=== PATIENT | female | born 1965 | race Caucasian/White ===

== ENCOUNTER 2021-12-28 15:25 | Inpatient (IN) | payer MEDICARE, MEDICAID, SELFPAY ==
[2021-12-28 15:38] VITALS: PULSE 98; RESP 16; TEMP 36.6; O2SAT 98; BMI 28.2
--- NOTE | 2021-12-28 15:49 | ED.C_ITS ---
HPI - Psych General: Chief Complaint: Psychiatric Symptoms Stated Complaint: V/N Time Seen by Provider: 12/28/21 15:48 History of Present Illness: Ms. Kohli is a 56-year-old lady with history of hypertension, hyperlipidemia, psychiatric disorder who presents to the emergency department due to various concerns. 3 to 4 days ago she had gradual onset of unsteady feeling as well as abdominal discomfort. She has nausea and wants to vomit however has not had significant vomiting. She does endorse normal bowel movements. Abdominal discomfort is cramping in character and mild to moderate intensity. She has had decreased p.o. intake. Additionally at times she has chest discomfort. She has significant life stressors and is tearful. She endorses suicidal thoughts and feeling overwhelmed. There is a correlation of symptoms with feeling anxious however she is unsure if this is purely the cause. She reports compliance with her medication regimen. No other specific changes in health, exacerbating, or alleviating factors identified. Onset (ago): day(s) Duration: getting worse Relieving factors: none Associated psychiatric symptoms: depression and suicidal ideation Associated symptoms: Reports depression, racing thoughts and other Review of Systems General: Reports: 10 or more systems reviewed and unremarkable except in HPI and below Psych: Reports: depression PFSH ED PFSH: Medical History (Updated 12/28/21 @ 18:38 by Benja Roach MD) HLD (hyperlipidemia) HTN (hypertension) Psychiatric care Social History (Updated 12/28/21 @ 16:22 by Benja Roach MD) Smoking and tobacco status: current every day smoker Physical Exam Const: COMMON NORMALS: alert GENERAL APPEARANCE: cooperative and well developed HENMT: COMMON NORMALS: normocephalic and atraumatic HEAD & SCALP: normocephalic and atraumatic Eye: COMMON NORMALS: conjunctivae normal CONJUNCTIVA: Yes conjunctivae normal SCLERA: sclerae normal Neck/C-Spine: COMMON NORMALS: supple GENERAL: Yes trachea midline Resp: COMMON NORMALS: normal respiratory effort EFFORT & INSPECTION: Yes able to speak in complete sentences Cardio: COMMON NORMALS: regular rate and regular rhythm RATE: regular rate RHYTHM: regular rhythm GI: COMMON NORMALS: Soft to palpation PALPATION: Yes Soft to palpation and No Tenderness to palpation present (GI) PERCUSSION: normal to percussion Extremity: GENERAL: Yes normal exam except as noted and No edema Neuro: COMMON NORMALS: moves all extremities SENSORIUM/ORIENTATION: Yes alert and No Orientation impaired Psych: COMMON NORMALS: mental status grossly normal and Normal thought process present MOOD & AFFECT: Yes anxious and Yes tearful THOUGHT PROCESS: Normal thought process present Course ED course: - Patient was seen and evaluated by me at bedside - Patient placed on cardiac monitors, IV access obtained - Initial evaluation notable for exam as above, anxious, tearful - Labs personally interpreted by me. EKG interpreted by me from 1632 and 1813. Sinus rhythm. No STEMI. - Labs notable for mild leukocytosis, normal hemoglobin. Unremarkable hematologic panel. Delta troponin negative. Urinalysis not concerning for u rinary tract infection. Toxic ingestions and drug screen negative. - Imaging notable for negative head CT and CT abdomen pelvis for obvious constipation symptoms - Upon serial reexamination after treatment the patient was mildly improved - Based on patient history, evaluation, and testing as interpreted the most likely cause of the patient's condition is multifactorial. Patient does express worsening psychiatric symptoms including suicidal ideation and hallucinations and therefore does require admission for psychiatric care. - The results of ED evaluation were discussed with the patient including plan for admission due to requirement for level of care not available if discharged to prevent significant worsening/deterioration. - Admitting service was contacted and Dr Walters with the psychiatry service agreed to admit the patient - Patient was admitted without further deterioration or significant events. Note: Click bubbles or prepopulated garsia in note writing are used for assistance with data collection and billing and are inherently more limited than narrative and other text portions of this note. Please use narrative for additional clinical history and defer to narrative/free test for any case of contradictory information. If information appears in only free text or click bubble it should be considered present or absent as reported. Please contact note real estate underwriter for clarifications of clinical information or contradictory information. MDM is a brief summary, contradictory or erroneous seeming information should be clarified and full note should be reviewed. Vital Signs: Vital signs: Vital Signs Temperature 97.8 F 12/28/21 15:38 Pulse Rate 108 H 12/28/21 19:54 Respiratory Rate 17 12/28/21 19:54 Blood Pressure 108/78 12/28/21 19:54 Pulse Oximetry 97 12/28/21 19:54 MDM - Psych Medical Decision Making 56-year-old lady with history of either schizoaffective disorder or bipolar, hypertension, hyperlipidemia presenting with generalized symptoms including abdominal pain and unsteady feeling as well as worsening psychiatric symptoms. Negative ED evaluation for medical concerns. Admitted to neuropsych for definitive management of psychiatric concerns. Medical Records I reviewed the patient's medical records. Lab Data I reviewed the patient's lab results. : 12/28/21 16:07 12/28/21 16:07 Radiology Impressions Abdomen/Pelvis CT 12/28/21 16:06 IMPRESSION: 1. No acute abnormality identified in the abdomen or pelvis. 2. Fluid distention of the stomach may relate to recent ingestion of water. Gastroparesis is not excluded. Head CT 12/28/21 16:06 IMPRESSION: No acute intracranial abnormality. Laboratory Results WBC 12.6 10^3/uL (4.0-10.0) H 12/28/21 16:07 RBC 4.78 10^6/uL (4.1-5.3) 12/28/21 16:07 Hgb 15.0 g/dL (11.5-15.3) 12/28/21 16:07 Hct 44.9 % (37.0-47.0) 12/28/21 16:07 MCV 93.9 fl (81-99) 12/28/21 16:07 MCH 31.4 pg (28.0-34.0) 12/28/21 16:07 MCHC 33.4 g/dL (30.0-36.0) 12/28/21 16:07 RDW 12.4 % (12.1-15.1) 12/28/21 16:07 Plt Count 333 10^3/cmm (130-400) 12/28/21 16:07 MPV 10.3 fL (7.4-10.4) 12/28/21 16:07 Neut % (Auto) 76.6 % 12/28/21 16:07 Lymph % (Auto) 16.3 % 12/28/21 16:07 [place] % (Auto) 5.3 % 12/28/21 16:07 Eos % (Auto) 1.1 % 12/28/21 16:07 Baso % (Auto) 0.4 % 12/28/21 16:07 Neut # (Auto) 9.61 10^3/uL (1.8-7.7) H 12/28/21 16:07 Lymph # (Auto) 2.1 10^3/uL (0.8-4.8) 12/28/21 16:07 [place] # (Auto) 0.7 10^3/uL (0.2-0.9) 12/28/21 16:07 Eos # (Auto) 0.1 10^3/uL (0.0-0.8) 12/28/21 16:07 Baso # (Auto) 0.1 10^3/uL (0.0-0.1) 12/28/21 16:07 Nucleated RBC % (auto) 0 % 12/28/21 16:07 Nucleated RBCs # 0.0 /100WBC 12/28/21 16:07 Sodium 139 mmol/L (136-145) 12/28/21 16:07 Potassium 4.1 mmol/L (3.5-5.1) 12/28/21 16:07 Chloride 101 mmol/L (98-107) 12/28/21 16:07 Carbon Dioxide 26 mmol/L (22-29) 12/28/21 16:07 Anion Gap 16.1 (5-19) 12/28/21 16:07 BUN 10 mg/dL (6-20) 12/28/21 16:07 Creatinine 0.6 mg/dL (0.5-0.9) 12/28/21 16:07 GFR Calculation 104.2 mL/min (90-130) 12/28/21 16:07 Glucose 96 mg/dL (65-115) 12/28/21 16:07 Calculated Osmolality 287 mOsm/kg (285-295) 12/28/21 16:07 Calcium 8.9 mg/dL (8.5-10.5) 12/28/21 16:07 Total Bilirubin 0.3 mg/dL (0.15-1.2) 12/28/21 16:07 AST 24 U/L (0-32) 12/28/21 16:07 ALT 26 U/L (0-33) 12/28/21 16:07 Alkaline Phosphatase 101 IU/L (35-105) 12/28/21 16:07 Troponin T Baseline 7 ng/L (0-10) 12/28/21 16:07 Troponin T 120 Minute 6.82 ng/L (0-10) 12/28/21 17:52 Delta Troponin T -0.18 ABS# (0-10) L 12/28/21 17:52 NT-Pro-B Natriuret Pep 17 pg/mL (0-125) 12/28/21 16:07 Total Protein 7.6 g/dL (6.6-8.7) 12/28/21 16:07 Albumin 4.8 g/dL (3.5-5.2) 12/28/21 16:07 Globulin 2.8 g/dL (1.3-4.6) 12/28/21 16:07 Lipase 16 U/L (13-60) 12/28/21 16:07 TSH 1.43 uIU/mL (0.27-4.20) 12/28/21 16:07 Urine Color Yellow (Yellow) 12/28/21 16:07 Urine Appearance Clear (CLEAR) 12/28/21 16:07 Urine pH 8 (5-7) H 12/28/21 16:07 Ur Specific [place] 1.020 (1.005-1.030) 12/28/21 16:07 Urine Protein Neg (Negative) 12/28/21 16:07 Urine Glucose (UA) Norm (Normal) 12/28/21 16:07 Urine Ketones Negative (Negative) 12/28/21 16:07 Urine Blood 2+ (Negative) H 12/28/21 16:07 Urine Nitrate Negative (Negative) 12/28/21 16:07 Urine Bilirubin Neg (Negative) 12/28/21 16:07 Prot Sulfosalicylic Acd Negative (Negative) 12/28/21 16:07 Urine Urobilinogen Norm mg/dL (Negative) 12/28/21 16:07 Ur Leukocyte Esterase Negative (Negative) 12/28/21 16:07 Urine RBC None /hpf (0-2) 12/28/21 16:07 Urine WBC 0-4 /hpf (0-5) H 12/28/21 16:07 Ur Squamous Epith Cells 5-10 /hpf (0-5) H 12/28/21 16:07 Amorphous Sediment Not Reportable 12/28/21 16:07 Urine Bacteria None /hpf (NONE) 12/28/21 16:07 Salicylates < 0.3 mg/dL (3-10) L 12/28/21 16:07 Urine Opiates Screen Negative ng/mL (Negative) 12/28/21 16:07 Acetaminophen < 5.0 ug/mL (10-30) L 12/28/21 16:07 Ur Barbiturates Screen Negative ng/mL (Negative) 12/28/21 16:07 Ur Phencyclidine Scrn Negative ng/mL (Negative) 12/28/21 16:07 Ur Amphetamines Screen Negative ng/mL (Negative) 12/28/21 16:07 U Benzodiazepines Scrn Negative ng/mL (Negative) 12/28/21 16:07 Urine Cocaine Screen Negative ng/mL (Negative) 12/28/21 16:07 U Marijuana (THC) Screen Negative ng/mL (Negative) 12/28/21 16:07 Ethyl Alcohol < 10 mg/dL (0-10) 12/28/21 16:07 Discharge Plan Discharge Patient Disposition: Admitted As Inpatient Admit Provider: Yobany Walters Clinical Impression: Suicidal ideation, Depression, Abdominal pain Condition: Stable Coding Level of Care Code ED Export Freight Specialist for Anatolyg Fwd Exam Comprehensive
--- NOTE | 2021-12-28 16:06 | CTR_ITS ---
PROCEDURE INFORMATION: Exam: CT Abdomen And Pelvis With Contrast Exam date and time: 12/28/2021 5:13 PM Age: 56 years old Clinical indication: Abdominal pain; Generalized; Patient HX: C/O abd pain w nausea and dry heaves; Additional info: N/v abdominal pain x 3 days TECHNIQUE: Imaging protocol: Computed tomography of the abdomen and pelvis with contrast. Radiation optimization: All CT scans at this facility use at least one of these dose optimization techniques: automated exposure control; mA and/or kV adjustment per patient size (includes targeted exams where dose is matched to clinical indication); or iterative reconstruction. Contrast material: OMNI 300; Contrast volume: 95 ml; Contrast route: INTRAVENOUS (IV); COMPARISON: No relevant prior studies available. RADIATION DOSE METRICS: Total DLP (mGy-cm): 1830.76 FINDINGS: Liver: Normal. No mass. Gallbladder and bile ducts: Normal. No calcified stones. No ductal dilation. Pancreas: Normal. No ductal dilation. Spleen: Normal. No splenomegaly. Adrenal glands: Normal. No mass. Kidneys and ureters: Normal. No hydronephrosis. Stomach and bowel: Duodenal diverticulum. Fluid distended stomach. No wall thickening. The small bowel is unremarkable. No wall thickening or obstruction. Scattered gas and stool in the colon and rectum. Appendix: Click appendix Intraperitoneal space: Unremarkable. No free air. No significant fluid collection. Arteries: Unremarkable. No abdominal aortic aneurysm. Lymph nodes: Unremarkable. No enlarged lymph nodes. Urinary bladder: Unremarkable as visualized. Reproductive: Unremarkable as visualized. Bones/joints: Degenerative changes at L4-L5. No fracture. Soft tissues: Small fat containing umbilical hernia. CT/CT abdomen pelvis w con* [id number] IMPRESSION: 1. No acute abnormality identified in the abdomen or pelvis. 2. Fluid distention of the stomach may relate to recent ingestion of water. Gastroparesis is not excluded.
--- NOTE | 2021-12-28 16:06 | CTR_ITS ---
PROCEDURE INFORMATION: Exam: CT Head Without Contrast Exam date and time: 12/28/2021 5:09 PM Age: 56 years old Clinical indication: Walking, difficulty; Patient HX: Unsteady gait and BANUELOS; Additional info: Unsteady gait, headache x 3 days TECHNIQUE: Imaging protocol: Computed tomography of the head without contrast. Radiation optimization: All CT scans at this facility use at least one of these dose optimization techniques: automated exposure control; mA and/or kV adjustment per patient size (includes targeted exams where dose is matched to clinical indication); or iterative reconstruction. COMPARISON: No relevant prior studies available. RADIATION DOSE METRICS: Total DLP (mGy-cm): 855.43 FINDINGS: Brain: Normal. No hemorrhage. Unremarkable white matter. No mass effect. Cerebral ventricles: No ventriculomegaly. Paranasal sinuses: Visualized sinuses are unremarkable. No fluid levels. Mastoid air cells: Visualized mastoid air cells are well aerated. Bones/joints: Unremarkable. No acute fracture. Soft tissues: Unremarkable. CT/CT head wo con* [id number] IMPRESSION: No acute intracranial abnormality.
--- NOTE | 2021-12-28 16:07 | ECG_ITS ---
[facility] Test Date: 2021-12-28 Pat Name: Alisa Kohli Department: Room: Gender: Female Senior Finance Manager: : 1965 Requested By: Benja Roach Order Number: [id number] Rajendra MD: Hafsa Pradhan M.D. Measurements Intervals [place] Rate: 100 P: 46 [place]: 147 QRS: 20 QRSD: 94 T: 48 QT: 346 QTc: 447 Interpretive Statements SINUS TACHYCARDIA POSSIBLE LEFT ATRIAL ENLARGEMENT [-0.1mV P-WAVE IN V1/V2] POSSIBLE ANTERIOR MYOCARDIAL INFARCTION , PROBABLY OLD [30 ms Q WAVE IN V3/V4, OR R < 0.2 mV IN V4] ABNORMAL RHYTHM ECG No previous ECG available for comparison Electronically Signed On 12-30-2021 7:30:28 CDT by Hafsa Pradhan M.D. [id number]
[2021-12-28 16:35] VITALS: BP 176/70; PULSE 100; RESP 18; O2SAT 96
[2021-12-28 16:35] LABS: Basophils # 0.1 10^3/uL (0.0-0.1); Basophils % 0.4 %; Eosinophils # 0.1 10^3/uL (0.0-0.8); Eosinophils % 1.1 %; Hematocrit 44.9 % (37.0-47.0); Lymphocytes # 2.1 10^3/uL (0.8-4.8); Lymphocytes % 16.3 %; Mean Corpuscular HGB Conc 33.4 g/dL (30.0-36.0); Mean Corpuscular Hemoglobin 31.4 pg (28.0-34.0); Mean Corpuscular Volume 93.9 fl (81-99); Mean Platelet Volume 10.3 fL (7.4-10.4); Monocytes # 0.7 10^3/uL (0.2-0.9); Monocytes % 5.3 %; Neutrophils # 9.61 10^3/uL (1.8-7.7); Neutrophils % 76.6 %; Nucleated Red Blood Cells % 0 %; Platelet Count 333 10^3/cmm (130-400); Red Blood Count 4.78 10^6/uL (4.1-5.3); Red Cell Distribution Width 12.4 % (12.1-15.1); White Blood Count 12.6 10^3/uL (4.0-10.0)
[2021-12-28 17:05] LABS: Troponin(5th) Baseline 7 ng/L (0-10)
[2021-12-28] MEDS: iohexol 300 mg/mL 100 mL Btl IV (17:14)
[2021-12-28 17:15] LABS: Alanine Aminotransferase 26 U/L (0-33); Albumin Level 4.8 g/dL (3.5-5.2); Alkaline Phosphatase 101 IU/L (35-105); Amphetamines Screen Urine Negative (Negative); Anion Gap 16.1 (5-19); Aspartate Amino Transferase 24 U/L (0-32); Barbiturates Screen Urine Negative (Negative); Benzodiazepines Screen Urine Negative (Negative); Blood Urea Nitrogen 10 mg/dL (6-20); Calcium 8.9 mg/dL (8.5-10.5); Carbon Dioxide 26 mmol/L (22-29); Chloride 101 mmol/L (98-107); Cocaine Screen Urine Negative (Negative); Globulin 2.8 g/dL (1.3-4.6); Glomerular Filtration Rate 104.2 mL/min (90-130); Glucose 96 mg/dL (65-115); Lipase 16 U/L (13-60); NT Pro B Type Natriuretic Pept 17 pg/mL (0-125); Opiate Screen Urine Negative (Negative); Osmolality Calculated 287 mOsm/kg (285-295); PCP Screen Urine Negative (Negative); Potassium 4.1 mmol/L (3.5-5.1); Sodium 139 mmol/L (136-145); THC Screen Urine Negative (Negative); Thyroid Stimulating Hormone 1.43 uIU/mL (0.27-4.20); Total Bilirubin 0.3 mg/dL (0.15-1.2); Total Protein 7.6 g/dL (6.6-8.7)
[2021-12-28 17:17] LABS: Add Urine Microscopic? YES; Bilirubin Urine Neg (Negative); Blood Urine 2+ (Negative); Glucose Urine UA Norm (Normal); Ketones Urine Negative (Negative); Leukocyte Esterase Urine Negative (Negative); Nitrate Urine Negative (Negative); Protein Urine Neg (Negative); Sulfosalicylic Acid Urine Negative (Negative); Urine Appearance Clear (CLEAR); Urine Color Yellow (Yellow); Urobilinogen Urine Norm (Negative); WBC Urine 0-4 /hpf (0-5); pH Urine 8 (5-7)
[2021-12-28 17:19] LABS: Acetaminophen < 5.0 ug/mL (10-30); Alcohol Level < 10 mg/dL (0-10); Salicylate < 0.3 mg/dL (3-10)
--- NOTE | 2021-12-28 18:07 | ECG_ITS ---
[facility] Test Date: 2021-12-28 Pat Name: Alisa Kolhi Department: Room: Gender: Female Underwriter Mortgage Loan: : 1965 Requested By: Benja Roach Order Number: [id number] Rajendra MD: Hafsa Pradhan M.D. Measurements Intervals [place] Rate: 98 P: 59 MT: 147 QRS: 42 QRSD: 86 T: 52 QT: 342 QTc: 438 Interpretive Statements SINUS RHYTHM LOW QRS VOLTAGE IN PRECORDIAL LEADS [QRS DEFLECTION < 1.0 mV IN CHEST LEADS] Compared to ECG 12/28/2021 16:32:26 Low QRS voltage now present Sinus tachycardia no longer present Myocardial infarct finding no longer present Electronically Signed On 12-30-2021 7:49:41 CDT by Hafsa Pradhan M.D. [id number]
[2021-12-28 18:35] VITALS: BP 118/87; PULSE 97; RESP 18; O2SAT 99
[2021-12-28 18:39] LABS: Troponin 5 2HR 6.82 ng/L (0-10)
[2021-12-28 18:44] LABS: Troponin 5 2HR Delta -0.18 ABS# (0-10)
[2021-12-28] MEDS: lidocaine 2% viscous 15 ML, aluminum-mag hydrox-simethicon 30 ML, sucralfate oral liq 1 GM PO (18:47)
[2021-12-28] MEDS: LORazepam 2 mg/mL INJ 1 mL 0.5 MG IVP (18:48)
[2021-12-28] MEDS: ondansetron 2 mg/ML SDV 2 mL 4 MG IVP (18:48)
[2021-12-28] MEDS: ketorolac 30 mg/mL INJ 15 MG IVP (19:50)
[2021-12-28 19:54] VITALS: BP 108/78; PULSE 108; RESP 17; O2SAT 97
[2021-12-28 20:04] VITALS: BP 107/66; PULSE 116; RESP 18; TEMP 36.5; O2SAT 99
[2021-12-28] MEDS: nicotine 2 mg Gum BUCCAL (20:46)
[2021-12-28] MEDS: quetiapine 100 mg Tablet 200 MG PO (20:52)
[2021-12-28] MEDS: zolpidem 5 mg Tablet PO (20:52)
[2021-12-28] MEDS: gabapentin 300 mg Capsule PO (20:52)
[2021-12-28] MEDS: efferdent effervescent 1 EACH DENTAL (21:34)
[2021-12-28] MEDS: ondansetron 4 MG Tablet PO (21:38)
[2021-12-28 22:00] VITALS: BP 107/66; PULSE 116; RESP 18; TEMP 36.5; O2SAT 99
--- NOTE | 2021-12-28 23:44 | PC.ADMIT ---
[facility] Admission Note:Ms. Kohli is a 56-year-old lady with history of hypertension, hyperlipidemia, psychiatric disorder who presents to the emergency department due to various concerns. 3 to 4 days ago she had gradual onset of unsteady feeling as well as abdominal discomfort. She has nausea and wants to vomit however has not had significant vomiting. She does endorse normal bowel movements. Abdominal discomfort is cramping in character and mild to moderate intensity. She has had decreased p.o. intake. Additionally at times she has chest discomfort. She has significant life stressors and is tearful. She endorses suicidal thoughts and feeling overwhelmed. There is a correlation of symptoms with feeling anxious however she is unsure if this is purely the cause. She reports compliance with her medication regimen. No other specific changes in health, exacerbating, or alleviating factors identified. Patient states that she lives at [facility]. Her goal is to get to an apartment at [facility] here in [place]. She states that she has had psychiatric issues since the age of 24 and has been disabled. She lived with her grandma most of her life until she passed and then lived with her mom until she passed 4 years ago. She states that she felt very sick today with n/v and had a friend bring her to the ED. She states she is overwhelmed and just couldn't cope anymore and was having suicidal thoughts with no plan. Patient denies SI on assessment. She states that sometimes she just needs a change in medication because she has been on it so long. The patient,Alisa Kohli,56 y/o, was given written information regarding hospital policies, unit procedures and contact persons. Patient's smoking status: current every day smoker. Vital Signs - 8 hr 12/28/21 16:35 12/28/21 18:35 12/28/21 19:54 Temperature Pulse Rate 100 97 108 H Respiratory Rate 18 18 17 Blood Pressure 176/70 118/87 108/78 Pulse Oximetry 96 99 97 12/28/21 20:04 12/28/21 22:00 Temperature 97.7 F 97.7 F Pulse Rate 116 H 116 H Respiratory Rate 18 18 Blood Pressure 107/66 107/66 Pulse Oximetry 99 99
--- NOTE | 2021-12-29 00:04 | PC.NURSE ---
Patient gave permission to speak to [facility] to let them know that she was here so that she doesn't lose her bed there. Confirmation was made with facility staff that the patient is here and is safe and okay.
[2021-12-29] MEDS: trazodone 50 mg Tablet PO (00:47)
[2021-12-29] MEDS: nicotine 2 mg Gum BUCCAL ×2 (00:55→04:58)
[2021-12-29 06:00] VITALS: BP 96/64; PULSE 106; RESP 18; TEMP 36.3; O2SAT 95
[2021-12-29] MEDS: nicotine 21 mg Patch 1 PATCH TRANSDERMA (07:55)
[2021-12-29] MEDS: ARIPiprazole 10 mg Tablet 5 MG PO (08:55)
[2021-12-29] MEDS: divalproex ER 500 mg Tablet (24H) PO ×2 (08:55→20:40)
[2021-12-29] MEDS: fixodent 39 gm Tube 1 APPLIC DENTAL ×2 (08:55→17:36)
--- NOTE | 2021-12-29 08:55 | P.NPUHP_ITS ---
Providers/Chief Complaint Admitting Physician: Yobany Walters MD Chief Complaint: V/N HPI NPU History of Present Illness Alisa Kohli is a 56 year old female admitted to our emergency department with the following report: Ms. Kohli is a 56-year-old lady with history of hypertension, hyperlipidemia, psychiatric disorder who presents to the emergency department due to various concerns.? 3 to 4 days ago she had gradual onset of unsteady feeling as well as abdominal discomfort.? She has nausea and wants to vomit however has not had significant vomiting.? She does endorse normal bowel movements.? Abdominal discomfort is cramping in character and mild to moderate intensity.? She has had decreased p.o. intake.? Additionally at times she has chest discomfort.? She has significant life stressors and is tearful.? She endorses suicidal thoughts and feeling overwhelmed.? There is a correlation of symptoms with feeling anxious however she is unsure if this is purely the cause.? She reports compliance with her medication regimen.? No other specific changes in health, exacerbating, or alleviating factors identified. Her primary complaint today was medication side effects. She does not like the Depakote or gabapentin. She has been on the Depakote since she is 24 years old and feels like she has a lot of side effects from it. She also is on gabapentin and does not feel that it helps her pain or mood stability. She feels like she has side effects from that. She said that a couple of times in the past they have taken her off of those medications and changed her to Haldol and Cogentin and she has liked that. She would like to do that again. She also said that maybe lithium might be good. She has not been on that for many years and really forgets what it did for her or what her dose was. She has been depressed and anxious lately. She has not been on antidepressant recently. She does not think she has ever tried Cymbalta. She says that she has pain from arthritis. It especially bothers the bottoms of her feet and she is afraid that she will get to the point where she cannot walk. She is currently staying at [facility]. She she was in a snf several years ago and really liked that. She said her mother took her out of it before she . Her mother 4 years ago. She thinks that is when they started her on the gabapentin. She has been on disability since her 20s. She says that it is primarily from the bipolar disorder and the side effects that she has from her medications. [facility] now and trying to save money so that she can get her own place. She would like to go back to a snf situation but she says her insurance will not pay for it now. She thinks that she is on some sort of supplement but is not sure if that is the problem. 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 The client has been having difficulty controlling worry, worrying about too many things at the same time, with symptoms of being restless or keyed up, difficulty concentrating, irritability, and significant sleep disturbances. These symptoms have caused significant distress and interfering with social, occupational, and other important areas of functioning. Alisa also meets some of the criteria for Agoraphobia (F40.0), with the symptoms of anxiety about social situations when meeting unfamiliar people, fear that she would be negatively evaluated, and anxiety is almost always provoked. She is able to manage these symptoms at this time. Alisa states she has had anxiety in general and in public spaces, but with her being new to the region. Alisa states the anxiety may be normal behavior. This diagnosis is based on information provided by patient during initial examination(s). Diagnosis may change as additional information becomes available through course of treatment. Above diagnosis Should Not be used for any purposes other than as a working diagnosis for medical care of the patient, including determination of whether the patient?s condition is sufficiently acute to impair the patient?s ability to work or perform other routine tasks. For the above identified treatment goal of: Assessing ways of dealing with distressing thoughts that trigger anxiety. Meds NPU Home Medications Medication Instructions Recorded Confirmed Last Taken Type aripiprazole 5 mg tablet (Abilify) 5 mg PO DAILY 12/01/21 12/28/2122 History gabapentin 300 mg capsule 300 mg PO TID 12/01/21 12/28/21 12/28/21 History atorvastatin 40 mg tablet 40 mg PO DAILY 12/28/21 12/28/21 12/27/21 History divalproex 500 mg tablet,extended 500 mg PO BID 12/28/21 12/28/21 12/28/21 History release 24 hr (Depakote ER) quetiapine 200 mg tablet (Seroquel) 200 mg PO BEDTIME 12/28/21 12/28/21 12/27/21 History zolpidem 5 mg tablet 5 mg PO BEDTIME 12/28/21 12/28/21 12/27/21 History Allergies Allergy/AdvReac Type Severity Reaction Status Date / Time Sulfa (Sulfonamide Allergy Unknown Unknown Verified 12/28/21 18:08 Antibiotics) PFSH NPU PFSH: Medical History (Updated 12/29/21 @ 10:07 by Yobany Walters MD) HLD (hyperlipidemia) HTN (hypertension) Psychiatric care Social History (Updated 12/28/21 @ 16:22 by Benja Roach MD) Smoking and tobacco status: current every day smoker Mental Status Exam MSE Comments: This is a 56-year-old overweight female who appears approximately her stated age and is in no acute distress. She was pleasant and cooperative with the evaluation. She is fairly well groomed and in hospital scrubs. psychomotor activity mildly decreased. Speech is at a regular rate and rhythm, normal volume, good articulation, not pressured. Alert, oriented X3 Attention and concentration appears to be good. Memory is intact Mood is depressed. Affect is moderately dysphoric. Thought process is logical and goal-directed. Thought content: Denies auditory and visual hallucinations. No delusions or paranoia are noted. She continues to have some suicidal ideation but no plan for her in the hospital and no homicidal ideation. Fund of knowledge is average. Insight and judgment appear to be fair. Impulse control is fairly good. Vitals/I&O/Wt Last Vital Signs Temp 97.4 F L 12/29/21 06:00 Pulse 106 H 12/29/21 06:00 Resp 18 12/29/21 06:00 BP 96/64 12/29/21 06:00 Pulse Ox 95 12/29/21 06:00 Weight last 48 hrs Weight 79.379 kg Data NPU : 12/28/21 16:07 12/28/21 16:07 A&P Assessment and plan (1) Bipolar 1 disorder, depressed: Status: Acute (2) Depression: Status: Acute (3) Suicidal ideation: Status: Acute Plan This is a 56-year-old female with a long history of disability from bipolar disorder. She is complaining of side effects from medication along with depression and suicidal ideation. Plan: 1. Gradually decrease gabapentin and Depakote and increase Abilify. We will add Cymbalta to help with anxiety depression and pain control. 2. Continue every 15 minute checks for safety. 3. Encourage individual, group and milieu therapies. 4. Encourage sober living treatment after discharge at the highest level of care to which she is willing to commit. 5. We will monitor for safety for herself in the community prior to discharge. Attestations NPU Medical Necessity Statement*: Inpatient hospitalization is medically necessary and the clinically appropriate intervention at this time. We will initiate medications and make changes as indicated. She will be in the hospital for over 2 midnights. 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
[2021-12-29] MEDS: gabapentin 300 mg Capsule PO ×2 (08:56→20:40)
[2021-12-29] MEDS: atorvastatin 40 mg Tablet PO (08:56)
[2021-12-29] MEDS: ibuprofen 600 mg Tablet PO (09:27)
[2021-12-29] MEDS: hyDROXYzine 25 mg Capsule 50 MG PO (09:28)
[2021-12-29] MEDS: cetylpyridinium Lozenge 1 EACH MUCOUS MEM ×3 (11:58→17:35)
--- NOTE | 2021-12-29 11:58 | PC.NURSE ---
Cepachol lozenge given for c/o sore throat.
[2021-12-29] MEDS: lithium carbonate 300 mg Capsule PO ×2 (12:28→17:35)
--- NOTE | 2021-12-29 13:11 | PC.NURSE ---
PT C/O PAIN IN HER FEET, BACK AND NECK THIS MORNING FROM ARTHRITIS. TOOK PRN MOTRIN AT 0927 ALONG WITH VISTARIL FOR ANXIETY. REPORTED THAT MOTRIN WAS SOMEWHAT HELPFUL BUT THAT HER FEELINGS OF FRUSTRATION REMAINED HIGH. DR STARTED LITHIUM BID. INITIAL DOSE GIVEN AND PT REPORTED FEELING BETTER TO BE STARTING TO TAKE MEDICATIONS TODAY.
[2021-12-29 14:00] VITALS: BP 118/81; PULSE 91; RESP 18; TEMP 36.3; O2SAT 96
[2021-12-29] MEDS: benztropine 1 mg Tablet PO (17:35)
[2021-12-29 20:09] VITALS: BP 95/60; PULSE 91; RESP 16; TEMP 36.9; O2SAT 99
[2021-12-29] MEDS: quetiapine 100 mg Tablet 200 MG PO (20:40)
[2021-12-29] MEDS: duloxetine 30 mg Capsule PO (20:40)
[2021-12-29] MEDS: zolpidem 5 mg Tablet PO (20:40)
[2021-12-30] MEDS: nicotine 2 mg Gum BUCCAL (04:13)
[2021-12-30 06:00] VITALS: BP 109/71; PULSE 95; RESP 16; TEMP 36.4; O2SAT 95
[2021-12-30] MEDS: atorvastatin 40 mg Tablet PO (08:04)
[2021-12-30] MEDS: benztropine 1 mg Tablet PO ×2 (08:04→17:00)
[2021-12-30] MEDS: nicotine 21 mg Patch 1 PATCH TRANSDERMA (08:04)
[2021-12-30] MEDS: gabapentin 300 mg Capsule PO ×2 (08:04→20:56)
[2021-12-30] MEDS: lithium carbonate 300 mg Capsule PO ×2 (08:04→20:57)
[2021-12-30] MEDS: ARIPiprazole 10 mg Tablet PO (08:05)
[2021-12-30] MEDS: hyDROXYzine 25 mg Capsule 50 MG PO (08:05)
[2021-12-30] MEDS: ibuprofen 600 mg Tablet PO (12:23)
[2021-12-30] MEDS: OLANZapine 5 mg ODT PO ×2 (12:23→16:16)
[2021-12-30 14:00] VITALS: BP 100/61; PULSE 71; RESP 16; TEMP 36.7; O2SAT 98
--- NOTE | 2021-12-30 15:13 | W.PM.NPUPNS ---
Subjective NPU Subjective: She says that she is doing much better. She took a nap after she took the lithium yesterday and felt much better when she woke up. She feels the Cogentin 1 mg twice a day really helps her as well. She feels like the Depakote and gabapentin were making her sick during the day. She agreed to change those to just at bedtime. She feels like her mind is much more clear and she has much less anxiety with these medication changes. Abilify has been increased to 10 mg every morning. She has not had side effects from that. Mental Status Exam MSE Comments: This is a 56-year-old overweight female who appears approximately her stated age and is in no acute distress. She was pleasant and cooperative with the evaluation. She is fairly well groomed and in hospital scrubs. psychomotor activity mildly decreased. Speech is at a regular rate and rhythm, normal volume, good articulation, not pressured. Alert, oriented X3 Attention and concentration appears to be good. Memory is intact Mood is mildly depressed, much better Affect is mildly dysphoric. Thought process is logical and goal-directed. Thought content: Denies auditory and visual hallucinations. No delusions or paranoia are noted. She denies suicidal or homicidal ideation Fund of knowledge is average. Insight and judgment appear to be fair. Impulse control is fairly good. Cognition: Patient Appearance: Appears Older than Age Level of Consciousness: Awake and Alert Patient Cognition Impaired: No Ability to Follow Directions: Good Patient Orientation (long list): Person, Place, Time, Name, Birthday, Day of Week and Month Comprehension Ability: No Impairment Hallucination Type: None Delusion Description: Not Present Thought Process: Confused Affect: Affect Description: Anxious Depressive Symptoms: Back Pain, Changes in Appetite, Crying Spells, Difficulty Concentrating, Difficulty Making Decisions, Feelings of Worthlessness, Hopelessness, Increased Anxiety, Increased Fatigue, Increased Irritability, Isolating Oneself From Friends and Family, Loss of Energy, Loss of Interest in Activities, Low Self Esteem, Recurrent Thoughts of or Suicide, Unexplained Headaches and Unhappiness Behavior: Patient Behavior: Appropriate and Somatic Speech Pattern: Mumbled Vitals/I&O/Wt Last Vital Signs Temp 98.0 F 12/30/21 14:00 Pulse 71 12/30/21 14:00 Resp 16 12/30/21 14:00 BP 100/61 12/30/21 14:00 Pulse Ox 98 12/30/21 14:00 Weight last 48 hrs Weight 79.379 kg Data NPU : 12/28/21 16:07 12/28/21 16:07 A&P Assessment and plan (1) Bipolar 1 disorder, depressed: Status: Acute (2) Depression: Status: Acute (3) Suicidal ideation: Status: Acute Plan This is a 56-year-old female with a long history of disability from bipolar disorder. She is complaining of side effects from medication along with depression and suicidal ideation. Plan: 1. Gradually decrease gabapentin and Depakote and increase Abilify. We will add Cymbalta to help with anxiety depression and pain control. Add lithium and gradually increase to 3 times a day 2. Continue every 15 minute checks for safety. 3. Encourage individual, group and milieu therapies. 4. Encourage sober living treatment after discharge at the highest level of care to which she is willing to commit. 5. We will monitor for safety for herself in the community prior to discharge. Attestations NPU Medical Necessity Statement*: Inpatient hospitalization is medically necessary and the clinically appropriate intervention at this time. We will initiate medications and make changes as indicated. 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
[2021-12-30] MEDS: cetylpyridinium Lozenge 1 EACH MUCOUS MEM (16:16)
[2021-12-30] MEDS: acetaminophen 325 mg Tablet 650 MG PO (16:16)
[2021-12-30] MEDS: quetiapine 100 mg Tablet 200 MG PO (20:56)
[2021-12-30] MEDS: zolpidem 5 mg Tablet PO (20:56)
[2021-12-30] MEDS: divalproex ER 500 mg Tablet (24H) PO (20:57)
[2021-12-30] MEDS: duloxetine 30 mg Capsule PO (20:57)
[2021-12-30 22:00] VITALS: BP 116/67; PULSE 98; RESP 17; TEMP 36.5; O2SAT 96
[2021-12-31] MEDS: cetylpyridinium Lozenge 1 EACH MUCOUS MEM ×3 (01:44→21:12)
[2021-12-31] MEDS: nicotine 2 mg Gum BUCCAL (04:58)
[2021-12-31 05:33] VITALS: BP 114/79; PULSE 76; RESP 17; TEMP 36.9; O2SAT 94
--- NOTE | 2021-12-31 08:10 | P.NPUPN_ITS ---
Subjective NPU Subjective: She says that she is doing much better. She says that she is less anxious and her thinking is much more clear. She feels like she has had side effects from the gabapentin and the Depakote and is happy for them to be just at bedtime. She feels like the lithium, Cymbalta and Cogentin have been helpful. She feels much better. Mental Status Exam MSE Comments: This is a 56-year-old overweight female who appears approximately her stated age and is in no acute distress. She was pleasant and cooperative with the evaluation. She is fairly well groomed and in hospital scrubs. psychomotor activity mildly decreased. Speech is at a regular rate and rhythm, normal volume, good articulation, not pressured. Alert, oriented X3 Attention and concentration appears to be good. Memory is intact Mood is good affect is mildly dysphoric Thought process is logical and goal-directed. Thought content: Denies auditory and visual hallucinations. No delusions or paranoia are noted. She denies suicidal or homicidal ideation Fund of knowledge is average. Insight and judgment appear to be fair. Impulse control is fairly good. Cognition: Patient Appearance: Appears Older than Age Level of Consciousness: Awake and Alert Patient Cognition Impaired: No Ability to Follow Directions: Good Patient Orientation (long list): Person, Place, Time, Name, Birthday, Day of Week and Month Comprehension Ability: No Impairment Hallucination Type: None Delusion Description: Not Present Thought Process: Appropriate Affect: Affect Description: Appropriate and Calm Depressive Symptoms: Back Pain, Changes in Appetite, Crying Spells, Difficulty Concentrating, Difficulty Making Decisions, Feelings of Worthlessness, Hopelessness, Increased Anxiety, Increased Fatigue, Increased Irritability, Isolating Oneself From Friends and Family, Loss of Energy, Loss of Interest in Activities, Low Self Esteem, Recurrent Thoughts of or Suicide, Unexplained Headaches and Unhappiness Behavior: Patient Behavior: Appropriate and Cooperative Speech Pattern: Appropriate and Clear Vitals/I&O/Wt Last Vital Signs Temp 98.4 F 12/31/21 05:33 Pulse 76 12/31/21 05:33 Resp 17 12/31/21 05:33 BP 114/79 12/31/21 05:33 Pulse Ox 94 12/31/21 05:33 Data NPU : 12/28/21 16:07 12/28/21 16:07 A&P Assessment and plan (1) Bipolar 1 disorder, depressed: Status: Acute (2) Depression: Status: Acute (3) Suicidal ideation: Status: Acute Plan This is a 56-year-old female with a long history of disability from bipolar disorder. She is complaining of side effects from medication along with depression and suicidal ideation. Plan: 1. Gradually decrease gabapentin and Depakote and increase Abilify. We will add Cymbalta to help with anxiety depression and pain control. Add lithium and gradually increase to 3 times a day. Also added Cogentin 1 mg twice daily at her request. 2. Continue every 15 minute checks for safety. 3. Encourage individual, group and milieu therapies. 4. Encourage sober living treatment after discharge at the highest level of care to which she is willing to commit. 5. We will monitor for safety for herself in the community prior to discharge. Attestations NPU Medical Necessity Statement*: Inpatient hospitalization is medically necessary and the clinically appropriate intervention at this time. We will initiate medications and make changes as indicated. 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
--- NOTE | 2021-12-31 08:57 | PC.NURSE ---
PT UP THIS MORNING. DENIES ANY SI/HI OR AVH. STATES THAT SHE JUST HAS ANXIETY BUT HAS SPOKEN WITH DR REGARDING MEDICATIONS. PT IS INTERACTING WELL WITH OTHERS. A&OX4, COOPERATIVE WITH CARE.
[2021-12-31] MEDS: ARIPiprazole 10 mg Tablet PO (08:58)
[2021-12-31] MEDS: duloxetine 30 mg Capsule PO ×2 (08:58→21:09)
[2021-12-31] MEDS: benztropine 1 mg Tablet PO ×2 (08:58→21:09)
[2021-12-31] MEDS: atorvastatin 40 mg Tablet PO (08:58)
[2021-12-31] MEDS: lithium carbonate 300 mg Capsule PO ×3 (08:58→21:10)
[2021-12-31] MEDS: nicotine 21 mg Patch 1 PATCH TRANSDERMA (09:00)
[2021-12-31] MEDS: ibuprofen 600 mg Tablet PO ×2 (09:08→16:43)
[2021-12-31] MEDS: hyDROXYzine 25 mg Capsule 50 MG PO (09:59)
--- NOTE | 2021-12-31 10:00 | PC.NURSE ---
PRN VISTARIL 50 MG GIVEN PO PER PT C/O STATED ANXIETY AND PANIC ATTACK
[2021-12-31] MEDS: OLANZapine 5 mg ODT PO (11:40)
--- NOTE | 2021-12-31 11:41 | PC.NURSE ---
PRN ZYPREXA ZYDIS 5 MG GIVEN PO PER PT C/O FURTHER ANXIETY/AGITATION. PT APPEARS CALM AND COOPERATIVE
[2021-12-31 14:00] VITALS: BP 117/77; PULSE 86; RESP 18; TEMP 36.7; O2SAT 95
--- NOTE | 2021-12-31 14:50 | PC.SOCIAL ---
Patient attended and participated in group.
[2021-12-31] MEDS: fixodent 39 gm Tube 1 APPLIC DENTAL (15:28)
[2021-12-31] MEDS: acetaminophen 325 mg Tablet 650 MG PO (15:28)
[2021-12-31 21:07] VITALS: BP 124/57; PULSE 101; RESP 18; TEMP 36.8; O2SAT 95
[2021-12-31] MEDS: zolpidem 5 mg Tablet PO (21:09)
[2021-12-31] MEDS: divalproex ER 500 mg Tablet (24H) PO (21:09)
[2021-12-31] MEDS: gabapentin 300 mg Capsule PO (21:09)
[2021-12-31] MEDS: quetiapine 100 mg Tablet 200 MG PO (21:09)
[2022-01-01] MEDS: nicotine 2 mg Gum BUCCAL ×2 (00:50→04:01)
[2022-01-01] MEDS: cetylpyridinium Lozenge 1 EACH MUCOUS MEM (04:01)
[2022-01-01 06:00] VITALS: BP 119/51; PULSE 93; RESP 18; TEMP 36.6; O2SAT 95
[2022-01-01] MEDS: lithium carbonate 300 mg Capsule PO ×2 (08:47→14:01)
[2022-01-01] MEDS: duloxetine 30 mg Capsule PO (08:47)
[2022-01-01] MEDS: atorvastatin 40 mg Tablet PO (08:47)
[2022-01-01] MEDS: benztropine 1 mg Tablet PO (08:47)
[2022-01-01] MEDS: ARIPiprazole 10 mg Tablet PO (08:47)
[2022-01-01] MEDS: nicotine 21 mg Patch 1 PATCH TRANSDERMA (08:48)
[2022-01-01] MEDS: hyDROXYzine 25 mg Capsule 50 MG PO (11:27)
--- NOTE | 2022-01-01 11:28 | PC.NURSE ---
PRN VISTARIL 50 MG GIVEN PO PER PT C/O STATED ANXIETY. NO OUTWARD S/S OF ANXIETY NOTED, PT MOOD APPEARS CALM, VOICE IS LOW & STABLE. WILL CONT TO MONITOR.
--- NOTE | 2022-01-01 15:30 | P.NPUDS_ITS ---
Diagnoses at Discharge Discharge Diagnosis (1) Bipolar 1 disorder, depressed: Status: Chronic (2) Depression: (3) Suicidal ideation: Status: Resolved Reason for Visit Reason for Visit: V/N Brief History: History of Present Illness Alisa Kohli is a 56 year old female admitted to our emergency department with the following report: Ms. Kohli is a 56-year-old lady with history of hypertension, hyperlipidemia, psychiatric disorder who presents to the emergency department due to various concerns.? 3 to 4 days ago she had gradual onset of unsteady feeling as well as abdominal discomfort.? She has nausea and wants to vomit however has not had significant vomiting.? She does endorse normal bowel movements.? Abdominal discomfort is cramping in character and mild to moderate intensity.? She has had decreased p.o. intake.? Additionally at times she has chest discomfort.? She has significant life stressors and is tearful.? She endorses suicidal thoughts and feeling overwhelmed.? There is a correlation of symptoms with feeling anxious however she is unsure if this is purely the cause.? She reports compliance with her medication regimen.? No other specific changes in health, exacerbating, or alleviating factors identified. Her primary complaint today was medication side effects.? She does not like the Depakote or gabapentin.? She has been on the Depakote since she is 24 years old and feels like she has a lot of side effects from it.? She also is on gabapentin and does not feel that it helps her pain or mood stability.? She feels like she has side effects from that.? She said that a couple of times in the past they have taken her off of those medications and changed her to Haldol and Cogentin and she has liked that.? She would like to do that again.? She also said that maybe lithium might be good.? She has not been on that for many years and really forgets what it did for her or what her dose was.? She has been depressed and anxious lately.? She has not been on antidepressant recently.? She does not think she has ever tried Cymbalta.? She says that she has pain from arthritis.? It especially bothers the bottoms of her feet and she is afraid that she will get to the point where she cannot walk.? She is currently staying at [facility] [address] She she was in a assisted several years ago and really liked that.? She said her mother took her out of it before she .? Her mother 4 years ago.? She thinks that is when they started her on the gabapentin.? She has been on disability since her 20s.? She says that it is primarily from the bipolar disorder and the side effects that she has from her medications.? She is staying at the snf now and trying to save money so that she can get her own place.? She would like to go back to a assisted situation but she says her insurance will not pay for it now.? She thinks that she is on some sort of supplement but is not sure if that is the problem. She was seen for an intake at [facility] last month with the following summary: Summary of Assessment (1) Anxiety associated with depression: (2) Agoraphobia: Rationale for Diagnosis/Assessment Formulation Alisa meets the criteria for Anxiety mixed with Depression (F41.8), in that, she has been experiencing excessive anxiety and depression, with worry occurring more days than not, and about a number of events or activities related to daily tasks and performance. The client has been having difficulty controlling worry, worrying about too many things at the same time, with symptoms of being restless or keyed up, difficulty concentrating, irritability, and significant sleep disturbances. These symptoms have caused significant distress and interfering with social, occupational, and other important areas of functioning. Alisa also meets some of the criteria for Agoraphobia (F40.0), with the symptoms of anxiety about social situations when meeting unfamiliar people, fear that she would be negatively evaluated, and anxiety is almost always provoked. She is able to manage these symptoms at this time. Alisa states she has had anxiety in general and in public spaces, but with her being new to the region. Alisa states the anxiety may be normal behavior. This diagnosis is based on information provided by patient during initial examination(s). Diagnosis may change as additional information becomes available through course of treatment. Above diagnosis Should Not be used for any purposes other than as a working diagnosis for medical care of the patient, including determination of whether the patient?s condition is sufficiently acute to impair the patient?s ability to work or perform other routine tasks. For the above identified treatment goal of: Assessing ways of dealing with distressing thoughts that trigger anxiety. Hospital Course Hospital Course She slowly acclimated to the individual calculator. Her Neurontin was decreased with a plan to possibly discontinue, Abilify was increased to 10 mg p.o. daily, Cymbalta and lithium were added. She had significant improvement during the hospitalization. She was able to contract for safety outside of the hospital prior to discharge. During the hospitalization, patient had routine laboratory studies which were within normal limits except for few outliers. Additionally there was a general medical evaluation which was also within normal limits and revealed no new acute processes. Discharge Summary: At the time of discharge, she denied psychosis or lethality. Mood and anxiety were well managed. Patient endorsed a plan to avoid all drugs of abuse and follow-up with the aftercare recommendations of the treatment team. Patient was evaluated and deemed to be absent credible lethality, and had achieved the maximum benefit from an inpatient hospitalization, so was discharged. Mental Status Exam MSE Comments: This is a 56-year-old overweight female who appears approximately her stated age and is in no acute distress.? She was pleasant and cooperative with the evaluation.? She is fairly well groomed and in hospital scrubs. psychomotor activity mildly decreased. Speech is at a regular rate and rhythm, normal volume, good articulation, not pressured. Alert, oriented X3 Attention and concentration appears to be good. Memory is intact Mood is good affect is congruent Thought process is logical and goal-directed. Thought content:? Denies auditory and visual hallucinations.? No delusions or paranoia are noted.? She denies suicidal or homicidal ideation Fund of knowledge is average. Insight and judgment appear to be fair. Impulse control is fairly good. Cognition Patient Appearance:?Appears Older than Age Level of Consciousness:?Awake and Alert Patient Cognition Impaired:?No Ability to Follow Directions:?Good Patient Orientation (long list):?Person, Place, Time, Name, Birthday, Day of Week and Month Comprehension Ability:?No Impairment Hallucination Type:?None Delusion Description:?Not Present Thought Process:?Appropriate Affect Affect Description:?Appropriate and Calm Behavior Patient Behavior:?Appropriate and Cooperative Speech Pattern:?Appropriate and Clear Discharge Data Studies Completed and Pending: Completed Studies During Hospitalization Category Date Time Status CT abdomen pelvis w con* [id number] Urge nt Cat Scan 12/28/21 16:[address] head wo con* [id number] Urgent Cat Scan 12/28/21 16:06 Completed Radiology Impressions Abdomen/Pelvis CT 12/28/21 16:06 IMPRESSION: 1. No acute abnormality identified in the abdomen or pelvis. 2. Fluid distention of the stomach may relate to recent ingestion of water. Gastroparesis is not excluded. Head CT 12/28/21 16:06 IMPRESSION: No acute intracranial abnormality. Laboratory Results WBC 12.6 10^3/uL (4.0 -10.0) H 12/28/21 16:07 RBC 4.78 10^6/uL (4.1 -5.3) 12/28/21 16:07 Hgb 15.0 g/dL (11.5-1 5.3) 12/28/21 16:07 Hct 44.9 % (37.0-47.0 ) 12/28/21 16:07 MCV 93.9 fl (81-99) 12/28/21 16:07 MCH 31.4 pg (28.0-34. 0) 12/28/21 16:07 MCHC 33.4 g/dL (30.0-3 6.0) 12/28/21 16:07 RDW 12.4 % (12.1-15.1 ) 12/28/21 16:07 Plt Count 333 10^3/cmm (130 -400) 12/28/21 16:07 MPV 10.3 fL (7.4-10.4 ) 12/28/21 16:07 Neut % (Auto) 76.6 % 12/28/21 16:07 Lymph % (Auto) 16.3 % 12/28/21 16:07 Baker % (Auto) 5.3 % 12/28/21 16:07 Eos % (Auto) 1.1 % 12/28/21 16:07 Baso % (Auto) 0.4 % 12/28/21 16:07 Neut # (Auto) 9.61 10^3/uL (1.8 -7.7) H 12/28/21 16:07 Lymph # (Auto) 2.1 10^3/uL (0.8- 4.8) 12/28/21 16:07 Baker # (Auto) 0.7 10^3/uL (0.2- 0.9) 12/28/21 16:07 Eos # (Auto) 0.1 10^3/uL (0.0- 0.8) 12/28/21 16:07 Baso # (Auto) 0.1 10^3/uL (0.0- 0.1) 12/28/21 16:07 Nucleated RBC % (a uto) 0 % 12/28/21 16:07 Nucleated RBCs # 0.0 /100WBC 12/28/21 16:07 Sodium 139 mmol/L (136-1 45) 12/28/21 16:07 Potassium 4.1 mmol/L (3.5-5 .1) 12/28/21 16:07 Chloride 101 mmol/L (98-10 7) 12/28/21 16:07 Carbon Dioxide 26 mmol/L (22-29) 12/28/21 16:07 Anion Gap 16.1 (5-19) 12/28/21 16:07 BUN 10 mg/dL (6-20) 12/28/21 16:07 Creatinine 0.6 mg/dL (0.5-0. 9) 12/28/21 16:07 GFR Calculation 104.2 mL/min (90- 130) 12/28/21 16:07 Glucose 96 mg/dL (65-115) 12/28/21 16:07 Calculated Osmolal ity 287 mOsm/kg (285- 295) 12/28/21 16:07 Calcium 8.9 mg/dL (8.5-10 .5) 12/28/21 16:07 Total Bilirubin 0.3 mg/dL (0.15-1 .2) 12/28/21 16:07 AST 24 U/L (0-32) 12/28/21 16:07 ALT 26 U/L (0-33) 12/28/21 16:07 Alkaline Phosphata se 101 IU/L (35-105) 12/28/21 16:07 Troponin T Baselin e 7 ng/L (0-10) 12/28/21 16:07 Troponin T 120 Min billy 6.82 ng/L (0-10) 12/28/21 17:52 Delta Troponin T -0.18 ABS# (0-10) L 12/28/21 17: Troponin T Hi Sens 6Hr 6.00 ng/L (0-10) 12/28/21 22:23 Troponin T Hi Sens 6Hr Delta Not Reportable 12/28/21 22:23 NT-Pro-B Natriuret Pep 17 pg/mL (0-125) 12/28/21 16:07 Total Protein 7.6 g/dL (6.6-8.7 ) 12/28/21 16:07 Albumin 4.8 g/dL (3.5-5.2 ) 12/28/21 16:07 Globulin 2.8 g/dL (1.3-4.6 ) 12/28/21 16:07 Lipase 16 U/L (13-60) 12/28/21 16:07 TSH 1.43 uIU/mL (0.27 -4.20) 12/28/21 16:07 Urine Color Yellow (Yellow) 12/28/21 16:07 Urine Appearance Clear (CLEAR) 12/28/21 16:07 Urine pH 8 (5-7) H 12/28/21 16:07 Ur Specific Gravit y 1.020 (1.005-1.0 30) 12/28/21 16:07 Urine Protein Neg (Negative) 12/28/21 16:07 Urine Glucose (UA) Norm (Normal) 12/28/21 16:07 Urine Ketones Negative (Negati ve) 12/28/21 16:07 Urine Blood 2+ (Negative) H 12/28/21 16:07 Urine Nitrate Negative (Negati ve) 12/28/21 16:07 Urine Bilirubin Neg (Negative) 12/28/21 16:07 Prot Sulfosalicyli c Acd Negative (Negati ve) 12/28/21 16:07 Urine Urobilinogen Norm mg/dL (Negat valentin) 12/28/21 16:07 Ur Leukocyte Norma ase Negative (Negati ve) 12/28/21 16:07 Urine RBC None /hpf (0-2) 12/28/21 16:07 Urine WBC 0-4 /hpf (0-5) H 12/28/21 16:07 Ur Squamous Epith Cells 5-10 /hpf (0-5) H 12/28/21 16:07 Amorphous Sediment Not Reportable 12/28/21 16:07 Urine Bacteria None /hpf (NONE) 12/28/21 16:07 Salicylates < 0.3 mg/dL (3-10 ) L 12/28/21 16:07 Urine Opiates Scre en Negative ng/mL (N egative) 12/28/21 16:07 Acetaminophen < 5.0 ug/mL (10-3 0) L 12/28/21 16:07 Ur Barbiturates Sc reen Negative ng/mL (N egative) 12/28/21 16:07 Ur Phencyclidine S crn Negative ng/mL (N egative) 12/28/21 16:07 Ur Amphetamines Sc reen Negative ng/mL (N egative) 12/28/21 16:07 U Benzodiazepines Scrn Negative ng/mL (N egative) 12/28/21 16:07 Urine Cocaine Scre en Negative ng/mL (N egative) 12/28/21 16:07 U Marijuana (THC) Screen Negative ng/mL (N egative) 12/28/21 16:07 Ethyl Alcohol < 10 mg/dL (0-10) 12/28/21 16:07 Vitals: Last Vital Signs Temp 97.9 F 01/01/22 06:00 Pulse 93 01/01/22 06:00 Resp 18 01/01/22 06:00 BP 119/51 01/01/22 06:00 Pulse Ox 95 01/01/22 06:00 Discharge Plan Discharge Patient Disposition: Home Condition: Stable Prescriptions: New aripiprazole 10 mg Tablet 10 mg PO DAILY 30 Days Qty: 30 1RF lithium carbonate 300 mg Capsule 300 mg PO TID 30 Days Qty: 90 1RF gabapentin 300 mg Capsule 300 mg PO BEDTIME 30 Days Qty: 30 1RF duloxetine 30 mg Capsule,Delayed Release(Dr/Ec) 30 mg PO 0900,2100 30 Days Qty: 60 1RF Continued atorvastatin 40 mg tablet 40 mg PO DAILY 30 Days Qty: 30 1RF Seroquel 200 mg Tablet 200 mg PO BEDTIME 30 Days Qty: 30 1RF zolpidem 5 mg Tablet 5 mg PO BEDTIME 30 Days Qty: 30 1RF Discontinued aripiprazole [Abilify] 5 mg tablet 5 mg PO DAILY 0RF gabapentin 300 mg capsule 300 mg PO TID 0RF divalproex [Depakote ER] 500 mg Tablet Extended Release 24 Hr 500 mg PO BID 0RF No Action naproxen [Naprosyn] 500 mg tablet 500 mg PO BID Qty: 60 0RF Discharge Orders: Discharge Order (Routine); Ordered 01/01/22 Ordered By: Scout Interiano Referrals: [facility] [Other] [facility] [Outside] - 01/27/22 8:30 am (Initial assessment) Angelina Rebolledo DO [Physician] - 01/08/22 10:15 am Discharge Diet: Regular Discharge Activity: Resume usual activity Patient Instructions: [place] (By mouth), Gabapentin (By mouth), Aripiprazole (By mouth), Divalproex (By mouth), Duloxetine (By mouth), Opioid Safety Discharge Attestations NPU Time Spent in Discharge Care*: less than 30 min Specific Discharge Activities: Specific discharge activities: educating patient, discussing with director of casework department/social workers/dc planners, documenting/other paperwork and evaluating patient/reviewing data Coding Level of Care Code Acute Chg FW DC note Diagnoses Bipolar 1 disorder, depressed F31.9 Depression F32.A Suicidal ideation R45.852
[2022-01-01 15:42] VITALS: BP 119/51; PULSE 93; RESP 18; TEMP 36.6; O2SAT 95
--- NOTE | 2022-01-01 15:57 | DCPLANNER ---
Imm was completed with pt and medicare rights explained.
== END 2022-01-01 16:27 | disposition home or self-care (01) | DRG 885 ==
LOC: ER 18:38 → NP 20:04
PROVIDERS: Admitting Provider Psychiatry & Neurology Psychiatry; Emergency Provider Emergency Medicine; Visit Provider Psychiatry & Neurology Psychiatry
DX: F31.9 Bipolar disorder, unspecified (principal); R45.851 Suicidal ideations; F41.8 Other specified anxiety disorders; F40.00 Agoraphobia, unspecified; E78.5 Hyperlipidemia, unspecified; I10 Essential (primary) hypertension; F17.200 Nicotine dependence, unspecified, uncomplicated; R10.9 Unspecified abdominal pain; M19.90 Unspecified osteoarthritis, unspecified site
CPT/HCPCS: 36415; 70450; 74177; 80053; 80306; 80307; 81001; 83690; 83880; 84443; 84484; 85025; 93005; 96374; 96375; 97150; 97165; 99285; J1885; J2060; J2405; Q0162; Q9967

== ENCOUNTER → 2022-01-15 08:09 | Outpatient (BNVA) | payer MEDICARE, MEDICAID, SELFPAY | PROVIDERS: PCP Family Medicine; Visit Provider Psychiatry & Neurology Psychiatry | DX: F31.9 Bipolar disorder, unspecified (principal); F41.1 Generalized anxiety disorder | CPT/HCPCS: 80053; 80164; 80178; 84443; 99204 ==

== ENCOUNTER 2022-01-20 08:50 | Outpatient (CLI) | payer MEDICARE, MEDICAID, SELFPAY ==
[2022-01-20 09:36] LABS: Valproic Acid Level 48.6 ug/mL (50-100)
[2022-01-20 09:50] LABS: Lithium 0.8 mmol/L (0.6-1.2)
== END 2022-01-20 08:51 | disposition home or self-care (01) ==
LOC: LAB 08:55
PROVIDERS: PCP Family Medicine; Visit Provider Psychiatry & Neurology Psychiatry
DX: Z79.899 Other long term (current) drug therapy (principal)
CPT/HCPCS: 36415; 80164; 80178

== ENCOUNTER → 2022-02-05 13:45 | Outpatient (BNVA) | payer MEDICARE, MEDICAID, SELFPAY | PROVIDERS: PCP Family Medicine; Visit Provider Family Medicine | DX: E78.5 Hyperlipidemia, unspecified (principal) | CPT/HCPCS: 80053; 80061 ==

== ENCOUNTER 2022-02-17 08:05 | Emergency (ER) | payer MEDICARE, MEDICAID, SELFPAY ==
--- NOTE | 2022-02-17 08:41 | W.ED.GENADLT ---
HPI - General Adult General: Chief complaint: Wound/Laceration Stated complaint: left ear lac, post fall Time Seen by Provider: 02/17/22 08:12 Source: patient Mode of arrival: ambulatory Limitations: no limitations History of Present Illness: 56-year-old female presents emergency room with complaint of ear laceration after a fall. Patient she fell last night when she stumbled in her home and hit the edge of a piece of furniture. She has laceration to the outer helix of her left ear. She is unsure of her last tetanus shot she denies any other injury there was no loss of consciousness. Patient denies any other current injury or illness states she fell because she stumbled over duffel bag on the floor. Onset (ago): hour(s) Location: face (Left ear) Severity: mild Quality: sharp Pain Consistency: constant Relieving factors: none Exacerbating factors: none Associated symptoms: Deny chest pain, confusion, cough, diaphoresis, decreased appetite, dyspnea, fevers/chills, headache(s), malaise, nausea, palpitations, seizures, short of breath, syncope, vomiting or weakness Treatments prior to arrival: none Review of Systems Const: Denies: fever(s), chills, malaise or diaphoresis ENMT: Denies: throat pain, ear or mastoid pain, nasal discharge or nasal congestion Card: Denies: chest pain, palpitations or syncope Resp: Denies: dyspnea GI: Denies: abdominal pain, nausea or vomiting : Denies: flank pain, difficulty voiding, dysuria, urinary frequency or urinary urgency Neuro: Denies: headache(s) or confusion PFS ED PFSH: Medical History Depression Dyslipidemia History of breast cancer HTN (hypertension) Psychiatric care Surgical History History of lumpectomy of right breast Social History Smoking and tobacco status: former smoker Quit status (tobacco): has tried quititng Number of times tried to quit tobacco: 10 Second hand smoke exposure: No Physical Exam Const: GENERAL APPEARANCE: cooperative and comfortable ORIENTATION/CONSCIOUSNESS: Yes awake, Yes oriented to person, Yes oriented to place and Yes oriented to time HENMT: COMMON NORMALS: normocephalic HEAD & SCALP: normocephalic EAR IMAGES: 1. OTHER: Full-thickness laceration of the outer portion of the helix inferiorly as per drawing above. Eye: COMMON NORMALS: Equal, round and reactive pupils present, EOMs intact bilaterally, conjunctivae normal and no scleral icterus CONJUNCTIVA: Yes conjunctivae normal PUPIL: Yes Equal, round and reactive pupils present Neck/C-Spine: COMMON NORMALS: full ROM, no lymphadenopathy, supple and no JVD Resp: COMMON NORMALS: normal respiratory effort, No retractions, No use of accessory muscles and clear to auscultation bilaterally AUSCULTATION: clear to auscultation bilaterally Cardio: COMMON NORMALS: no JVD, regular rate, regular rhythm and No murmurs present (Cardio) RATE: regular rate RHYTHM: regular rhythm Extremity: COMMON NORMALS: normal to inspection, capillary refill normal, no clubbing, cyanosis or edema, no calf tenderness and no pedal edema Neuro: SENSORIUM/ORIENTATION: Yes oriented to person, Yes oriented to place and Yes oriented to time Skin: COMMON NORMALS: no rashes or lesions noted GENERAL SKIN EXAM: no rashes or lesions noted Course Vital Signs: Vital signs: Vital Signs Pulse Rate 92 02/17/22 08:42 Respiratory Rate 17 02/17/22 08:42 Blood Pressure 112/65 02/17/22 08:42 Pulse Oximetry 96 02/17/22 08:42 [facility] - General Adult Medical Decision Making Left ear laceration was anesthetized 1% lidocaine without epinephrine. We allowed some time for the local anesthetic to set up however patient became impatient and wished to leave. Offered to complete the repair but she insisted on leaving and would not allow us to sign have her sign and AGAINST MEDICAL ADVICE form. Nurses told her she could return to have it repaired if she wished. Patient also requires a Tdap. Discharge Plan Discharge Patient Disposition: Left Against Medical Advice Clinical Impression: Laceration of ear Condition: Stable Prescriptions: No Action aripiprazole 10 mg tablet 10 mg PO DAILY 30 Days Qty: 30 2RF divalproex 500 mg tablet extended release 24 hr 500 mg PO TID Qty: 90 2RF duloxetine 30 mg capsule,delayed release(DR/EC) 30 mg PO 0900,2100 30 Days Qty: 60 2RF lithium carbonate 300 mg capsule 300 mg PO TID 30 Days Qty: 90 2RF quetiapine [Seroquel] 200 mg tablet 200 mg PO BEDTIME 30 Days Qty: 30 2RF zolpidem 5 mg tablet 5 mg PO BEDTIME 30 Days Qty: 30 2RF naproxen [Naprosyn] 500 mg tablet 500 mg PO BID Qty: 60 0RF atorvastatin 40 mg tablet 40 mg PO DAILY 30 Days Qty: 30 1RF gabapentin 300 mg Capsule 300 mg PO BEDTIME 30 Days Qty: 30 1RF Referrals: Angelina Rebolledo DO [Primary Care Provider] - Coding Level of Care Code ED [employer] Licensed [employer]ker for Chg Fwd Exam Comprehensive
[2022-02-17 08:42] VITALS: BP 112/65; PULSE 92; RESP 17; O2SAT 96; BMI 29.0
[2022-02-17] MEDS: lidocaine 1% INJ 20 mL INJECTION (09:54)
[2022-02-17] MEDS: tetanus-dipt-pertussis 0.5 mL SDV IM (09:57)
--- NOTE | 2022-02-17 10:14 | PC.NURSE ---
Pt left prior to receiving sutures. She did not want to stay longer. Dr. Rubin aware.
== END 2022-02-17 10:16 | disposition left against medical advice (07) ==
PROVIDERS: Emergency Provider Family Medicine; PCP Family Medicine
DX: S01.312A Laceration without foreign body of left ear, initial encounter (principal); W01.190A Fall on same level from slipping, tripping and stumbling with subsequent striking against furniture, initial encounter; Z23 Encounter for immunization; Z53.29 Procedure and treatment not carried out because of patient's decision for other reasons
CPT/HCPCS: 90471; 90715; 99282

== ENCOUNTER → 2022-02-24 14:49 | Outpatient (BNVA) | payer MEDICARE, MEDICAID, SELFPAY | PROVIDERS: PCP Family Medicine; Visit Provider Psychiatry & Neurology Psychiatry | DX: F41.1 Generalized anxiety disorder (principal); F31.9 Bipolar disorder, unspecified | CPT/HCPCS: 99214 ==

== ENCOUNTER 2022-03-28 13:10 | Emergency (ER) | payer MEDICARE, MEDICAID, SELFPAY ==
[2022-03-28 13:26] VITALS: BP 117/71; PULSE 69; RESP 16; TEMP 36.7; O2SAT 96
--- NOTE | 2022-03-28 13:43 | W.ED.PSYCHS ---
HPI - Psych General: Chief Complaint: Psychiatric Symptoms Stated Complaint: anxious Time Seen by Provider: 03/28/22 13:41 Source: patient Mode of arrival: ambulatory Limitations: no limitations History of Present Illness: This patient presents by private vehicle to our emergency department today. She states that she has been feeling more anxious and culminated in her having some episode of dry heaves this morning and quite anxious which precipitated her to realize that she felt like she was no good anyone and did not want to be around anymore. She states she intermittently feels this way from time to time. She states she has no specific plan of harming herself. She feels she is at the point where she might be better served by being an inpatient for a few days to have medications adjusted. She denies any current alcohol use. She states she has been sleeping okay and been eating and drinking normally. MD complaint: suicidal ideation and feels depressed Duration: intermittent Associated psychiatric symptoms: suicidal ideation Associated symptoms: Reports depression and suicidal ideation Treatments prior to arrival: none If self harm: admits thoughts of self harm Review of Systems Const: Denies: fever(s) or chills Eyes: Denies: change in vision or blurry vision ENMT: Denies: odynophagia, change in hearing or disequilibrium Card: Denies: chest pain, palpitations, irregular heart rhythm or syncope Resp: Denies: dyspnea, productive cough or non-productive cough GI: Reports: nausea; Denies: abdominal pain, vomiting or diarrhea : Denies: flank pain, difficulty voiding, dysuria or urinary frequency Musc: Denies: neck pain, back pain, extremity pain or extremity swelling Skin/Breast: Denies: rash Neuro: Denies: headache(s), numbness in extremities or weakness in extremities Psych: Reports: anxiety, depression, mood swings and suicidal ideation Endo: Denies: polyuria or polydipsia PFSH ED PFSH: Medical History Depression Dyslipidemia History of breast cancer HTN (hypertension) Psychiatric care Surgical History History of lumpectomy of right breast Social History Smoking and tobacco status: current every day smoker cigarettes Packs smoked per day: 1 Years cigarettes smoked: 35 Quit status (tobacco): has tried quititng Number of times tried to quit tobacco: 10 Second hand smoke exposure: No Physical Exam Narrative: EXAM NARRATIVE: She makes good eye contact. Speech is generally fluent and goal-directed. She is cooperative. Const: COMMON NORMALS: no acute distress, average body habitus, patient oriented x3 and alert GENERAL APPEARANCE: cooperative and comfortable HENMT: COMMON NORMALS: normocephalic and moist oral mucous membranes HEAD & SCALP: normocephalic FACE & SINUS: normal facial exam and sinuses nontender Eye: COMMON NORMALS: Equal, round and reactive pupils present, EOMs intact bilaterally and conjunctivae normal CONJUNCTIVA: Yes conjunctivae normal PUPIL: Yes Equal, round and reactive pupils present Neck/C-Spine: COMMON NORMALS: full ROM and supple Chest: COMMONS NORMALS: normal inspection of the chest Resp: COMMON NORMALS: normal respiratory effort and No use of accessory muscles EFFORT & INSPECTION: Yes able to speak in complete sentences Cardio: COMMON NORMALS: regular rate and Peripheral pulses 2+ throughout RATE: regular rate PERIPHERAL PULSES: Peripheral pulses 2+ throughout GI: COMMON NORMALS: Normal to inspection, nondistended, normoactive bowel sounds present Back/Pelvis: COMMON NORMALS: thoracic and lumbar spine normal to inspection and thoraco-lumbar ROM normal Extremity: COMMON NORMALS: normal to inspection, full ROM, no calf tenderness and no pedal edema Neuro: COMMON NORMALS: patient oriented x3, moves all extremities and no focal motor deficits SENSORIUM/ORIENTATION: Yes alert CRANIAL NERVES: Yes CN normal except as noted GAIT: Yes Normal gait present Psych: COMMON NORMALS: cooperative and speech normal ATTITUDE: Yes calm ACTIVITY/MOTOR BEHAVIOR: Yes appropriate eye contact SPEECH: Yes normal speech MOOD & AFFECT: Yes depressed mood THOUGHT PROCESS: disorganized THOUGHT CONTENT: Yes Suicidality present and No Homicidality present INSIGHT: Fair insight present (Psych) Skin: COMMON NORMALS: no rashes or lesions noted and turgor normal GENERAL SKIN EXAM: no rashes or lesions noted and turgor normal Course Reevaluation(s): Reevaluation #1: Pending laboratories and discussion with psychiatrist patient decided that she wanted to go home. She declined that she had any active thoughts of harm and felt back to her normal state of health. At this point I think this is not a unsafe or unreasonable choice on her part. She had no active plan of self-harm and was predominantly here because she wanted to have her medications adjusted. She has an ongoing mental health prescriber and has appointment with that individual upcoming in the next weeks. She is welcome to return to the emergency department anytime. No evidence of ongoing impairment of her decision-making capacity at this time. She left the emergency department accompanied by her partner whom accompanied her at her arrival to the emergency department has been with her the entire time. Patient left the emergency department prior to receiving her discharge instructions. Time: 17:05 Vital Signs: Vital signs: Vital Signs Temperature 98.0 F 03/28/22 13:26 Pulse Rate 69 03/28/22 13:26 Respiratory Rate 16 03/28/22 13:26 Blood Pressure 117/71 03/28/22 13:26 Pulse Oximetry 96 03/28/22 13:26 MDM - Psych Medical Decision Making Patient who presented to the emergency department with anxiety episode and stated that she wanted to have her medications adjusted. She voiced that she had had occasional thoughts that she did not need to be here anymore but had no specific plan of self-harm. While awaiting medical screening laboratories and additional consultation with mental health she decided that she felt fine and decided to leave the emergency department. She was allowed to do so. She had no evidence that she was impaired in her decision-making and had no active plan of self-harm and had mental health follow-up which was an ongoing care relationship. Medical Records I reviewed the patient's medical records. Lab Data I reviewed the patient's lab results. : 03/28/22 15:50 03/28/22 15:50 Laboratory Results WBC 9.0 10^3/uL (4.0-10.0) 03/28/22 15:50 RBC 3.84 10^6/uL (4.1-5.3) L 03/28/22 15:50 Hgb 12.4 g/dL (11.5-15.3) 03/28/22 15:50 Hct 36.5 % (37.0-47.0) L 03/28/22 15:50 MCV 95.1 fl (81-99) 03/28/22 15:50 MCH 32.3 pg (28.0-34.0) 03/28/22 15:50 MCHC 34.0 g/dL (30.0-36.0) 03/28/22 15:50 RDW 12.0 % (12.1-15.1) L 03/28/22 15:50 Plt Count 112 10^3/cmm (130-400) L 03/28/22 15:50 MPV 11.7 fL (7.4-10.4) H 03/28/22 15:50 Neut % (Auto) 48.1 % 03/28/22 15:50 Lymph % (Auto) 42.3 % 03/28/22 15:50 [place] % (Auto) 5.7 % 03/28/22 15:50 Eos % (Auto) 2.7 % 03/28/22 15:50 Baso % (Auto) 0.6 % 03/28/22 15:50 Neut # (Auto) 4.34 10^3/uL (1.8-7.7) 03/28/22 15:50 Lymph # (Auto) 3.8 10^3/uL (0.8-4.8) 03/28/22 15:50 [place] # (Auto) 0.5 10^3/uL (0.2-0.9) 03/28/22 15:50 Eos # (Auto) 0.2 10^3/uL (0.0-0.8) 03/28/22 15:50 Baso # (Auto) 0.1 10^3/uL (0.0-0.1) 03/28/22 15:50 Nucleated RBC % (auto) 0 % 03/28/22 15:50 Nucleated RBCs # 0.0 /100WBC 03/28/22 15:50 Sodium 135 mmol/L (136-145) L 03/28/22 15:50 Potassium 4.2 mmol/L (3.5-5.1) 03/28/22 15:50 Chloride 102 mmol/L (98-107) 03/28/22 15:50 Carbon Dioxide 22 mmol/L (22-29) 03/28/22 15:50 Anion Gap 15.2 (5-19) 03/28/22 15:50 BUN 17 mg/dL (6-20) 03/28/22 15:50 Creatinine 0.7 mg/dL (0.5-0.9) 03/28/22 15:50 GFR Calculation 87.2 mL/min (90-130) L 03/28/22 15:50 Glucose 89 mg/dL (65-115) 03/28/22 15:50 Calculated Osmolality 281 mOsm/kg (285-295) L 03/28/22 15:50 Calcium 9.0 mg/dL (8.5-10.5) 03/28/22 15:50 Total Bilirubin 0.2 mg/dL (0.15-1.2) 03/28/22 15:50 AST 17 U/L (0-32) 03/28/22 15:50 ALT 21 U/L (0-33) 03/28/22 15:50 Alkaline Phosphatase 79 IU/L (35-105) 03/28/22 15:50 Total Protein 6.4 g/dL (6.6-8.7) L 03/28/22 15:50 Albumin 4.1 g/dL (3.5-5.2) 03/28/22 15:50 Globulin 2.3 g/dL (1.3-4.6) 03/28/22 15:50 Salicylates < 0.3 mg/dL (3-10) L 03/28/22 15:50 Acetaminophen < 5.0 ug/mL (10-30) L 03/28/22 15:50 [place] 0.7 mmol/L (0.6-1.2) 03/28/22 15:50 Discharge Plan Discharge Patient Disposition: Home Clinical Impression: Bipolar disorder, Acute anxiety Condition: Stable Prescriptions: No Action aripiprazole 10 mg tablet 10 mg PO DAILY 30 Days Qty: 30 2RF divalproex 500 mg tablet extended release 24 hr 500 mg PO TID Qty: 90 2RF duloxetine 30 mg capsule,delayed release(DR/EC) 30 mg PO 0900,2100 30 Days Qty: 60 2RF lithium carbonate 300 mg capsule 300 mg PO TID 30 Days Qty: 90 2RF quetiapine [Seroquel] 200 mg tablet 200 mg PO BEDTIME 30 Days Qty: 30 2RF bupropion HCl [Wellbutrin XL] 150 mg tablet extended release 24 hr 150 mg PO QAM Qty: 30 1RF atorvastatin 40 mg tablet 40 mg PO DAILY 30 Days Qty: 30 5RF gabapentin 300 mg capsule 300 mg PO BEDTIME 30 Days Qty: 30 1RF zolpidem 5 mg tablet 5 mg PO BEDTIME 30 Days Qty: 30 0RF Naprosyn 500 mg tablet 500 mg PO BID PRN (Reason: Pain) 0RF Discharge Orders: Discharge ED (Routine); Ordered 03/28/22 Ordered By: Alexis Schaeffer Referrals: Angelina Rebolledo DO [Primary Care Provider] - Discharge Diet: Usual diet Discharge Activity: Resume usual activity Patient Instructions: Opioid Safety Coding Level of Care Code ED Psychologist Clinical for Daily Fwd Exam Comprehensive
[2022-03-28 16:08] LABS: Basophils # 0.1 10^3/uL (0.0-0.1); Basophils % 0.6 %; Eosinophils # 0.2 10^3/uL (0.0-0.8); Eosinophils % 2.7 %; Hematocrit 36.5 % (37.0-47.0); Hemoglobin 12.4 g/dL (11.5-15.3); Lymphocytes # 3.8 10^3/uL (0.8-4.8); Lymphocytes % 42.3 %; Mean Corpuscular Hemoglobin 32.3 pg (28.0-34.0); Mean Corpuscular Volume 95.1 fl (81-99); Mean Platelet Volume 11.7 fL (7.4-10.4); Monocytes # 0.5 10^3/uL (0.2-0.9); Monocytes % 5.7 %; Neutrophils # 4.34 10^3/uL (1.8-7.7); Neutrophils % 48.1 %; Nucleated Red Blood Cells % 0 %; Platelet Count 112 10^3/cmm (130-400); Red Blood Count 3.84 10^6/uL (4.1-5.3)
[2022-03-28 16:29] LABS: Alanine Aminotransferase 21 U/L (0-33); Albumin Level 4.1 g/dL (3.5-5.2); Alkaline Phosphatase 79 IU/L (35-105); Anion Gap 15.2 (5-19); Aspartate Amino Transferase 17 U/L (0-32); Blood Urea Nitrogen 17 mg/dL (6-20); Carbon Dioxide 22 mmol/L (22-29); Chloride 102 mmol/L (98-107); Globulin 2.3 g/dL (1.3-4.6); Glomerular Filtration Rate 87.2 mL/min (90-130); Glucose 89 mg/dL (65-115); Osmolality Calculated 281 mOsm/kg (285-295); Potassium 4.2 mmol/L (3.5-5.1); Sodium 135 mmol/L (136-145); Total Bilirubin 0.2 mg/dL (0.15-1.2); Total Protein 6.4 g/dL (6.6-8.7)
[2022-03-28 16:33] LABS: Lithium 0.7 mmol/L (0.6-1.2)
[2022-03-28 16:41] LABS: Acetaminophen < 5.0 ug/mL (10-30); Salicylate < 0.3 mg/dL (3-10)
== END 2022-03-28 17:07 | disposition home or self-care (01) ==
PROVIDERS: Emergency Provider Emergency Medicine; PCP Family Medicine
DX: F41.9 Anxiety disorder, unspecified (principal); F31.9 Bipolar disorder, unspecified; E78.5 Hyperlipidemia, unspecified; I10 Essential (primary) hypertension; Z85.3 Personal history of malignant neoplasm of breast; F17.210 Nicotine dependence, cigarettes, uncomplicated
CPT/HCPCS: 36415; 80053; 80178; 80307; 85025; 99283

== ENCOUNTER 2022-04-18 14:32 | Inpatient (IN) | payer MEDICARE, MEDICAID, SELFPAY ==
[2022-04-18 14:47] VITALS: BP 113/75; PULSE 79; RESP 16; TEMP 36.7; O2SAT 96
--- NOTE | 2022-04-18 15:14 | ED.C_ITS ---
Documented by User: MOSES Russ 04/18/22 16:27 HPI - Psych General: Chief Complaint: Abdominal Pain Stated Complaint: ABD PAIN Time Seen by Provider: 04/18/22 15:00 Source: patient Mode of arrival: EMS Limitations: no limitations History of Present Illness: Patient is a 56-year-old female presents to ED today initially for complaint of abdominal pain. After speaking to patient further she states she has chronic abdominal pains and the abdominal pain she is experiencing currently is not anything new for her. She later then tells me during her exam she actually is not having any abdominal pain. She then tells me that she would like to be admitted to [facility] because she experienced a manic episode yesterday evening when she got agitated with some of her kittens. She then tells me that she feels suicidal. She has no specific plan. She states she does not feel safe going home. Patient sees Dr. Valenzuela at [facility]. She has been treated for Bipolar 1 disorder. She states her current psychiatric medications include Seroquel, [place], and one other I can't remember . She has an appointment with Dr. Valenzuela in about two weeks. MD complaint: suicidal ideation and feels depressed Duration: constant History of same: Yes Relieving factors: none Exacerbating factors: none Associated symptoms: Reports depression and suicidal ideation; Deny auditory hallucinations, visual hallucinations or homicidal ideation Treatments prior to arrival: none Review of Systems Const: Denies: fever(s) or chills Card: Denies: chest pain, palpitations, lightheadedness or syncope Resp: Denies: dyspnea GI: Reports: abdominal pain (chronic-later tells me she is not having any currently ); Denies: nausea, vomiting or diarrhea Musc: Denies: neck pain, back pain, extremity pain or joint pain Skin/Breast: Denies: rash Neuro: Denies: headache(s) Psych: Reports: anxiety, depression, hopelessness, loss of interest and suicidal ideation; Denies: visual hallucinations, auditory hallucinations or homicidal ideation PFS ED PFSH: Medical History Depression Dyslipidemia History of breast cancer HTN (hypertension) Psychiatric care Surgical History History of lumpectomy of right breast Social History Smoking and tobacco status: current every day smoker cigarettes Packs smoked per day: 1 Years cigarettes smoked: 35 Quit status (tobacco): has tried quititng Number of times tried to quit tobacco: 10 Second hand smoke exposure: No Physical Exam Const: COMMON NORMALS: no acute distress, patient oriented x3, alert and well nourished GENERAL APPEARANCE: cooperative NUTRITIONAL APPEARANCE: overweight ORIENTATION/CONSCIOUSNESS: Yes awake, Yes oriented to person, Yes oriented to place and Yes oriented to time HENMT: COMMON NORMALS: normocephalic and atraumatic HEAD & SCALP: normal to inspection, normocephalic and atraumatic Resp: COMMON NORMALS: normal respiratory effort and clear to auscultation bilaterally AUSCULTATION: clear to auscultation bilaterally Cardio: COMMON NORMALS: regular rate and regular rhythm RATE: regular rate RHYTHM: regular rhythm GI: COMMON NORMALS: Normal to inspection, nondistended, normoactive bowel sounds present, Soft to palpation, non-tender and no masses PALPATION: Yes Soft to palpation Neuro: RADHA COMA SCALE: document GCS findings Radha coma scale eye opening: Spontaneous Radha coma scale verbal response: Orientated [place] coma scale motor response: [place] commands Radha coma scale total score: 15 COMMON NORMALS: patient oriented x3, moves all extremities, no focal motor deficits, no sensory deficits noted and gait normal SENSORIUM/ORIENTATION: Yes alert, Yes oriented to person, Yes oriented to place and Yes oriented to time Psych: COMMON NORMALS: mental status grossly normal, Normal thought process present, cooperative, activity/motor behavior normal, denies hallucinations and denies homicidal ideation APPEARANCE: Yes grossly normal ATTITUDE: Yes calm ACTIVITY/MOTOR BEHAVIOR: Yes appropriate eye contact and No psychomotor agitation SPEECH: Yes slow MOOD & AFFECT: Yes Flat affect present THOUGHT PROCESS: Normal thought process present THOUGHT CONTENT: Yes Normal thought content present ATTENTION/CONCENTRATION: Yes attention grossly intact and Yes concentration grossly intact MEMORY/COGNITION: Yes memory grossly intact and Yes cognition grossly intact INSIGHT: Fair insight present (Psych) JUDGEMENT: Fair judgement present (Psych) Course Consultations: Consultation #1: Dr. Alexis-accepts to [facility] Vital Signs: Vital signs: Vital Signs Temperature 97.9 F 04/22/22 11:27 Pulse Rate 73 04/22/22 11:27 Respiratory Rate 18 04/22/22 11:27 Blood Pressure 100/64 04/22/22 11:27 Pulse Oximetry 100 04/22/22 11:27 Oxygen Delivery Me thod 04/22/22 06:00 MDM - Psych Medical Decision Making Patient has no abdominal pain complaints upon my assessment. Abdomen is soft/non-tender/non-surigical. Patient will be admit to NPU to Dr. Alexis for complaints of depression/SI. Affidavit placed on chart. Lab Data : 04/18/22 16:15 04/18/22 14:45 Laboratory Results WBC 8.5 10^3/uL (4.0-10.0) 04/18/22 16:15 Corrected WBC Cancelled 04/18/22 14:45 RBC 3.35 10^6/uL (4.1-5.3) L 04/18/22 16:15 Hgb 11.1 g/dL (11.5-15.3) L 04/18/22 16:15 Hct 34.1 % (37.0-47.0) L 04/18/22 16:15 MCV 101.8 fl (81-99) H 04/18/22 16:15 MCH 33.1 pg (28.0-34.0) 04/18/22 16:15 MCHC 32.6 g/dL (30.0-36.0) 04/18/22 16:15 RDW 11.9 % (12.1-15.1) L 04/18/22 16:15 Plt Count 246 10^3/cmm (130-400) 04/18/22 16:15 MPV 10.9 fL (7.4-10.4) H 04/18/22 16:15 Gran % Cancelled 04/18/22 14:45 Neut % (Auto) 51.5 % 04/18/22 16:15 Lymph % (Auto) 38.2 % 04/18/22 16:15 [place] % (Auto) 7.9 % 04/18/22 16:15 Eos % (Auto) 1.4 % 04/18/22 16:15 Baso % (Auto) 0.8 % 04/18/22 16:15 Neut # (Auto) 4.37 10^3/uL (1.8-7.7) 04/18/22 16:15 Lymph # (Auto) 3.2 10^3/uL (0.8-4.8) 04/18/22 16:15 [place] # (Auto) 0.7 10^3/uL (0.2-0.9) 04/18/22 16:15 Eos # (Auto) 0.1 10^3/uL (0.0-0.8) 04/18/22 16:15 Baso # (Auto) 0.1 10^3/uL (0.0-0.1) 04/18/22 16:15 Absolute Gran (auto) Cancelled 04/18/22 14:45 Nucleated RBC % (auto) 0 % 04/18/22 16:15 Nucleated RBCs # 0.0 /100WBC 04/18/22 16:15 Sodium 140 mmol/L (136-145) 04/18/22 14:45 Potassium 4.0 mmol/L (3.5-5.1) 04/18/22 14:45 Chloride 104 mmol/L (98-107) 04/18/22 14:45 Carbon Dioxide 26 mmol/L (22-29) 04/18/22 14:45 Anion Gap 14.0 (5-19) 04/18/22 14:45 BUN 12 mg/dL (6-20) 04/18/22 14:45 Creatinine 0.6 mg/dL (0.5-0.9) 04/18/22 14:45 GFR Calculation 104.2 mL/min (90-130) 04/18/22 14:45 Glucose 123 mg/dL (65-115) H 04/18/22 14:45 Calculated Osmolality 291 mOsm/kg (285-295) 04/18/22 14:45 Calcium 9.1 mg/dL (8.5-10.5) 04/18/22 14:45 Total Bilirubin 0.2 mg/dL (0.15-1.2) 04/18/22 14:45 AST 15 U/L (0-32) 04/18/22 14:45 ALT 14 U/L (0-33) 04/18/22 14:45 Alkaline Phosphatase 79 IU/L (35-105) 04/18/22 14:45 Total Protein 6.4 g/dL (6.6-8.7) L 04/18/22 14:45 Albumin 4.1 g/dL (3.5-5.2) 04/18/22 14:45 Globulin 2.3 g/dL (1.3-4.6) 04/18/22 14:45 Lipase 27 U/L (13-60) 04/18/22 14:45 HCG, Qual Negative (Negative) 04/18/22 15:20 Urine Color Straw (Yellow) 04/18/22 15:20 Urine Appearance Clear (CLEAR) 04/18/22 15:20 Urine pH 6.5 (5-7) 04/18/22 15:20 Ur Specific [place] 1.005 (1.005-1.030) 04/18/22 15:20 Urine Protein Neg (Negative) 04/18/22 15:20 Urine Glucose (UA) Norm (Normal) 04/18/22 15:20 Urine Ketones Negative (Negative) 04/18/22 15:20 Urine Blood 2+ (Negative) H 04/18/22 15:20 Urine Nitrate Negative (Negative) 04/18/22 15:20 Urine Bilirubin Neg (Negative) 04/18/22 15:20 Urine Urobilinogen Norm mg/dL (Negative) 04/18/22 15:20 Ur Leukocyte Esterase Negative (Negative) 04/18/22 15:20 Urine RBC 0-4 /hpf (0-2) H 04/18/22 15:20 Urine WBC None /hpf (0-5) 04/18/22 15:20 Ur Squamous Epith Cells 5-10 /hpf (0-5) H 04/18/22 15:20 Amorphous Sediment Not Reportable 04/18/22 15:20 Urine Bacteria Trace /hpf (NONE) 04/18/22 15:20 Urine Mucus Trace /hpf 04/18/22 15:20 Salicylates < 0.3 mg/dL (3-10) L 04/18/22 14:45 Urine Opiates Screen Negative ng/mL (Negative) 04/18/22 15:20 Acetaminophen < 5.0 ug/mL (10-30) L 04/18/22 14:45 Ur Barbiturates Screen Negative ng/mL (Negative) 04/18/22 15:20 Ur Phencyclidine Scrn Negative ng/mL (Negative) 04/18/22 15:20 Ur Amphetamines Screen Negative ng/mL (Negative) 04/18/22 15:20 U Benzodiazepines Scrn Negative ng/mL (Negative) 04/18/22 15:20 [place] 0.9 mmol/L (0.6-1.2) 04/18/22 14:45 Urine Cocaine Screen Negative ng/mL (Negative) 04/18/22 15:20 U Marijuana (THC) Screen Negative ng/mL (Negative) 04/18/22 15:20 Ethyl Alcohol < 10 mg/dL (0-10) 04/18/22 14:45 Discharge Plan Discharge Patient Disposition: Admitted As Inpatient Admit Provider: Rodger Alexis Clinical Impression: Suicidal ideation Condition: Stable Discharge Diet: Advance as tolerated Discharge Activity: Resume usual activity Coding Level of Care Code ED Rn Production for Chg Fwd Exam Detailed Documented by User: Benja Roach MD 04/28/22 02:31 HPI - Psych General: Chief Complaint: Abdominal Pain Stated Complaint: ABD PAIN Time Seen by Provider: 04/18/22 15:00 [facility] ED PFSH: Medical History Depression Dyslipidemia History of breast cancer HTN (hypertension) Psychiatric care Surgical History History of lumpectomy of right breast Social History Smoking and tobacco status: current every day smoker cigarettes Packs smoked per day: 1 Years cigarettes smoked: 35 Quit status (tobacco): has tried quititng Number of times tried to quit tobacco: 10 Second hand smoke exposure: No Physical Exam Neuro: RADHA COMA SCALE: document GCS findings [place] coma scale total score: 15 Course Vital Signs: Vital signs: Vital Signs Temperature 97.9 F 04/22/22 11:27 Pulse Rate 73 04/22/22 11:27 Respiratory Rate 18 04/22/22 11:27 Blood Pressure 100/64 04/22/22 11:27 Pulse Oximetry 100 04/22/22 11:27 Oxygen Delivery Me thod 04/22/22 06:00 MDM - Psych Medical Decision Making Patient has no abdominal pain complaints upon my assessment. Abdomen is soft/non-tender/non-surigical. Patient will be admit to NPU to Dr. Alexis for complaints of depression/SI. Affidavit placed on chart. I discussed this case with MOSES Russ. I reviewed documentation. I reviewed laboratory studies. Benja Roach MD Emergency Medicine Lab Data : 04/18/22 16:15 04/18/22 14:45 Laboratory Results WBC 8.5 10^3/uL (4.0-10.0) 04/18/22 16:15 Corrected WBC Cancelled 04/18/22 14:45 RBC 3.35 10^6/uL (4.1-5.3) L 04/18/22 16:15 Hgb 11.1 g/dL (11.5-15.3) L 04/18/22 16:15 Hct 34.1 % (37.0-47.0) L 04/18/22 16:15 MCV 101.8 fl (81-99) H 04/18/22 16:15 MCH 33.1 pg (28.0-34.0) 04/18/22 16:15 MCHC 32.6 g/dL (30.0-36.0) 04/18/22 16:15 RDW 11.9 % (12.1-15.1) L 04/18/22 16:15 Plt Count 246 10^3/cmm (130-400) 04/18/22 16:15 MPV 10.9 fL (7.4-10.4) H 04/18/22 16:15 Gran % Cancelled 04/18/22 14:45 Neut % (Auto) 51.5 % 04/18/22 16:15 Lymph % (Auto) 38.2 % 04/18/22 16:15 [place] % (Auto) 7.9 % 04/18/22 16:15 Eos % (Auto) 1.4 % 04/18/22 16:15 Baso % (Auto) 0.8 % 04/18/22 16:15 Neut # (Auto) 4.37 10^3/uL (1.8-7.7) 04/18/22 16:15 Lymph # (Auto) 3.2 10^3/uL (0.8-4.8) 04/18/22 16:15 [place] # (Auto) 0.7 10^3/uL (0.2-0.9) 04/18/22 16:15 Eos # (Auto) 0.1 10^3/uL (0.0-0.8) 04/18/22 16:15 Baso # (Auto) 0.1 10^3/uL (0.0-0.1) 04/18/22 16:15 Absolute Gran (auto) Cancelled 04/18/22 14:45 Nucleated RBC % (auto) 0 % 04/18/22 16:15 Nucleated RBCs # 0.0 /100WBC 04/18/22 16:15 Sodium 140 mmol/L (136-145) 04/18/22 14:45 Potassium 4.0 mmol/L (3.5-5.1) 04/18/22 14:45 Chloride 104 mmol/L (98-107) 04/18/22 14:45 Carbon Dioxide 26 mmol/L (22-29) 04/18/22 14:45 Anion Gap 14.0 (5-19) 04/18/22 14:45 BUN 12 mg/dL (6-20) 04/18/22 14:45 Creatinine 0.6 mg/dL (0.5-0.9) 04/18/22 14:45 GFR Calculation 104.2 mL/min (90-130) 04/18/22 14:45 Glucose 123 mg/dL (65-115) H 04/18/22 14:45 Calculated Osmolality 291 mOsm/kg (285-295) 04/18/22 14:45 Calcium 9.1 mg/dL (8.5-10.5) 04/18/22 14:45 Total Bilirubin 0.2 mg/dL (0.15-1.2) 04/18/22 14:45 AST 15 U/L (0-32) 04/18/22 14:45 ALT 14 U/L (0-33) 04/18/22 14:45 Alkaline Phosphatase 79 IU/L (35-105) 04/18/22 14:45 Total Protein 6.4 g/dL (6.6-8.7) L 04/18/22 14:45 Albumin 4.1 g/dL (3.5-5.2) 04/18/22 14:45 Globulin 2.3 g/dL (1.3-4.6) 04/18/22 14:45 Lipase 27 U/L (13-60) 04/18/22 14:45 HCG, Qual Negative (Negative) 04/18/22 15:20 Urine Color Straw (Yellow) 04/18/22 15:20 Urine Appearance Clear (CLEAR) 04/18/22 15:20 Urine pH 6.5 (5-7) 04/18/22 15:20 Ur Specific [place] 1.005 (1.005-1.030) 04/18/22 15:20 Urine Protein Neg (Negative) 04/18/22 15:20 Urine Glucose (UA) Norm (Normal) 04/18/22 15:20 Urine Ketones Negative (Negative) 04/18/22 15:20 Urine Blood 2+ (Negative) H 04/18/22 15:20 Urine Nitrate Negative (Negative) 04/18/22 15:20 Urine Bilirubin Neg (Negative) 04/18/22 15:20 Urine Urobilinogen Norm mg/dL (Negative) 04/18/22 15:20 Ur Leukocyte Esterase Negative (Negative) 04/18/22 15:20 Urine RBC 0-4 /hpf (0-2) H 04/18/22 15:20 Urine WBC None /hpf (0-5) 04/18/22 15:20 Ur Squamous Epith Cells 5-10 /hpf (0-5) H 04/18/22 15:20 Amorphous Sediment Not Reportable 04/18/22 15:20 Urine Bacteria Trace /hpf (NONE) 04/18/22 15:20 Urine Mucus Trace /hpf 04/18/22 15:20 Salicylates < 0.3 mg/dL (3-10) L 04/18/22 14:45 Urine Opiates Screen Negative ng/mL (Negative) 04/18/22 15:20 Acetaminophen < 5.0 ug/mL (10-30) L 04/18/22 14:45 Ur Barbiturates Screen Negative ng/mL (Negative) 04/18/22 15:20 Ur Phencyclidine Scrn Negative ng/mL (Negative) 04/18/22 15:20 Ur Amphetamines Screen Negative ng/mL (Negative) 04/18/22 15:20 U Benzodiazepines Scrn Negative ng/mL (Negative) 04/18/22 15:20 [place] 0.9 mmol/L (0.6-1.2) 04/18/22 14:45 Urine Cocaine Screen Negative ng/mL (Negative) 04/18/22 15:20 U Marijuana (THC) Screen Negative ng/mL (Negative) 04/18/22 15:20 Ethyl Alcohol < 10 mg/dL (0-10) 04/18/22 14:45 Discharge Plan Discharge Patient Disposition: Admitted As Inpatient Admit Provider: Rodger Alexis Clinical Impression: Suicidal ideation Condition: Stable Discharge Diet: Advance as tolerated Discharge Activity: Resume usual activity Coding Level of Care Code ED Rn Production for Daily Fwd Exam Detailed
[2022-04-18 15:24] LABS: Alanine Aminotransferase 14 U/L (0-33); Albumin Level 4.1 g/dL (3.5-5.2); Alkaline Phosphatase 79 IU/L (35-105); Aspartate Amino Transferase 15 U/L (0-32); Blood Urea Nitrogen 12 mg/dL (6-20); Calcium 9.1 mg/dL (8.5-10.5); Carbon Dioxide 26 mmol/L (22-29); Chloride 104 mmol/L (98-107); Globulin 2.3 g/dL (1.3-4.6); Glomerular Filtration Rate 104.2 mL/min (90-130); Glucose 123 mg/dL (65-115); Lipase 27 U/L (13-60); Osmolality Calculated 291 mOsm/kg (285-295); Sodium 140 mmol/L (136-145); Total Bilirubin 0.2 mg/dL (0.15-1.2); Total Protein 6.4 g/dL (6.6-8.7)
[2022-04-18 15:32] LABS: HCG Qualitative Urine. Negative (Negative)
[2022-04-18 15:34] LABS: Lithium 0.9 mmol/L (0.6-1.2)
[2022-04-18 15:40] LABS: Amphetamines Screen Urine Negative (Negative); Barbiturates Screen Urine Negative (Negative); Benzodiazepines Screen Urine Negative (Negative); Cocaine Screen Urine Negative (Negative); Opiate Screen Urine Negative (Negative); PCP Screen Urine Negative (Negative); THC Screen Urine Negative (Negative)
[2022-04-18 15:41] LABS: Acetaminophen < 5.0 ug/mL (10-30); Salicylate < 0.3 mg/dL (3-10)
[2022-04-18 15:42] LABS: Specific Gravity, Urine 1.005 (1.005-1.030); Urine Appearance Clear (CLEAR); Urine Color Straw (Yellow); pH Urine 6.5 (5-7)
[2022-04-18 15:43] LABS: Add Urine Microscopic? YES; Bilirubin Urine Neg (Negative); Blood Urine 2+ (Negative); Glucose Urine UA Norm (Normal); Ketones Urine Negative (Negative); Leukocyte Esterase Urine Negative (Negative); Nitrate Urine Negative (Negative); Protein Urine Neg (Negative); Urobilinogen Urine Norm (Negative)
[2022-04-18 15:45] LABS: Bacteria Urine TRACE /hpf; Mucus Urine TRACE /hpf; RBC Urine 0-4 /hpf (0-2)
[2022-04-18 15:46] LABS: Add Urine Culture? No
[2022-04-18 15:54] LABS: Alcohol Level < 10 mg/dL (0-10)
[2022-04-18 16:22] LABS: Basophils # 0.1 10^3/uL (0.0-0.1); Basophils % 0.8 %; Eosinophils # 0.1 10^3/uL (0.0-0.8); Eosinophils % 1.4 %; Hematocrit 34.1 % (37.0-47.0); Hemoglobin 11.1 g/dL (11.5-15.3); Lymphocytes # 3.2 10^3/uL (0.8-4.8); Lymphocytes % 38.2 %; Mean Corpuscular HGB Conc 32.6 g/dL (30.0-36.0); Mean Corpuscular Hemoglobin 33.1 pg (28.0-34.0); Mean Corpuscular Volume 101.8 fl (81-99); Mean Platelet Volume 10.9 fL (7.4-10.4); Monocytes # 0.7 10^3/uL (0.2-0.9); Monocytes % 7.9 %; Neutrophils # 4.37 10^3/uL (1.8-7.7); Neutrophils % 51.5 %; Nucleated Red Blood Cells % 0 %; Platelet Count 246 10^3/cmm (130-400); Red Blood Count 3.35 10^6/uL (4.1-5.3); Red Cell Distribution Width 11.9 % (12.1-15.1); White Blood Count 8.5 10^3/uL (4.0-10.0)
[2022-04-18 17:45] VITALS: BP 120/79; PULSE 71; RESP 18; TEMP 36.4; O2SAT 95
--- NOTE | 2022-04-18 20:05 | PC.ADMIT ---
[email or web address] ROOM 11 Admission Note: The patient,Alisa Kohli,56 y/o, was given written information regarding hospital policies, unit procedures and contact persons. Patient's smoking status: current every day smoker. Vital Signs - 8 hr 04/18/22 14:47 04/18/22 17:45 04/18/22 18:24 Temperature 98.0 F 97.6 F Pulse Rate 79 71 Respiratory Rate 16 18 Blood Pressure 113/75 120/79 Pulse Oximetry 96 95 Oxygen Delivery Method Room Air Room Air Room Air PT PRESENTED TO UNIT VIA WC FROM ED. PT HARDLY ABLE TO KEEP HER EYES OPEN, SLURRING WORDS, SHUFFLING, UNSTEADY GAIT. PT REPORTS BEFORE I LEFT MY HOUSE FOR THE ER, I TOOK ALL MY MEDS AT ONCE. NOTIFIED INBOUND CALL CENTER REPRESENTATIVE AND DR VAZQUEZ OF PT PRESENTATION. THIS NURSE VERBALIZED WORRY OF PT BEING A FALL RISK ON THIS UNIT AND WORRIES OF MEDICATION PEAK BEING UNKNOWN AND PATIENT DECOMPENSATING ON UNIT. PROVIDER ALLOWING 1:1 AT THIS TIME. PT ABLE TO ANSWER SOME QUESTIONS, BUT CONTINUOUSLY NODDING OFF DURING ASSESSMENT AFTER PT ATE FULL MEAL. THIS NURSE DID ALL THE ASSESSMENT POSSIBLE FOR THE CONDITION PT WAS IN. PT TAKEN TO ROOM AND ALLOWED TO LAY DOWN. RESPIRATIONS EVEN AND STEADY. NO DISCOMFORT NOTED.
[2022-04-18 20:55] VITALS: RESP 17
[2022-04-19 06:00] VITALS: BP 93/56; PULSE 67; RESP 16; TEMP 36.6; O2SAT 98
[2022-04-19] MEDS: nicotine 2 mg Gum BUCCAL (06:34)
[2022-04-19] MEDS: nicotine 21 mg Patch 1 PATCH TRANSDERMA (08:22)
[2022-04-19] MEDS: fixodent 39 gm Tube 1 APPLIC DENTAL ×2 (08:22→13:02)
[2022-04-19] MEDS: atorvastatin 40 mg Tablet PO (12:00)
[2022-04-19] MEDS: ARIPiprazole 10 mg Tablet PO (12:00)
--- NOTE | 2022-04-19 12:12 | W.PM.NPUH&PS ---
Providers/Chief Complaint Admitting Physician: Rodger Alexis MD Primary Care Provider: Angelina Rebolledo DO Chief Complaint: ABD PAIN HPI NPU History of Present Illness Alisa Kohli is a 56 year old female Name: Alisa Date: 04/19/2022 : 1965 Subjective: Alisa presents today reporting her Seroquel has been making her shaky and she is currently taking Seroquel 100 mg, Ambien 5 mg, Abilify, [place], Depakote, Gabapentin and Cymbalta. She reports she had taken her night time medication of Seroquel and Ambien at 3pm but her feet had been hurting so she reported not feeling right. She endorses she has been having auditory hallucinations of people who have passed in her family throughout her life and has been having it more recently but could not recall how long it has been occurring. She was diagnosed at 24 years old with bipolar disorder. She has been psychiatrically hospitalized around 20 times, the first time of which was around 24 years old in [place] and the most recent of which was at [facility]. She reports she had worked until she was put on disability for the past 30 years. She reports her sleep has not been doing well even being on Seroquel and Ambien as she also gets restless leg syndrome. She endorses a recent manic state with racing thoughts, more recently irritable but has times where she is increasing happy. She denies current depression symptoms and reports she has had mixed episodes of travis and depression before as noted by her provider. She has felt something is not right which is why she brought herself into the emergency department. She has a bilingual case manager through [facility] and was supposed to see her tomorrow. She reports up to a pack of cigarettes a day, denies alcohol, marijuana or any other illicit drug use. She reports in the past she has only been restarted on her medications and had minor changes made but has not had major changes to her medications. She endorses cycling through periods of travis and depression which can change within the span of a month. She reports periods of decrease need for sleep, increased grandiosity, racing thoughts lasting greater than a week with high energy and increased risk taking behaviors lasting for several days. She reports having restless legs on her current medication. Psychiatric History: Inpatient treatment over 20x for bipolar disorder, most recently at [facility], Outpatient treatment: Dr. Valenzuela recently 3 months ago at [facility]. Medications on admission: Cymbalta 30mg in am Abilify 10mg daily Depakote 500mg ER tid Wellbutrin xl 150mg in am [place]amo 300mg po tid Gabapentin 300mg daily Atorvastatin 40mg daily ambien 5mg at night naproxen prn Substance Abuse History: As above. Medical History: neuropathy, hypercholesterolemia, Allergies: sulfa drugs Surgeries: unknown Family History: She did not report a family history of mental health or addiction issues during the interview. Developmental History: She did not report any developmental delays or needing to receive speech therapy, learning support, emotional support or special education classes during the interview. Psychosocial History: She was born in [place] and raised by her grandparents on her mother?s side as her parents split. She has been twice, once and once. She is currently living in an apartment by herself. She is disabled and is on survivor?s benefits from her grandmother and mother. She denies any traumatic events. 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 She lives in [address], lives alone, on disability, raised as a Spiritism. Family Psychiatric History: dementia Legal History: She did not report any legal issues during the interview. Meds NPU Home Medications Medication Instructions Recorded Confirmed Last Taken Type aripiprazole 10 mg tablet 10 mg PO DAILY 30 days #30 tabs 01/15/22 04/18/22 04/17/22 Rx divalproex 500 mg tablet,extended 500 mg PO TID #90 tabs 01/15/22 04/18/22 04/17/22 Rx release 24 hr duloxetine 30 mg capsule,delayed 30 mg PO 0900,2100 30 days #60 caps 01/15/22 04/18/22 04/17/22 Rx release lithium carbonate 300 mg capsule 300 mg PO TID 30 days #90 caps 01/15/22 04/18/22 04/17/22 Rx quetiapine 200 mg tablet (Seroquel) 200 mg PO BEDTIME 30 days #30 tabs 01/15/22 04/18/22 04/17/22 Rx atorvastatin 40 mg tablet 40 mg PO DAILY 30 days #30 tabs 02/18/22 04/18/22 04/17/22 Rx bupropion HCl 150 mg 24 hr tablet, 150 mg PO QAM #30 tabs 02/24/22 04/18/22 04/17/22 Rx extended release (Wellbutrin XL) gabapentin 300 mg capsule 300 mg PO BEDTIME 30 days #30 caps 03/17/22 04/18/22 04/17/22 Rx zolpidem 5 mg tablet 5 mg PO BEDTIME 30 days #30 tabs 03/27/22 04/18/22 04/17/22 Rx naproxen 500 mg tablet (Naprosyn) 500 mg PO BID PRN Pain 03/28/22 04/18/22 Unknown History Allergies Allergy/AdvReac Type Severity Reaction Status Date / Time Sulfa (Sulfonamide Allergy Unknown Unknown Verified 02/24/22 15:23 Antibiotics) PFSH NPU PFSH: Medical History Depression Dyslipidemia History of breast cancer HTN (hypertension) Psychiatric care Surgical History History of lumpectomy of right breast Social History Smoking and tobacco status: current every day smoker cigarettes Packs smoked per day: 1 Years cigarettes smoked: 35 Quit status (tobacco): has tried quititng Number of times tried to quit tobacco: 10 Second hand smoke exposure: No Mental Status Exam MSE Comments: This is a 56-year-old overweight female who appears approximately her stated age and is in no acute distress.? She was pleasant and cooperative with the evaluation.? She is poorly groomed and in hospital scrubs. psychomotor activity mildly decreased. Speech is at a regular rate and rhythm, normal volume, good articulation, not pressured. Alert, oriented X3 Attention and concentration appears to be good. Memory is intact Mood is described as depressed. Her affect is congruent and flat Thought process is circumstantial at this time with some rambling noted. Thought content:? Denies auditory and visual hallucinations.? No delusions or paranoia are noted.? Endorsed suicidal thoughts with no active plan. There was no homicidal ideation endorsed. Fund of knowledge is average. Insight and judgment appear to be poor. Impulse control is poor as well, Vitals/I&O/Wt Last Vital Signs Temp 97.9 F 04/19/22 06:00 Pulse 67 04/19/22 06:00 Resp 16 04/19/22 06:00 BP 93/56 04/19/22 06:00 Pulse Ox 98 04/19/22 06:00 O2 Del Method 04/19/22 06:00 Weight last 48 hrs Weight 90.718 kg Weight 90.718 kg Data NPU : 04/18/22 16:15 04/18/22 14:45 A&P Assessment and plan (1) Bipolar disorder, curr episode mixed, severe, w/o psychotic features: Status: Acute (2) Suicidal ideation: Status: Acute Plan Alisa is a 56-year-old white female with a history of bipolar 1 disorder with mixed mood symptoms currently endorsing increased problems with mood racing thoughts depression and feelings of hopelessness. 1.? Continue current medications other than discontinuation of cymbalta which may make bipolar mixed symptoms more prominent. We will seek to consolidate her medications including potentially increasing seroquel and decreasing abilify at this time. 2.? Encourage individual, group and milieu therapy 3.? Continue q-15 minute check for safety 4.? Recommend sober living treatment at the highest level of care to which the patient is willing to commit. Involuntary Hold Information 96 Hour Hold: 96 Hour Involuntary Admission: No Attestations NPU Medical Necessity Statement*: ? Inpatient hospitalization is medically necessary and the clinically appropriate intervention at this time. We will monitor medications and make changes as indicated. Patient will be in the hospital for over two midnights. Likely length of stay is three to five days. 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
[2022-04-19 14:00] VITALS: BP 124/74; PULSE 64; RESP 18; TEMP 36.6; O2SAT 97
[2022-04-19] MEDS: divalproex ER 500 mg Tablet (24H) PO ×2 (15:04→19:49)
[2022-04-19] MEDS: lithium carbonate 300 mg Capsule PO ×2 (15:05→19:50)
[2022-04-19] MEDS: nicotine 4 mg lozenge MUCOUS MEM ×3 (17:17→21:37)
--- NOTE | 2022-04-19 17:17 | PC.NURSE ---
Nicotine patch fell off, waited 2 hours until giving nicotine chris.
[2022-04-19] MEDS: acetaminophen 325 mg Tablet 650 MG PO (19:48)
[2022-04-19] MEDS: gabapentin 300 mg Capsule PO (19:51)
[2022-04-19] MEDS: zolpidem 5 mg Tablet PO (19:51)
[2022-04-19] MEDS: quetiapine 100 mg Tablet 200 MG PO (19:51)
[2022-04-19 21:25] VITALS: BP 116/67; PULSE 75; RESP 20; TEMP 37; O2SAT 98
[2022-04-20 06:00] VITALS: BP 94/61; PULSE 74; RESP 18; TEMP 36.9; O2SAT 98
[2022-04-20] MEDS: nicotine 4 mg lozenge MUCOUS MEM ×6 (06:31→19:59)
[2022-04-20] MEDS: magnesium hydroxide 30 mL UDC PO (06:31)
[2022-04-20] MEDS: buPROPion XL (24 HR) 150 mg Tablet PO (06:31)
[2022-04-20] MEDS: divalproex ER 500 mg Tablet (24H) PO ×3 (08:11→19:58)
[2022-04-20] MEDS: lithium carbonate 300 mg Capsule PO ×3 (08:11→19:58)
[2022-04-20] MEDS: atorvastatin 40 mg Tablet PO (08:11)
[2022-04-20] MEDS: ARIPiprazole 10 mg Tablet PO (08:12)
--- NOTE | 2022-04-20 11:45 | W.PM.NPUPNS ---
Subjective NPU Subjective: Patient is a 56-year-old white female with a history of bipolar disorder type I admitted with mixed mood symptoms. Patient reports that she feels a little better. She stated that she has struggled with taking so many medications. She reports that her thoughts continue to move fast. She reports that she has been having some periods of insomnia but reports sleeping better. She continues to report that her thoughts are moving faster. She endorses depressed mood at this time and reports at times having difficulties with maintaining focus with her thoughts moving in such a manner. Staff notes the patient appears to be redirectable, but continues to be somewhat isolative on the milieu. Mental Status Exam MSE Comments: This is a 56-year-old overweight female who appears approximately her stated age and is in no acute distress.? She was pleasant and cooperative with the evaluation.? She is poorly groomed and in hospital scrubs. psychomotor activity mildly decreased. Speech is at a regular rate and rhythm, normal volume, good articulation, not pressured. Alert, oriented X3 Attention and concentration appears to be good. Memory is intact Mood is described as depressed. Her affect is mood congruent and restricted in range. Thought process is circumstantial at this time with some rambling noted. Thought content:? Denies auditory and visual hallucinations.? No delusions or paranoia are noted.? Endorsed suicidal thoughts with no active plan. There was no homicidal ideation endorsed. Fund of knowledge is average. Insight was limited. Judgment was poor. Impulse control is poor as well. Vitals/I&O/Wt Last Vital Signs Temp 98.0 F 04/20/22 13:58 Pulse 76 04/20/22 13:58 Resp 15 04/20/22 13:58 BP 116/88 04/20/22 13:58 Pulse Ox 95 04/20/22 13:58 O2 Del Method 04/20/22 13:58 Weight last 48 hrs Weight 90.718 kg Data NPU : 04/18/22 16:15 04/18/22 14:45 A&P Assessment and plan (1) Bipolar disorder, curr episode mixed, severe, w/o psychotic features: Status: Acute (2) Suicidal ideation: Status: Acute Plan Alisa is a 56-year-old white female with a history of bipolar 1 disorder with mixed mood symptoms currently endorsing increased problems with mood racing thoughts depression and feelings of hopelessness. ? 1.? Encourage individual, group and milieu therapy 2. Patient is on multiple medications for treatment of bipolar disorder, she agrees with caption writer of note that this needs to be simplified and reduced as this has led to signficant compliance issues. Patient agreeable to tapering seroque (100mg at nightl while increasing abilify today (15mg daily). [place] and depakote will be continued as previously prescribed. 3.? Continue q-15 minute check for safety 4.? Recommend sober living treatment at the highest level of care to which the patient is willing to commit. Involuntary Hold Information 96 Hour Hold: 96 Hour Involuntary Admission: No Attestations NPU Medical Necessity Statement*: ? Inpatient hospitalization is medically necessary to reevaluate medications and coordinate discharge and is the clinically appropriate intervention at this time. We will monitor medications and make changes as indicated. Patient will be in the hospital for over two midnights. Likely length of stay is three to five days. 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
[2022-04-20 13:58] VITALS: BP 116/88; PULSE 76; RESP 15; TEMP 36.7; O2SAT 95
[2022-04-20] MEDS: nicotine 2 mg Gum BUCCAL (13:58)
[2022-04-20] MEDS: acetaminophen 325 mg Tablet 650 MG PO ×2 (13:58→20:41)
[2022-04-20 19:55] VITALS: BP 133/64; PULSE 67; RESP 18; TEMP 36.9; O2SAT 99
[2022-04-20] MEDS: gabapentin 300 mg Capsule PO (19:58)
[2022-04-20] MEDS: quetiapine 100 mg Tablet PO (19:58)
[2022-04-20] MEDS: zolpidem 5 mg Tablet PO (19:59)
[2022-04-20 21:41] VITALS: BP 133/64; PULSE 67; RESP 18; TEMP 36.9; O2SAT 99
[2022-04-21] MEDS: buPROPion XL (24 HR) 150 mg Tablet PO (05:07)
[2022-04-21] MEDS: nicotine 4 mg lozenge MUCOUS MEM ×3 (05:07→22:00)
[2022-04-21 06:24] VITALS: BP 102/66; PULSE 64; RESP 16; TEMP 36.7; O2SAT 100
[2022-04-21] MEDS: atorvastatin 40 mg Tablet PO (08:27)
[2022-04-21] MEDS: divalproex ER 500 mg Tablet (24H) PO ×3 (08:27→19:31)
[2022-04-21] MEDS: lithium carbonate 300 mg Capsule PO ×3 (08:27→19:30)
[2022-04-21] MEDS: nicotine 21 mg Patch 1 PATCH TRANSDERMA (08:29)
[2022-04-21] MEDS: ARIPiprazole 10 mg Tablet 15 MG PO (08:29)
[2022-04-21 13:21] VITALS: BP 102/66; PULSE 64; RESP 16; TEMP 36.7; O2SAT 100
[2022-04-21 13:44] VITALS: BP 108/96; PULSE 74; RESP 18; TEMP 36.8; O2SAT 98
[2022-04-21] MEDS: acetaminophen 325 mg Tablet 650 MG PO ×2 (14:08→19:12)
--- NOTE | 2022-04-21 16:53 | P.NPUPN_ITS ---
Subjective NPU Subjective: Patient is a 56-year-old white female with a history of bipolar disorder type I admitted with mixed mood symptoms. Patient reports improved energy. She reports mood has been better and racing thoughts are slower. She reports that she has been able to sleep throughout the night. She reports that the voices have been quieting. She has been more social on the milieu and reports no side effects from the medication changes. Patient reports frequently cycling between periods of mixed mood symptoms followed by periods of depression. Patient denies any substance use. She reports being motivated to continue combination of medications here inside the hospital. Mental Status Exam MSE Comments: This is a 56-year-old overweight female who appears approximately her stated age and is in no acute distress.? She was pleasant and cooperative with the evaluation.? She has improved grooming and in hospital scrubs. psychomotor activity mildly decreased. Speech is at a regular rate and rhythm, normal volume, good articulation, not pressured. Alert, oriented X3 Attention and concentration appears to be good. Memory is intact Mood is described as better. Her affect appeared slightly restricted Thought process is more linear today. Thought content:? Denies auditory and visual hallucinations.? No delusions or paranoia are noted.? Endorsed suicidal thoughts with no active plan. There was no homicidal ideation endorsed. Fund of knowledge is average. Insight was limited. Judgment was poor. Impulse control is poor as well. Vitals/I&O/Wt Last Vital Signs Temp 98.3 F 04/21/22 13:44 Pulse 74 04/21/22 13:44 Resp 18 04/21/22 13:44 BP 108/96 04/21/22 13:44 Pulse Ox 98 04/21/22 13:44 O2 Del Method 04/21/22 13:44 Data NPU : 04/18/22 16:15 04/18/22 14:45 A&P Assessment and plan (1) Bipolar disorder, curr episode mixed, severe, w/o psychotic features: Status: Acute (2) Suicidal ideation: Status: Acute Plan Alisa is a 56-year-old white female with a history of bipolar 1 disorder with mixed mood symptoms currently endorsing increased problems with mood racing thoughts depression and feelings of hopelessness. ? 1.? Encourage individual, group and milieu therapy 2. Patient is on multiple medications for treatment of bipolar disorder, she agrees with curriculum writer of note that this needs to be simplified and reduced as this has led to significant compliance issues. Continue lithium and depakote er as prescribed, Discontinue seroquel tonight, continue abilify 15mg daily. 3.? Continue q-15 minute check for safety 4.? Recommend sober living treatment at the highest level of care to which the patient is willing to commit. Involuntary Hold Information 96 Hour Hold: 96 Hour Involuntary Admission: No Attestations NPU Medical Necessity Statement*: ? Inpatient hospitalization is medically necessary to reevaluate medications and coordinate discharge and is the clinically appropriate intervention at this time. We will monitor medications and make changes as indicated with likely discharge tommorow. 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
[2022-04-21] MEDS: gabapentin 300 mg Capsule PO (19:30)
[2022-04-21] MEDS: zolpidem 5 mg Tablet PO (19:31)
[2022-04-21 20:31] VITALS: BP 92/56; PULSE 68; RESP 18; TEMP 36.8; O2SAT 98
[2022-04-21] MEDS: hyDROXYzine 25 mg Capsule 50 MG PO (21:07)
[2022-04-22] MEDS: nicotine 4 mg lozenge MUCOUS MEM ×2 (04:39→07:43)
[2022-04-22] MEDS: buPROPion XL (24 HR) 150 mg Tablet PO (05:17)
[2022-04-22 06:00] VITALS: BP 100/64; PULSE 73; RESP 18; TEMP 36.6; O2SAT 100
--- NOTE | 2022-04-22 08:56 | DCPLANNER ---
IMM was printed and rights explained to pt. Copy was placed in her chart.
[2022-04-22] MEDS: nicotine 21 mg Patch 1 PATCH TRANSDERMA (09:16)
[2022-04-22] MEDS: lithium carbonate 300 mg Capsule PO (09:16)
[2022-04-22] MEDS: divalproex ER 500 mg Tablet (24H) PO (09:16)
[2022-04-22] MEDS: ARIPiprazole 10 mg Tablet 15 MG PO (09:16)
[2022-04-22] MEDS: atorvastatin 40 mg Tablet PO (10:07)
--- NOTE | 2022-04-22 11:07 | P.NPUDS_ITS ---
Diagnoses at Discharge Discharge Diagnosis (1) Bipolar disorder, curr episode mixed, severe, w/o psychotic features: Status: Acute (2) Suicidal ideation: Status: Acute Reason for Visit Reason for Visit: manic symptoms Brief History: Alisa presents today reporting her Seroquel has been making her shaky and she is currently taking Seroquel 100 mg, Ambien 5 mg, Abilify, [place], Depakote, Gabapentin and Cymbalta. She reports she had taken her night time medication of Seroquel and Ambien at 3pm but her feet had been hurting so she reported not feeling right. She endorses she has been having auditory hallucinations of people who have passed in her family throughout her life and has been having it more recently but could not recall how long it has been occurring. She was diagnosed at 24 years old with bipolar disorder. She has been psychiatrically hospitalized around 20 times, the first time of which was around 24 years old in [place] and the most recent of which was at [facility]. She reports she had worked until she was put on disability for the past 30 years. She reports her sleep has not been doing well even being on Seroquel and Ambien as she also gets restless leg syndrome. She endorses a recent manic state with racing thoughts, more recently irritable but has times where she is increasing happy. She denies current depression symptoms and reports she has had mixed episodes of travis and depression before as noted by her provider. She has felt something is not right which is why she brought herself into the emergency department. She has a rn case management through [facility] and was supposed to see her tomorrow. She reports up to a pack of cigarettes a day, denies alcohol, marijuana or any other illicit drug use. She reports in the past she has only been restarted on her medications and had minor changes made but has not had major changes to her medications. She endorses cycling through periods of travis and depression which can change within the span of a month. She reports periods of decrease need for sleep, increased grandiosity, racing thoughts lasting greater than a week with high energy and increased risk taking behaviors lasting for several days.? She reports having restless legs on her current medication.? Psychiatric History: Inpatient treatment over 20x for bipolar disorder, most recently at [place] in [place], Outpatient treatment: Dr. Valenzuela recently 3 months ago at [facility]. Medications on admission: ? Cymbalta 30mg in am Abilify 10mg daily Depakote 500mg ER tid Wellbutrin xl 150mg in am [place] 300mg po tid Gabapentin 300mg daily Atorvastatin 40mg daily ambien 5mg at night naproxen prn Substance Abuse History: ?As above. Medical History: neuropathy, hypercholesterolemia, Allergies: sulfa drugs Surgeries: unknown Family History: ?She did not report a family history of mental health or addiction issues during the interview. Developmental History: ?She did not report any developmental delays or needing to receive speech therapy, learning support, emotional support or special education classes during the interview. Psychosocial History: ?She was born in [facility] and raised by her grandparents on her mother?s side as her parents split. She has been twice, once and once. She is currently living in an apartment by herself. She is disabled and is on survivor?s benefits from her grandmother and mother. She denies any traumatic events. 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 ? She lives in [address], lives alone, on disability, raised as a [employer].? Family Psychiatric History: dementia Legal History: ?She did not report any legal issues during the interview. Hospital Course Hospital Course During the hospitalization, patient had routine laboratory studies which were within normal limits except for few outliers.? Additionally there was a general medical evaluation which was also within normal limits and revealed no new acute processes. Discharge Summary: At the time of discharge, lethality was denied and psychosis was resolving.? Mood and anxiety were well managed.? Patient endorsed a plan to avoid all drugs of abuse and follow-up with the aftercare recommendations of the treatment team.? Patient was evaluated and deemed to be absent credible lethality, and had achieved the maximum benefit from an inpatient hospitalization, so was discharged. During her hospital course, Abilify was increased up to a dose of 15mg daily and seroquel was tapered and discontinued with reports of improved energy by the patient. Furthermore, cymbalta was discontinued due to increase risk of mixed travis episodes. Involuntary Hold Information 96 Hour Hold: 96 Hour Involuntary Admission: No Mental Status Exam MSE Comments: This is a 56-year-old overweight female who appears approximately her stated age and is in no acute distress.? She was pleasant and cooperative with the evaluation.? She has improved grooming and in hospital scrubs. psychomotor activity mildly decreased. Speech is at a regular rate and rhythm, normal volume, good articulation, not pressured. Alert, oriented X3 Attention and concentration appears to be good. Memory is intact Mood is described as better. Her affect appeared brighter today Thought process is more linear today. Thought content:? Denies auditory and visual hallucinations.? No delusions or paranoia are noted.? No active suicidal thoughts reported. There was no homicidal ideation endorsed. Fund of knowledge is average. Insight was limited. Judgment was improved. Impulse control is fair as well. Discharge Data Studies Completed and Pending: Laboratory Results WBC 8.5 10^3/uL (4.0- 10.0) 04/18/22 16:15 Corrected WBC Cancelled 04/18/22 14:45 RBC 3.35 10^6/uL (4.1 -5.3) L 04/18/22 16:15 Hgb 11.1 g/dL (11.5-1 5.3) L 04/18/22 16:15 Hct 34.1 % (37.0-47.0 ) L 04/18/22 16:15 MCV 101.8 fl (81-99) H 04/18/22 16:15 MCH 33.1 pg (28.0-34. 0) 04/18/22 16:15 MCHC 32.6 g/dL (30.0-3 6.0) 04/18/22 16:15 RDW 11.9 % (12.1-15.1 ) L 04/18/22 16:15 Plt Count 246 10^3/cmm (130 -400) 04/18/22 16:15 MPV 10.9 fL (7.4-10.4 ) H 04/18/22 16:15 Gran % Cancelled 04/18/22 14:45 Neut % (Auto) 51.5 % 04/18/22 16:15 Lymph % (Auto) 38.2 % 04/18/22 16:15 Lynn % (Auto) 7.9 % 04/18/22 16:15 Eos % (Auto) 1.4 % 04/18/22 16:15 Baso % (Auto) 0.8 % 04/18/22 16:15 Neut # (Auto) 4.37 10^3/uL (1.8 -7.7) 04/18/22 16:15 Lymph # (Auto) 3.2 10^3/uL (0.8- 4.8) 04/18/22 16:15 Lynn # (Auto) 0.7 10^3/uL (0.2- 0.9) 04/18/22 16:15 Eos # (Auto) 0.1 10^3/uL (0.0- 0.8) 04/18/22 16:15 Baso # (Auto) 0.1 10^3/uL (0.0- 0.1) 04/18/22 16:15 Absolute Gran (aut o) Cancelled 04/18/22 14:45 Nucleated RBC % (a uto) 0 % 04/18/22 16:15 Nucleated RBCs # 0.0 /100WBC 04/18/22 16:15 Sodium 140 mmol/L (136-1 45) 04/18/22 14:45 Potassium 4.0 mmol/L (3.5-5 .1) 04/18/22 14:45 Chloride 104 mmol/L (98-10 7) 04/18/22 14:45 Carbon Dioxide 26 mmol/L (22-29) 04/18/22 14:45 Anion Gap 14.0 (5-19) 04/18/22 14:45 BUN 12 mg/dL (6-20) 04/18/22 14:45 Creatinine 0.6 mg/dL (0.5-0. 9) 04/18/22 14:45 GFR Calculation 104.2 mL/min (90- 130) 04/18/22 14:45 Glucose 123 mg/dL (65-115 ) H 04/18/22 14:45 Calculated Osmolal ity 291 mOsm/kg (285- 295) 04/18/22 14:45 Calcium 9.1 mg/dL (8.5-10 .5) 04/18/22 14:45 Total Bilirubin 0.2 mg/dL (0.15-1 .2) 04/18/22 14:45 AST 15 U/L (0-32) 04/18/22 14:45 ALT 14 U/L (0-33) 04/18/22 14:45 Alkaline Phosphata se 79 IU/L (35-105) 04/18/22 14:45 Total Protein 6.4 g/dL (6.6-8.7 ) L 04/18/22 14:45 Albumin 4.1 g/dL (3.5-5.2 ) 04/18/22 14:45 Globulin 2.3 g/dL (1.3-4.6 ) 04/18/22 14:45 Lipase 27 U/L (13-60) 04/18/22 14:45 HCG, Qual Negative (Negati ve) 04/18/22 15:20 Urine Color Straw (Yellow) 04/18/22 15:20 Urine Appearance Clear (CLEAR) 04/18/22 15:20 Urine pH 6.5 (5-7) 04/18/22 15:20 Ur Specific Gravit y 1.005 (1.005-1.0 30) 04/18/22 15:20 Urine Protein Neg (Negative) 04/18/22 15:20 Urine Glucose (UA) Norm (Normal) 04/18/22 15:20 Urine Ketones Negative (Negati ve) 04/18/22 15:20 Urine Blood 2+ (Negative) H 04/18/22 15:20 Urine Nitrate Negative (Negati ve) 04/18/22 15:20 Urine Bilirubin Neg (Negative) 04/18/22 15:20 Urine Urobilinogen Norm mg/dL (Negat valentin) 04/18/22 15:20 Ur Leukocyte Norma ase Negative (Negati ve) 04/18/22 15:20 Urine RBC 0-4 /hpf (0-2) H 04/18/22 15:20 Urine WBC None /hpf (0-5) 04/18/22 15:20 Ur Squamous Epith Cells 5-10 /hpf (0-5) H 04/18/22 15:20 Amorphous Sediment Not Reportable 04/18/22 15:20 Urine Bacteria Trace /hpf (NONE) 04/18/22 15:20 Urine Mucus Trace /hpf 04/18/22 15:20 Salicylates < 0.3 mg/dL (3-10 ) L 04/18/22 14:45 Urine Opiates Scre en Negative ng/mL (N egative) 04/18/22 15:20 Acetaminophen < 5.0 ug/mL (10-3 0) L 04/18/22 14:45 Ur Barbiturates Sc reen Negative ng/mL (N egative) 04/18/22 15:20 Ur Phencyclidine S crn Negative ng/mL (N egative) 04/18/22 15:20 Ur Amphetamines Sc reen Negative ng/mL (N egative) 04/18/22 15:20 U Benzodiazepines Scrn Negative ng/mL (N egative) 04/18/22 15:20 [place] 0.9 mmol/L (0.6-1 .2) 04/18/22 14:45 Urine Cocaine Scre en Negative ng/mL (N egative) 04/18/22 15:20 U Marijuana (THC) Screen Negative ng/mL (N egative) 04/18/22 15:20 Ethyl Alcohol < 10 mg/dL (0-10) 04/18/22 14:45 Vitals: Last Vital Signs Temp 97.9 F 04/22/22 06:00 Pulse 73 04/22/22 06:00 Resp 18 04/22/22 06:00 BP 100/64 04/22/22 06:00 Pulse Ox 100 04/22/22 06:00 O2 Del Method 04/22/22 06:00 Discharge Plan Discharge Patient Disposition: Home Condition: Stable Prescriptions: New aripiprazole 10 mg Tablet 15 mg PO DAILY 30 Days Qty: 45 1RF bupropion HCl 150 mg Tablet Extended Release 24 Hr 150 mg PO QAM 30 Days Qty: 30 1RF Continued divalproex 500 mg tablet extended release 24 hr 500 mg PO TID Qty: 90 2RF lithium carbonate 300 mg capsule 300 mg PO TID 30 Days Qty: 90 2RF bupropion HCl [Wellbutrin XL] 150 mg tablet extended release 24 hr 150 mg PO QAM Qty: 30 1RF atorvastatin 40 mg tablet 40 mg PO DAILY 30 Days Qty: 30 5RF gabapentin 300 mg capsule 300 mg PO BEDTIME 30 Days Qty: 30 1RF zolpidem 5 mg tablet 5 mg PO BEDTIME 30 Days Qty: 30 0RF naproxen [Naprosyn] 500 mg tablet 500 mg PO BID PRN (Reason: Pain) Discontinued aripiprazole 10 mg tablet 10 mg PO DAILY 30 Days Qty: 30 2RF duloxetine 30 mg capsule,delayed release(DR/EC) 30 mg PO 0900,2100 30 Days Qty: 60 2RF quetiapine [Seroquel] 200 mg tablet 200 mg PO BEDTIME 30 Days Qty: 30 2RF Discharge Orders: Discharge Order (Routine); Ordered 04/22/22 Ordered By: Rodger Alexis Referrals: Torie Stern LPC [Therapist] - 04/23/22 12:45 pm (04/23/22@1300-needs to check in at 12:45pm. ) Angelina Rebolledo DO [Primary Care Provider] - SciotaRichard MD [Physician] - 04/27/22 12:45 pm (04/27/22@1300-needs to check in at 12:45pm for nurse appointment) Discharge Diet: Advance as tolerated Discharge Activity: Resume usual activity Patient Instructions: Opioid Safety Discharge Attestations NPU Time Spent in Discharge Care*: less than 30 min Specific Discharge Activities: Specific discharge activities: educating patient, educating and/or supporting family/caregiver, discussing with machine adjuster leader case trim/social workers/dc planners, documenting/other paperwork and evaluating patient/reviewing data Coding Level of Care Code Established Pt Acute Chg FW DC note Patient Type Established History Problem Focused Exam Problem Focused Medical Decision Making Straight Forward Diagnoses Bipolar disorder, curr episode mixed, severe, w/o psychotic features F31.63 Suicidal ideation R45.851
[2022-04-22 11:27] VITALS: BP 100/64; PULSE 73; RESP 18; TEMP 36.6; O2SAT 100
== END 2022-04-22 11:36 | disposition home or self-care (01) | DRG 885 ==
LOC: ER 16:27 → NP 21:02
PROVIDERS: Emergency Medicine; Admitting Provider Psychiatry & Neurology Psychiatry; Emergency Provider Physician Assistant; PCP Family Medicine; Visit Provider Psychiatry & Neurology Psychiatry
DX: F31.63 Bipolar disorder, current episode mixed, severe, without psychotic features (principal); R45.851 Suicidal ideations; G25.81 Restless legs syndrome; E78.00 Pure hypercholesterolemia, unspecified; F17.210 Nicotine dependence, cigarettes, uncomplicated
CPT/HCPCS: 80053; 80178; 80306; 80307; 81001; 81025; 83690; 85025; 97150; 97165; 99285

== ENCOUNTER 2022-05-30 14:23 | Emergency (ER) | payer MEDICARE, MEDICAID, SELFPAY ==
[2022-05-30 14:25] VITALS: BP 115/84; PULSE 75; RESP 16; TEMP 36.8; O2SAT 98
--- NOTE | 2022-05-30 14:28 | XRR_ITS ---
PROCEDURE INFORMATION: Exam: XR Chest Exam date and time: 05/30/2022 2:50 PM Age: 56 years old Clinical indication: Screening exam; Other screening; Additional info: Clearance for admission to therapeutic facility TECHNIQUE: Imaging protocol: Radiologic exam of the chest. Views: 1 view. COMPARISON: CT abdomen pelvis w con* [id number] 12/28/2021 5:13 PM FINDINGS: Lungs: Unremarkable. No consolidation. Pleural spaces: Unremarkable. No pleural effusion. No pneumothorax. Heart/Mediastinum: Unremarkable. No cardiomegaly. Bones/joints: Unremarkable. XR/XR chest 1V portable [id number] IMPRESSION: No acute findings.
--- NOTE | 2022-05-30 14:37 | ED_ITS ---
Documented by User: Annette Carcamo MD 05/30/22 19:56 HPI - General Adult General: Chief complaint: Psychiatric Symptoms Stated complaint: SI W/ATTEMPT Time Seen by Provider: 05/30/22 14:27 History of Present Illness: HPI: [56]yo patient w/ hx of depression and auditory hallucination presenting to the emergency room after suicide attempt. Patient cut the backside of her wrist because she was feeling depressed and he was hearing voices to kill herself. On arrival, the patient is AAOx3 and cooperative with my evaluation. No focal complaints of chest pain, shortness of breath, palpitations, N/V, focal GI/ complaints. Currently denies HI. +Reports auditory hallucinations. Onset: acute on chronic Duration: ongoing Location: home Severity: severe Associated symptoms: Deny chest pain, dyspnea, nausea, palpitations or vomiting Review of Systems Const: Denies: fever(s) or chills Eyes: Denies: change in vision ENMT: Denies: mouth pain Card: Denies: chest pain or palpitations Resp: Denies: dyspnea or non-productive cough GI: Denies: abdominal pain, nausea, vomiting or diarrhea : Denies: dysuria Musc: Denies: extremity pain Skin/Breast: Reports: new lesions (+R wrist laceration) Neuro: Denies: weakness in extremities Psych: Reports: depression, auditory hallucinations and suicidal ideation Gautam/Lymph: Denies: easy bruising PFSH ED PFSH: Medical History Auditory hallucination Depression Dyslipidemia History of breast cancer HTN (hypertension) Psychiatric care Surgical History History of lumpectomy of right breast Social History Smoking and tobacco status: current every day smoker cigarettes Packs smoked per day: 0.5 Years cigarettes smoked: 35 Quit status (tobacco): has tried quititng Number of times tried to quit tobacco: 10 Second hand smoke exposure: No Smoking risk assessment/counseling performed?: No Alcohol intake: current Alcohol intake frequency: holidays/special occasions only Alcohol type: beer, wine and hard liquor Desire information about alcohol rehabilitation?: No Counseling given: No Desire information about substance/drug rehabilitation?: No Counseling given: No Physical Exam Const: COMMON NORMALS: alert HENMT: COMMON NORMALS: atraumatic HEAD & SCALP: atraumatic MOUTH: moist mucous membranes not abnormal Eye: COMMON NORMALS: EOMs intact bilaterally and conjunctivae normal CONJUNCTIVA: Yes conjunctivae normal Neck/C-Spine: COMMON NORMALS: full ROM and supple Resp: COMMON NORMALS: normal respiratory effort and clear to auscultation bilaterally AUSCULTATION: clear to auscultation bilaterally Cardio: COMMON NORMALS: regular rate RATE: regular rate GI: COMMON NORMALS: Soft to palpation and non-tender PALPATION: Yes Soft to palpation OTHER: No focal TTP. NO guarding rebound, guarding, rigidity. No CVA tenderness to percussion. Neg Ingram/Neg McBurney's point tenderness, no suprabupic tenderness to palpation. Extremity: COMMON NORMALS: full ROM Neuro: SENSORIUM/ORIENTATION: Yes alert MOTOR EXAM: No Abnormal motor strength present and Other motor observations present (no focal motor deficits) Psych: COMMON NORMALS: speech normal SPEECH: Yes normal speech MOOD & AFFECT: Yes depressed mood Skin: OTHER: +superficial linear laceration over the dorsal aspect of the R wrist measuring 3.5cm Procedures Laceration Laceration 1: Site: upper extremity Side (If applicable): right Size (cm): 3.5 Description: linear Depth: simple, single layer Local Anesthetic: lidocaine 1% and with epi Amount of anesthesia used (mL): 6 Pre-repair: wound explored and irrigated extensively Skin layer closed with: vicryl Size (cm): 3-0 Number of sutures: 4 Technique: simple, interrupted Course Vital Signs: Vital signs: Vital Signs Temperature 98.9 F 05/31/22 00:15 Pulse Rate 60 05/31/22 00:15 Respiratory Rate 19 H 05/31/22 00:15 Blood Pressure 104/59 05/31/22 00:15 Pulse Oximetry 98 05/31/22 00:15 Oxygen Delivery Me thod 05/31/22 00:15 MDM - General Adult Medical Decision Making [56]yo patient w/ hx of auditory hallucination and depression presenting for worsening depression and suicide attempt. HDS, exam within normal limit Thoughts are linear and organized, and the patient has no AH/VH, or HI. Patient has R wrist laceration was closed. Please refer to the procedure note for laceration repair. Clinically the patient displays no overt toxidrome; they are well appearing, with low suspicion for toxic ingestion given history and exam. Symptoms unlikely 2/2 anemia, hypothyroidism, infection, or ICH. Workup: CBC, CMP, Lipase, salicylate/tylenol, serum ethanol, TSH, free T4, EKG, covid antigen, EKG, UDS, XR chest Lab findings: wnl [3:30pm] On reassessment, labs and workup wnl. Patient is hemodynamically stable with no acute medical complaints. Case discussed with psychiatric provider Dr. langford at [facility] psych inpatient with recommendation for admission. We currently does not have any psychiatry beds. Therefore patient needs to be transferred to another facility. Disposition: Xfer to outside psych Psych Lab Data : 05/30/22 16:27 05/30/22 16:27 Radiology Impressions Chest X-Ray 05/30/22 14:28 IMPRESSION: No acute findings. Laboratory Results WBC 11.6 10^3/uL (4.0-10.0) H 05/30/22 16: RBC 4.13 10^6/uL (4.1-5.3) 05/30/22 16:27 Hgb 13.2 g/dL (11.5-15.3) 05/30/22 16: Hct 41.3 % (37.0-47.0) 05/30/22 16:27 MCV 100.0 fl (81-99) H 05/30/22 16:27 MCH 32.0 pg (28.0-34.0) 05/30/22 16: MCHC 32.0 g/dL (30.0-36.0) 05/30/22 16:27 RDW 12.5 % (12.1-15.1) 05/30/22 16:27 Plt Count 316 10^3/cmm (130-400) 05/30/22 16: MPV 10.6 fL (7.4-10.4) H 05/30/22 16:27 Neut % (Auto) 62.2 % 05/30/22 16: Lymph % (Auto) 28.6 % 05/30/22 16: [place] % (Auto) 6.0 % 05/30/22 16: Eos % (Auto) 2.0 % 05/30/22 16:27 Baso % (Auto) 0.8 % 05/30/22 16:27 Neut # (Auto) 7.19 10^3/uL (1.8-7.7) 05/30/22 16: Lymph # (Auto) 3.3 10^3/uL (0.8-4.8) 05/30/22 16:27 [place] # (Auto) 0.7 10^3/uL (0.2-0.9) 05/30/22 16: Eos # (Auto) 0.2 10^3/uL (0.0-0.8) 05/30/22 16: Baso # (Auto) 0.1 10^3/uL (0.0-0.1) 05/30/22 16: Nucleated RBC % (auto) 0 % 05/30/22 16: Nucleated RBCs # 0.0 /100WBC 05/30/22 16:27 Sodium 140 mmol/L (136-145) 05/30/22 16:27 Potassium 4.2 mmol/L (3.5-5.1) 05/30/22 16: Chloride 104 mmol/L (98-107) 05/30/22 16: Carbon Dioxide 26 mmol/L (22-29) 05/30/22 16:27 Anion Gap 14.2 (5-19) 05/30/22 16:27 BUN 13 mg/dL (6-20) 05/30/22 16:27 Creatinine 0.9 mg/dL (0.5-0.9) 05/30/22 16:27 GFR Calculation 65.2 mL/min (90-130) L 05/30/22 16:27 Glucose 89 mg/dL (65-115) 05/30/22 16:27 Calculated Osmolality 290 mOsm/kg (285-295) 05/30/22 16:27 Calcium 9.9 mg/dL (8.5-10.5) 05/30/22 16:27 Total Bilirubin 0.2 mg/dL (0.15-1.2) 05/30/22 16:27 AST 19 U/L (0-32) 05/30/22 16:27 ALT 25 U/L (0-33) 05/30/22 16:27 Alkaline Phosphatase 96 U/L (35-105) 05/30/22 16:27 Total Protein 7.4 g/dL (6.6-8.7) 05/30/22 16:27 Albumin 4.2 g/dL (3.5-5.2) 05/30/22 16:27 Globulin 3.2 g/dL (1.3-4.6) 05/30/22 16:27 Lipase 28 U/L (13-60) 05/30/22 16:27 TSH 6.48 uIU/mL (0.27-4.20) H 05/30/22 16:27 Free T4 0.80 ng/dL (0.82-1.77) L 05/30/22 16:27 Urine HCG, Qual Negative (Negative) 05/30/22 16:35 Salicylates < 0.3 mg/dL (3-10) L 05/30/22 16:27 Urine Opiates Screen Negative ng/mL (Negative) 05/30/22 16:35 Acetaminophen < 5.0 ug/mL (10-30) L 05/30/22 16:27 Ur Barbiturates Screen Negative ng/mL (Negative) 05/30/22 16:35 Ur Phencyclidine Scrn Negative ng/mL (Negative) 05/30/22 16:35 Ur Amphetamines Screen Negative ng/mL (Negative) 05/30/22 16:35 U Benzodiazepines Scrn Negative ng/mL (Negative) 05/30/22 16:35 [place] 1.2 mmol/L (0.6-1.2) 05/30/22 16:27 Urine Cocaine Screen Negative ng/mL (Negative) 05/30/22 16:35 U Marijuana (THC) Screen Negative ng/mL (Negative) 05/30/22 16:35 Ethyl Alcohol < 10 mg/dL (0-10) 05/30/22 19:02 SARS-CoV-2 Ag (Rapid) Negative (Negative) 05/30/22 16:00 Imaging Data Other Imaging: Radiologist's impression: [address] [place] [address] XRay Report Signed Patient: Alisa Kohli Unit #: [id number] : 1965 Age/Sex: 56 / F ADM Date: 05/30/22 Loc: ER Room/Bed: Attending Dr: Ordering Provider/Ordering MD: Annette Carcamo MD Date of Service: 05/30/22 Procedure(s): XR chest 1V portable [id number] Accession Number(s): [id number] Report Number: [id number] PROCEDURE INFORMATION: Exam: XR Chest Exam date and time: 05/30/2022 2:50 PM Age: 56 years old Clinical indication: Screening exam; Other screening; Additional info: Clearance for admission to therapeutic facility TECHNIQUE: Imaging protocol: Radiologic exam of the chest. Views: 1 view. COMPARISON: CT abdomen pelvis w con* [id number] 12/28/2021 5:13 PM FINDINGS: Lungs: Unremarkable. No consolidation. Pleural spaces: Unremarkable. No pleural effusion. No pneumothorax. Heart/Mediastinum: Unremarkable. No cardiomegaly. Bones/joints: Unremarkable. XR/XR chest 1V portable [id number] IMPRESSION: No acute findings. ? Dictated By: Steve Neves DO Signed By: Steve Neves DO Signed Date/Time: 05/30/22 1525 DD/ 1450 Discharge Plan Discharge Patient Disposition: Transfer to ED Clinical Impression: Suicide attempt, Laceration of wrist Condition: Stable Prescriptions: No Action bupropion HCl [Wellbutrin XL] 300 mg tablet extended release 24 hr 300 mg PO QAM Qty: 30 2RF gabapentin 300 mg capsule 300 mg PO BEDTIME 30 Days Qty: 30 2RF lithium carbonate 300 mg capsule 300 mg PO TID 30 Days Qty: 90 2RF atorvastatin 40 mg tablet 40 mg PO DAILY 30 Days Qty: 30 5RF naproxen [Naprosyn] 500 mg tablet 500 mg PO BID PRN (Reason: Pain) divalproex 500 mg tablet extended release 24 hr 1,000 mg PO BID aripiprazole 10 mg tablet 10 mg PO BEDTIME Referrals: Angelina Rebolledo DO [Primary Care Provider] - Coding Level of Care Code ED Environmental Emergencies Assistant for Chg Fwd Exam Comprehensive Documented by User: [place] Shankar Bryce, 05/31/22 00:40 HPI - General Adult General: Chief complaint: Psychiatric Symptoms Stated complaint: SI W/ATTEMPT Time Seen by Provider: 05/30/22 14:27 PFSH ED PFSH: Medical History Auditory hallucination Depression Dyslipidemia History of breast cancer HTN (hypertension) Psychiatric care Surgical History History of lumpectomy of right breast Social History Smoking and tobacco status: current every day smoker cigarettes Packs smoked per day: 0.5 Years cigarettes smoked: 35 Quit status (tobacco): has tried quititng Number of times tried to quit tobacco: 10 Second hand smoke exposure: No Smoking risk assessment/counseling performed?: No Alcohol intake: current Alcohol intake frequency: holidays/special occasions only Alcohol type: beer, wine and hard liquor Desire information about alcohol rehabilitation?: No Counseling given: No Desire information about substance/drug rehabilitation?: No Counseling given: No Course Vital Signs: Vital signs: Vital Signs Temperature 98.9 F 05/31/22 00:15 Pulse Rate 60 05/31/22 00:15 Respiratory Rate 19 H 05/31/22 00:15 Blood Pressure 104/59 05/31/22 00:15 Pulse Oximetry 98 05/31/22 00:15 Oxygen Delivery Me thod 05/31/22 00:15 MDM - General Adult Medical Decision Making [56]yo patient w/ hx of auditory hallucination and depression presenting for worsening depression and suicide attempt. HDS, exam within normal limit Thoughts are linear and organized, and the patient has no AH/VH, or HI. Patient has R wrist laceration was closed. Please refer to the procedure note for laceration repair. Clinically the patient displays no overt toxidrome; they are well appearing, with low suspicion for toxic ingestion given history and exam. Symptoms unlikely 2/2 anemia, hypothyroidism, infection, or ICH. Workup: CBC, CMP, Lipase, salicylate/tylenol, serum ethanol, TSH, free T4, EKG, covid antigen, EKG, UDS, XR chest Lab findings: wnl [3:30pm] On reassessment, labs and workup wnl. Patient is hemodynamically stable with no acute medical complaints. Case discussed with psychiatric provider Dr. langford at [facility] psych inpatient with recommendation for admission. We currently does not have any psychiatry beds. Therefore patient needs to be transferred to another facility. Disposition: Xfer to outside psych Psych Received in checkout from the previous physician at shift change. Other than insomnia with some room pacing, she has been compliant and calm in the ER. She asked for something to help her sleep, and was given Ambien, which did not seem to help. She is given oral Zyprexa, as she is accepted at an outside psychiatric facility, and will be going by EMS transfer tonight. Hopefully this will help calm her nerves in route. She remains medically stable otherwise. Lab Data : 05/30/22 16:27 05/30/22 16:27 Radiology Impressions Chest X-Ray 05/30/22 14:28 IMPRESSION: No acute findings. Laboratory Results WBC 11.6 10^3/uL (4.0-10.0) H 05/30/22 16:27 RBC 4.13 10^6/uL (4.1-5.3) 05/30/22 16:27 Hgb 13.2 g/dL (11.5-15.3) 05/30/22 16:27 Hct 41.3 % (37.0-47.0) 05/30/22 16:27 MCV 100.0 fl (81-99) H 05/30/22 16:27 MCH 32.0 pg (28.0-34.0) 05/30/22 16:27 MCHC 32.0 g/dL (30.0-36.0) 05/30/22 16:27 RDW 12.5 % (12.1-15.1) 05/30/22 16:27 Plt Count 316 10^3/cmm (130-400) 05/30/22 16:27 MPV 10.6 fL (7.4-10.4) H 05/30/22 16:27 Neut % (Auto) 62.2 % 05/30/22 16: Lymph % (Auto) 28.6 % 05/30/22 16:27 [place] % (Auto) 6.0 % 05/30/22 16:27 Eos % (Auto) 2.0 % 05/30/22 16: Baso % (Auto) 0.8 % 05/30/22 16: Neut # (Auto) 7.19 10^3/uL (1.8-7.7) 05/30/22 16: Lymph # (Auto) 3.3 10^3/uL (0.8-4.8) 05/30/22 16: [place] # (Auto) 0.7 10^3/uL (0.2-0.9) 05/30/22 16: Eos # (Auto) 0.2 10^3/uL (0.0-0.8) 05/30/22 16: Baso # (Auto) 0.1 10^3/uL (0.0-0.1) 05/30/22 16: Nucleated RBC % (auto) 0 % 05/30/22 16: Nucleated RBCs # 0.0 /100WBC 05/30/22 16: Sodium 140 mmol/L (136-145) 05/30/22 16:27 Potassium 4.2 mmol/L (3.5-5.1) 05/30/22 16: Chloride 104 mmol/L (98-107) 05/30/22 16: Carbon Dioxide 26 mmol/L (22-29) 05/30/22 16:27 Anion Gap 14.2 (5-19) 05/30/22 16:27 BUN 13 mg/dL (6-20) 05/30/22 16: Creatinine 0.9 mg/dL (0.5-0.9) 05/30/22 16:27 GFR Calculation 65.2 mL/min (90-130) L 05/30/22 16:27 Glucose 89 mg/dL (65-115) 05/30/22 16: Calculated Osmolality 290 mOsm/kg (285-295) 05/30/22 16:27 Calcium 9.9 mg/dL (8.5-10.5) 05/30/22 16:27 Total Bilirubin 0.2 mg/dL (0.15-1.2) 05/30/22 16:27 AST 19 U/L (0-32) 05/30/22 16:27 ALT 25 U/L (0-33) 05/30/22 16:27 Alkaline Phosphatase 96 U/L (35-105) 05/30/22 16:27 Total Protein 7.4 g/dL (6.6-8.7) 05/30/22 16:27 Albumin 4.2 g/dL (3.5-5.2) 05/30/22 16:27 Globulin 3.2 g/dL (1.3-4.6) 05/30/22 16:27 Lipase 28 U/L (13-60) 05/30/22 16:27 TSH 6.48 uIU/mL (0.27-4.20) H 05/30/22 16:27 Free T4 0.80 ng/dL (0.82-1.77) L 05/30/22 16:27 Urine HCG, Qual Negative (Negative) 05/30/22 16:35 Salicylates < 0.3 mg/dL (3-10) L 05/30/22 16:27 Urine Opiates Screen Negative ng/mL (Negative) 05/30/22 16:35 Acetaminophen < 5.0 ug/mL (10-30) L 05/30/22 16:27 Ur Barbiturates Screen Negative ng/mL (Negative) 05/30/22 16:35 Ur Phencyclidine Scrn Negative ng/mL (Negative) 05/30/22 16:35 Ur Amphetamines Screen Negative ng/mL (Negative) 05/30/22 16:35 U Benzodiazepines Scrn Negative ng/mL (Negative) 05/30/22 16:35 [place] 1.2 mmol/L (0.6-1.2) 05/30/22 16:27 Urine Cocaine Screen Negative ng/mL (Negative) 05/30/22 16:35 U Marijuana (THC) Screen Negative ng/mL (Negative) 05/30/22 16:35 Ethyl Alcohol < 10 mg/dL (0-10) 05/30/22 19:02 SARS-CoV-2 Ag (Rapid) Negative (Negative) 05/30/22 16:00 Discharge Plan Discharge Patient Disposition: Transfer to ED Clinical Impression: Suicide attempt, Laceration of wrist Condition: Stable Prescriptions: No Action bupropion HCl [Wellbutrin XL] 300 mg tablet extended release 24 hr 300 mg PO QAM Qty: 30 2RF gabapentin 300 mg capsule 300 mg PO BEDTIME 30 Days Qty: 30 2RF lithium carbonate 300 mg capsule 300 mg PO TID 30 Days Qty: 90 2RF atorvastatin 40 mg tablet 40 mg PO DAILY 30 Days Qty: 30 5RF naproxen [Naprosyn] 500 mg tablet 500 mg PO BID PRN (Reason: Pain) divalproex 500 mg tablet extended release 24 hr 1,000 mg PO BID aripiprazole 10 mg tablet 10 mg PO BEDTIME Referrals: Angelina Rebolledo DO [Primary Care Provider] - Coding Level of Care Code ED Environmental Emergencies Assistant for Chg Fwd Exam Comprehensive
[2022-05-30] MEDS: tetanus-dipt-pertussis 0.5 mL SDV IM (15:14)
[2022-05-30 15:28] VITALS: BP 106/72; PULSE 70; RESP 16; O2SAT 99
--- NOTE | 2022-05-30 16:01 | ECG_ITS ---
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 Measurements Intervals [place] Rate: 71 P: 45 NH: 165 QRS: 9 QRSD: 93 T: 14 QT: 400 QTc: 437 Interpretive Statements SINUS RHYTHM Compared to ECG 12/28/2021 18:13:09 No significant changes Electronically Signed On 05-31-2022 8:33:52 CDT by Dinh Escobar M.D. [id number]
[2022-05-30 16:31] LABS: Basophils # 0.1 10^3/uL (0.0-0.1); Basophils % 0.8 %; Eosinophils # 0.2 10^3/uL (0.0-0.8); Hematocrit 41.3 % (37.0-47.0); Hemoglobin 13.2 g/dL (11.5-15.3); Lymphocytes # 3.3 10^3/uL (0.8-4.8); Lymphocytes % 28.6 %; Mean Platelet Volume 10.6 fL (7.4-10.4); Monocytes # 0.7 10^3/uL (0.2-0.9); Neutrophils # 7.19 10^3/uL (1.8-7.7); Neutrophils % 62.2 %; Nucleated Red Blood Cells % 0 %; Platelet Count 316 10^3/cmm (130-400); Red Blood Count 4.13 10^6/uL (4.1-5.3); Red Cell Distribution Width 12.5 % (12.1-15.1); White Blood Count 11.6 10^3/uL (4.0-10.0)
[2022-05-30 16:51] LABS: SARS Covid-2 Antigen Negative (Negative)
[2022-05-30 17:09] LABS: Alanine Aminotransferase 25 U/L (0-33); Albumin Level 4.2 g/dL (3.5-5.2); Alkaline Phosphatase 96 U/L (35-105); Anion Gap 14.2 (5-19); Aspartate Amino Transferase 19 U/L (0-32); Blood Urea Nitrogen 13 mg/dL (6-20); Calcium 9.9 mg/dL (8.5-10.5); Carbon Dioxide 26 mmol/L (22-29); Chloride 104 mmol/L (98-107); Globulin 3.2 g/dL (1.3-4.6); Glomerular Filtration Rate 65.2 mL/min (90-130); Glucose 89 mg/dL (65-115); Lipase 28 U/L (13-60); Osmolality Calculated 290 mOsm/kg (285-295); Potassium 4.2 mmol/L (3.5-5.1); Sodium 140 mmol/L (136-145); Thyroid Stimulating Hormone 6.48 uIU/mL (0.27-4.20); Total Bilirubin 0.2 mg/dL (0.15-1.2); Total Protein 7.4 g/dL (6.6-8.7)
[2022-05-30 17:21] LABS: Acetaminophen < 5.0 ug/mL (10-30); Alcohol Level < 10 mg/dL (0-10); Salicylate < 0.3 mg/dL (3-10)
[2022-05-30] MEDS: nicotine 21 mg Patch 1 PATCH TRANSDERMA (18:05)
[2022-05-30 18:11] VITALS: BP 105/58; PULSE 79; RESP 16; O2SAT 98
[2022-05-30 18:13] LABS: Amphetamines Screen Urine Negative (Negative); Barbiturates Screen Urine Negative (Negative); Benzodiazepines Screen Urine Negative (Negative); Cocaine Screen Urine Negative (Negative); Opiate Screen Urine Negative (Negative); PCP Screen Urine Negative (Negative); THC Screen Urine Negative (Negative)
--- NOTE | 2022-05-30 19:00 | PC.NURSE ---
report received from mariel silva, assumed care of patient at this time.
[2022-05-30 19:27] LABS: Alcohol Level < 10 mg/dL (0-10)
[2022-05-30] MEDS: LORazepam 1 mg Tablet PO (20:05)
--- NOTE | 2022-05-30 20:05 | PC.NURSE ---
ordered medications given, patient requesting her denture cup to place dentures for the night. green plastic dentures cup taken from patient belongings and placed in with patient to put dentures in. patient verbalized thanks, pleasant and cooperative at this time. denies further needs, nad, gcs 15. 1:1 sitter with patient.
[2022-05-30 20:11] VITALS: RESP 19; O2SAT 97
--- NOTE | 2022-05-30 20:46 | PC.NURSE ---
patient resting in bed resp even and unlabored nad 1:1 sitter at bedside
--- NOTE | 2022-05-30 21:26 | PC.NURSE ---
patient requesting tylenol, attending notified.
[2022-05-30 21:55] LABS: Lithium 1.2 mmol/L (0.6-1.2)
[2022-05-30] MEDS: acetaminophen 500 mg Tablet PO ×2 (21:59)
[2022-05-30] MEDS: zolpidem 5 mg Tablet 10 MG PO (22:30)
--- NOTE | 2022-05-30 22:30 | PC.NURSE ---
Patient requesting Ambien to help her sleep. She has been on Ambien in the past. Per Dr CERVANTES, given ambien 10mg po. RBVO.
--- NOTE | 2022-05-30 22:59 | PC.NURSE ---
pt resting quietly, awake, requesting beverage. beverage given. cooperative at this time.
--- NOTE | 2022-05-30 23:42 | PC.NURSE ---
patient pacing room, standing at doorway. given vanilla ice cream per request, cooperative.
[2022-05-31 00:15] VITALS: BP 104/59; PULSE 60; RESP 19; TEMP 37.2; O2SAT 98
--- NOTE | 2022-05-31 00:15 | PC.NURSE ---
transfer packet/consent signed at 0003, vs assessed at 0006 see vs charting, report called to [facility] in [place] at 0013 to Lazaro Howell RN, accepted to room 116-A.
[2022-05-31] MEDS: OLANZapine 10 mg ODT 20 MG PO (00:20)
--- NOTE | 2022-05-31 00:45 | PC.NURSE ---
report given to ems, patient taken via stretcher to [facility] gcs 15 vss.
== END 2022-05-31 01:28 ==
PROVIDERS: Emergency Medicine; Emergency Provider Emergency Medicine; PCP Family Medicine
DX: S61.511A Laceration without foreign body of right wrist, initial encounter (principal); X78.9XXA Intentional self-harm by unspecified sharp object, initial encounter; Z23 Encounter for immunization
CPT/HCPCS: 12002; 36415; 71045; 80053; 80178; 80306; 80307; 81025; 83690; 84439; 84443; 85025; 87426; 90471; 90715; 93005; 99285

== ENCOUNTER 2022-09-20 09:54 | Inpatient (IN) | payer MEDICARE, SELFPAY ==
[2022-09-20 09:56] VITALS: BP 122/45; PULSE 59; RESP 16; TEMP 36.4; O2SAT 94
--- NOTE | 2022-09-20 09:58 | XRR_ITS ---
PROCEDURE INFORMATION: Exam: XR Chest Exam date and time: 09/20/2022 10:40 AM Age: 56 years old Clinical indication: Cough and dyspnea; Additional info: Dyspnea/cough TECHNIQUE: Imaging protocol: Radiologic exam of the chest. Views: 1 view. COMPARISON: CR XR chest 1V portable [id number] 05/30/2022 2:50 PM FINDINGS: Lungs: There are mildly decreased lung volumes with mild accentuation of the pulmonary vascularity. There are no confluent interstitial or airspace opacities. Pleural spaces: There are no pleural effusions or pneumothorax. Heart/Mediastinum: The heart size is normal. The mediastinal contour is normal. The trachea is in the midline. Bones/joints: No acute abnormalities. XR/XR chest 1V portable [id number] IMPRESSION: Mildly decreased lung volumes with mild accentuation of the pulmonary vascularity. No confluent infiltrates in the lungs.
[2022-09-20 10:16] LABS: ABG PCO2 38.5 mmHg (35-45); ABG PH Result 7.41 (7.35-7.45); Alveolar-Arterial Oxygen Gradi 3.9 mmHg (5-10); Arterial Blood Gas Hematocrit 35.4 % (37-47); Base Excess ABG -0.3 mmol/L (-2.0-2.0); Blood Gas Allen Test Pos; Blood Gas Operator Identificat CAK; Blood Gas Sample Site Radial, left; Blood Gas Sample Type Arterial; Carboxyhemoglobin < 1.0 %THgb (0.4-20.1); HCO3 ABG 24.3 mmol/L (22-26); HGB O2 Sat 93.8 % (95-100); Ionized Calcium Level - ABG 1.3 mmol/L (1.1-1.4); Methemoglobin 0.4 % (0.4-1.5); Oxygen Device ROOM AIR; Oxygen Saturation ABG 94.5; PO2 ABG 73.3 mmHg (80.0-100.0); Potassium Level - ABG 3.9 mmol/L (3.5-5.0); Total Hemoglobin 11.6 g/dL (12-16)
--- NOTE | 2022-09-20 10:31 | CTR_ITS ---
PROCEDURE INFORMATION: Exam: CT Head Without Contrast Exam date and time: 09/20/2022 10:43 AM Age: 56 years old Clinical indication: Altered mental status/memory loss; Additional info: AMS TECHNIQUE: Imaging protocol: Computed tomography of the head without contrast. Radiation optimization: All CT scans at this facility use at least one of these dose optimization techniques: automated exposure control; mA and/or kV adjustment per patient size (includes targeted exams where dose is matched to clinical indication); or iterative reconstruction. COMPARISON: CT head wo con* [id number] 12/28/2021 5:09 PM RADIATION DOSE METRICS: Total DLP (mGy-cm): 1083.18 FINDINGS: Brain: Unchanged mildly prominent brain sulci seen, which is advanced for the patient's age. Recommend correlation with clinical history. There are no intracranial masses, mass effect or midline shift. There is no cerebral edema. There is no subarachnoid hemorrhage. There are no intra-or extra-axial fluid collections, intraventricular or intraparenchymal hemorrhage. No definite areas of low attenuation or timmons-white matter junction obscuration seen on the noncontrast CT to suggest a subacute stroke. Cerebral ventricles: The lateral, third and fourth ventricles appear unremarkable. The suprasellar and basilar cisterns appear unremarkable. Paranasal sinuses: The visualized sinuses are unremarkable. Mastoid air cells: Severe bilateral mastoid air cell fluid is seen. Fluid is seen in bilateral middle ear cavities. Recommend correlation with clinical findings of mastoiditis and otitis media. Orbital cavities: The visualized orbits are unremarkable. Bones/joints: No definite acute osseous or skull abnormalities seen. The patient is edentulous. Soft tissues: Unremarkable. Notes: If there is further clinical concern for intracranial pathology, MRI of the brain may be performed for further assessment. CT/CT head wo con* [id number] IMPRESSION: 1. No non-contrast CT evidence of intracranial hemorrhage, masses or subacute stroke. 2. Severe bilateral mastoid air cell fluid. Fluid seen in bilateral middle ear cavities. Recommend correlation with clinical findings of mastoiditis and otitis media.
[2022-09-20 10:32] LABS: Basophils # 0.1 10^3/uL (0.0-0.1); Basophils % 0.4 %; Eosinophils # 0.6 10^3/uL (0.0-0.8); Eosinophils % 3.7 %; Hematocrit 35.6 % (37.0-47.0); Hemoglobin 11.5 g/dL (11.5-15.3); Lymphocytes # 2.5 10^3/uL (0.8-4.8); Lymphocytes % 14.9 %; Mean Corpuscular HGB Conc 32.3 g/dL (30.0-36.0); Mean Corpuscular Hemoglobin 30.9 pg (28.0-34.0); Mean Corpuscular Volume 95.7 fl (81-99); Mean Platelet Volume 10.4 fL (7.4-10.4); Monocytes # 1.9 10^3/uL (0.2-0.9); Monocytes % 11.4 %; Neutrophils # 11.17 10^3/uL (1.8-7.7); Neutrophils % 67.7 %; Nucleated Red Blood Cells % 0 %; Platelet Count 264 10^3/cmm (130-400); Red Blood Count 3.72 10^6/uL (4.1-5.3); Red Cell Distribution Width 12.7 % (12.1-15.1); White Blood Count 16.5 10^3/uL (4.0-10.0)
--- NOTE | 2022-09-20 10:33 | ED_ITS ---
HPI - Altered Mental Status General: Chief Complaint: Altered Mental Status Stated Complaint: AMS Time Seen by Provider: 09/20/22 09:57 Source: patient Mode of arrival: EMS History of Present Illness: 56-year-old female presents emergency room with altered mental status initially when EMS arrived to pick her up she was not able to tell them why she had called EMS. When she arrived here she is able to answer questions time birthday day and would just tell us that she was very very sick. EMS arrived blood glucose of 141 and related that when asked why she wanted to go to the hospital in [place] she kept saying stress unit and she has had problems in the past mental health issues resulting in hospitalizations. 2 hospitalizations last year to [facility]. That she is unable to tell us anything limiting exam and her limited exam she began moaning and persisted although when I first came in the room she was quiet she kept moaning when I tried to listen to her heart and lungs could not really evaluate her any further. She has no lateralizing symptoms suggestive of a stroke. There are no family members at the bedside. MD complaint: altered mental status Onset (ago): unknown Context: other (History of mental health illness) Review of Systems General: Reports: ROS unobtainable due to mental status PFSH ED PFSH: Medical History Auditory hallucination Depression Dyslipidemia History of breast cancer HTN (hypertension) Psychiatric care Surgical History History of lumpectomy of right breast Social History Smoking and tobacco status: former smoker Quit status (tobacco): has quit using tobacco Year quit tobacco: 2021 Second hand smoke exposure: No Smoking risk assessment/counseling performed?: No Alcohol intake: former Desire information about alcohol rehabilitation?: No Counseling given: No Desire information about substance/drug rehabilitation?: No Counseling given: No Physical Exam Const: COMMON NORMALS: no acute distress EXAM LIMITATIONS: altered mental status NUTRITIONAL APPEARANCE: obese ORIENTATION/CONSCIOUSNESS: Yes awake HENMT: COMMON NORMALS: normocephalic, atraumatic, hearing grossly normal bilaterally, external ears normal, EAC's normal and TM's normal bilaterally HEAD & SCALP: normocephalic and atraumatic FACE & SINUS: normal facial exam GENERAL EAR: hearing grossly impaired EXTERNAL EAR: Yes external ears normal EXTERNAL AUDITORY CANAL: EAC's normal TYMPANIC MEMBRANE: TM's normal bilaterally MOUTH: Normal oral and palatal mucosa present Resp: COMMON NORMALS: normal respiratory effort, No retractions, No use of accessory muscles and clear to auscultation bilaterally AUSCULTATION: clear to auscultation bilaterally Cardio: COMMON NORMALS: regular rate and regular rhythm RATE: regular rate RHYTHM: regular rhythm GI: COMMON NORMALS: Soft to palpation and No hepatosplenomegaly present PALPATION: Yes Soft to palpation, No Tenderness to palpation present (GI), No Guarding due to palpation present (GI) and Yes No hepatosplenomegaly present : COMMON NORMALS: Yes no CVA tenderness BLADDER/KIDNEY EXAM: Yes no CVA tenderness Back/Pelvis: COMMON NORMALS: no CVA tenderness Skin: COMMON NORMALS: no rashes or lesions noted GENERAL SKIN EXAM: no rashes or lesions noted Course Vital Signs: Vital signs: Vital Signs Temperature 97.5 F L 09/20/22 09:56 Pulse Rate 59 L 09/20/22 09:56 Respiratory Rate 16 09/20/22 09:56 Blood Pressure 122/45 09/20/22 09:56 Pulse Oximetry 94 09/20/22 09:56 Oxygen Delivery Me thod 09/20/22 09:56 MDM - Altered Mental Status Medical Decision Making Initially patient unable to tell us why she is here she knows her name and her birthday. 1 point she knows she is at the hospital when I first went in to see her she began moaning and would not stop to allow me to finish her exam waited a period of time went back and reevaluated her. Was able Mk lungs a sounded clear heart is regular she has no abdominal pain or tenderness. Initial laboratory work so far is unremarkable her still waiting on a urine and urine drug screen. Unable to get from the patient what is actually going on at this point she repeatedly states she needs to go to the hospital and she needs help when I tell her she is here and asked her what is wrong or what we can help her with she just replies she needs to go to the hospital couple of times she still is I am sorry I want to go home when I ask her how she is going to get home she cannot answer me and begins crying and states she needs help again. Conversation became cyclical and really could not get any meaningful information from her she has had 2 previous hospitalizations last year for psychiatric illness and December and 1 in April. There is no one at the bedside to offer more history. The only number in her chart that is listed is out of service according to staff we tried to call it. We will consult Dr. Interiano. CT of the head and chest x-ray are unremarkable she does have a mild leukocytosis at this time. Her vital signs are otherwise stable. Discussed with Dr. Interiano. It is concerning patient previously had suicide attempt she was altered but no obvious findings of toxicity initially. Fitzpatrick level eventually came back elevated 2.6 and creatinine function is still relatively good with a GFR greater than 50. Will admit to ICU with a sitter IV fluids observation she is not elevated enough for the lithium level at this point to require dialysis. Dr. Interiano to consult because of history of previous suicide attempts. Medical Records I reviewed the patient's medical records. Lab Data I reviewed the patient's lab results. 09/20/22 10:26 09/20/22 10:26 Radiology Impressions Chest X-Ray 09/20/22 09:58 IMPRESSION: Mildly decreased lung volumes with mild accentuation of the pulmonary vascularity. No confluent infiltrates in the lungs. Head CT 09/20/22 10:31 IMPRESSION: 1. No non-contrast CT evidence of intracranial hemorrhage, masses or subacute stroke. 2. Severe bilateral mastoid air cell fluid. Fluid seen in bilateral middle ear cavities. Recommend correlation with clinical findings of mastoiditis and otitis media. Laboratory Results WBC 16.5 10^3/uL (4.0-10.0) H 09/20/22 10:26 RBC 3.72 10^6/uL (4.1-5.3) L 09/20/22 10:26 Hgb 11.5 g/dL (11.5-15.3) 09/20/22 10:26 Hct 35.6 % (37.0-47.0) L 09/20/22 10:26 MCV 95.7 fl (81-99) 09/20/22 10:26 MCH 30.9 pg (28.0-34.0) 09/20/22 10:26 MCHC 32.3 g/dL (30.0-36.0) 09/20/22 10:26 RDW 12.7 % (12.1-15.1) 09/20/22 10:26 Plt Count 264 10^3/cmm (130-400) 09/20/22 10:26 MPV 10.4 fL (7.4-10.4) 09/20/22 10:26 Neut % (Auto) 67.7 % 09/20/22 10:26 Lymph % (Auto) 14.9 % 09/20/22 10:26 Benzie % (Auto) 11.4 % 09/20/22 10:26 Eos % (Auto) 3.7 % 09/20/22 10:26 Baso % (Auto) 0.4 % 09/20/22 10:26 Neut # (Auto) 11.17 10^3/uL (1.8-7.7) H 09/20/22 10:26 Lymph # (Auto) 2.5 10^3/uL (0.8-4.8) 09/20/22 10:26 Benzie # (Auto) 1.9 10^3/uL (0.2-0.9) H 09/20/22 10:26 Eos # (Auto) 0.6 10^3/uL (0.0-0.8) 09/20/22 10:26 Baso # (Auto) 0.1 10^3/uL (0.0-0.1) 09/20/22 10:26 Nucleated RBC % (auto) 0 % 09/20/22 10:26 Nucleated RBCs # 0.0 /100WBC 09/20/22 10:26 Specimen Type Arterial 09/20/22 10:04 Sample Site Radial, left 09/20/22 10:04 ABG pH 7.41 (7.35-7.45) 09/20/22 10:04 ABG pCO2 38.5 mmHg (35-45) 09/20/22 10:04 ABG pO2 73.3 mmHg (80.0-100.0) L 09/20/22 10:04 ABG HCO3 24.3 mmol/L (22-26) 09/20/22 10:04 ABG O2 Saturation 94.5 09/20/22 10:04 ABG Base Excess -0.3 mmol/L (-2.0-2.0) 09/20/22 10:04 Frankie Test Pos 09/20/22 10:04 A-a O2 Gradient 3.9 mmHg (5-10) L 09/20/22 10:04 Hematocrit 35.4 % (37-47) L 09/20/22 10:04 Hgb O2 Saturation 93.8 % (95-100) L 09/20/22 10:04 Carboxyhemoglobin < 1.0 %THgb (0.4-20.1) 09/20/22 10:04 Methemoglobin 0.4 % (0.4-1.5) 09/20/22 10:04 Total Hemoglobin 11.6 g/dL (12-16) L 09/20/22 10:04 Sodium 138.0 mmol/L (131-143) 09/20/22 10:04 Potassium 3.9 mmol/L (3.5-5.0) 09/20/22 10:04 Glucose 111.0 mg/dL (70-115) 09/20/22 10:04 Ionized Calcium 1.3 mmol/L (1.1-1.4) 09/20/22 10:04 O2 Delivery Device Room air 09/20/22 10:04 FiO2 21.0 % 09/20/22 10:04 Physician Compensation Analyst ID Cak 09/20/22 10:04 Sodium 132 mmol/L (136-145) L 09/20/22 10:26 Potassium 4.6 mmol/L (3.5-5.1) 09/20/22 10:26 Chloride 101 mmol/L (98-107) 09/20/22 10:26 Carbon Dioxide 23 mmol/L (22-29) 09/20/22 10:26 Anion Gap 12.6 (5-19) 09/20/22 10:26 BUN 22 mg/dL (6-20) H 09/20/22 10:26 Creatinine 1.1 mg/dL (0.5-0.9) H 09/20/22 10:26 GFR Calculation 51.8 mL/min (90-130) L 09/20/22 10:26 Glucose 105 mg/dL (65-115) 09/20/22 10:26 Calculated Osmolality 278 mOsm/kg (285-295) L 09/20/22 10:26 Calcium 9.7 mg/dL (8.5-10.5) 09/20/22 10:26 Total Bilirubin 0.3 mg/dL (0.15-1.2) 09/20/22 10:26 AST 16 U/L (0-32) 09/20/22 10:26 ALT 12 U/L (0-33) 09/20/22 10:26 Alkaline Phosphatase 111 U/L (35-105) H 09/20/22 10:26 Total Protein 6.9 g/dL (6.6-8.7) 09/20/22 10:26 Albumin 3.9 g/dL (3.5-5.2) 09/20/22 10:26 Globulin 3.0 g/dL (1.3-4.6) 09/20/22 10:26 Urine Color Yellow (Yellow) 09/20/22 11:21 Urine Appearance Clear (CLEAR) 09/20/22 11:21 Urine pH 6.5 (5-7) 09/20/22 11:21 Ur Specific [place] 1.015 (1.005-1.030) 09/20/22 11:21 Urine Protein Neg (Negative) 09/20/22 11:21 Urine Glucose (UA) Norm (Normal) 09/20/22 11:21 Urine Ketones 1+ (Negative) H 09/20/22 11:21 Urine Blood 2+ (Negative) H 09/20/22 11:21 Urine Nitrate Negative (Negative) 09/20/22 11:21 Urine Bilirubin Neg (Negative) 09/20/22 11:21 Urine Urobilinogen Norm mg/dL (Negative) 09/20/22 11:21 Ur Leukocyte Esterase Trace (Negative) H 09/20/22 11:21 Urine RBC 0-4 /hpf (0-2) H 09/20/22 11:21 Urine WBC 0-4 /hpf (0-5) H 09/20/22 11:21 Ur Squamous Epith Cells 0-4 /hpf (0-5) H 09/20/22 11:21 Amorphous Sediment Not Reportable 09/20/22 11:21 Urine Bacteria 1+ /hpf (NONE) H 09/20/22 11:21 Salicylates < 0.3 mg/dL (3-10) L 09/20/22 10:26 Urine Opiates Screen Negative ng/mL (Negative) 09/20/22 11:21 Acetaminophen < 5.0 ug/mL (10-30) L 09/20/22 10:26 Ur Barbiturates Screen Negative ng/mL (Negative) 09/20/22 11:21 Valproic Acid 106.4 ug/mL (50-100) H 09/20/22 10:26 Ur Phencyclidine Scrn Negative ng/mL (Negative) 09/20/22 11:21 Ur Amphetamines Screen Negative ng/mL (Negative) 09/20/22 11:21 U Benzodiazepines Scrn Negative ng/mL (Negative) 09/20/22 11:21 Fitzpatrick 2.6 mmol/L (0.6-1.2) H* 09/20/22 13:17 Urine Cocaine Screen Negative ng/mL (Negative) 09/20/22 11:21 U Marijuana (THC) Screen Negative ng/mL (Negative) 09/20/22 11:21 Ethyl Alcohol < 10 mg/dL (0-10) 09/20/22 10:26 Influenza Type A Ag Negative (Negative) 09/20/22 11:20 Influenza Type B Ag Negative (Negative) 09/20/22 11:20 Discharge Plan Discharge Patient Disposition: Admitted As Inpatient Clinical Impression: Fitzpatrick toxicity, History of suicide attempt Condition: Stable Coding Level of Care Code 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
[2022-09-20 11:11] LABS: Alanine Aminotransferase 12 U/L (0-33); Albumin Level 3.9 g/dL (3.5-5.2); Alkaline Phosphatase 111 U/L (35-105); Blood Urea Nitrogen 22 mg/dL (6-20); Calcium 9.7 mg/dL (8.5-10.5); Carbon Dioxide 23 mmol/L (22-29); Chloride 101 mmol/L (98-107); Glomerular Filtration Rate 51.8 mL/min (90-130); Glucose 105 mg/dL (65-115); Osmolality Calculated 278 mOsm/kg (285-295); Sodium 132 mmol/L (136-145); Total Bilirubin 0.3 mg/dL (0.15-1.2); Total Protein 6.9 g/dL (6.6-8.7)
[2022-09-20 11:12] LABS: Acetaminophen < 5.0 ug/mL (10-30); Alcohol Level < 10 mg/dL (0-10); Salicylate < 0.3 mg/dL (3-10)
[2022-09-20 11:14] LABS: Anion Gap 12.6 (5-19); Potassium 4.6 mmol/L (3.5-5.1)
[2022-09-20 11:15] LABS: Aspartate Amino Transferase 16 U/L (0-32)
--- NOTE | 2022-09-20 11:19 | ECG_ITS ---
[facility] Test Date: 2022-09-20 Pat Name: Alisa Kohli Department: Room: Gender: Female Consulting Psychiatrist: : [id number] Requested By: Max Emery Order Number: [id number] Rajendra MD: Desean Howard M.D. Measurements Intervals [place] Rate: 68 P: 57 NC: 164 QRS: 24 QRSD: 87 T: -30 QT: 413 QTc: 440 Interpretive Statements SINUS RHYTHM LOW QRS VOLTAGE IN PRECORDIAL LEADS [QRS DEFLECTION < 1.0 mV IN CHEST LEADS] POSSIBLE ANTERIOR MYOCARDIAL INFARCTION , OF INDETERMINATE AGE [30 ms Q WAVE IN V3/V4, OR R < 0.2 mV IN V4] Compared to ECG 05/30/2022 16:01:59 Low QRS voltage now present Myocardial infarct finding now present Electronically Signed On 09-20-2022 20:03:38 TICKET MACHINE OPERATOR by Desean Howard M.D. [id number]
[2022-09-20 11:58] LABS: Amphetamines Screen Urine Negative (Negative); Barbiturates Screen Urine Negative (Negative); Benzodiazepines Screen Urine Negative (Negative); Cocaine Screen Urine Negative (Negative); Glucose Urine UA Norm (Normal); Ketones Urine 1+ (Negative); Opiate Screen Urine Negative (Negative); PCP Screen Urine Negative (Negative); Protein Urine Neg (Negative); Specific Gravity, Urine 1.015 (1.005-1.030); THC Screen Urine Negative (Negative); Urine Appearance Clear (CLEAR); Urine Color Yellow (Yellow); pH Urine 6.5 (5-7)
[2022-09-20 11:59] LABS: Add Urine Culture? No; Add Urine Microscopic? YES; Bacteria Urine 1+ /hpf; Bilirubin Urine Neg (Negative); Blood Urine 2+ (Negative); Leukocyte Esterase Urine Trace (Negative); Nitrate Urine Negative (Negative); RBC Urine 0-4 /hpf (0-2); Squamous Epithelial Cell Urine 0-4 /hpf (0-5); Urobilinogen Urine Norm (Negative); WBC Urine 0-4 /hpf (0-5)
[2022-09-20 12:07] LABS: Valproic Acid Level 106.4 ug/mL (50-100)
[2022-09-20 12:53] LABS: Influenza A by IFA Negative (Negative); Influenza B by IFA Negative (Negative)
[2022-09-20] MEDS: LORazepam 2 mg Tablet PO (13:37)
[2022-09-20 14:06] LABS: Lithium 2.6 mmol/L (0.6-1.2)
--- NOTE | 2022-09-20 14:31 | PC.NURSE ---
This nurse attempted to admin PO ativan, patient refused to take the medication.
--- NOTE | 2022-09-20 14:32 | W.PM.NPUH&PS ---
Providers/Chief Complaint Primary Care Provider: Angelina Rebolledo DO Chief Complaint: AMS HPI NPU History of Present Illness Alisa Kohli is a 56 year old female who presented to the emergency department with the following report: Chief Complaint: Altered Mental Status Stated Complaint: AMS Time Seen by Provider: 09/20/22 09:57 Source: patient Mode of arrival: EMS History of Present Illness: 56-year-old female presents emergency room with altered mental status initially when EMS arrived to pick her up she was not able to tell them why she had called EMS. When she arrived here she is able to answer questions time birthday day and would just tell us that she was very very sick. EMS arrived blood glucose of 141 and related that when asked why she wanted to go to the hospital in [place] she kept saying stress unit and she has had problems in the past mental health issues resulting in hospitalizations. 2 hospitalizations last year to stressing. That she is unable to tell us anything limiting exam and her limited exam she began moaning and persisted although when I first came in the room she was quiet she kept moaning when I tried to listen to her heart and lungs could not really evaluate her any further. She has no lateralizing symptoms suggestive of a stroke. There are no family members at the bedside. MD complaint: altered mental status Onset (ago): unknown Context: other (History of mental health illness). Psychiatric consult was requested after she was mostly nonverbal with the emergency room doctor. I went and saw her and have limited recollection of her from past visit but she was basically lying in bed perseverating about wanting to go home. Every attempt that I made to get more meaningful communication from her was met with either responses like she was upset and repetition of the statement I want to go home. Discussed the case with Dr. Rubin and we agreed that she needed to stay and likely be on the psychiatric unit because she appeared not well but it was unclear of what exactly was going on but at that time the lithium level had not returned. The lithium level returned elevated and it was unclear at that time that she needed to have more intensive medical observation while this hyper lithium state was being managed. Given that we did not know if it was going to increase or where we were exactly in the peak. We also were unaware that this represented an error in dosing or an overdose. We agreed we would continue to monitor her as she was managed on the medical unit. Meds NPU Home Medications Medication Instructions Recorded Confirmed Last Taken Type divalproex 500 mg tablet,extended 1,000 mg PO BID #120 tabs 07/10/22 09/21/22 Unknown Rx release 24 hr gabapentin 300 mg capsule 300 mg PO BEDTIME 30 days #30 caps 07/10/22 09/21/22 Unknown Rx hydroxyzine HCl 50 mg tablet 50 mg PO QID PRN anxiety/insomnia 07/10/22 09/21/22 Unknown Rx #120 tabs lithium carbonate 300 mg capsule 600 mg PO BID 30 days #120 caps 07/10/22 09/21/22 Unknown Rx olanzapine 2.5 mg tablet (Zyprexa) 2.5 mg PO BID #60 tabs 07/10/22 09/21/22 Unknown Rx atorvastatin 40 mg tablet 40 mg PO DAILY 30 days #30 tabs 08/04/22 09/21/22 Unknown Rx naproxen 500 mg tablet (Naprosyn) 500 mg PO BID PRN Pain #60 tabs 08/04/22 09/21/22 Unknown Rx quetiapine 25 mg tablet 25 mg PO QPM 09/21/22 09/21/22 Unknown History Allergies Allergy/AdvReac Type Severity Reaction Status Date / Time Sulfa (Sulfonamide Allergy Unknown Unknown Verified 09/21/22 09:24 Antibiotics) PFSH NPU PFSH: Medical History Auditory hallucination Depression Dyslipidemia History of breast cancer HTN (hypertension) Psychiatric care Surgical History History of lumpectomy of right breast Social History Smoking and tobacco status: former smoker Quit status (tobacco): has quit using tobacco Year quit tobacco: 2021 Second hand smoke exposure: No Smoking risk assessment/counseling performed?: No Alcohol intake: former Desire information about alcohol rehabilitation?: No Counseling given: No Desire information about substance/drug rehabilitation?: No Counseling given: No Mental Status Exam MSE Comments: This is an obese white female looking older than her stated age with poor grooming and limited eye contact. No abnormal movements except for tremulousness and mild psychomotor agitation. Uncooperative with exam in moderate distress. Speech was very limited to a couple of phrases. Mood not described affect confused. Thought process disorganized. Thought content: Patient did not respond to questions of lethality but did not have aggression toward self or others, there were no signs of delusions and none reported, she did not appear to be attending to internal stimuli. Attention and concentration were impaired and memory was unreliable but none were formally tested. She was alert but disoriented. Insight, judgment and impulse control were impaired. Vitals/I&O/Wt Last Vital Signs Temp 97.5 F L 09/20/22 09:56 Pulse 59 L 09/20/22 09:56 Resp 16 09/20/22 09:56 BP 122/45 09/20/22 09:56 Pulse Ox 94 09/20/22 09:56 O2 Del Method 09/20/22 09:56 Data NPU 09/20/22 10:26 09/20/22 10:26 A&P Assessment and plan (1) Bipolar disorder, curr episode mixed, severe, w/o psychotic features: (2) Suicidal ideation: Plan Alisa is a 56-year-old white female with a history of bipolar 1 disorder with mixed mood symptoms and with a recent hospitalization who presents incoherent and just perseverating about going home. ? 1.?Agree with?admission to medical unit to stabilize elevated lithium. 2. Recommend admission to the neuropsychiatric unit after stabilized to identify why lithium is elevated i.e. poor dosing or overdose. 3. We will follow if able to communicate and prepare transfer when ready. Involuntary Hold Information 96 Hour Hold: 96 Hour Involuntary Admission: No Attestations NPU Medical Necessity Statement*: N/A. See primary team note for medical necessity. 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
[2022-09-20] MEDS: LORazepam 2 mg/mL INJ 1 mL IM ×2 (14:41→16:05)
[2022-09-20 17:25] VITALS: BP 113/53; PULSE 64; RESP 16; O2SAT 92
[2022-09-20 17:51] VITALS: BMI 31.9
--- NOTE | 2022-09-20 18:08 | P.HP_ITS ---
Providers/Chief Complaint Admitting Physician: Nikita Valle MD Primary Care Provider: Angelina Rebolledo DO Chief Complaint: AMS History of Present Illness Alisa Kohli is a 56 year old female who presented to the hospital with chief complaint of altered mental status/confusion. She called EMS to take her to the stress unit however in the ER she was stating that she wants to go home. She was confused not able to provide any history. Blood glucose 141 at the time of admission, she has had multiple admissions to neuropsychiatric unit. She has been on lithium 600 mg twice a day. Her work-up was unremarkable other than creatinine 1.1 sodium 132 and lithium level 2.6. She was admitted to the ICU, ICU nurse notified that she has witnessed seizure-like activities, she does have myoclonus. I have made phone call to the poison control, stat consult to nephro and give a heads up to the surgeon for possible dialysis catheter placement. At the time of my evaluation patient is keeping her eyes closed, pupils are dilated, she is able to localize pain, positive myoclonus She is getting normal saline at 200 mL/h Repeating lithium level within 4 hours Review of Systems General: Reports: ROS unobtainable due to medical condition Medications/Allergies Home Medications Medication Instructions Recorded Confirmed Last Taken Type divalproex 500 mg tablet,extended 1,000 mg PO BID #120 tabs 07/10/22 08/04/22 Unknown Rx release 24 hr gabapentin 300 mg capsule 300 mg PO BEDTIME 30 days #30 caps 07/10/22 08/04/22 Unknown Rx hydroxyzine HCl 50 mg tablet 50 mg PO QID PRN anxiety/insomnia 07/10/22 08/04/22 Unknown Rx #120 tabs lithium carbonate 300 mg capsule 600 mg PO BID 30 days #120 caps 07/10/22 08/04/22 Unknown Rx olanzapine 2.5 mg tablet (Zyprexa) 2.5 mg PO BID #60 tabs 07/10/22 08/04/22 Unknown Rx quetiapine 25 mg tablet (Seroquel) 25 mg PO .HS #30 tabs 07/10/22 08/04/22 Unknown Rx atorvastatin 40 mg tablet 40 mg PO DAILY 30 days #30 tabs 08/04/22 08/04/22 Unknown Rx naproxen 500 mg tablet (Naprosyn) 500 mg PO BID PRN Pain #60 tabs 08/04/22 08/04/22 Unknown Rx Allergies Allergy/AdvReac Type Severity Reaction Status Date / Time Sulfa (Sulfonamide Allergy Unknown Unknown Verified 08/04/22 09:57 Antibiotics) PFSH Acute PFSH: Medical History Auditory hallucination Depression Dyslipidemia History of breast cancer HTN (hypertension) Psychiatric care Surgical History History of lumpectomy of right breast Social History Smoking and tobacco status: former smoker Quit status (tobacco): has quit using tobacco Year quit tobacco: 2021 Second hand smoke exposure: No Smoking risk assessment/counseling performed?: No Alcohol intake: former Desire information about alcohol rehabilitation?: No Counseling given: No Desire information about substance/drug rehabilitation?: No Counseling given: No Vitals/I&O/Wt Last Vital Signs Temp 97.5 F L 09/20/22 09:56 Pulse 64 09/20/22 17:25 Resp 16 09/20/22 17:25 BP 113/53 09/20/22 17:25 Pulse Ox 92 09/20/22 17:25 O2 Del Method 09/20/22 17:51 Physical Exam Narrative: Euvolemic Patient is keeping her eyes closed Able to localize pain Able to moan to painful stimuli Pupils are dilated 7 mm Reactive to light No active signs of stroke However myoclonus positive Seizure-like activity witnessed by the nursing staff Hemodynamically stable Currently on room air saturating well Able to protect her airway S1, S2 Abdomen Data 09/20/22 10:26 09/20/22 10:26 A&P Assessment and plan (1) [place] toxicity: (2) History of suicide attempt: Plan Acute on chronic toxicity with lithium No significant creatinine/renal insufficiency noted however patient is confused, with RUBY ON RAILS ENGINEER symptom Patient takes lithium for borderline personality disorder Concern for chronic toxicity with RUBY ON RAILS ENGINEER symptoms my concern is if we need to initiate hemodialysis Aggressive IV fluid hydration Repeat lithium level within 4 hours Stat consult nephro General surgeon has been notified as well if we need to put a dialysis catheter next few hours Keep n.p.o. for now Blood glucose is normal Sodium is 132 Myoclonus positive Full code Hold DVT prophylaxis with anticoagulating agent I would use only SCDs Not sure whether this was a suicide attempt She will go to neuropsychiatric unit once stable Attestations Medical Necessity Statement*: Anticipating more than 2 midnights Critical Care Time: 40mins Coding Level of Care Code Acute Criminal Profiler for [facility] Fwd Diagnoses [place] toxicity T56.891A History of suicide attempt Z91.51
[2022-09-20] MEDS: sodium chloride 0.9% 1,000 ML 150 ML IV ×2 (18:13→21:21)
--- NOTE | 2022-09-20 18:37 | PM.CONSULT ---
Providers/Reason For Consult Consulting Physician/Specialty*: Lucy Brown DO, telenephrology Patient is unresponsive; unable to obtain consent for stat consult. Hospital has been unable to contact friend or family member. Due to emergency situation, consult was performed. Reason for Consult*: severe lithium toxicity Requesting Physician: Nikita Valle MD Attending Physician: Nikita Valle MD Primary Care Provider: Angelina Rebolledo DO History of Present Illness History of Present Illness Alisa Kohli is a 56 year old female presented to ER for evaluation. Had observed seizure x 2. Review of Systems General: Reports: ROS unobtainable due to mental status Medications/Allergies Home Medications Medication Instructions Recorded Confirmed Last Taken Type divalproex 500 mg tablet,extended 1,000 mg PO BID #120 tabs 07/10/22 08/04/22 Unknown Rx release 24 hr gabapentin 300 mg capsule 300 mg PO BEDTIME 30 days #30 caps 07/10/22 08/04/22 Unknown Rx hydroxyzine HCl 50 mg tablet 50 mg PO QID PRN anxiety/insomnia 07/10/22 08/04/22 Unknown Rx #120 tabs lithium carbonate 300 mg capsule 600 mg PO BID 30 days #120 caps 07/10/22 08/04/22 Unknown Rx olanzapine 2.5 mg tablet (Zyprexa) 2.5 mg PO BID #60 tabs 07/10/22 08/04/22 Unknown Rx quetiapine 25 mg tablet (Seroquel) 25 mg PO .HS #30 tabs 07/10/22 08/04/22 Unknown Rx atorvastatin 40 mg tablet 40 mg PO DAILY 30 days #30 tabs 08/04/22 08/04/22 Unknown Rx naproxen 500 mg tablet (Naprosyn) 500 mg PO BID PRN Pain #60 tabs 08/04/22 08/04/22 Unknown Rx Allergies Allergy/AdvReac Type Severity Reaction Status Date / Time Sulfa (Sulfonamide Allergy Unknown Unknown Verified 08/04/22 09:57 Antibiotics) Current Medications Generic Name Dose Route Start Last Admin Trade Name Freq PRN Reason Stop Dose Admin Sodium Chloride 1,000 mls @ 150 mls/hr 09/20/22 14:30 09/20/22 18:29 Sodium Chloride 0.9% IV 200 mls/hr .Q6H40M MIN[facility] Infusion Sodium Chloride 1,000 mls @ 200 mls/hr 09/20/22 18:25 09/20/22 18:29 Sodium Chloride 0.9% IV Not Given .Q5H [facility] PFSH Acute PFSH: Medical History Auditory hallucination Depression Dyslipidemia History of breast cancer HTN (hypertension) Psychiatric care Surgical History History of lumpectomy of right breast Social History Smoking and tobacco status: former smoker Quit status (tobacco): has quit using tobacco Year quit tobacco: 2021 Second hand smoke exposure: No Smoking risk assessment/counseling performed?: No Alcohol intake: former Desire information about alcohol rehabilitation?: No Counseling given: No Desire information about substance/drug rehabilitation?: No Counseling given: No Vitals/I&O/Wt Last Vital Signs Temp 97.5 F L 09/20/22 09:56 Pulse 64 09/20/22 17:25 Resp 16 09/20/22 17:25 BP 113/53 09/20/22 17:25 Pulse Ox 92 09/20/22 17:25 O2 Del Method 09/20/22 17:51 09/20/22 09/20/22 09/20/22 06:59 14:59 22:59 Intake Total 40 / 40 Balance 40 / 40 lainez just placed: urine output 10 ml/15 Physical Exam Const: COMMON NORMALS: no acute distress EXAM LIMITATIONS: altered mental status and other limitations (unresponsive except to pain) Extremity: GENERAL: No edema Data 09/20/22 10:26 09/20/22 10:26 Other Labs: lithium 2.6, drug screen, acetaminophen, salicylates negative LFTs normal urine 2+ blood, 0-4 RBC/HPF CXR: Radiologist's impression: Mildly decreased lung volumes with mild accentuation of the pulmonary vascularity. No confluent infiltrates in the lungs. CT Head: Radiologist's impression: 1. No non-contrast CT evidence of intracranial hemorrhage, masses or subacute stroke. 2. Severe bilateral mastoid air cell fluid. Fluid seen in bilateral middle ear cavities. Recommend correlation with clinical findings of mastoiditis and otitis media. ABG Interpretation 1: 09/20/22 10:04 ABG pH 7.41 ABG pCO2 38.5 ABG pO2 73.3 L ABG HCO3 24.3 ABG O2 Saturation 94.5 ABG Base Excess -0.3 Other data: Seen via telemedicine with assistance of RN at bedside A&P Assessment and plan (1) [place] toxicity: Plan 1. Severe lithium toxicity: seizures, altered mental status, myoclonus. Unknown if accidental overdose or suicide attempt. Timing of ingestion unknown. 2. Mild hyponatremia 3. Acute kidney injury: BUN, creatinine higher than baseline Recommend: Due to severity of neurologic symptoms, recommend proceeding with hemodialysis. Unable to reach next of kin, due to emergency indication will proceed with presumed consent. Continue aggressive IVF hydration with NSS. Q4h lithium level and BMP. HD 4h, no fluid removal. Check BMP and lithium level at initiation of HD. May need HD again tomorrow. 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
[2022-09-20] MEDS: FUROsemide 10 mg/mL SDV 2mL 20 MG IVP (18:43)
[2022-09-20] MEDS: sodium chloride 0.9% 1,000 ML 999 ML IV (18:43)
[2022-09-20] MEDS: LORazepam 2 mg/mL INJ 1 mL IVP (19:18)
--- NOTE | 2022-09-20 19:43 | XRR_ITS ---
PROCEDURE INFORMATION: Exam: XR Chest Exam date and time: 09/20/2022 7:55 PM Age: 56 years old Clinical indication: Other: Dialysis port placement TECHNIQUE: Imaging protocol: Radiologic exam of the chest. Views: 1 view. COMPARISON: CR (CHEST, ) 09/20/2022 10:40 AM FINDINGS: Limitations: The study is made with less than full inspiration. Tubes, catheters and devices: Right jugular central venous catheter is in place with its tip in the superior vena cava. Lungs: There is no pulmonary venous congestion. No focal infiltrate is identified. Pleural spaces: Unremarkable. No pleural effusion. No pneumothorax. Heart/Mediastinum: Heart is within normal limits of size. Bones/joints: Unremarkable. XR/XR chest 1V portable [id number] IMPRESSION: No pneumothorax following dialysis catheter placement.
[2022-09-20] MEDS: midazolam 1 mg/mL INJ 2 mL 2 MG (19:46)
--- NOTE | 2022-09-20 19:46 | PC.NURSE ---
Patient arrived to ICU room 11 at approximately 1745. Patient intermittently withdrawing from pain. Pupils at 7mm reactive to light. Patient not following commands. Patient appeared to have seizure activity, grunting and contractures for approximately 30 seconds. Patient suctioned, bed rails padded, nurse remained at bedside. Vitals remained stable throughout on room air. Dr. Valle notified. Patient had second episode with at bedside. yardage caller nephrology consulted for lithium toxicity.
[2022-09-20 19:47] LABS: Creatine Phosphokinase 59 U/L (26-192); Thyroid Stimulating Hormone 10.67 uIU/mL (0.27-4.20); Vitamin B12 568 pg/mL (232-1245)
--- NOTE | 2022-09-20 19:47 | P.CONIM_ITS ---
Providers/Reason For Consult Consulting Physician/Specialty*: Dr. David Cardenas, General Surgery Reason for Consult*: Hemodialysis catheter placement Requesting Physician: Jodi Valle MD Attending Physician: Nikita Valle MD Primary Care Provider: Angelina Rebolledo DO History of Present Illness History of Present Illness Alisa Kohli is a 56 year old female who presented via EMS for AMS/confusion, found to have lithium toxicity. Nephrology recommends dialysis given signs and symptoms of neurotoxicity. Surgery consulted for HD line placement. Patient unable to provide review of systems or any history due to medical condition. Review of Systems General: Reports: ROS unobtainable due to medical condition and ROS unobtainable due to mental status Medications/Allergies Home Medications Medication Instructions Recorded Confirmed Last Taken Type divalproex 500 mg tablet,extended 1,000 mg PO BID #120 tabs 07/10/22 08/04/22 Unknown Rx release 24 hr gabapentin 300 mg capsule 300 mg PO BEDTIME 30 days #30 caps 07/10/22 08/04/22 Unknown Rx hydroxyzine HCl 50 mg tablet 50 mg PO QID PRN anxiety/insomnia 07/10/22 08/04/22 Unknown Rx #120 tabs lithium carbonate 300 mg capsule 600 mg PO BID 30 days #120 caps 07/10/22 08/04/22 Unknown Rx olanzapine 2.5 mg tablet (Zyprexa) 2.5 mg PO BID #60 tabs 07/10/22 08/04/22 Unknown Rx quetiapine 25 mg tablet (Seroquel) 25 mg PO .HS #30 tabs 07/10/22 08/04/22 Unknown Rx atorvastatin 40 mg tablet 40 mg PO DAILY 30 days #30 tabs 08/04/22 08/04/22 Unknown Rx naproxen 500 mg tablet (Naprosyn) 500 mg PO BID PRN Pain #60 tabs 08/04/22 08/04/22 Unknown Rx Allergies Allergy/AdvReac Type Severity Reaction Status Date / Time Sulfa (Sulfonamide Allergy Unknown Unknown Verified 08/04/22 09:57 Antibiotics) Current Medications Generic Name Dose Route Start Last Admin Trade Name Freq PRN Reason Stop Dose Admin Sodium Chloride 1,000 mls @ 150 mls/hr 09/20/22 14:30 09/20/22 18:29 Sodium Chloride 0.9% IV 200 mls/hr .Q6H40M [facility] Infusion Sodium Chloride 1,000 mls @ 150 mls/hr 09/20/22 18:25 09/20/22 18:46 Sodium Chloride 0.9% IV Not Given .Q6H40M [facility] Sodium Chloride 1,000 mls @ 200 mls/hr 09/20/22 18:25 09/20/22 18:29 Sodium Chloride 0.9% IV Not Given .Q5H [facility] Lorazepam 2 mg 09/20/22 18:25 09/20/22 19:18 Lorazepam 2 Mg/Ml Inj 1 Ml IVP 2 mg Q2H PRN Administration seizure PFSH Acute PFSH: Medical History Auditory hallucination Depression Dyslipidemia History of breast cancer HTN (hypertension) Psychiatric care Surgical History History of lumpectomy of right breast Social History Smoking and tobacco status: former smoker Quit status (tobacco): has quit using tobacco Year quit tobacco: 2021 Second hand smoke exposure: No Smoking risk assessment/counseling performed?: No Alcohol intake: former Desire information about alcohol rehabilitation?: No Counseling given: No Desire information about substance/drug rehabilitation?: No Counseling given: No Vitals/I&O/Wt Last Vital Signs Temp 97.5 F L 09/20/22 09:56 Pulse 64 09/20/22 17:25 Resp 16 09/20/22 17:25 BP 113/53 09/20/22 17:25 Pulse Ox 92 09/20/22 17:25 O2 Del Method 09/20/22 17:51 09/20/22 09/20/22 09/20/22 06:59 14:59 22:59 Intake Total 40 / 40 Balance 40 / 40 Weight last 48 hrs Weight 198 lb Physical Exam Const: COMMON NORMALS: average body habitus EXAM LIMITATIONS: altered mental status GENERAL APPEARANCE: disheveled and lethargic NUTRITIONAL APPEARANCE: overweight ORIENTATION/CONSCIOUSNESS: Yes confused, Yes lethargic and Yes Other orientation findings (intermittently combative) HENMT: COMMON NORMALS: normocephalic, atraumatic, external ears normal and Normal external nose present HEAD & SCALP: normocephalic and atraumatic NOSE: Normal external nose present EXTERNAL EAR: Yes external ears normal Neck/C-Spine: COMMON NORMALS: full ROM, supple, no meningeal signs and no JVD GENERAL: Yes trachea midline Resp: COMMON NORMALS: normal respiratory effort, No retractions and No use of accessory muscles EFFORT & INSPECTION: Yes symmetric chest movement Cardio: COMMON NORMALS: no JVD, regular rate and regular rhythm RATE: regular rate RHYTHM: regular rhythm Extremity: COMMON NORMALS: normal to inspection and full ROM Neuro: RADHA COMA SCALE: document GCS findings Radha coma scale eye opening: To pressure Radha coma scale verbal response: Sounds [place] coma scale motor response: Localising Radha coma scale total score: 9 COMMON NORMALS: moves all extremities, no focal motor deficits and no sensory deficits noted SENSORIUM/ORIENTATION: Yes Orientation impaired, Yes lethargic and Yes fluctuating sensorium MENINGEAL SIGNS: Yes no meningeal signs MOTOR EXAM: 5/5 motor strength present throughout Psych: COMMON NORMALS: negative for cooperative APPEARANCE: Yes unkempt ATTITUDE: Yes agitated Skin: COMMON NORMALS: no rashes or lesions noted, no wounds, turgor normal and no jaundice GENERAL SKIN EXAM: no rashes or lesions noted and turgor normal Urinary Catheter Management: Horner: Cath Placed During This Visit: yes Urinary Catheter Date of Insertion: 09/20/22 Urinary Catheter Time of Insertion: 18:10 Data 09/20/22 10:26 09/20/22 10:26 A&P Assessment and plan (1) [place] toxicity: Agree with emergent/urgent HD catheter placement for immediate hemodialysis. Patient unable to provide consent. No working contact information available for next of kin. I am in agreement to proceed with emergent/urgent HD catheter placement as per discussion with Dr. Valle. Procedures Time out/Consent Time Out Performed: Yes Consent for Procedure: Emergency procedure Central Line Placement^ Right IJ: Time out performed: Yes Patient placed on monitor/pulse ox: Yes MD prep: mask, gown and gloves Central line prep: Chlorhexidine scrub and sterile drapes applied Local anesthesia used: lidocaine 2% Amount of anesthesia used (ml): 3 Ultrasound used for placement: Yes Central line lumen inserted: double Post procedure: sutured in place, good blood return, all ports aspirated, flushed, capped and sterile dressing applied Post procedure x-ray: other (pending) Patient tolerated procedure: other (combative due to AMS due to medical condition, requiring physical restraints only during procedure) Complications: none Coding Level of Care Code New 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
[2022-09-20 20:04] LABS: INR 1.13 (0.8-1.2)
[2022-09-20 20:05] LABS: Partial Thromboplastin Time 23.6 SECONDS (23.9-36.7)
[2022-09-20 20:06] LABS: HCG, Serum Qual Negative (Negative)
[2022-09-20 20:11] LABS: Anion Gap 12.4 (5-19); Blood Urea Nitrogen 19 mg/dL (6-20); Calcium 9.4 mg/dL (8.5-10.5); Carbon Dioxide 23 mmol/L (22-29); Chloride 105 mmol/L (98-107); Glomerular Filtration Rate 65.2 mL/min (90-130); Glucose 117 mg/dL (65-115); Osmolality Calculated 285 mOsm/kg (285-295); Potassium 4.4 mmol/L (3.5-5.1); Sodium 136 mmol/L (136-145)
[2022-09-20 20:18] VITALS: PULSE 71; RESP 16; O2SAT 97
[2022-09-20 20:23] LABS: Glucose Point of Care 137 mg/dL (70-110)
--- NOTE | 2022-09-20 20:30 | PC.NURSE ---
Right IJ Temporary Dialysis cath placed per Dr. David Cardenas at bedside. Patient unable to consent r/t AMS. Emergent consent obtained. 2mg Versed given IV x 1 dose for patient agitation and moving head and neck and sitting up in bed while doctor attempting dialysis cath placement. Unable to calm patient with verbal intervention. V/S remain stale. Line placed using sterile technique, sterile dressing applied, chest x-ray obtained.
--- NOTE | 2022-09-20 21:19 | PC.NURSE ---
Davion from poison control called to obtain update on patient status and current v/s.
[2022-09-20 22:00] VITALS: PULSE 70
--- NOTE | 2022-09-20 22:15 | PC.NURSE ---
Wasted heparin per HD nurse due to machine malfunction. Notified Pharmacy that another heparin vile is needed.
[2022-09-20] MEDS: heparin, porcine 1,000 unit/mL INJ 10 mL 1000 UNIT IV (22:50)
--- NOTE | 2022-09-20 22:50 | PC.NURSE ---
Heparin given per HD nurse
[2022-09-20 23:19] LABS: Lithium 2.2 mmol/L (0.6-1.2)
[2022-09-20 23:20] LABS: Hepatitis B Surface AB 7.8 (11.5-1000); Hepatitis B Surface Antigen Non-Reactive (Nonreactive); Hepatitis C Virus Antibody Non-Reactive (Nonreactive)
[2022-09-21] VITALS (8 sets, daily range): BP systolic 106–132; BP diastolic 48–64; PULSE 65–82; RESP 14–27; TEMP 37.4; O2SAT 92–99
--- NOTE | 2022-09-21 01:17 | PC.NURSE ---
Adrianne from poison control called for update on patient. Notified that lithium level prior to start of dialysis was 2.2, dialysis in progress at present time and will recheck level after dialysis.
[2022-09-21] MEDS: LORazepam 2 mg/mL INJ 1 mL IVP ×4 (01:44→23:47)
--- NOTE | 2022-09-21 01:53 | PC.NURSE ---
2mg ativan given IVP for seizure like activity.
--- NOTE | 2022-09-21 02:25 | PC.NURSE ---
Dialysis complete, patient very combative and attempting to pull lines out. Unable to calm patient with verbal intervention, patient finally calms self. No verbal communication from patient only moaning and yelling.
--- NOTE | 2022-09-21 02:47 | PC.NURSE ---
Resting comfortably, V/S stable.
[2022-09-21 03:16] LABS: Basophils # 0.1 10^3/uL (0.0-0.1); Basophils % 0.4 %; Eosinophils # 0.2 10^3/uL (0.0-0.8); Eosinophils % 1.1 %; Hematocrit 33.1 % (37.0-47.0); Hemoglobin 10.5 g/dL (11.5-15.3); Lymphocytes # 2.9 10^3/uL (0.8-4.8); Lymphocytes % 17.5 %; Mean Corpuscular HGB Conc 31.7 g/dL (30.0-36.0); Mean Corpuscular Hemoglobin 30.7 pg (28.0-34.0); Mean Corpuscular Volume 96.8 fl (81-99); Mean Platelet Volume 10.5 fL (7.4-10.4); Monocytes # 2.1 10^3/uL (0.2-0.9); Monocytes % 12.5 %; Neutrophils # 11.29 10^3/uL (1.8-7.7); Neutrophils % 67.4 %; Nucleated Red Blood Cells % 0 %; Platelet Count 274 10^3/cmm (130-400); Red Blood Count 3.42 10^6/uL (4.1-5.3); Red Cell Distribution Width 12.4 % (12.1-15.1); White Blood Count 16.8 10^3/uL (4.0-10.0)
[2022-09-21] MEDS: sodium chloride 0.9% 1,000 ML 200 ML IV ×4 (03:23→20:32)
[2022-09-21 03:55] LABS: Alanine Aminotransferase 11 U/L (0-33); Albumin Level 3.7 g/dL (3.5-5.2); Alkaline Phosphatase 134 U/L (35-105); Anion Gap 15.5 (5-19); Aspartate Amino Transferase 16 U/L (0-32); Blood Urea Nitrogen 5 mg/dL (6-20); C Reactive Protein 3.9 mg/L (0.0-4.9); Calcium 8.8 mg/dL (8.5-10.5); Carbon Dioxide 26 mmol/L (22-29); Chloride 98 mmol/L (98-107); Globulin 2.9 g/dL (1.3-4.6); Glomerular Filtration Rate 166.3 mL/min (90-130); Glucose 122 mg/dL (65-115); Magnesium 1.6 mg/dL (1.7-2.3); Osmolality Calculated 281 mOsm/kg (285-295); Potassium 3.5 mmol/L (3.5-5.1); Sodium 136 mmol/L (136-145); Total Bilirubin 0.6 mg/dL (0.15-1.2); Total Protein 6.6 g/dL (6.6-8.7)
[2022-09-21 04:03] LABS: Lithium 0.7 mmol/L (0.6-1.2)
--- NOTE | 2022-09-21 07:45 | PM.PN ---
Subjective Subjective: seen and examined. has a rt ij dialysis catheter. s/p HD last night Medications: Reviewed: Yes Medication Review Details: Current Medications Acetaminophen (Acetaminophen 500 Mg Tablet) 500 mg PO Q4H PRN PRN Reason: fever Albuterol/Ipratropium (Ipratropium-Albuterol 3 Ml Neb) 3 ml INHALATION Q6H PRN PRN Reason: SHORTNESS OF BREATH Sodium Chloride (Sodium Chloride 0.9%) 1,000 mls @ 150 mls/hr IV .Q6H40M [facility] Last Admin: 09/21/22 04:11 Dose: Not Given Sodium Chloride (Sodium Chloride 0.9%) 1,000 mls @ 150 mls/hr IV .Q6H40M [facility] Last Admin: 09/21/22 07:17 Dose: Not Given Sodium Chloride (Sodium Chloride 0.9%) 1,000 mls @ 200 mls/hr IV .Q5H [facility] Last Admin: 09/21/22 03:23 Dose: 200 mls/hr Sodium Chloride (Sodium Chloride 0.9%) 1,000 mls @ 0 mls/hr IV .Q0M PRN PRN Reason: hypotension or symptomatic Lorazepam (Lorazepam 2 Mg/Ml Inj 1 Ml) 2 mg IVP Q2H PRN PRN Reason: seizure Last Admin: 09/21/22 01:44 Dose: 2 mg Ondansetron HCl (Ondansetron 2 Mg/Ml Sdv 2 Ml) 4 mg IVP Q6H PRN PRN Reason: NAUSEA AND VOMITING Pantoprazole Sodium (Pantoprazole 40 Mg Sdv) 40 mg IVP BID [facility] Vitals/I&O/Wt Last Vital Signs Temp 97.5 F L 09/20/22 09:56 Pulse 65 09/21/22 05:52 Resp 16 09/20/22 20:18 BP 113/53 09/20/22 17:25 Pulse Ox 97 09/20/22 20:18 O2 Del Method 09/20/22 20:18 09/20/22 09/21/22 09/21/22 22:59 06:59 14:59 Intake Total 773.333 / 773.333 840 / 1613.333 Output Total 1800 / 1800 525 / 2325 Balance -1026.667 / -1026.667 315 / -711.667 Weight last 48 hrs Weight 90.492 kg Weight 89.811 kg Physical Exam Narrative: obese, not verbal, responds to pain VS noted heent- nc/at lungs clear heart reg abd soft, nt, nd, + bs ext 1+ edema dialysis access rt ij Urinary Catheter Management: Horner: Cath Placed During This Visit: yes Reason for Continuing Indwelling Catheter: Accurate Measurement of Urinary Output in Critically Ill Patients Urinary Catheter Date of Insertion: 09/20/22 Urinary Catheter Time of Insertion: 18:10 Data 09/21/22 02:20 09/21/22 02:20 A&P Assessment and plan (1) [place] toxicity: 56 yr old female w/ lithium overdose/ toxicity- s/p HD last night. repeat lithium level today -continue ivf meds reviewed Plan check lithium level, ivf Attestations Medical Necessity Statement*: per medicine Time Spent in Patient Care: 16 - 35 minutes (>than 50% of time spent in counselling and/or direct pt care on unit). 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
[2022-09-21] MEDS: pantoprazole 40 mg SDV IVP ×2 (08:38→18:06)
[2022-09-21 08:43] LABS: ABG PCO2 37.9 mmHg (35-45); ABG PH Result 7.46 (7.35-7.45); Arterial Blood Gas Hematocrit 31.9 % (37-47); Base Excess ABG 2.9 mmol/L (-2.0-2.0); Blood Gas Operator Identificat GD; Blood Gas Sample Site Brachial, left; Blood Gas Sample Type Arterial; HCO3 ABG 26.8 mmol/L (22-26); Oxygen Device ROOM AIR; PO2 ABG 73.9 mmHg (80.0-100.0)
[2022-09-21 08:50] LABS: Alanine Aminotransferase 11 U/L (0-33); Albumin Level 3.8 g/dL (3.5-5.2); Alkaline Phosphatase 127 U/L (35-105); Blood Urea Nitrogen 8 mg/dL (6-20); Calcium 8.3 mg/dL (8.5-10.5); Carbon Dioxide 23 mmol/L (22-29); Chloride 100 mmol/L (98-107); Globulin 2.8 g/dL (1.3-4.6); Glomerular Filtration Rate 104.2 mL/min (90-130); Glucose 127 mg/dL (65-115); Magnesium 1.8 mg/dL (1.7-2.3); Osmolality Calculated 278 mOsm/kg (285-295); Sodium 134 mmol/L (136-145); Total Bilirubin 0.4 mg/dL (0.15-1.2); Total Protein 6.6 g/dL (6.6-8.7)
[2022-09-21 09:00] LABS: Anion Gap 14.7 (5-19); Aspartate Amino Transferase 17 U/L (0-32); Potassium 3.7 mmol/L (3.5-5.1)
--- NOTE | 2022-09-21 09:24 | PC.PHAR ---
PT UNABLE TO VERIFY MEDS DUE TO AMS- MEDICATIONS VERIFIED USING EXTERNAL MED LIST LAST FILLED
--- NOTE | 2022-09-21 09:30 | PC.NURSE ---
New Orders Received Patient pulled lainez catheter out, balloon intact upon removal. Patient also pulled IV catheter out, tip intact upon removal. Informed hospitalist patient removed lainez, received verbal orders to insert new catheter for accurate intake and output.
--- NOTE | 2022-09-21 09:37 | CTR_ITS ---
PROCEDURE INFORMATION: Exam: CT Head Without Contrast Exam date and time: 09/21/2022 11:36 AM Age: 56 years old Clinical indication: Altered mental status/memory loss TECHNIQUE: Imaging protocol: Computed tomography of the head without contrast. Radiation optimization: All CT scans at this facility use at least one of these dose optimization techniques: automated exposure control; mA and/or kV adjustment per patient size (includes targeted exams where dose is matched to clinical indication); or iterative reconstruction. COMPARISON: CT head wo con* [id number] 09/20/2022 10:43 AM RADIATION DOSE METRICS: Total DLP (mGy-cm): 1129.59 FINDINGS: Limitations: The study is technically limited by motion artifact. Brain: No acute appearing brain parenchymal abnormality. No intracranial hemorrhage. No extraaxial fluid collections. Cerebral ventricles: No hydrocephalus. Paranasal sinuses: Minimal mucoperiosteal thickening in the visualized paranasal sinuses. Trace fluid in the visualized left maxillary sinus. Mastoid air cells: Extensive bilateral mastoid air cell effusions. Auditory system: Fluid in both middle ears. Bones/joints: No calvarial fracture. Soft tissues: No acute soft tissue abnormality. CT/CT head wo con* [id number] IMPRESSION: 1. No acute intracranial abnormality. 2. Bilateral mastoid air cell effusions. 3. Fluid in both middle ears. 4. Acute and chronic sinus disease.
--- NOTE | 2022-09-21 09:56 | PM.PN ---
Subjective Subjective: Status postdialysis, lithium level has normalized Patient is still not opening eyes on her own however she is moving her extremities to painful stimuli, I do not see any focal deficit Myoclonus present Concern related to hypothyroid related encephalopathy Started IV levothyroxine Repeat CT head this morning ABG showing respiratory alkalosis, Blood glucose normal no Signs of UTI She removed her Horner catheter and IV line as well Vitals/I&O/Wt Last Vital Signs Temp 97.5 F L 09/20/22 09:56 Pulse 82 09/21/22 09:42 Resp 17 09/21/22 09:42 BP 113/53 09/20/22 17:25 Pulse Ox 97 09/21/22 09:42 O2 Del Method 09/21/22 09:42 09/20/22 09/21/22 09/21/22 22:59 06:59 14:59 Intake Total 773.333 / 773.333 840 / 9513.760 9360 / 1000 Output Total 1800 / 1800 525 / 2325 Balance -1026.667 / -1026.667 315 / -943.004 5205 / 1000 Weight last 48 hrs Weight 90.492 kg Weight 89.811 kg Physical Exam Narrative: Patient is euvolemic Pupils are reactive to light She is moving her extremities spontaneously to painful stimuli Keeping her eyes closed Morning in pain to painful stimuli Currently on room air Mild frothing noted around her mouth Myoclonus present Afebrile S1, S2 Hemodynamically stable Urinary Catheter Management: Horner: Cath Placed During This Visit: yes, but has since been removed by the nurse Reason for Continuing Indwelling Catheter: Accurate Measurement of Urinary Output in Critically Ill Patients Urinary Catheter Date of Insertion: 09/21/22 Urinary Catheter Time of Insertion: 09:53 Date Urinary Catheter Removed: 09/21/22 Time Urinary Catheter Discontinued: 08:00 Data 09/21/22 02:20 09/21/22 08:15 A&P Assessment and plan (1) [place] toxicity: (2) History of suicide attempt: (3) Abnormal thyroid function test: (4) Borderline personality disorder: (5) Generalized anxiety disorder: (6) Bipolar disorder: (7) Insomnia: Qualifiers: Insomnia type: psychophysiologic Qualified Code(s): F51.04 - Psychophysiologic insomnia (8) Bipolar 1 disorder, depressed: (9) Metabolic encephalopathy: Plan Acute metabolic encephalopathy No signs of stroke CT head unremarkable Acute no signs of UTI No signs of fever Suspicion for serotonin syndrome is low, myoclonus present however she has remained afebrile Repeat CT head today I do believe her encephalopathy is also related to hypothyroidism, will start her on IV levothyroxine [place] induced signs of neurotoxicity should improve after dialysis Keep Horner catheter to monitor urine output Continue IV fluids Advance diet when she is more awake and alert She has been agitated trying to remove her Horner and IV line Continue ICU management Once she is stable she will need Neuropsych Unit, no need of intubation she is able to protect her airways However my threshold to intubate her will stay low if she starts vomiting with the current mental state Full code Appreciate nephro recommendations: Dialysis catheter was placed today by the on-call surgeon Status post 1 session of dialysis [place] level has trended down Attestations Medical Necessity Statement*: Continue ICU management Time Spent in Patient Care: 40 Critical Care Time: 40 Coding Level of Care Code 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
[2022-09-21] MEDS: levothyroxine 100 mcg SDV 50 MCG IVP (10:04)
[2022-09-21] MEDS: hydrocortisone 100 mg/2 mL SDV IVP ×2 (10:11→21:47)
[2022-09-21 10:12] LABS: Glucose Point of Care 126 mg/dL (70-110)
[2022-09-21 10:48] LABS: Prolactin 23.02 ng/mL (4.8-23.3)
--- NOTE | 2022-09-21 12:11 | PC.CHAP ---
Pastoral Care Encounter/Spiritual Assessment Type of Contact [] Declined botany technician visit [] Patient/Family/Request visit [] Outpatient visit [] Follow-up visit [] Physician referral [] Code/Alert [x] Routine visit [] Staff referral [] Actively dying [x] Patient sleeping [] Family support [] [] Out of room [] Palliative care [] [] Receiving care in room [] Pre-surgical visit [] Trauma [] Long length of stay [x] ICU visit [x] Other: setter Relational/Emotional Strength [] Patient feels connected with others/family/visitors/staff [] Distress [] Loneliness/isolation [] Abandonment Spirituality of Patient [] Person of [place] [] Attends Anabaptist of their [place] [] Believes in Prayer [] Reads Bible or Caodaism materials [] There are Spiritual issues to be addressed Supply Coordinator Interventions [x] Prayer [] Active listening [] Non-anxious presence [] Spiritual/emotional support [] Crisis/trauma care [] Spiritual counseling [] Bereavement support [] Provided bereavement packet [] Provided Bible/devotional materials [] Provided toy/stuffed animal, coloring book to patient or family member [] Provided Communion [] Anointing/[place] [] Salvation [x] Completed spiritual assessment [] Other: Impact on Illness or Injury [] Angry [] Fearful [] Anxious [] Often cries [] Exhaustion [] Unable to work [] Unable to attend rastafarian [] Unable to walk/stand [] Unable to read [] Unable to drive [] Unable to eat/drink [] Unable to sleep [] Unable to be with family [] Patient intubated [] Other: Summary Time spent with patient
--- NOTE | 2022-09-21 12:53 | PC.NURSE ---
Poison Control Spoke with Isabell from Poison Control regarding patient current lab results and overall condition. She asked that we redraw lithium level no other requests/recommendations at this time. All questions answered at this time.
[2022-09-21 13:35] LABS: Anion Gap 14.2 (5-19); Blood Urea Nitrogen 9 mg/dL (6-20); Calcium 8.7 mg/dL (8.5-10.5); Carbon Dioxide 23 mmol/L (22-29); Chloride 102 mmol/L (98-107); Glomerular Filtration Rate 87.2 mL/min (90-130); Glucose 129 mg/dL (65-115); Lithium 0.9 mmol/L (0.6-1.2); Osmolality Calculated 280 mOsm/kg (285-295); Potassium 4.2 mmol/L (3.5-5.1); Sodium 135 mmol/L (136-145)
--- NOTE | 2022-09-21 16:20 | P.NPUPN_ITS ---
Subjective NPU Subjective: Patient presented today nonverbal and somewhat responsive to physical contact. She did eventually open her eyes but was not oriented or connecting to this journalists and other writers's presence. ICU staff report her agitation in the last 24 hours including her pulling out her Horner as well as her IV. Mental Status Exam MSE Comments: This is an obese white female looking older than her stated age with poor grooming and no eye contact in a hospital gown with soft restraints. No abnormal movements except for tremulousness and goal mild to moderate psychomotor agitation. Uncooperative with exam in moderate distress. Speech was absent. Mood not described affect confused. Thought process not noted. Thought content: Patient did not respond to questions of lethality but have some thrashing behavior, she may have been attending to internal stimuli. Attention and concentration were impaired and memory was not evaluated but none were formally tested. She was not alert or oriented insight, judgment and impulse control were impaired. Vitals/I&O/Wt Last Vital Signs Temp 97.5 F L 09/20/22 09:56 Pulse 81 09/21/22 14:00 Resp 17 09/21/22 09:42 BP 113/53 09/20/22 17:25 Pulse Ox 97 09/21/22 09:42 O2 Del Method 09/21/22 09:42 09/21/22 09/21/22 09/21/22 06:59 14:59 22:59 Intake Total 840 / 0645.521 1382 / 2110 Output Total 525 / 2325 Balance 315 / -446.832 9679 / 2110 Weight last 48 hrs Weight 90.492 kg Weight 89.811 kg Physical Exam Urinary Catheter Management: Horner: Cath Placed During This Visit: yes, but has since been removed by the nurse Reason for Continuing Indwelling Catheter: Accurate Measurement of Urinary Output in Critically Ill Patients Urinary Catheter Date of Insertion: 09/21/22 Urinary Catheter Time of Insertion: 09:53 Date Urinary Catheter Removed: 09/21/22 Time Urinary Catheter Discontinued: 08:00 Data NPU 09/21/22 02:20 09/21/22 12:27 A&P Assessment and plan (1) Bipolar disorder, curr episode mixed, severe, w/o psychotic features: (2) Suicidal ideation: Plan Alisa is a 56-year-old white female with a history of bipolar 1 disorder with mixed mood symptoms and with a recent hospitalization who presents incoherent and just perseverating about going home. ? 1.?Agree with continued ICU treatment while appearing disoriented. 2. Recommend admission to the neuropsychiatric unit after stabilized to identify why lithium is elevated i.e. poor dosing or overdose. 3. We will follow if able to communicate and prepare transfer when ready. Involuntary Hold Information 96 Hour Hold: 96 Hour Involuntary Admission: No Attestations NPU Medical Necessity Statement*: N/A. See primary team note for medical necessity. Coding Level of Care Code Acute Senior Qualitative Researcher for [facility] Fwd Diagnoses Bipolar disorder, curr episode mixed, severe, w/o psychotic features F31.63 Suicidal ideation R45.763
--- NOTE | 2022-09-21 18:32 | PC.NURSE ---
Shift Note Frequent safety and comfort rounds continue. Orders and/or nursing care completed as indicated. Patient monitored for response to intervention and treatment(s). Education provided includes treatment plan and medications. Patient needs reinforcement teaching. Patient had an eventful shift, please see previous notes for detail. She does not follow commands or answer any questions at this time. IVF infusing per order, please see MAR for detail. Horner catheter drained 1300 mls of urine today. No wounds or skin issues noted at this time. Will continue to monitor.
--- NOTE | 2022-09-21 20:00 | PC.NURSE ---
[address] Simpson, IV Ativan ordered for seizure activity can also be used for agitation
[2022-09-21 22:17] LABS: Glucose Point of Care 114 mg/dL (70-110)
[2022-09-22] VITALS (27 sets, daily range): BP systolic 99–142; BP diastolic 49–108; PULSE 56–128; RESP 10–26; TEMP 37–37.6; O2SAT 85–98
[2022-09-22 02:17] LABS: Glucose Point of Care 133 mg/dL (70-110)
[2022-09-22] MEDS: LORazepam 2 mg/mL INJ 1 mL IVP ×3 (02:22→07:24)
[2022-09-22] MEDS: sodium chloride 0.9% 1,000 ML 200 ML IV ×5 (02:22→20:39)
[2022-09-22 05:18] LABS: Alanine Aminotransferase 11 U/L (0-33); Albumin Level 3.5 g/dL (3.5-5.2); Alkaline Phosphatase 117 U/L (35-105); Anion Gap 14.1 (5-19); Aspartate Amino Transferase 19 U/L (0-32); Blood Urea Nitrogen 11 mg/dL (6-20); Calcium 8.9 mg/dL (8.5-10.5); Carbon Dioxide 20 mmol/L (22-29); Chloride 112 mmol/L (98-107); Globulin 2.5 g/dL (1.3-4.6); Glomerular Filtration Rate 87.2 mL/min (90-130); Glucose 132 mg/dL (65-115); Osmolality Calculated 295 mOsm/kg (285-295); Potassium 4.1 mmol/L (3.5-5.1); Sodium 142 mmol/L (136-145); Total Bilirubin 0.2 mg/dL (0.15-1.2)
--- NOTE | 2022-09-22 08:08 | PC.NURSE ---
Unable to keep bilateral SCD in place due to patient thrashing and pulling compression device off. Will continue to reapply throughout shift.
[2022-09-22] MEDS: LORazepam 2 mg/mL INJ 1 mL 1 MG IVP ×4 (08:49→22:14)
[2022-09-22] MEDS: dextrose 5%-sod chloride 0.9% 1,000 ML 75 ML IV ×2 (08:50→22:25)
[2022-09-22] MEDS: pantoprazole 40 mg SDV IVP ×2 (10:03→17:50)
[2022-09-22] MEDS: hydrocortisone 100 mg/2 mL SDV IVP ×2 (10:04→21:56)
[2022-09-22] MEDS: levothyroxine 100 mcg SDV 50 MCG IVP (10:04)
--- NOTE | 2022-09-22 10:39 | PC.CHAP ---
Pastoral Care Encounter/Spiritual Assessment Type of Contact [] Declined investigative shopper visit [] Patient/Family/Request visit [] Outpatient visit [] Follow-up visit [] Physician referral [] Code/Alert [x] Routine visit [] Staff referral [] Actively dying [x] Patient sleeping [] Family support [] [] Out of room [] Palliative care [] [] Receiving care in room [] Pre-surgical visit [] Trauma [] Long length of stay [x] ICU visit [x] Other: setter Relational/Emotional Strength [] Patient feels connected with others/family/visitors/staff [] Distress [] Loneliness/isolation [] Abandonment Spirituality of Patient [] Person of [place] [] Attends Adventism of their [place] [] Believes in Prayer [] Reads Bible or Synagogue materials [] There are Spiritual issues to be addressed Digital Sales Assistant Interventions [x] Prayer [] Active listening [] Non-anxious presence [] Spiritual/emotional support [] Crisis/trauma care [] Spiritual counseling [] Bereavement support [] Provided bereavement packet [] Provided Bible/devotional materials [] Provided toy/stuffed animal, coloring book to patient or family member [] Provided Communion [] Anointing/[place] [] Salvation [x] Completed spiritual assessment [] Other: Impact on Illness or Injury [] Angry [] Fearful [] Anxious [] Often cries [] Exhaustion [] Unable to work [] Unable to attend advent [] Unable to walk/stand [] Unable to read [] Unable to drive [] Unable to eat/drink [] Unable to sleep [] Unable to be with family [] Patient intubated [] Other: Summary Time spent with patient
--- NOTE | 2022-09-22 11:23 | PM.PN ---
Subjective Subjective: Patient is chronically out of bed however keeping her eyes closed Requiring one-to-one supervision and wrist restraints Nurse notified me about the rash on left leg Added D5 normal saline Continue levothyroxine and hydrocortisone She has been afebrile Normal sinus rhythm hemodynamically stable Vitals/I&O/Wt Last Vital Signs Temp 99.3 F 09/22/22 08:00 Pulse 80 09/22/22 09:19 Resp 20 H 09/22/22 09:19 BP 121/63 09/22/22 08:00 Pulse Ox 92 09/22/22 09:19 O2 Del Method 09/22/22 09:19 09/21/22 09/22/22 09/22/22 22:59 06:59 14:59 Intake Total 946.667 / 3056.667 1000 / 4056.667 1000 / 1000 Output Total 1300 / 1300 525 / 1825 Balance -353.333 / 1756.667 475 / 2231.667 1000 / 1000 Weight last 48 hrs Weight 89.993 kg Weight 90.492 kg Weight 89.811 kg Physical Exam Narrative: Patient is keeping her eyes closed She does try to listen to verbal commands however goes back to sleep right away Chronic out of bed Moving her extremities Nonpurposeful movement Horner catheter draining dilute urine Abdomen soft Papular rash left leg does not need seem infected S1, S2 Hemodynamically stable Abdomen soft Euvolemic Dilated pupils reactive to light Urinary Catheter Management: Horner: Cath Placed During This Visit: yes, but has since been removed by the nurse Reason for Continuing Indwelling Catheter: Accurate Measurement of Urinary Output in Critically Ill Patients Urinary Catheter Date of Insertion: 09/21/22 Urinary Catheter Time of Insertion: 09:53 Date Urinary Catheter Removed: 09/21/22 Time Urinary Catheter Discontinued: 08:00 Data 09/21/22 02:20 09/22/22 04:29 A&P Assessment and plan (1) Metabolic encephalopathy: (2) [place] toxicity: (3) History of suicide attempt: (4) Abnormal thyroid function test: (5) Borderline personality disorder: (6) Nicotine dependence, cigarettes, with unspecified nicotine-induced disorders: (7) Bipolar 1 disorder, depressed: (8) HTN (hypertension): Qualifiers: Hypertension type: primary hypertension Qualified Code(s): I10 - Essential (primary) hypertension Plan Metabolic encephalopathy related to drug overdose, lithium toxicity and hypothyroidism: Has not completely resolved Patient is trying to get out of bed however keeping her eyes closed I will treat her with IV levothyroxine and steroids for now for concern of untreated hypothyroid [place] levels are normal She has been afebrile No signs of meningoencephalitis Rash on left leg does not seem infected does not need antibiotics Patient is agitated, keeping her eyes closed, in case of any vomiting she will not be able to protect her airways, high risk for intubation Keep her in ICU Start D5 normal saline She has not eaten in the last 72 hours Full code Attestations Medical Necessity Statement*: Continue ICU management Critical Care Time: 30 Coding Level of Care Code Acute Command Center Analyst for [facility] Fwd Diagnoses Metabolic encephalopathy G93.41 [place] toxicity T56.891A History of suicide attempt Z91.51 Abnormal thyroid function test R94.6 Borderline personality disorder F60.3 Nicotine dependence, cigarettes, with unspecified nicotine-induced disorders F17.219 Bipolar 1 disorder, depressed F31.9 HTN (hypertension) I10 Hypertension type: primary hypertension
[2022-09-22] MEDS: ziprasidone 20 mg/mL SDV 10 MG IM (12:56)
[2022-09-22 14:52] LABS: Glucose Point of Care 161 mg/dL (70-110)
[2022-09-22] MEDS: haloperidol inj 5 mg/mL INJ 1 mL 1 MG IM (15:23)
--- NOTE | 2022-09-22 17:54 | W.PM.NPUPNS ---
Subjective NPU Subjective: Patient presented today essentially unchanged from yesterday and not communicative. Mental Status Exam MSE Comments: This is an obese white female looking older than her stated age with poor grooming and no eye contact in a hospital gown with soft restraints. No abnormal movements except for tremulousness and goal mild to moderate psychomotor agitation. Uncooperative with exam in moderate distress. Speech was absent. Mood not described affect confused. Thought process not noted. Thought content: Patient did not respond to questions of lethality but have some thrashing behavior, she may have been attending to internal stimuli. Attention and concentration were impaired and memory was not evaluated but none were formally tested. She was not alert or oriented insight, judgment and impulse control were impaired. Vitals/I&O/Wt Last Vital Signs Temp 97.6 F 09/22/22 17:00 Pulse 51 L 09/22/22 17:00 Resp 13 09/22/22 17:00 BP 100/63 09/22/22 17:00 Pulse Ox 94 09/22/22 14:00 O2 Del Method 09/22/22 17:00 O2 Flow Rate 4 09/22/22 17:00 Weight last 48 hrs Weight 92 kg Weight 89.993 kg Physical Exam Urinary Catheter Management: Horner: Cath Placed During This Visit: yes, but has since been removed by the nurse Reason for Continuing Indwelling Catheter: Accurate Measurement of Urinary Output in Critically Ill Patients Urinary Catheter Date of Insertion: 09/21/22 Urinary Catheter Time of Insertion: 09:53 Date Urinary Catheter Removed: 09/21/22 Time Urinary Catheter Discontinued: 08:00 Data NPU 09/21/22 02:20 09/22/22 04:29 A&P Assessment and plan (1) Bipolar disorder, curr episode mixed, severe, w/o psychotic features: (2) Suicidal ideation: Plan Alisa is a 56-year-old white female with a history of bipolar 1 disorder with mixed mood symptoms and with a recent hospitalization who presents incoherent and just perseverating about going home. ? 1.?Agree with continued ICU treatment while appearing disoriented. 2. Recommend admission to the neuropsychiatric unit after stabilized to identify why lithium is elevated i.e. poor dosing or overdose. 3. We will follow if able to communicate and prepare transfer when ready. Involuntary Hold Information 96 Hour Hold: 96 Hour Involuntary Admission: No Attestations NPU Medical Necessity Statement*: N/A. See primary team note for medical necessity. Coding Level of Care Code Acute Medicaid Billing Specialist for [facility] Fwd Diagnoses Bipolar disorder, curr episode mixed, severe, w/o psychotic features F31.63 Suicidal ideation R45.856
[2022-09-22 18:11] LABS: Glucose Point of Care 151 mg/dL (70-110)
[2022-09-22 23:58] LABS: Glucose Point of Care 133 mg/dL (70-110)
[2022-09-23] VITALS (27 sets, daily range): BP systolic 94–166; BP diastolic 54–87; PULSE 51–121; RESP 12–24; TEMP 36.4–37.6; O2SAT 85–100
[2022-09-23] MEDS: haloperidol inj 5 mg/mL INJ 1 mL 1 MG IM (00:05)
--- NOTE | 2022-09-23 00:15 | PC.NURSE ---
Haldol Following RT suctioning drool from patient's mouth, patient began flailing arms and legs agitatedly while her breathing became tachypneic in the high 30s with abdominal muscle use. Patient's HR increased to the 130s and her oxygenation level dropped to the 70s. Non-rebreather placed on patient at 15 L, verbal deescalation attempted with no success, and 1 mg Haldol administered through IV. Soon after, patient's RR decreased to 20, HR to 85, BP 118/67, and oxygenation 100% still on non-rebreather. Pharmacy consulted with haldol IV use. Dr. Simpson contacted and informed of patient status. Telephone orders received for precedex titratable drip, stat ABG, stat chest xray, and one EKG now followed by another EKG at 0400.
--- NOTE | 2022-09-23 00:19 | XRR_ITS ---
PROCEDURE INFORMATION: Exam: XR Chest Exam date and time: 09/23/2022 12:30 AM Age: 56 years old Clinical indication: Shortness of breath; Prior surgery; Surgery type: RT breast lumpectomy; Patient HX: Possible aspiration event. Increasing hypoxia. TECHNIQUE: Imaging protocol: Radiologic exam of the chest. Views: 1 view. COMPARISON: CR (CHEST, ) 09/20/2022 7:55 PM FINDINGS: Lungs: Diffuse patchy opacity of the medial right lower lobe concerning for lobar pneumonia. Additional bibasilar opacities likely represent atelectasis. Small rounded right hilar opacity may represent inflammation, infection, lesion, or hilar lymph node. Increased pulmonary vascularity and increased interstitial opacities concerning for pulmonary edema. Atypical infection can give a similar appearance. Pleural spaces: Unremarkable. Mild layering pleural effusions can not be excluded. No pneumothorax. Heart/Mediastinum: The cardiac silhouette is enlarged. The mediastinal silhouette is stable in appearance. Bones/joints: There are degenerative changes of the spine.. XR/XR chest 1V portable [id number] IMPRESSION: 1. Right lower lobe pneumonia. 2. Indeterminate right hilar shadow. Attention on follow-up is recommended. 3. Increased pulmonary vascularity and interstitial opacities concerning for pulmonary edema. Atypical infection can give a similar appearance. 4. Cardiomegaly. 5. Mild layering pleural effusions can not be excluded.
--- NOTE | 2022-09-23 00:20 | ECG_ITS ---
[facility] Test Date: 2022-09-23 Pat Name: Alisa Kohli Department: Room: ICU11 Gender: Female Defective Cigarette Slitter: : 1965 Requested By: Darryl Simpson Order Number: [id number] Rajendra MD: Desean Howard M.D. Measurements Intervals [place] Rate: 63 P: 61 NM: 156 QRS: 39 QRSD: 96 T: 23 QT: 419 QTc: 429 Interpretive Statements SINUS RHYTHM LOW QRS VOLTAGE [QRS DEFLECTION < 0.5/1.0 mV IN LIMB/CHEST LEADS] POSSIBLE ANTERIOR MYOCARDIAL INFARCTION , OF INDETERMINATE AGE [30 ms Q WAVE IN V3/V4, OR R < 0.2 mV IN V4] Compared to ECG 09/20/2022 11:19:12 No significant changes Electronically Signed On 09-23-2022 21:41:15 SIGNS AND DISPLAYS SALES REPRESENTATIVE by Desean Howard M.D. [id number]
[2022-09-23] MEDS: dexmedetomidine 400 MCG in sodium chloride 0.9% (100 ml) 100 ML 11.7 MCG IV (00:48)
[2022-09-23 00:59] LABS: ABG PCO2 38.1 mmHg (35-45); ABG PH Result 7.32 (7.35-7.45); Base Excess ABG -5.8 mmol/L (-2.0-2.0); Blood Gas Allen Test Pos; Blood Gas Operator Identificat JB; Blood Gas Sample Site Radial, right; Blood Gas Sample Type Arterial; Carboxyhemoglobin 0.3 %THgb (0.4-20.1); HCO3 ABG 19.7 mmol/L (22-26); HGB O2 Sat 87.9 % (95-100); Ionized Calcium Level - ABG 1.3 mmol/L (1.1-1.4); Methemoglobin 0.8 % (0.4-1.5); Oxygen Device NC; Oxygen Saturation ABG 88.8; PO2 ABG 55.3 mmHg (80.0-100.0); Potassium Level - ABG 3.7 mmol/L (3.5-5.0); Total Hemoglobin 9.5 g/dL (12-16)
[2022-09-23] MEDS: FUROsemide 10 mg/mL SDV 4mL 40 MG IVP (01:29)
[2022-09-23] MEDS: ondansetron 2 mg/ML SDV 2 mL 4 MG IVP (04:00)
--- NOTE | 2022-09-23 04:00 | ECG_ITS ---
[facility] Test Date: 2022-09-23 Pat Name: Alisa Kohli Department: Room: ICU11 Gender: Female Speech Professor: : 1965 Requested By: Darryl Simpson Order Number: [id number] Rajendra MD: Desean Howard M.D. Measurements Intervals [place] Rate: 57 P: 57 UT: 154 QRS: 39 QRSD: 106 T: 29 QT: 442 QTc: 431 Interpretive Statements SINUS BRADYCARDIA LOW QRS VOLTAGE IN PRECORDIAL LEADS [QRS DEFLECTION < 1.0 mV IN CHEST LEADS] NONSPECIFIC T-WAVE ABNORMALITY Compared to ECG 09/23/2022 01:21:24 T-wave abnormality now present Sinus rhythm no longer present Myocardial infarct finding no longer present Electronically Signed On 09-23-2022 21:45:35 CLERK CHECKER by Desean Howard M.D. [id number]
[2022-09-23 05:11] LABS: Glucose Point of Care 174 mg/dL (70-110)
[2022-09-23] MEDS: levothyroxine 100 mcg SDV 50 MCG IVP (08:30)
[2022-09-23] MEDS: pantoprazole 40 mg SDV IVP ×2 (08:31→17:59)
--- NOTE | 2022-09-23 08:49 | W.PM.NPUPNS ---
Subjective NPU Subjective: She presented today still nonverbal. She did open her eyes at one point with significant urging. But otherwise she had no responses other than some moving around in seeming discomfort. Mental Status Exam MSE Comments: This is an obese white female looking older than her stated age with poor grooming and no eye contact in a hospital gown with soft restraints. No abnormal movements except for appearing to writhe around somewhat once aroused with mild to moderate psychomotor agitation. Uncooperative with exam in moderate distress. Speech was absent. Mood not described affect confused. Thought process not noted. Thought content: Patient did not respond to questions of lethality but have some thrashing behavior, she may have been attending to internal stimuli. Attention and concentration were impaired and memory was not evaluated but none were formally tested. She was not alert or oriented insight, judgment and impulse control were impaired. Vitals/I&O/Wt Last Vital Signs Temp 97.6 F 09/23/22 04:00 Pulse 55 L 09/23/22 08:40 Resp 14 09/23/22 08:40 BP 100/63 09/23/22 06:00 Pulse Ox 99 09/23/22 08:40 O2 Del Method 09/23/22 08:40 O2 Flow Rate 4 09/23/22 08:40 09/22/22 09/23/22 09/23/22 22:59 06:59 14:59 Intake Total 2516.666 / 4466.666 29.016 / 4495.682 Output Total 750 / 750 2550 / 3300 Balance 1766.666 / 3716.666 -2520.984 / 1195.682 Weight last 48 hrs Weight 92 kg Weight 89.993 kg Physical Exam Urinary Catheter Management: Horner: Cath Placed During This Visit: yes, but has since been removed by the nurse Reason for Continuing Indwelling Catheter: Accurate Measurement of Urinary Output in Critically Ill Patients Urinary Catheter Date of Insertion: 09/21/22 Urinary Catheter Time of Insertion: 09:53 Date Urinary Catheter Removed: 09/21/22 Time Urinary Catheter Discontinued: 08:00 Data NPU 09/21/22 02:20 09/22/22 04:29 A&P Assessment and plan (1) Bipolar disorder, curr episode mixed, severe, w/o psychotic features: (2) Suicidal ideation: Aakash lAisa is a 56-year-old white female with a history of bipolar 1 disorder with mixed mood symptoms and with a recent hospitalization who presents incoherent and just perseverating about going home. ? 1.?Agree with continued ICU treatment while appearing disoriented. 2. Recommend possible admission to the neuropsychiatric unit after stabilized gains baseline functioning otherwise may need to consider longterm/rehab for a period of time. 3. We will follow if able to communicate and consider transfer when ready. Involuntary Hold Information 96 Hour Hold: 96 Hour Involuntary Admission: No Attestations NPU Medical Necessity Statement*: N/A. See primary team note for medical necessity. Coding Level of Care Code Acute Code for [facility] Fwd Diagnoses Bipolar disorder, curr episode mixed, severe, w/o psychotic features F31.63 Suicidal ideation R45.857
[2022-09-23 09:31] LABS: C Reactive Protein 9.9 mg/L (0.0-4.9)
[2022-09-23 09:32] LABS: Alanine Aminotransferase 13 U/L (0-33); Albumin Level 3.5 g/dL (3.5-5.2); Alkaline Phosphatase 112 U/L (35-105); Blood Urea Nitrogen 13 mg/dL (6-20); Calcium 9.1 mg/dL (8.5-10.5); Carbon Dioxide 22 mmol/L (22-29); Chloride 111 mmol/L (98-107); Globulin 2.2 g/dL (1.3-4.6); Glomerular Filtration Rate 74.7 mL/min (90-130); Glucose 122 mg/dL (65-115); Osmolality Calculated 295 mOsm/kg (285-295); Sodium 142 mmol/L (136-145); Total Bilirubin 0.2 mg/dL (0.15-1.2); Total Protein 5.7 g/dL (6.6-8.7)
[2022-09-23 09:34] LABS: Anion Gap 13.2 (5-19); Aspartate Amino Transferase 28 U/L (0-32); Potassium 4.2 mmol/L (3.5-5.1)
[2022-09-23 09:44] LABS: Prolactin 27.68 ng/mL (4.8-23.3)
[2022-09-23] MEDS: hydrocortisone 100 mg/2 mL SDV IVP ×2 (09:46→21:26)
[2022-09-23] MEDS: dextrose 5%-sod chloride 0.9% 1,000 ML 75 ML IV (09:47)
--- NOTE | 2022-09-23 10:28 | PC.CHAP ---
Pastoral Care Encounter/Spiritual Assessment Type of Contact [] Declined thermoforming operator visit [] Patient/Family/Request visit [] Outpatient visit [] Follow-up visit [] Physician referral [] Code/Alert [x] Routine visit [] Staff referral [] Actively dying [] Patient sleeping [] Family support [] [] Out of room [] Palliative care [] [] Receiving care in room [] Pre-surgical visit [] Trauma [] Long length of stay [x] ICU visit [x] Other: setter Relational/Emotional Strength [] Patient feels connected with others/family/visitors/staff [] Distress [] Loneliness/isolation [] Abandonment Spirituality of Patient [] Person of [place] [] Attends Mu-Ism of their [place] [] Believes in Prayer [] Reads Bible or Moravian materials [] There are Spiritual issues to be addressed Senior Technical Architect Interventions [x] Prayer [] Active listening [] Non-anxious presence [] Spiritual/emotional support [] Crisis/trauma care [] Spiritual counseling [] Bereavement support [] Provided bereavement packet [] Provided Bible/devotional materials [] Provided toy/stuffed animal, coloring book to patient or family member [] Provided Communion [] Anointing/[place] [] Salvation [x] Completed spiritual assessment [] Other: Impact on Illness or Injury [] Angry [] Fearful [] Anxious [] Often cries [] Exhaustion [] Unable to work [] Unable to attend zoroastrianism [] Unable to walk/stand [] Unable to read [] Unable to drive [] Unable to eat/drink [] Unable to sleep [] Unable to be with family [] Patient intubated [] Other: Summary Time spent with patient
--- NOTE | 2022-09-23 10:47 | P.PN_ITS ---
Subjective Subjective: There was an episode yesterday when patient was very belligerent, aggressive try to get out of bed, she did not talk much but however her eyes were open he required Ativan to calm her down This morning she is able to open eyes to painful stimuli, noticed brown discharge from left angle of her mouth I have started on scheduled Keppra dose, will request chest x-ray Patient is showing typical signs of sleep apnea with abdominal breathing ABG showed relative hypoxia currently requiring 2 to 3 L of oxygen Continue D5 normal saline Discontinue Precedex for bradycardia Vitals/I&O/Wt Last Vital Signs Temp 97.6 F 09/23/22 04:00 Pulse 55 L 09/23/22 08:40 Resp 14 09/23/22 08:40 BP 100/63 09/23/22 06:00 Pulse Ox 99 09/23/22 08:40 O2 Del Method 09/23/22 08:40 O2 Flow Rate 4 09/23/22 08:40 09/22/22 09/23/22 09/23/22 22:59 06:59 14:59 Intake Total 2516.666 / 4466.666 29.016 / 4495.682 852.5 / 852.5 Output Total 750 / 750 2550 / 3300 Balance 1766.666 / 3716.666 -2520.984 / 1195.682 852.5 / 852.5 Weight last 48 hrs Weight 92 kg Weight 89.993 kg Physical Exam Narrative: This morning patient is opening her eyes moving her extremities to painful stimuli Brown discharge noted from left angle of her mouth She is able to move her extremities No signs of stroke Clinically looks euvolemic Abdomen is slightly distended Nontender She is doing abdominal breathing typical sleep apnea pattern Currently on nasal cannula Hemodynamically stable Bradycardic, Precedex was turned off Urinary Catheter Management: Horner: Cath Placed During This Visit: yes, but has since been removed by the nurse Reason for Continuing Indwelling Catheter: Accurate Measurement of Urinary Output in Critically Ill Patients Urinary Catheter Date of Insertion: 09/21/22 Urinary Catheter Time of Insertion: 09:53 Date Urinary Catheter Removed: 09/21/22 Time Urinary Catheter Discontinued: 08:00 Data 09/21/22 02:20 09/23/22 09:00 A&P Assessment and plan (1) Metabolic encephalopathy: (2) [place] toxicity: (3) History of suicide attempt: (4) Abnormal thyroid function test: (5) Borderline personality disorder: (6) Generalized anxiety disorder: Plan Metabolic encephalopathy In acute intoxication routine: Resolved lithium level is normal Status post 1 session of dialysis Dialysis catheter has been removed 09/22 Patient is still drowsy, showing sleep apnea pattern of breathing, frothing noticed around her mouth, prolactin not significantly high no signs of stroke or meningitis Will request MRI head today, start her on Keppra scheduled dose will request EEG to rule out nonepileptic form of seizure No signs of UTI, glucose has been within normal range Chest x-ray showing right lower lobe pneumonia likely related to aspiration She has not spiked fever, leukocytosis noted Concern for pulm edema as well, discontinue IV fluids Start IV Zosyn We will request sputum culture, blood culture Echo report Full code N.p.o. for now Discontinue IV fluids Lasix to be administered today Start IV antibiotics MRI head and EEG Attestations Medical Necessity Statement*: Continue ICU management Time Spent in Patient Care: 20 Coding Level of Care Code Acute After School Program Coordinator for [facility] Fwd Diagnoses Metabolic encephalopathy G93.41 [place] toxicity T56.891A History of suicide attempt Z91.51 Abnormal thyroid function test R94.6 Borderline personality disorder F60.3 Generalized anxiety disorder F41.1
--- NOTE | 2022-09-23 10:55 | USCV_ITS ---
Alisa Kohli Age: 56 Gender: F : 1965 Exam Date: 09/23/2022 13:59 Ordering Phys: Nikita Valle MD Technologist: Porter Lino Exam Location: [facility] [place] Indication: CHF BP: / HR: 74 Rhythm: Sinus Technical Quality: Adequate MEASUREMENTS (Male / Female) Normal Values 2D ECHO LV Diastolic Diameter PLAX 4.5 cm 4.2 - 5.9 / 3.9 - 5.3 cm LV Systolic Diameter PLAX 2.6 cm IVS Diastolic Thickness 0.8 cm 0.6 - 1.0 / 0.6 - 0.9 cm IVS Systolic Thickness 1.4 cm LVPW Diastolic Thickness 1.5 cm 0.6 - 1.0 / 0.6 - 0.9 cm LVPW Systolic Thickness 1.5 cm LVOT Diameter 2.0 cm LV Ejection Fraction 2D Teich 73.0 % LV Ejection Fraction MOD 2C 57.6 % LV Ejection Fraction 2C AL 57.6 % LA Diameter 3.4 cm LA Width 2.9 cm LA Height 4.3 cm RA Width 3.2 cm RA Height 4.5 cm Aorta at Sinotubular Diameter 2.0 cm IVC Diameter 1.8 cm M-MODE Aortic Annulus Diameter 2.5 cm LA Ao Ratio MM 1.4 MV E Point Septal Separation 0.5 cm DOPPLER AV Peak Velocity 171.3 cm/s LVOT Peak Velocity 124.0 cm/s AV Area Cont Eq vti 2.2 cm squared AV Area Cont Eq pk 2.3 cm squared MV Peak Velocity 104.0 cm/s MV Area PHT 5.0 cm squared Mitral E to A Ratio 0.9 MV E' Velocity 39.0 cm/s Mitral E to MV E' Ratio 6.3 Mitral E to LV E' Lateral Ratio 5.0 Mitral E to LV E' Septal Ratio 8.4 TR Peak Velocity 305.0 cm/s TR Peak Gradient 37.2 mmHg TR Mean Velocity 252.7 cm/s TR Mean Gradient 25.4 mmHg TR Velocity Time Integral 68.4 cm Right Atrial Pressure 3.0 mmHg Pulmonary Artery Systolic Pressu 40.2 mmHg PV Peak Velocity 126.0 cm/s RV Acceleration Time 0.1 s RV Ejection Time 0.4 s RV AcT/ET 0.3 FINDINGS Left Ventricle Normal left ventricular size and systolic function, EF 60 %. No regional wall motion abnormalities. Grade I/IV diastolic dysfunction (abnormal relaxation filling pattern), normal to mildly elevated filling pressures. Right Ventricle Normal right ventricular size. Normal right ventricular systolic function. Right Atrium The right atrium is normal in size. Left Atrium Mildly increased left atrial size. Mitral Valve Thickened mitral valve. Trace mitral valve regurgitation. Aortic Valve No gross abnormalities noted Tricuspid Valve Trace tricuspid valve regurgitation. Pulmonic Valve Pulmonic valve not well visualized. Pericardium Normal pericardium without effusion. Aorta Normal ascending aorta dimension. IVC Normal inferior vena cava. CONCLUSIONS Normal left ventricular size and systolic function, EF 60 %. No regional wall motion abnormalities. Grade I/IV diastolic dysfunction (abnormal relaxation filling pattern), normal to mildly elevated filling pressures. Mildly increased left atrial size. Thickened mitral valve. Trace mitral valve regurgitation. Trace tricuspid valve regurgitation. Severe pulmonary artery peak systolic pressure of 40 mmHg There is no pericardial effusion. There are no intracardiac masses. No previous study is available for comparison. Dr Desean Howard MD FACC (Electronically Signed) Final Date: 23 September 2022 21:30 S
[2022-09-23 11:44] LABS: Glucose Point of Care 121 mg/dL (70-110)
[2022-09-23] MEDS: piperacillin-tazobactam 3.375 GM in sodium chloride 0.9% (plus) 50 ML IV ×2 (11:58→20:03)
[2022-09-23] MEDS: FUROsemide 10 mg/mL SDV 10mL 60 MG IVP (11:58)
[2022-09-23 13:31] LABS: Basophils # 0.1 10^3/uL (0.0-0.1); Basophils % 0.5 %; Eosinophils % 0.2 %; Hematocrit 31.8 % (37.0-47.0); Hemoglobin 10.5 g/dL (11.5-15.3); Lymphocytes # 2.3 10^3/uL (0.8-4.8); Lymphocytes % 11.9 %; Mean Corpuscular Hemoglobin 31.3 pg (28.0-34.0); Mean Corpuscular Volume 94.9 fl (81-99); Mean Platelet Volume 11.1 fL (7.4-10.4); Monocytes # 1.5 10^3/uL (0.2-0.9); Monocytes % 7.7 %; Neutrophils # 15.15 10^3/uL (1.8-7.7); Neutrophils % 77.7 %; Nucleated Red Blood Cells # 0.1 /100WBC; Nucleated Red Blood Cells % 0.5 %; Platelet Count 230 10^3/cmm (130-400); Red Blood Count 3.35 10^6/uL (4.1-5.3); Red Cell Distribution Width 13.1 % (12.1-15.1); Slide Review Slide Review Perform; White Blood Count 19.5 10^3/uL (4.0-10.0)
[2022-09-23 15:41] LABS: Glucose Point of Care 155 mg/dL (70-110)
[2022-09-23 17:31] LABS: Glucose Point of Care 130 mg/dL (70-110)
--- NOTE | 2022-09-23 18:03 | PM.MISC ---
Miscellaneous Note Purpose of Documentation: ORDERING PHYSICIAN: Dr. Valle. REASON FOR STUDY: 09/23/22. STUDY: This was a 21 channel digital electroencephalogram performed using the 10-20 international system of electrode placement. This study was performed at the bedside in an unresponsive patient. There was artifact from numerous sources. FINDINGS: Toward the end of the tracing there was a portion of the record that was relatively free of electrical artifact. The background consisted of mixed theta with overlying fast activity especially in the bifrontal region. 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 The patient did not respond to commands. Eye movement artifact was seen. Somatic movement artifact was seen. There were no specific signs to suggest epileptiform activity. IMPRESSION: Abnormal EEG performed at the bedside in ICU with excessive artifact from various machines in the room. High-quality tracing was obtained toward the end and there were no signs of epileptiform activity. Duration of EE minutes
--- NOTE | 2022-09-23 19:07 | PC.NURSE ---
1310 Okay to reschedule MRI for tomorrow per Dr. Valle.
[2022-09-23 19:41] LABS: Glucose Point of Care 120 mg/dL (70-110)
[2022-09-23 23:39] LABS: Glucose Point of Care 129 mg/dL (70-110)
[2022-09-24] VITALS (26 sets, daily range): BP systolic 82–148; BP diastolic 39–93; PULSE 62–87; RESP 12–31; TEMP 36.7–37.6; O2SAT 91–100
[2022-09-24] MEDS: LORazepam 2 mg/mL INJ 1 mL 1 MG IVP ×2 (00:23→11:34)
[2022-09-24 03:40] LABS: Glucose Point of Care 144 mg/dL (70-110)
[2022-09-24] MEDS: piperacillin-tazobactam 3.375 GM in sodium chloride 0.9% (plus) 50 ML IV ×3 (04:10→20:53)
[2022-09-24 04:47] LABS: Alanine Aminotransferase 14 U/L (0-33); Albumin Level 3.7 g/dL (3.5-5.2); Alkaline Phosphatase 110 U/L (35-105); Anion Gap 14.7 (5-19); Aspartate Amino Transferase 26 U/L (0-32); Blood Urea Nitrogen 19 mg/dL (6-20); Calcium 8.7 mg/dL (8.5-10.5); Carbon Dioxide 28 mmol/L (22-29); Chloride 109 mmol/L (98-107); Globulin 2.9 g/dL (1.3-4.6); Glomerular Filtration Rate 74.7 mL/min (90-130); Glucose 155 mg/dL (65-115); Magnesium 2.2 mg/dL (1.7-2.3); Osmolality Calculated 311 mOsm/kg (285-295); Potassium 3.7 mmol/L (3.5-5.1); Sodium 148 mmol/L (136-145); Total Bilirubin 0.3 mg/dL (0.15-1.2); Total Protein 6.6 g/dL (6.6-8.7)
--- NOTE | 2022-09-24 06:21 | P.PN_ITS ---
Subjective Subjective: Continued steroids for worsening of leukocytosis She has remained afebrile She still getting IV levothyroxine She is still confused however able to open her eyes to verbal command to some extent Not able to follow commands I have discussed her case with Dr. Rdz who will see her today She has requested CSF panel We will go ahead start her on empirical treatment with doxycycline and ceftria xone she is getting Zosyn for aspiration pneumonia Vitals/I&O/Wt Last Vital Signs Temp 98.7 F 09/24/22 04:00 Pulse 79 09/24/22 06:00 Resp 13 09/24/22 06:00 BP 117/60 09/24/22 06:00 Pulse Ox 98 09/24/22 06:00 O2 Del Method 09/24/22 04:00 O2 Flow Rate 3 09/24/22 04:00 09/23/22 09/23/22 09/24/22 14:59 22:59 06:59 Intake Total 957.5 / 957.5 50 / 1007.5 50 / 1057.5 Output Total 850 / 850 1900 / 2750 240 / 2990 Balance 107.5 / 107.5 -1850 / -1742.5 -190 / -1932.5 Weight last 48 hrs Weight 86.455 kg Weight 92 kg Physical Exam Narrative: Patient is moving all of her extremities not purposefully Clinically does not look fluid overloaded Abdomen is distended however soft bowel sounds sluggish Frothy noted around her mouth Able to open eyes to some extent to verbal command and painful stimuli however not able to follow commands Horner catheter draining cloudy urine S1, S2, sinus rhythm Currently on 3 L of nasal cannula Urinary Catheter Management: Horner: Cath Placed During This Visit: yes, but has since been removed by the nurse Reason for Continuing Indwelling Catheter: Accurate Measurement of Urinary Output in Critically Ill Patients Urinary Catheter Date of Insertion: 09/21/22 Urinary Catheter Time of Insertion: 09:53 Date Urinary Catheter Removed: 09/21/22 Time Urinary Catheter Discontinued: 08:00 Data 09/23/22 13:15 09/24/22 04:19 A&P Assessment and plan (1) Metabolic encephalopathy: (2) [place] toxicity: (3) History of suicide attempt: (4) Aspiration pneumonia: (5) Hypoxia: (6) Bipolar disorder: (7) HTN (hypertension): Qualifiers: Hypertension type: primary hypertension Qualified Code(s): I10 - Essential (primary) hypertension Plan Aspiration pneumonia Acute hypoxia requiring 3 L of oxygen Signs of fluid overload secondary to IV fluid hydration She was given Lasix yesterday and fluids were stopped Currently on antibiotics Afebrile Leukocytosis trending up I will discontinue hydrocortisone Acute diastolic CHF exacerbation due to aggressive IV fluid hydration: Cut back on IV fluids she received diuretics yesterday Hypothyroid: Continue IV levothyroxine until she is able to take p.o. levothyroxine Metabolic encephalopathy has not completely resolved No signs of seizure, we will follow-up with MRI head No source of infection Patient has been afebrile No signs of stroke Normal lithium level Dr. 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
[2022-09-24 06:29] LABS: ABG PCO2 48.4 mmHg (35-45); ABG PH Result 7.42 (7.35-7.45); Arterial Blood Gas Hematocrit 30.7 % (37-47); Blood Gas Allen Test Pos; Blood Gas Sample Site Radial, right; Blood Gas Sample Type Arterial; HCO3 ABG 31.3 mmol/L (22-26); Oxygen Device NC
[2022-09-24] MEDS: dextrose 5%-sod chloride 0.45% 1,000 ML 75 ML IV ×2 (06:35→21:41)
[2022-09-24 08:13] LABS: Add Urine Microscopic? YES; Bilirubin Urine Neg (Negative); Blood Urine 3+ (Negative); Glucose Urine UA Norm (Normal); Ketones Urine 1+ (Negative); Leukocyte Esterase Urine Trace (Negative); Nitrate Urine Negative (Negative); Protein Urine 1+ (Negative); Urine Appearance Cloudy (CLEAR); Urine Color Yellow (Yellow); Urobilinogen Urine Neg (Negative); pH Urine 5 (5-7)
[2022-09-24 08:16] LABS: WBC Urine 0-4 /hpf (0-5)
[2022-09-24 08:17] LABS: Add Urine Culture? Yes; Amorphous Sediment Urine 4+ /hpf; Bacteria Urine 4+ /hpf; Squamous Epithelial Cell Urine 0-4 /hpf (0-5)
--- NOTE | 2022-09-24 08:41 | FL_ITS ---
WS: [id number] LUMBAR PUNCTURE UNDER FLUOROSCOPY: OBTAIN CSF FOR ANALYSIS HISTORY: Altered mental status. COMPARISON: None available. FLUOROSCOPY TIME: 0min [id number] # of spot films: 1 Unable to obtain consent from the patient due to clinical condition. Patient was sedated for this exa mination. Consent reviewed on chart. Recent laboratory work and medication are reviewed prior to proc edure. Prior recent head CT negative. Skin over the lumbar is cleansed with ChloraPrep and anesthetized with 1% buffered lidocaine. Access into the thecal sac is achieved. CSF is removed in a sterile manner and placed in the sterile tubes. Approximately 22 ml is removed without difficulty. Extra CSF removed as requested. No complications are encountered. CSF this into the laboratory for analysis as requested. FL/FL guided lumbarpunc dx* [id number] IMPRESSION: Uncomplicated lumbar puncture for CSF.
[2022-09-24] MEDS: pantoprazole 40 mg SDV IVP ×2 (08:42→18:09)
[2022-09-24] MEDS: levothyroxine 100 mcg SDV 50 MCG IVP (08:42)
[2022-09-24 09:17] LABS: Glucose Point of Care 119 mg/dL (70-110)
--- NOTE | 2022-09-24 10:29 | XR_ITS ---
WS: [id number] XR chest 1V portable [id number] REASON FOR EXAM: PICC line placement FINDINGS: Right arm PICC line placement. The tip is within the superior vena cava just below the level of the c alexandro. XR/XR chest 1V portable [id number] IMPRESSION: PICC line position was found to the PICC line team at bedside at the time of is dictation.
[2022-09-24] MEDS: cefTRIAXone 2,000 MG in sodium chloride 0.9% (plus) 50 ML 100 MG IV (10:53)
[2022-09-24] MEDS: doxycycline 100 MG in sodium chloride 0.9% (plus) 100 ML IV ×2 (10:54→21:41)
[2022-09-24] MEDS: FUROsemide 10 mg/mL SDV 2mL 20 MG IVP (10:55)
--- NOTE | 2022-09-24 11:12 | PC.NURSE ---
PICC RIGHT arm ready for use.
[2022-09-24] MEDS: ziprasidone 20 mg/mL SDV 10 MG IM (12:30)
[2022-09-24 13:26] LABS: Cyto Order Verification No Order
[2022-09-24 14:40] LABS: Appearance CSF CLEAR (CLEAR); Color CSF COLORLESS (COLORLESS)
[2022-09-24 15:09] LABS: CSF Mononuclear # 0.002 10^3/uL (50-90); Mononuclear WBC CSF % 100 % (50-90); Polynuclear WBC CSF % 0 % (0-10); Red Blood Cell CSF 0 10^3/uL (0-0); White Blood Cell CSF 2 /uL (0-5)
[2022-09-24 15:44] LABS: Glucose CSF 91 mg/dL (40-70); Total Protein CSF 28 mg/dL (15-45)
[2022-09-24 16:57] LABS: Alanine Aminotransferase 14 U/L (0-33); Albumin Level 3.6 g/dL (3.5-5.2); Alkaline Phosphatase 105 U/L (35-105); Anion Gap 9.9 (5-19); Aspartate Amino Transferase 20 U/L (0-32); Blood Urea Nitrogen 21 mg/dL (6-20); Calcium 9.4 mg/dL (8.5-10.5); Carbon Dioxide 34 mmol/L (22-29); Chloride 106 mmol/L (98-107); Globulin 2.9 g/dL (1.3-4.6); Glomerular Filtration Rate 74.7 mL/min (90-130); Glucose 150 mg/dL (65-115); Osmolality Calculated 310 mOsm/kg (285-295); Sodium 147 mmol/L (136-145); Total Bilirubin 0.3 mg/dL (0.15-1.2); Total Protein 6.5 g/dL (6.6-8.7)
[2022-09-24 17:02] LABS: Potassium 2.9 mmol/L (3.5-5.1)
--- NOTE | 2022-09-24 17:16 | P.NPUPN_ITS ---
Subjective NPU Subjective: Presented today without significant change except was a little more interactive in the sense that she did open her eyes and appeared for a period of time to track this scientific technical writer as moved from one side of the bed to the other. During which Dr. Rdz joined and conducted a neurologic exam. She observed the same lack of interaction. Mental Status Exam MSE Comments: This is an obese white female looking older than her stated age with poor grooming and no eye contact in a hospital gown with soft restraints. No abnormal movements except for appearing to writhe around somewhat once aroused with mild to moderate psychomotor agitation. Uncooperative with exam in moderate distress. Speech was absent. Mood not described affect confused. Thought process not noted. Thought content: Patient did not respond to questions of lethality but have some thrashing behavior, she may have been attending to internal stimuli. Attention and concentration were impaired and memory was not evaluated but none were formally tested. She was not alert or oriented insight, judgment and impulse control were impaired. Vitals/I&O/Wt Last Vital Signs Temp 98.7 F 09/24/22 04:00 Pulse 76 09/24/22 08:15 Resp 16 09/24/22 08:00 BP 117/60 09/24/22 06:00 Pulse Ox 99 09/24/22 08:00 O2 Del Method 09/24/22 08:00 O2 Flow Rate 3 09/24/22 08:00 09/24/22 09/24/22 09/24/22 06:59 14:59 22:59 Intake Total 50 / 1162.5 305 / 305 67.145 / 372.145 Output Total 240 / 2990 Balance -190 / -1827.5 305 / 305 67.145 / 372.145 Weight last 48 hrs Weight 86.455 kg Weight 92 kg Physical Exam Urinary Catheter Management: Horner: Cath Placed During This Visit: yes, but has since been removed by the nurse Reason for Continuing Indwelling Catheter: Accurate Measurement of Urinary Output in Critically Ill Patients Urinary Catheter Date of Insertion: 09/21/22 Urinary Catheter Time of Insertion: 09:53 Date Urinary Catheter Removed: 09/21/22 Time Urinary Catheter Discontinued: 08:00 Data NPU 09/23/22 13:15 09/24/22 16:15 Micro: Microbiology 09/24/22 12:45 Cryptococcal Antigen - Final Cerebrospinal Fluid Microbiology 09/24/22 12:45 Cerebrospinal Fluid Cryptococcal Antigen - Final A&P Assessment and plan (1) Bipolar disorder, curr episode mixed, severe, w/o psychotic features: (2) Suicidal ideation: Plan Alisa is a 56-year-old white female with a history of bipolar 1 disorder with mixed mood symptoms and with a recent hospitalization who presents incoherent and just perseverating about going home. ? 1.?Agree with continued ICU treatment while appearing disoriented. 2. Recommend possible admission to the neuropsychiatric unit after stabilized gains baseline functioning otherwise may need to consider halfway/rehab for a period of time. 3. We will follow if able to communicate and consider transfer when ready. Involuntary Hold Information 96 Hour Hold: 96 Hour Involuntary Admission: No Attestations NPU Medical Necessity Statement*: N/A. See primary team note for medical necessity. Coding Level of Care Code Acute Code for g Fwd Diagnoses Bipolar disorder, curr episode mixed, severe, w/o psychotic features F31.63 Suicidal ideation R45.851
[2022-09-24 17:17] LABS: Glucose Point of Care 163 mg/dL (70-110)
[2022-09-24] MEDS: potassium chloride premix 100 ML 25 MEQ IV ×2 (18:09→21:42)
--- NOTE | 2022-09-24 19:51 | PM.CONSULT ---
Providers/Reason For Consult Consulting Physician/Specialty*: Nikita Valle MD Reason for Consult*: Persistent encephalopathy Requesting Physician: Nikita Valle MD Attending Physician: Nikita Valle MD Primary Care Provider: Angelina Rebolledo DO History of Present Illness History of Present Illness Alisa Kohli is a 56 year old female who presented here with altered mental status on 09/20/2022. Initially EMS got there and she could not tell them why she called them. She was able to say her birthday. Her blood sugar was 141. She repeated that she wanted to go to the stress unit and she kept repeating the same thing. She was agitated when seen by Dr. Rubin and continuously moaning. She kept perseverating and crying and saying that she needed help. She was seen by Dr. Interiano. Her lithium level came back elevated so she was placed in ICU. She was alert but disoriented and perseverative. She was tremulous and had psychomotor agitation. Her initial lithium level was 2.6 and it was unknown whether she had taken an overdose as she had a history of suicidal behavior in the past. By later in the day her lithium level fell to 2.2 and by that following morning it was 0.7 and has remained low since then. The rest of her urine drug screen was negative. Her Depakote level was 106. Her spinal fluid was acellular with glucose 91 and protein 28. Extensive viral panels for encephalitis were drawn and are pending. CT scan of the head showed fluid in the middle ears and mastoid effusions and nothing intraparenchymal. It was rechecked on day 2 of her hospitalization on the and it was unchanged. The patient was seen tonight with Dr. Interiano. He points out that she was less encephalopathic when she arrived than she is now. There have been times that he has been able to get her to follow simple commands and look at him and she would not do that earlier but she did while we were with her. She moans but she will not speak. She will not follow commands. She moans constantly. Her EEG was very poor quality as it was performed at ICU. There was a brief episode of fairly unremarkable slow background. He was shipped from here in May because she was depressed. She was shipped because we did not have beds. She was hospitalized here in April and was taking Seroquel, Abilify, lithium, Depakote 500 mg 3 times daily, gabapentin and Cymbalta. She had a history of more than 20 hospitalizations for bipolar disorder. Reportedly according to Dr. Alexis note, the patient usually presents with travis or depression, sometimes with auditory hallucinations. She lives alone. Review of Systems General: Reports: ROS unobtainable due to medical condition Narrative: She has not been febrile. Medications/Allergies Home Medications Medication Instructions Recorded Confirmed Last Taken Type divalproex 500 mg tablet,extended 1,000 mg PO BID #120 tabs 07/10/22 09/21/22 Unknown Rx release 24 hr gabapentin 300 mg capsule 300 mg PO BEDTIME 30 days #30 caps 07/10/22 09/21/22 Unknown Rx hydroxyzine HCl 50 mg tablet 50 mg PO QID PRN anxiety/insomnia 07/10/22 09/21/22 Unknown Rx #120 tabs lithium carbonate 300 mg capsule 600 mg PO BID 30 days #120 caps 07/10/22 09/21/22 Unknown Rx olanzapine 2.5 mg tablet (Zyprexa) 2.5 mg PO BID #60 tabs 07/10/22 09/21/22 Unknown Rx atorvastatin 40 mg tablet 40 mg PO DAILY 30 days #30 tabs 08/04/22 09/21/22 Unknown Rx naproxen 500 mg tablet (Naprosyn) 500 mg PO BID PRN Pain #60 tabs 08/04/22 09/21/22 Unknown Rx quetiapine 25 mg tablet 25 mg PO QPM 09/21/22 09/21/22 Unknown History Allergies Allergy/AdvReac Type Severity Reaction Status Date / Time Sulfa (Sulfonamide Allergy Unknown Unknown Verified 09/21/22 09:24 Antibiotics) Current Medications Generic Name Dose Route Start Last Admin Trade Name Freq PRN Reason Stop Dose Admin Furosemide 20 mg 09/24/22 11:00 09/24/22 10:55 Furosemide 10 Mg/Ml Sdv 2ml IVP 20 mg Q24H MINISTERIO Administration Haloperidol Lactate 1 mg 09/22/22 12:50 09/23/22 00:05 Haloperidol Inj 5 Mg/Ml Inj 1 Ml IM 1 mg Q4H PRN Administration AGITATION Dexmedetomidine HCl 400 mcg/ 104 mls @ 0 mls/hr 09/23/22 00:30 09/23/22 04:15 Sodium Chloride IV 0.2 mcg/kg/hr .Q0M MINISTERIO 4.68 mls/hr Titration Protocol Per Protocol Levetiracetam 500 mg/ Sodium 105 mls @ 420 mls/hr 09/23/22 09:00 09/24/22 09:00 Chloride IV Infused Q12H MINISTERIO Infusion Piperacillin Sod/Tazobactam 50 mls @ 12.5 mls/hr 09/23/22 12:00 09/24/22 15:00 Sod 3.375 gm/ Sodium Chloride IV Infused Q8H MINISTERIO Infusion Protocol Dextrose/Sodium Chloride 1,000 mls @ 75 mls/hr 09/24/22 06:30 09/24/22 06:35 Dextrose 5%-Sod Chloride 0.45% IV 75 mls/hr .[id number] MINISTERIO Administration Ceftriaxone Sodium 2,000 mg/ 50 mls @ 100 mls/hr 09/24/22 09:00 09/24/22 11:25 Sodium Chloride IV Infused Q24H MINISTERIO Infusion Protocol Doxycycline Hyclate 100 mg/ 100 mls @ 100 mls/hr 09/24/22 10:00 09/24/22 12:00 Sodium Chloride IV Infused Q12H MINISTERIO Infusion Protocol Norepinephrine Bitartrate 4 mg 254 mls @ 0 mls/hr 09/24/22 14:00 09/24/22 16:38 / Dextrose IV 0 mcg/min .Q0M MINISTERIO 0 mls/hr Titration Protocol Per Protocol Potassium Chloride 100 mls @ 25 mls/hr 09/24/22 17:15 09/24/22 18:09 K-Jose IV 09/25/22 01:14 25 mls/hr Q4H MINISTERIO Administration Levothyroxine Sodium 50 mcg 09/21/22 10:00 09/24/22 08:42 Levothyroxine 100 Mcg Sdv IVP 50 mcg DAILY MINISTERIO Administration Lorazepam 1 mg 09/22/22 11:28 09/24/22 11:34 Lorazepam 2 Mg/Ml Inj 1 Ml IVP 1 mg Q2H PRN Administration seizure Ondansetron HCl 4 mg 09/20/22 18:25 09/23/22 04:00 Ondansetron 2 Mg/Ml Sdv 2 Ml IVP 4 mg Q6H PRN Administration NAUSEA AND VOMITING Pantoprazole Sodium 40 mg 09/21/22 09:00 09/24/22 18:09 Pantoprazole 40 Mg Sdv IVP 40 mg BID MINISTERIO Administration Thiamine HCl 100 mg 09/22/22 09:00 09/24/22 08:42 Thiamine 100 Mg/Ml Sdv IVP 100 mg DAILY MINISTERIO Administration PFSH Acute PFSH: Medical History Auditory hallucination Depression Dyslipidemia History of breast cancer HTN (hypertension) Psychiatric care Surgical History History of lumpectomy of right breast Social History Smoking and tobacco status: former smoker Quit status (tobacco): has quit using tobacco Year quit tobacco: 2021 Second hand smoke exposure: No Smoking risk assessment/counseling performed?: No Alcohol intake: former Desire information about alcohol rehabilitation?: No Counseling given: No Desire information about substance/drug rehabilitation?: No Counseling given: No Vitals/I&O/Wt Last Vital Signs Temp 98.0 F 09/24/22 15:00 Pulse 66 09/24/22 18:00 Resp 14 09/24/22 18:00 BP 96/71 09/24/22 18:00 Pulse Ox 100 09/24/22 18:00 O2 Del Method 09/24/22 08:00 O2 Flow Rate 3 09/24/22 08:00 09/24/22 09/24/22 09/24/22 06:59 14:59 22:59 Intake Total 50 / 1162.5 305 / 305 67.145 / 372.145 Output Total 240 / 2990 1000 / 1000 1000 / 2000 Balance -190 / -1827.5 -695 / -695 -932.855 / -1627.855 Weight last 48 hrs Weight 190 lb 9.6 oz Weight 202 lb 13.204 oz Physical Exam Narrative: General: Morbidly obese woman laying supine in the ICU. Mental status exam: She is moaning constantly. She regarded the examiner. She turned her eyes from me to Dr. Interiano on command. She would not move her legs until I pinched her and then she moved her legs very well and pick them up (although she is weak). She would move her arms and shoulders to pain but not voluntarily to command. She would not say her name. She would not stick out her tongue. She would move her eyes from side to side appropriately right and left to command. She was agitated. Cranial nerves: Face was symmetric at rest. Eye movements were full. Tongue was midline in the mouth. Motor: She seems flaccid in the upper extremities and lets her arms drop to the bed. When I pinch her on the shoulders she moved her shoulders about fairly vigorously. She would not move her legs until I pinched her ankles and she kicked her legs quite vigorously. Right toe was upgoing. Left was downgoing. No cerebellar signs. HEENT: Her mouth is dry. Chest: Clear to auscultation. Cardiovascular: S1 and S2 normal without murmur or gallop. Abdomen no specific milan of tenderness. Extremities: She has numerous calluses on her feet. Urinary Catheter Management: Horner: Cath Placed During This Visit: yes, but has since been removed by the nurse Reason for Continuing Indwelling Catheter: Accurate Measurement of Urinary Output in Critically Ill Patients Urinary Catheter Date of Insertion: 09/21/22 Urinary Catheter Time of Insertion: 09:53 Date Urinary Catheter Removed: 09/21/22 Time Urinary Catheter Discontinued: 08:00 Data 09/23/22 13:15 09/24/22 16:15 Micro: Microbiology 09/24/22 12:45 Cryptococcal Antigen - Final Cerebrospinal Fluid A&P Assessment and plan (1) Metabolic encephalopathy: 56-year-old woman presents with profound alteration of mental status, apparently fairly abrupt although we do not have a clear history prior to admission. She has continued to worsen slightly over her hospital stay with no focal abnormalities on examination, normal CAT scan of the brain (definitely no temporal or frontal lobe edema on either of her scans), clear CSF and fairly unremarkable laboratory exam. She has had an elevated white count since arrival and it has continued to increase during her stay to 19.5 yesterday. She was a little hypoxic on arrival with a PO2 of 55.3 yesterday but repeat was unremarkable. Her lithium level is therapeutic. I would recommend discontinuing Depakote because Depakote encephalopathy can occur even at therapeutic levels at any time in treatment. A connective tissue work-up might be considered although this patient has no history of connective tissue disease. Check a serum ammonia but her liver enzymes have been unremarkable and renal function intact. I would recommend treating with antipsychotics as indicated by Dr. Interiano and I would transfer this patient to a shelter for rehab. I would like to see her as an outpatient for follow-up. EEG as outpatient, high-quality study in the EEG suite at [facility]. (2) Bipolar disorder: Consult Attestations Medical Necessity Statement: Patient presented with apparently abrupt onset of altered mental status although she lives alone and we do not have a clear history. She appeared to be lithium toxic and there was a thought she might of overdosed with an occult substance. She has been profoundly obtunded and requiring high level of nursing care. Time Spent in Patient Care: 60 minutes Coding Level of Care Code Acute Code for g Fwd Diagnoses Metabolic encephalopathy G93.41 Bipolar disorder F31.9
[2022-09-24 20:59] LABS: Glucose Point of Care 122 mg/dL (70-110)
[2022-09-25] VITALS (26 sets, daily range): BP systolic 110–142; BP diastolic 51–89; PULSE 60–97; RESP 13–27; TEMP 36.7–37.6; O2SAT 92–100
[2022-09-25] MEDS: piperacillin-tazobactam 3.375 GM in sodium chloride 0.9% (plus) 50 ML IV (05:06)
[2022-09-25 05:07] LABS: Basophils # 0.1 10^3/uL (0.0-0.1); Basophils % 0.8 %; Eosinophils # 0.3 10^3/uL (0.0-0.8); Eosinophils % 2.2 %; Hematocrit 28.8 % (37.0-47.0); Hemoglobin 9.2 g/dL (11.5-15.3); Lymphocytes # 3.2 10^3/uL (0.8-4.8); Lymphocytes % 22.7 %; Mean Corpuscular HGB Conc 31.9 g/dL (30.0-36.0); Mean Corpuscular Hemoglobin 30.4 pg (28.0-34.0); Mean Platelet Volume 11.3 fL (7.4-10.4); Monocytes # 1.3 10^3/uL (0.2-0.9); Monocytes % 9.4 %; Neutrophils # 9.11 10^3/uL (1.8-7.7); Neutrophils % 63.8 %; Nucleated Red Blood Cells # 0.1 /100WBC; Nucleated Red Blood Cells % 0.4 %; Platelet Count 268 10^3/cmm (130-400); Red Blood Count 3.03 10^6/uL (4.1-5.3); Red Cell Distribution Width 13.1 % (12.1-15.1); White Blood Count 14.3 10^3/uL (4.0-10.0)
[2022-09-25 05:38] LABS: Blood Urea Nitrogen 22 mg/dL (6-20); Calcium 8.9 mg/dL (8.5-10.5); Carbon Dioxide 31 mmol/L (22-29); Chloride 109 mmol/L (98-107); Glomerular Filtration Rate 87.2 mL/min (90-130); Glucose 144 mg/dL (65-115); Osmolality Calculated 310 mOsm/kg (285-295); Sodium 147 mmol/L (136-145)
[2022-09-25 05:42] LABS: Anion Gap 10.8 (5-19); Potassium 3.8 mmol/L (3.5-5.1)
[2022-09-25 07:32] LABS: Glucose Point of Care 140 mg/dL (70-110)
[2022-09-25] MEDS: levothyroxine 100 mcg SDV 50 MCG IVP (08:38)
[2022-09-25] MEDS: cefTRIAXone 2,000 MG in sodium chloride 0.9% (plus) 50 ML 100 MG IV (08:38)
[2022-09-25] MEDS: pantoprazole 40 mg SDV IVP (08:38)
[2022-09-25] MEDS: dextrose 5%-sod chloride 0.45% 1,000 ML 75 ML IV ×2 (08:39→22:12)
[2022-09-25] MEDS: doxycycline 100 MG in sodium chloride 0.9% (plus) 100 ML IV (08:39)
[2022-09-25] MEDS: lanolin oint 7 gm 1 APPLIC TOPICAL (08:49)
--- NOTE | 2022-09-25 10:12 | P.PN_ITS ---
Subjective Subjective: Is awake and alert talking and stating that she wants to talk with her boyfriend She needs IV fluid hydration for sodium 147, urine output about 2400 mL, Look for signs of polyuria however her hypernatremia is related to not eating for last 4 days Vitals/I&O/Wt Last Vital Signs Temp 98.3 F 09/25/22 04:00 Pulse 68 09/25/22 08:00 Resp 16 09/25/22 08:00 BP 142/56 09/25/22 06:00 Pulse Ox 97 09/25/22 08:00 O2 Del Method 09/25/22 08:00 O2 Flow Rate 3 09/25/22 06:00 09/24/22 09/25/22 09/25/22 22:59 06:59 14:59 Intake Total 1360.895 / 1665.895 150 / 9069.824 8303.5 / 1127.5 Output Total 1000 / 2000 400 / 2400 Balance 360.895 / -334.105 -250 / -215.480 4847.5 / 1127.5 Weight last 48 hrs Weight 91.711 kg Weight 86.455 kg Physical Exam Narrative: Patient is awake and alert clinical signs of dehydration Wanted to eat She is able to follow commands Answer question appropriately Afebrile Hemodynamically stable Doing well on room air Abdomen soft Nonfocal neuro exam Pleasant and cooperative NIH 0 Urinary Catheter Management: Horner: Cath Placed During This Visit: yes, but has since been removed by the nurse Reason for Continuing Indwelling Catheter: Accurate Measurement of Urinary Output in Critically Ill Patients Urinary Catheter Date of Insertion: 09/21/22 Urinary Catheter Time of Insertion: 09:53 Date Urinary Catheter Removed: 09/21/22 Time Urinary Catheter Discontinued: 08:00 Data 09/25/22 03:55 09/25/22 03:55 Micro: Microbiology 09/24/22 12:45 Gram Stain - Final Cerebrospinal Fluid Cryptococcal Antigen - Final A&P Assessment and plan (1) Hypoxia: (2) Aspiration pneumonia: (3) Metabolic encephalopathy: (4) [place] toxicity: (5) History of suicide attempt: (6) Bipolar 1 disorder, depressed: Plan Metabolic encephalopathy related to lithium intoxication Getting better No signs of meningitis, will need MRI for now patient is awake and alert wanting to eat Hyponatremia related to dehydration from not being able to eat for last 4 days I do believe this is lithium chronic toxicity which took 5 days to recover [place] levels are therapeutic Watch for signs of polyuria nephrogenic diabetes insipidus Hypoxia related to aspiration pneumonia: Resolved she has been afebrile, I will switch her to Augmentin and discontinue rest of the antibiotics She will need to go to neuropsychiatric unit tomorrow will need 1 more day of IV fluid hydration Dr. Interiano have been notified Full code Regular diet Attestations Medical Necessity Statement*: To neuropsychiatric unit tomorrow, continue IV fluid hydration, she can be transferred to [facility] if bed is needed Time Spent in Patient Care: 30 Coding Level of Care Code Acute Code for g Fwd Diagnoses Hypoxia R09.02 Aspiration pneumonia J69.0 Metabolic encephalopathy G93.41 [place] toxicity T56.891A History of suicide attempt Z91.51 Bipolar 1 disorder, depressed F31.9
[2022-09-25] MEDS: nicotine 21 mg Patch 1 PATCH TRANSDERMA (11:09)
[2022-09-25] MEDS: ALPRAZolam 0.5 mg Tablet PO (11:09)
--- NOTE | 2022-09-25 15:09 | P.NPUPN_ITS ---
Subjective NPU Subjective: Patient presented today being verbal and expressing angst about being in the hospital. She is basically reverted to the first day we saw her where she was complaining about wanting to go home. We discussed the fact that she would be transferred to the neuropsychiatric unit as soon as a bed was available. Mental Status Exam MSE Comments: This is an obese white female looking older than her stated age with poor grooming and limited eye contact. No abnormal movements except for mild psychomotor agitation. More cooperative with exam in decreasing distress. Speech was again focused on going home. Mood not described affect tearful. Thought process more organized but still somewhat disorganized. Thought content: Patient did not respond to questions of lethality but did not have aggression toward self or others, there were no signs of delusions and none reported, she did not appear to be attending to internal stimuli. Attention and concentration were improving and memory was unreliable but none were formally tested. She was alert but disoriented. Insight, judgment and impulse control were impaired. Vitals/I&O/Wt Last Vital Signs Temp 98.1 F 09/25/22 07:00 Pulse 61 09/25/22 12:00 Resp 13 09/25/22 12:00 BP 113/70 09/25/22 12:00 Pulse Ox 92 09/25/22 12:00 O2 Del Method 09/25/22 08:00 O2 Flow Rate 2 09/25/22 07:00 09/25/22 09/25/22 09/25/22 06:59 14:59 22:59 Intake Total 150 / 1093.157 9343.5 / 1227.5 Output Total 400 / 2400 300 / 300 Balance -250 / -584.105 927.5 / 927.5 Weight last 48 hrs Weight 91.711 kg Weight 86.455 kg Physical Exam Urinary Catheter Management: Horner: Cath Placed During This Visit: yes, but has since been removed by the nurse Reason for Continuing Indwelling Catheter: Accurate Measurement of Urinary Output in Critically Ill Patients Urinary Catheter Date of Insertion: 09/21/22 Urinary Catheter Time of Insertion: 09:53 Date Urinary Catheter Removed: 09/21/22 Time Urinary Catheter Discontinued: 08:00 Data NPU 09/25/22 03:55 09/25/22 03:55 Micro: Microbiology 09/24/22 07:30 Urine Culture - Preliminary Urine,Clean Catch 09/24/22 12:45 Gram Stain - Final Cerebrospinal Fluid Cryptococcal Antigen - Final Microbiology 09/24/22 07:30 Urine,Clean Catch Urine Culture - Preliminary 09/24/22 12:45 Cerebrospinal Fluid Gram Stain - Final 09/24/22 12:45 Cerebrospinal Fluid Cryptococcal Antigen - Final A&P Assessment and plan (1) Bipolar disorder, curr episode mixed, severe, w/o psychotic features: (2) Suicidal ideation: Plan Alisa is a 56-year-old white female with a history of bipolar 1 disorder with mixed mood symptoms and with a recent hospitalization who presents incoherent and just perseverating about going home. ? 1.?Agree with continued ICU treatment while appearing disoriented. 2. Recommend admission to the neuropsychiatric unit after stabilized gains baseline functioning otherwise may need to consider senior living/rehab for a period of time. 3. We will follow if able to communicate and consider transfer when ready. Involuntary Hold Information 96 Hour Hold: 96 Hour Involuntary Admission: No Attestations NPU Medical Necessity Statement*: N/A. See primary team note for medical necessity. Coding Level of Care Code Acute Code for Chg Fwd Diagnoses Bipolar disorder, curr episode mixed, severe, w/o psychotic features F31.63 Suicidal ideation R45.851
[2022-09-25] MEDS: amoxicillin-clav 875-125 mg Tablet 1 TAB PO (17:23)
[2022-09-25 19:59] LABS: Glucose Point of Care 150 mg/dL (70-110)
[2022-09-25] MEDS: OLANZapine 5 mg TABLET PO (20:38)
[2022-09-26] VITALS (24 sets, daily range): BP systolic 91–159; BP diastolic 39–102; PULSE 53–83; RESP 10–18; TEMP 36.9–37.4; O2SAT 95–99
[2022-09-26 04:21] LABS: Basophils # 0.1 10^3/uL (0.0-0.1); Basophils % 0.9 %; Eosinophils # 0.6 10^3/uL (0.0-0.8); Eosinophils % 4.8 %; Hematocrit 27.5 % (37.0-47.0); Lymphocytes # 4.3 10^3/uL (0.8-4.8); Lymphocytes % 33.5 %; Mean Corpuscular HGB Conc 32.7 g/dL (30.0-36.0); Mean Corpuscular Hemoglobin 30.9 pg (28.0-34.0); Mean Corpuscular Volume 94.5 fl (81-99); Mean Platelet Volume 10.6 fL (7.4-10.4); Monocytes # 1.1 10^3/uL (0.2-0.9); Monocytes % 8.8 %; Neutrophils # 6.57 10^3/uL (1.8-7.7); Neutrophils % 51.5 %; Nucleated Red Blood Cells % 0.2 %; Platelet Count 264 10^3/cmm (130-400); Red Blood Count 2.91 10^6/uL (4.1-5.3); White Blood Count 12.8 10^3/uL (4.0-10.0)
[2022-09-26 04:48] LABS: Blood Urea Nitrogen 18 mg/dL (6-20); Calcium 9.2 mg/dL (8.5-10.5); Carbon Dioxide 30 mmol/L (22-29); Chloride 105 mmol/L (98-107); Glomerular Filtration Rate 104.2 mL/min (90-130); Glucose 141 mg/dL (65-115); Osmolality Calculated 298 mOsm/kg (285-295); Sodium 142 mmol/L (136-145)
[2022-09-26 05:07] LABS: Anion Gap 10.3 (5-19); Potassium 3.3 mmol/L (3.5-5.1)
[2022-09-26] MEDS: nicotine 21 mg Patch 1 PATCH TRANSDERMA (09:07)
[2022-09-26] MEDS: folic acid 1 mg Tablet PO (09:08)
[2022-09-26] MEDS: amoxicillin-clav 875-125 mg Tablet 1 TAB PO ×2 (09:08→18:02)
[2022-09-26] MEDS: thiamine 100 mg Tablet PO (09:08)
--- NOTE | 2022-09-26 11:12 | P.PN_ITS ---
Subjective Subjective: Patient is awake and alert Wanting to eat She wants to go home, she will be transferred to neuropsychiatric unit today Medically cleared Hemodynamic stable She does not need any antibiotics or IV fluids for now CBC BMP unremarkable No signs of nephrogenic diabetes insipidus No sign of polyuria Vitals/I&O/Wt Last Vital Signs Temp 98.6 F 09/26/22 04:00 Pulse 58 L 09/26/22 09:59 Resp 17 09/26/22 09:59 BP 147/72 09/26/22 06:00 Pulse Ox 98 09/26/22 09:59 O2 Del Method 09/26/22 09:59 O2 Flow Rate 2 09/25/22 07:00 09/25/22 09/26/22 09/26/22 22:59 06:59 14:59 Intake Total 1220 / 2447.5 120 / 2567.5 798.75 / 798.75 Output Total 300 / 600 500 / 1100 Balance 920 / 1847.5 -380 / 1467.5 798.75 / 798.75 Weight last 48 hrs Weight 91.2 kg Weight 91.711 kg Physical Exam Narrative: Awake and alert Pleasant and cooperative Nonfocal neuro exam Abdomen soft No signs of edema Currently on room air Hemodynamically stable Gets bradycardic without any symptoms Urinary Catheter Management: Horner: Cath Placed During This Visit: yes, but has since been removed by the nurse Reason for Continuing Indwelling Catheter: Accurate Measurement of Urinary Outp ut in Critically Ill Patients Urinary Catheter Date of Insertion: 09/21/22 Urinary Catheter Time of Insertion: 09:53 Date Urinary Catheter Removed: 09/21/22 Time Urinary Catheter Discontinued: 08:00 Data 09/26/22 03:48 09/26/22 03:48 Micro: Microbiology 09/24/22 12:45 Gram Stain - Final Cerebrospinal Fluid CSF Culture - Preliminary Cryptococcal Antigen - Final 09/24/22 07:30 Urine Culture - Preliminary Urine,Clean Catch A&P Assessment and plan (1) Hypoxia: (2) Aspiration pneumonia: (3) Metabolic encephalopathy: (4) [place] toxicity: Plan Hypokalemia: Repleted [place] intoxication neurotoxicity took 4 days for the patient to open her eyes I would not recommend continuing lithium for now Aspiration pneumonia, she remained afebrile, will give Augmentin for next 2 days and then discontinue Acute hypoxia, resolved Sinus bradycardia without any active symptoms She will need to go to neuropsychiatric clinic Patient is denying suicidal attempt or ideation Full code , Dysphagia diet Speech therapy can further advance diet depending on the evaluation Medicine will follow along Attestations Medical Necessity Statement*: Transfer to stress unit Time Spent in Patient Care: 30 Coding Level of Care Code Acute Code for Chg Fwd Diagnoses Hypoxia R09.02 Aspiration pneumonia J69.0 Metabolic encephalopathy G93.41 [place] toxicity T56.891A
[2022-09-26] MEDS: OLANZapine 5 mg TABLET PO (20:28)
[2022-09-27] VITALS (9 sets, daily range): BP systolic 96–147; BP diastolic 48–89; PULSE 60–87; RESP 16–20; TEMP 36.3–36.9; O2SAT 94–100; BMI 31.8
--- NOTE | 2022-09-27 00:36 | PC.NURSE ---
Transferred to [place] [id number] via bed.
[2022-09-27] MEDS: thiamine 100 mg Tablet PO (09:37)
[2022-09-27] MEDS: nicotine 21 mg Patch 1 PATCH TRANSDERMA (09:37)
[2022-09-27] MEDS: folic acid 1 mg Tablet PO (09:37)
[2022-09-27] MEDS: amoxicillin-clav 875-125 mg Tablet 1 TAB PO (09:37)
[2022-09-27] MEDS: ALPRAZolam 0.5 mg Tablet PO ×2 (09:41→19:48)
--- NOTE | 2022-09-27 10:32 | PC.SOCIAL ---
IMM Update pg 2 of IMM updated and reviewed w/ patient. Copy provided and Copy in chart dated, and initialed.
--- NOTE | 2022-09-27 11:18 | P.PN_ITS ---
Subjective Subjective: Pleasant cooperative Tolerating her regular diet No overnight events Vitals/I&O/Wt Last Vital Signs Temp 97.4 F L 09/27/22 07:49 Pulse 61 09/27/22 08:00 Resp 16 09/27/22 08:00 BP 96/63 09/27/22 07:49 Pulse Ox 94 09/27/22 08:00 O2 Del Method 09/27/22 08:00 O2 Flow Rate 2 09/25/22 07:00 09/26/22 09/27/22 09/27/22 22:59 06:59 14:59 Intake Total 300 / 1578.75 120 / 1698.75 840 / 840 Output Total 750 / 750 Balance -450 / 828.75 120 / 948.75 840 / 840 Weight last 48 hrs Weight 89.63 kg Weight 91.2 kg Physical Exam Narrative: Awake and alert Nonfocal neuro exam Very pleasant cooperative Euvolemic Abdomen soft Currently on room air S1, S2 Urinary Catheter Management: Horner: Cath Placed During This Visit: yes, but has since been removed by the nurse Reason for Continuing Indwelling Catheter: Accurate Measurement of Urinary Output in Critically Ill Patients Urinary Catheter Date of Insertion: 09/21/22 Urinary Catheter Time of Insertion: 09:53 Date Urinary Catheter Removed: 09/21/22 Time Urinary Catheter Discontinued: 08:00 Data 09/26/22 03:48 09/26/22 03:48 Micro: Microbiology 09/24/22 12:45 Gram Stain - Final Cerebrospinal Fluid CSF Culture - Preliminary Cryptococcal Antigen - Final 09/24/22 07:30 Urine Culture - Final Urine,Clean Catch A&P Assessment and plan (1) Aspiration pneumonia: (2) Hypoxia: (3) Metabolic encephalopathy: (4) [place] toxicity: (5) Bipolar 1 disorder, depressed: Plan 56-year female who presented with acute on chronic lithium toxicity signs with neurotoxic symptoms and signs, she was dialyzed at the time of admission, dialysis was stopped after first session, it took 4 days for her to wake up, CSF unremarkable, CT head unremarkable, she remained afebrile, however aspirated and was treated with antibiotics for aspiration pneumonia, now she is tolerating regular diet, doing well on room air, awaiting transfer to neuropsychiatric unit Acute metabolic encephalopathy related to lithium toxicity: Resolved Continue antipsychotics Overt lithium Discontinue antibiotics Tolerating regular diet Full code Can be transferred to neuropsych unit today Attestations Medical Necessity Statement*: Transfer Time Spent in Patient Care: 15 Coding Level of Care Code Acute Code for Chg Fwd Diagnoses Aspiration pneumonia J69.0 Hypoxia R09.02 Metabolic encephalopathy G93.41 [place] toxicity T56.891A Bipolar 1 disorder, depressed F31.9
[2022-09-27] MEDS: acetaminophen 500 mg Tablet PO (13:40)
--- NOTE | 2022-09-27 15:31 | W.PM.NPUPNS ---
Subjective NPU Subjective: Patient presents today reporting doing much better. She is having significant improvement from her initial presentation. But her report is that she took 2 additional lithium and we discussed that that is unlikely to have caused the significant increase we witnessed. We discussed that it would have taken multiple consecutive days of increased to create this problem. We discussed that Dr. Alexis will be here and discussions about outpatient support would be necessary since she lives at home alone. Mental Status Exam MSE Comments: This is an overweight versus obese white female with thinning hair in hospital scrubs with adequate grooming and limited eye contact. No abnormal movements. Cooperative with exam in no acute distress. Speech was normal rate and volume. Mood described as good, affect is congruent. Thought process, organized. Thought content: patient denies suicidal or homicidal ideation, no delusions reported or noted and denies any auditory or visual hallucinations. Attention and concentration are intact and memory appeared reliable but none were formally tested. She is alert and oriented times three. Insight and judgment are improving. Impulse control is fair. Vitals/I&O/Wt Last Vital Signs Temp 97.6 F 09/27/22 04:00 Pulse 60 09/27/22 04:00 Resp 17 09/27/22 04:00 BP 117/76 09/27/22 04:00 Pulse Ox 97 09/27/22 04:00 O2 Del Method 09/26/22 23:59 O2 Flow Rate 2 09/25/22 07:00 09/26/22 09/26/22 09/27/22 14:59 22:59 06:59 Intake Total 1278.75 / 1278.75 300 / 1578.75 120 / 1698.75 Output Total 750 / 750 Balance 1278.75 / 1278.75 -450 / 828.75 120 / 948.75 Weight last 48 hrs Weight 89.63 kg Weight 91.2 kg Physical Exam Urinary Catheter Management: Horner: Cath Placed During This Visit: yes, but has since been removed by the nurse Reason for Continuing Indwelling Catheter: Accurate Measurement of Urinary Output in Critically Ill Patients Urinary Catheter Date of Insertion: 09/21/22 Urinary Catheter Time of Insertion: 09:53 Date Urinary Catheter Removed: 09/21/22 Time Urinary Catheter Discontinued: 08:00 Data NPU 09/26/22 03:48 09/26/22 03:48 Micro: Microbiology 09/24/22 12:45 Gram Stain - Final Cerebrospinal Fluid CSF Culture - Preliminary Cryptococcal Antigen - Final 09/24/22 07:30 Urine Culture - Final Urine,Clean Catch Microbiology 09/24/22 12:45 Cerebrospinal Fluid Gram Stain - Final 09/24/22 12:45 Cerebrospinal Fluid CSF Culture - Preliminary 09/24/22 12:45 Cerebrospinal Fluid Cryptococcal Antigen - Final 09/24/22 07:30 Urine,Clean Catch Urine Culture - Final A&P Assessment and plan (1) Bipolar disorder, curr episode mixed, severe, w/o psychotic features: (2) Suicidal ideation: Plan Alisa is a 56-year-old white female with a history of bipolar 1 disorder with mixed mood symptoms and with a recent hospitalization who presented incoherent and just perseverating about going home, after a protracted stay in the ICU she was transferred to the NPU with significant improvement. ? 1. Continue current medications 2. Encourage individual, group and milieu therapy 3. Continue q-15 minute check for safety 4. Plan for appropriate outpatient supports to avoid a repeat including do we restart the lithium. Involuntary Hold Information 96 Hour Hold: 96 Hour Involuntary Admission: No Attestations NPU Medical Necessity Statement*: ? Inpatient hospitalization is medically necessary and the clinically appropriate intervention at this time. We will monitor medications and make changes as indicated. Likely length of stay is 1-3 days. Coding Level of Care Code Acute Code for Chg Fwd Diagnoses Bipolar disorder, curr episode mixed, severe, w/o psychotic features F31.63 Suicidal ideation R45.851
[2022-09-27] MEDS: trazodone 50 mg Tablet PO (19:48)
[2022-09-27] MEDS: OLANZapine 5 mg TABLET PO (19:48)
[2022-09-28] MEDS: cetylpyridinium Lozenge 1 EACH MUCOUS MEM ×3 (02:10→21:17)
[2022-09-28 08:00] VITALS: PULSE 64; RESP 16; O2SAT 95
[2022-09-28] MEDS: folic acid 1 mg Tablet PO (08:50)
[2022-09-28] MEDS: nicotine 21 mg Patch 1 PATCH TRANSDERMA (08:50)
[2022-09-28] MEDS: thiamine 100 mg Tablet PO (08:50)
--- NOTE | 2022-09-28 09:51 | PC.OT ---
OT EVALUATION ATTEMPTED X2 THIS A.M. PATIENT IS SLEEPING SOUNDLY AND DOES NOT AWAKEN. WILL ATTEMPT AGAIN AT A LATER TIME.
--- NOTE | 2022-09-28 13:07 | W.PM.NPUPNS ---
Subjective NPU Subjective: The patient had continue to endorse that she had simply taken a few too many lithium pills and Depakote pills. She reported that she would like to consider something different to manage her thoughts. She had endorsed a past history of manic symptoms and periods of having high energy and decreased need for sleep. She reports that she had been extremely confused when she came here but stated that she was feeling more stable. She states that she understands that she needs to be on medications to manage her travis. She had endorsed a past history of auditory hallucinations as well. Mental Status Exam MSE Comments: This is an overweight versus obese white female with thinning hair in hospital scrubs with adequate grooming and limited eye contact. No abnormal movements. Cooperative with exam in no acute distress. Speech was normal rate and volume. Mood described as good, affect is congruent. Thought process was linear and, organized. Thought content: patient denies suicidal or homicidal ideation, no delusions reported or noted and denies any auditory or visual hallucinations. Attention and concentration are intact and memory appeared reliable but none were formally tested. She is alert and oriented times three. Insight and judgment are improving. Impulse control is fair. Vitals/I&O/Wt Last Vital Signs Temp 98.5 F 09/27/22 22:00 Pulse 64 09/28/22 08:00 Resp 16 09/28/22 08:00 BP 130/58 09/27/22 22:00 Pulse Ox 95 09/28/22 08:00 O2 Del Method 09/28/22 08:00 O2 Flow Rate 0 09/28/22 08:00 09/27/22 09/28/22 09/28/22 22:59 06:59 14:59 Intake Total 480 / 1440 480 / 480 Output Total 1550 / 1550 Balance 480 / 1440 -1070 / -1070 Weight last 48 hrs Weight 89.358 kg Weight 89.63 kg Physical Exam Urinary Catheter Management: Horner: Cath Placed During This Visit: yes, but has since been removed by the nurse Reason for Continuing Indwelling Catheter: Accurate Measurement of Urinary Output in Critically Ill Patients Urinary Catheter Date of Insertion: 09/21/22 Urinary Catheter Time of Insertion: 09:53 Date Urinary Catheter Removed: 09/21/22 Time Urinary Catheter Discontinued: 08:00 Data NPU 09/26/22 03:48 09/26/22 03:48 Micro: Microbiology 09/24/22 12:45 Gram Stain - Final Cerebrospinal Fluid CSF Culture - Final Cryptococcal Antigen - Final Microbiology 09/24/22 12:45 Cerebrospinal Fluid Gram Stain - Final 09/24/22 12:45 Cerebrospinal Fluid CSF Culture - Final 09/24/22 12:45 Cerebrospinal Fluid Cryptococcal Antigen - Final A&P Assessment and plan (1) Bipolar disorder, curr episode mixed, severe, w/o psychotic features: (2) Suicidal ideation: Plan Alisa is a 56-year-old white female with a history of bipolar 1 disorder with mixed mood symptoms and with a recent hospitalization who presented incoherent and just perseverating about going home, after a protracted stay in the ICU she was transferred to the NPU with significant improvement. ? 1. Hold on [place] and Depakote, begin Abilify 5mg today and increase to 10mg daily to target bipolar symptoms/schizoaffective disorder. 2. Encourage individual, group and milieu therapy 3. Continue q-15 minute check for safety Involuntary Hold Information 96 Hour Hold: 96 Hour Involuntary Admission: No Attestations NPU Medical Necessity Statement*: ? Inpatient hospitalization is medically necessary and the clinically appropriate intervention at this time. We will monitor medications and make changes as indicated. Likely length of stay is 1-3 days. Coding Level of Care Code Established Pt Acute Code for Chg Fwd Patient Type Established History Problem Focused Exam Problem Focused Medical Decision Making Straight Forward Diagnoses Bipolar disorder, curr episode mixed, severe, w/o psychotic features F31.63 Suicidal ideation R45.858
[2022-09-28 14:00] VITALS: BP 132/79; PULSE 81; RESP 18; TEMP 36.8; O2SAT 95
[2022-09-28] MEDS: pneumococcal (23 valent) SDV 0.5 mL IM (14:10)
[2022-09-28] MEDS: ARIPiprazole 10 mg Tablet 5 MG PO (17:30)
[2022-09-28] MEDS: trazodone 50 mg Tablet PO (19:38)
[2022-09-28] MEDS: OLANZapine 5 mg TABLET PO (19:38)
[2022-09-28 20:59] VITALS: BP 98/60; PULSE 69; RESP 16; TEMP 36.6; O2SAT 98
[2022-09-28] MEDS: acetaminophen 500 mg Tablet PO (21:15)
[2022-09-29] MEDS: folic acid 1 mg Tablet PO (08:59)
[2022-09-29] MEDS: thiamine 100 mg Tablet PO (08:59)
[2022-09-29] MEDS: nicotine 21 mg Patch 1 PATCH TRANSDERMA (08:59)
[2022-09-29] MEDS: ARIPiprazole 10 mg Tablet PO (08:59)
[2022-09-29] MEDS: cetylpyridinium Lozenge 1 EACH MUCOUS MEM (10:29)
[2022-09-29] MEDS: acetaminophen 325 mg Tablet 650 MG PO ×2 (11:05→15:56)
[2022-09-29] MEDS: divalproex ER 500 mg Tablet (24H) 1000 MG PO (12:32)
[2022-09-29 14:00] VITALS: BP 139/81; PULSE 81; RESP 20; TEMP 36.3; O2SAT 99
[2022-09-29 16:44] LABS: West Nile Virus AB (IGG) <1.30 index; West Nile Virus AB (IGM) <0.90 index
--- NOTE | 2022-09-29 17:33 | W.PM.NPUPNS ---
Subjective NPU Subjective: The patient is a 56-year-old female admitted with increased confusion with a past history of bipolar disorder who had a lithium level of over 2.4 with the patient not able to clearly maintain compliance with lithium. She reported having a headache this morning but stated that she had been feeling more steady. Patient was provided psychoeducation regarding bipolar disorder and its medication treatments. Patient had indicated that she had only been on lithium and Depakote in the past but was agreeable to trying something different. Patient had minimized any racing thoughts at this time and denied any travis or depression. She had reported that she had felt that her thoughts at times had been moving fast but states that she had not been feeling too hyper lately. Mental Status Exam MSE Comments: This is an overweight versus obese white female with thinning hair in hospital scrubs with adequate grooming and limited eye contact. No abnormal movements. Cooperative with exam in no acute distress. Speech was normal rate and volume. Mood described as okay, affect was somewhat flat and mood incongruent.. Thought process was linear and, organized. Thought content: patient denies suicidal or homicidal ideation, no delusions reported or noted and denies any auditory or visual hallucinations. Attention and concentration are intact and memory appeared reliable but none were formally tested. She is alert and oriented times three. Insight and judgment are improving. Impulse control is fair. Vitals/I&O/Wt Last Vital Signs Temp 97.4 F L 09/29/22 14:00 Pulse 81 09/29/22 14:00 Resp 20 H 09/29/22 14:00 BP 139/81 09/29/22 14:00 Pulse Ox 99 09/29/22 14:00 O2 Del Method 09/28/22 08:00 O2 Flow Rate 0 09/28/22 20:00 Weight last 48 hrs Weight 89.358 kg Physical Exam Urinary Catheter Management: Horner: Cath Placed During This Visit: yes, but has since been removed by the nurse Reason for Continuing Indwelling Catheter: Accurate Measurement of Urinary Output in Critically Ill Patients Urinary Catheter Date of Insertion: 09/21/22 Urinary Catheter Time of Insertion: 09:53 Date Urinary Catheter Removed: 09/21/22 Time Urinary Catheter Discontinued: 08:00 Data NPU 09/26/22 03:48 09/26/22 03:48 A&P Assessment and plan (1) Bipolar disorder, curr episode mixed, severe, w/o psychotic features: (2) Suicidal ideation: Aakash Cuellar is a 56-year-old white female with a history of bipolar 1 disorder with mixed mood symptoms and with a recent hospitalization who presented incoherent and just perseverating about going home, after a protracted stay in the ICU she was transferred to the NPU with significant improvement. ? 1. Increase Abilify to 10mg in am, monitor for side effects, add Depakote ER 1000mg once a day adjunctively. Monitor for toleration, likely discharge in 2-3 days. 2. Encourage individual, group and milieu therapy 3. Continue q-15 minute check for safety Involuntary Hold Information 96 Hour Hold: 96 Hour Involuntary Admission: No Attestations NPU Medical Necessity Statement*: ? Inpatient hospitalization is medically necessary and the clinically appropriate intervention at this time. We will monitor medications and make changes as indicated. Likely length of stay is 1-3 days. Coding Level of Care Code Established Pt Acute Code for Chg Fwd Patient Type Established History Problem Focused Exam Problem Focused Medical Decision Making Straight Forward Diagnoses Bipolar disorder, curr episode mixed, severe, w/o psychotic features F31.63 Suicidal ideation R45.858
[2022-09-29] MEDS: OLANZapine 5 mg TABLET PO (19:38)
[2022-09-29] MEDS: trazodone 50 mg Tablet PO ×3 (19:43→23:06)
[2022-09-29 19:51] VITALS: BP 119/61; PULSE 70; RESP 18; TEMP 36.8; O2SAT 98
[2022-09-29] MEDS: nicotine 2 mg Gum BUCCAL (20:33)
[2022-09-29] MEDS: acetaminophen 500 mg Tablet PO (21:21)
[2022-09-30 00:50] LABS: VDRL on CSF NON-REACTIVE
[2022-09-30] MEDS: nicotine 2 mg Gum BUCCAL ×4 (04:39→18:28)
[2022-09-30] MEDS: acetaminophen 500 mg Tablet PO ×2 (05:23→20:16)
[2022-09-30 06:00] VITALS: BP 131/81; PULSE 67; RESP 18; TEMP 36.6; O2SAT 96
[2022-09-30] MEDS: divalproex ER 500 mg Tablet (24H) 1000 MG PO (08:43)
[2022-09-30] MEDS: ARIPiprazole 10 mg Tablet PO (08:44)
[2022-09-30] MEDS: thiamine 100 mg Tablet PO (08:44)
[2022-09-30] MEDS: nicotine 21 mg Patch 1 PATCH TRANSDERMA (08:44)
[2022-09-30] MEDS: folic acid 1 mg Tablet PO (08:44)
[2022-09-30] MEDS: hyDROXYzine 25 mg Capsule 50 MG PO (13:45)
--- NOTE | 2022-09-30 13:46 | PC.NURSE ---
Pt asking for something for anxiety. Pt said she was really wanting to go home and it was making her anxious. Reassurance provided.
[2022-09-30 14:00] VITALS: BP 126/58; PULSE 84; RESP 18; TEMP 35.9; O2SAT 98
--- NOTE | 2022-09-30 14:14 | DCPLANNER ---
IMM completed 09/30/22 @ 2996. Pt was given a copy of rights and stated she understood her rights.
--- NOTE | 2022-09-30 16:06 | P.NPUPN_ITS ---
Subjective NPU Subjective: The patient is a 56-year-old female admitted with increased confusion with a past history of bipolar disorder currently on Depakote 1000 mg daily along with Abilify 10 mg. She had reported feeling better although she had reported continued headaches. She reports having had past success with her Abilify and she reports a good chance of remaining compliant with this medication. She reported no depressed mood at this time. She had reported no racing thoughts. She had reported that her thoughts were calmer today. Mental Status Exam MSE Comments: This is an overweight versus obese white female with thinning hair in hospital scrubs with adequate grooming and limited eye contact. No abnormal involuntary motor movements were appreciated. Cooperative with exam in no acute distress. Speech was normal rate and volume. Mood described as better. Affect appeared restricted. Thought process was linear and, organized. Thought content: patient denies suicidal or homicidal ideation, no delusions reported or noted and denies any auditory or visual hallucinations. Attention and concentration are intact and memory appeared reliable but none were formally tested. She is alert and oriented times three. Insight and judgment are improving. Impulse control is fair. Vitals/I&O/Wt Last Vital Signs Temp 97.8 F 09/30/22 06:00 Pulse 67 09/30/22 06:00 Resp 18 09/30/22 06:00 BP 131/81 09/30/22 06:00 Pulse Ox 96 09/30/22 06:00 O2 Del Method 09/28/22 08:00 O2 Flow Rate 0 09/30/22 08:00 09/30/22 09/30/22 09/30/22 06:59 14:59 22:59 Intake Total 480 / 480 Output Total 1550 / 1550 Balance -1070 / -1070 Physical Exam Urinary Catheter Management: Horner: Cath Placed During This Visit: yes, but has since been removed by the nurse Reason for Continuing Indwelling Catheter: Accurate Measurement of Urinary O utput in Critically Ill Patients Urinary Catheter Date of Insertion: 09/21/22 Urinary Catheter Time of Insertion: 09:53 Date Urinary Catheter Removed: 09/21/22 Time Urinary Catheter Discontinued: 08:00 Data NPU 09/26/22 03:48 09/26/22 03:48 A&P Assessment and plan (1) Bipolar disorder, curr episode mixed, severe, w/o psychotic features: (2) Suicidal ideation: Plan Alisa is a 56-year-old white female with a history of bipolar 1 disorder with mixed mood symptoms and with a recent hospitalization who presented incoherent and just perseverating about going home, after a protracted stay in the ICU she was transferred to the NPU with significant improvement. ? 1. Increase Abilify to 15mg in am, monitor for side effects, Continue Depakote ER 1000mg once a day adjunctively. Monitor for toleration, likely discharge tommorow. 2. Encourage individual, group and milieu therapy 3. Continue q-15 minute check for safety Involuntary Hold Information 96 Hour Hold: 96 Hour Involuntary Admission: No Attestations NPU Medical Necessity Statement*: ? Inpatient hospitalization is medically necessary and the clinically appropriate intervention at this time. We will monitor medications and make changes as indicated. Likely length of stay is 1-3 days. Coding Level of Care Code Established Pt Acute Code for Chg Fwd Patient Type Established History Problem Focused Exam Problem Focused Medical Decision Making Straight Forward Diagnoses Bipolar disorder, curr episode mixed, severe, w/o psychotic features F31.63 Suicidal ideation R45.857
[2022-09-30 20:09] LABS: Lyme Disease AB (IGG),IBL NO BANDS DETECTED; Lyme Disease AB (IGM), IBL NO BANDS DETECTED
[2022-09-30] MEDS: OLANZapine 5 mg TABLET PO (20:16)
[2022-09-30 20:37] VITALS: BP 90/60; PULSE 81; RESP 16; TEMP 36.8; O2SAT 98
[2022-09-30] MEDS: trazodone 50 mg Tablet PO (23:29)
[2022-10-01 08:00] VITALS: PULSE 67; RESP 16; O2SAT 97
[2022-10-01] MEDS: thiamine 100 mg Tablet PO (09:32)
[2022-10-01] MEDS: nicotine 21 mg Patch 1 PATCH TRANSDERMA (09:32)
[2022-10-01] MEDS: folic acid 1 mg Tablet PO (09:32)
[2022-10-01] MEDS: divalproex ER 500 mg Tablet (24H) 1000 MG PO (09:32)
[2022-10-01] MEDS: ARIPiprazole 10 mg Tablet 15 MG PO (09:32)
--- NOTE | 2022-10-01 10:55 | P.NPUDS_ITS ---
Diagnoses at Discharge Discharge Diagnosis (1) Bipolar disorder, curr episode mixed, severe, w/o psychotic features: Status: Resolved (2) Suicidal ideation: Status: Resolved Reason for Visit Reason for Visit: AMS Brief History: History of Present Illness Alisa Kohli is a 56 year old female who presented to the emergency department with the following report: Chief Complaint: Altered Mental Status Stated Complaint: AMS Time Seen by Provider: 09/20/22 09:57 Source: patient Mode of arrival: EMS History of Present Illness:?? 56-year-old female presents emergency room with altered mental status initially when EMS arrived to pick her up she was not able to tell them why she had called EMS.? When she arrived here she is able to answer questions time birthday day and would just tell us that she was very very sick.? EMS arrived blood glucose of 141 and related that when asked why she wanted to go to the hospital in route she kept saying stress unit and she has had problems in the past mental health issues resulting in hospitalizations.? 2 hospitalizations last year to stressing.? That she is unable to tell us anything limiting exam and her limited exam she began moaning and persisted although when I first came in the room she was quiet she kept moaning when I tried to listen to her heart and lungs could not really evaluate her any further. ? She has no lateralizing symptoms suggestive of a stroke.? There are no family members at the bedside. MD complaint: altered mental status Onset (ago): unknown Context: other (History of mental health illness). Psychiatric consult was requested after she was mostly nonverbal with the emergency room doctor.? I went and saw her and have limited recollection of her from past visit but she was basically lying in bed perseverating about wanting to go home.? Every attempt that I made to get more meaningful communication from her was met with either responses like she was upset and repetition of the statement I want to go home.? Discussed the case with Dr. Rubin and we agreed that she needed to stay and likely be on the psychiatric unit because she appeared not well but it was unclear of what exactly was going on but at that time the lithium level had not returned.? The lithium level returned elevated and it was unclear at that time that she needed to have more intensive medical observation while this hyper lithium state was being managed.? Given that we did not know if it was going to increase or where we were exactly in the peak.? We also were unaware that this represented an error in dosing or an overdose.? We agreed we would continue to monitor her as she was managed on the medical unit. Hospital Course Hospital Course Discharge Summary: The patient had spent several days on the medical go surgical team due to the patient being minimally responsive and obtunded. It was found that she had had an elevated lithium and appeared to be suffering from some level of encephalopathy. It was uncertain as to whether it was lithium or Depakote at 2000 mg a day which was the contributing cause. Prior to the patient's discharge she had revealed that she had been taking lithium with naproxen on a daily basis which may have explained why her lithium level was toxic and contributing to her altered mental status. Patient was agreeable to a trial of Abilify and did attempt to not have the patient placed on lithium. Later, Depakote was added to her regimen at 1000 mg in the morning only she appeared to recover nicely and did not appear to have any abnormal laboratory studies of note after this. Of time. At the time of discharge, lethality was denied and psychosis was resolving. Mood and anxiety were well managed. Patient endorsed a plan to avoid all drugs of abuse and follow-up with the aftercare recommendations of the treatment team. Patient was evaluated and deemed to be absent credible lethality, and had achieved the maximum benefit from an inpatient hospitalization, so was discharged. Involuntary Hold Information 96 Hour Hold: 96 Hour Involuntary Admission: No Mental Status Exam MSE Comments: This is an overweight versus obese white female with thinning hair in hospital scrubs with adequate grooming and limited eye contact. No abnormal involuntary motor movements were appreciated. Cooperative with exam in no acute distress. Speech was normal rate and volume. Mood described as better. Affect appeared brighter. Thought process was linear and, organized. Thought content: patient denies suicidal or homicidal ideation, no delusions reported or noted and denies any auditory or visual hallucinations. Attention and concentrat ion are intact and memory appeared reliable but none were formally tested. She is alert and oriented times three. Insight and judgment are improving. Impulse control is fair. Physical Exam Urinary Catheter Management: Horner: Cath Placed During This Visit: yes, but has since been removed by the nurse Reason for Continuing Indwelling Catheter: Accurate Measurement of Urinary Output in Critically Ill Patients Urinary Catheter Date of Insertion: 09/21/22 Urinary Catheter Time of Insertion: 09:53 Date Urinary Catheter Removed: 09/21/22 Time Urinary Catheter Discontinued: 08:00 Discharge Data Studies Completed and Pending: Completed Studies During Hospitalization Category Date Time Status CT head wo con* 7 0450 Routine Cat Scan 09/21/22 09:[address] head wo con* 7 0450 Stat Cat Scan 09/20/22 10:31 Completed Fluoro guided lum bar puncture [FL g uided lumbarpunc d x* Exams 09/24/22 08:41 Completed [id number]] Routine XR chest 1V soco ble 52014 Routine Exams 09/20/22 19:43 Completed XR chest 1V soco ble [id number] Routine Exams 09/23/22 00:19 Completed XR chest 1V soco ble [id number] Routine Exams 09/24/22 10:29 Completed XR chest 1V soco ble [id number] Stat Exams 09/20/22 09:58 Completed CV. echo complete * [id number] Routine Ultrasound 09/23/22 10:55 Completed Pending at discharge Category Date Time Status Oligoclonal Bands IGG, CSF Routine Lab 09/24/22 12:26 Received [place] Enceph. Virus IFA CSF Rout ine Lab 09/24/22 12:26 Received Radiology Impressions Head CT 09/21/22 09:37 IMPRESSION: 1. No acute intracranial abnormality. 2. Bilateral mastoid air cell effusions. 3. Fluid in both middle ears. 4. Acute and chronic sinus disease. Lumbar Puncture Fluoroscopy 09/24/22 08:41 IMPRESSION: Uncomplicated lumbar puncture for CSF. Chest X-Ray 09/24/22 10:29 IMPRESSION: PICC line position was found to the PICC line team at bedside at the time of this dictation. Laboratory Results WBC 12.8 10^3/uL (4.0 -10.0) H 09/26/22 03:48 Corrected WBC Cancelled 09/23/22 11:31 RBC 2.91 10^6/uL (4.1 -5.3) L 09/26/22 03:48 Hgb 9.0 g/dL (11.5-15 .3) L 09/26/22 03:48 Hct 27.5 % (37.0-47.0 ) L 09/26/22 03:48 MCV 94.5 fl (81-99) 09/26/22 03:48 MCH 30.9 pg (28.0-34. 0) 09/26/22 03:48 MCHC 32.7 g/dL (30.0-3 6.0) 09/26/22 03:48 RDW 13.0 % (12.1-15.1 ) 09/26/22 03:48 Plt Count 264 10^3/cmm (130 -400) 09/26/22 03:48 MPV 10.6 fL (7.4-10.4 ) H 09/26/22 03:48 Gran % Cancelled 09/23/22 11:31 Neut % (Auto) 51.5 % 09/26/22 03:48 Lymph % (Auto) 33.5 % 09/26/22 03:48 [place] % (Auto) 8.8 % 09/26/22 03:48 Eos % (Auto) 4.8 % 09/26/22 03:48 Baso % (Auto) 0.9 % 09/26/22 03:48 Neut # (Auto) 6.57 10^3/uL (1.8 -7.7) 09/26/22 03:48 Lymph # (Auto) 4.3 10^3/uL (0.8- 4.8) 09/26/22 03:48 [place] # (Auto) 1.1 10^3/uL (0.2- 0.9) H 09/26/22 03:48 Eos # (Auto) 0.6 10^3/uL (0.0- 0.8) 09/26/22 03:48 Baso # (Auto) 0.1 10^3/uL (0.0- 0.1) 09/26/22 03:48 Absolute Gran (aut o) Cancelled 09/23/22 11:31 Nucleated RBC % (a uto) 0.2 % 09/26/22 03:48 Nucleated RBCs # 0.0 /100WBC 09/26/22 03:48 PT 14.80 SECONDS (12 .1-14.9) 09/20/22 19:36 INR 1.13 (0.8-1.2) 09/20/22 19:36 APTT 23.6 SECONDS (23. 9-36.7) L 09/20/22 19:36 Specimen Type Arterial 09/24/22 04:00 Sample Site Radial, right 09/24/22 04:00 ABG pH 7.42 (7.35-7.45) 09/24/22 04:00 ABG pCO2 48.4 mmHg (35-45) H 09/24/22 04:00 ABG pO2 96.0 mmHg (80.0-1 00.0) 09/24/22 04:00 ABG HCO3 31.3 mmol/L (22-2 6) H 09/24/22 04:00 ABG O2 Saturation 88.8 09/23/22 00:45 ABG Base Excess 6.0 mmol/L (-2.0- 2.0) H 09/24/22 04:00 Frankie Test Pos 09/24/22 04:00 A-a O2 Gradient 6.0 mmHg (5-10) 09/23/22 00:45 Hematocrit 30.7 % (37-47) L 09/24/22 04:00 Hgb O2 Saturation 87.9 % (95-100) L 09/23/22 00:45 Carboxyhemoglobin 0.3 %THgb (0.4-20 .1) L 09/23/22 00:45 Methemoglobin 0.8 % (0.4-1.5) 09/23/22 00:45 Total Hemoglobin 9.5 g/dL (12-16) L 09/23/22 00:45 Sodium 146.0 mmol/L (131 -143) H 09/23/22 00:45 Potassium 3.7 mmol/L (3.5-5 .0) 09/23/22 00:45 Glucose 155.0 mg/dL (70-1 15) H 09/23/22 00:45 Ionized Calcium 1.3 mmol/L (1.1-1 .4) 09/23/22 00:45 O2 Delivery Device Nc 09/24/22 04:00 O2 Liters/Min 3.0 % 09/24/22 04:00 FiO2 21.0 % 09/20/22 10:04 Pediatric Neurologist ID [email or web address] 09/24/22 04:00 Sodium 142 mmol/L (136-1 45) 09/26/22 03:48 Potassium 3.3 mmol/L (3.5-5 .1) L 09/26/22 03:48 Chloride 105 mmol/L (98-10 7) 09/26/22 03:48 Carbon Dioxide 30 mmol/L (22-29) H 09/26/22 03:48 Anion Gap 10.3 (5-19) 09/26/22 03:48 BUN 18 mg/dL (6-20) 09/26/22 03:48 Creatinine 0.6 mg/dL (0.5-0. 9) 09/26/22 03:48 GFR Calculation 104.2 mL/min (90- 130) 09/26/22 03:48 Glucose 141 mg/dL (65-115 ) H 09/26/22 03:48 POC Glucose 150 mg/dL (70-110 ) H 09/25/22 19:56 Calculated Osmolal ity 298 mOsm/kg (285- 295) H 09/26/22 03:48 Calcium 9.2 mg/dL (8.5-10 .5) 09/26/22 03:48 Magnesium 2.2 mg/dL (1.7-2. 3) 09/24/22 04:19 Total Bilirubin 0.3 mg/dL (0.15-1 .2) 09/24/22 16:15 AST 20 U/L (0-32) 09/24/22 16:15 ALT 14 U/L (0-33) 09/24/22 16:15 Alkaline Phosphata se 105 U/L (35-105) 09/24/22 16:15 Creatine Kinase 59 U/L (26-192) 09/20/22 13:17 C-Reactive Protein 9.9 mg/L (0.0-4.9 ) H 09/23/22 09:00 Total Protein 6.5 g/dL (6.6-8.7 ) L 09/24/22 16:15 Albumin 3.6 g/dL (3.5-5.2 ) 09/24/22 16:15 Globulin 2.9 g/dL (1.3-4.6 ) 09/24/22 16:15 Vitamin B12 568 pg/mL (232-12 45) 09/20/22 13:17 TSH 10.67 uIU/mL (0.2 7-4.20) H 09/20/22 13:17 Prolactin 27.68 ng/mL (4.8- 23.3) H 09/23/22 09:00 HCG, Qual Negative (Negati ve) 09/20/22 19:36 Urine Color Yellow (Yellow) 09/24/22 07:30 Urine Appearance Cloudy (CLEAR) A 09/24/22 07:30 Urine pH 5 (5-7) 09/24/22 07:30 Ur Specific Gravit y 1.030 (1.005-1.0 30) 09/24/22 07:30 Urine Protein 1+ (Negative) H 09/24/22 07:30 Urine Glucose (UA) Norm (Normal) 09/24/22 07:30 Urine Ketones 1+ (Negative) H 09/24/22 07:30 Urine Blood 3+ (Negative) H 09/24/22 07:30 Urine Nitrate Negative (Negati ve) 09/24/22 07:30 Urine Bilirubin Neg (Negative) 09/24/22 07:30 Urine Urobilinogen Neg mg/dL (Negati ve) 09/24/22 07:30 Ur Leukocyte Norma ase Trace (Negative) H 09/24/22 07:30 Urine RBC None /hpf (0-2) 09/24/22 07:30 Urine WBC 0-4 /hpf (0-5) H 09/24/22 07:30 Ur Squamous Epith Cells 0-4 /hpf (0-5) H 09/24/22 07:30 Amorphous Sediment 4+ /hpf 09/24/22 07:30 Urine Bacteria 4+ /hpf (NONE) H 09/24/22 07:30 CSF Appearance Clear (CLEAR) 09/24/22 12:45 CSF Color Colorless (COLOR LESS) 09/24/22 12:45 CSF WBC 2 /uL (0-5) 09/24/22 12:45 CSF RBC 0 10^3/uL (0-0) 09/24/22 12:45 CSF Mononuclear # Auto 0.002 10^3/uL (50 -90) L 09/24/22 12:45 CSF Mononuclear WB Cs % 100 % (50-90) H 09/24/22 12:45 CSF Polynuclear WB Cs # 0.000 10^3/uL (0- 10) 09/24/22 12:45 CSF Polynuclear WB Cs % 0 % (0-10) 09/24/22 12:45 CSF Glucose 91 mg/dL (40-70) H 09/24/22 12:45 CSF Total Protein 28 mg/dL (15-45) 09/24/22 12:45 CSF VDRL Non-reactive 09/24/22 12:45 CSF Lyme IgG (Immb lot) No bands detected 09/24/22 12:26 CSF Lyme IgM (Immb lot) No bands detected 09/24/22 12:26 Salicylates < 0.3 mg/dL (3-10 ) L 09/20/22 10:26 Urine Opiates Scre en Negative ng/mL (N egative) 09/20/22 11:21 Acetaminophen < 5.0 ug/mL (10-3 0) L 09/20/22 10:26 Ur Barbiturates Sc reen Negative ng/mL (N egative) 09/20/22 11:21 Valproic Acid 106.4 ug/mL (50-1 00) H 09/20/22 10:26 Ur Phencyclidine S crn Negative ng/mL (N egative) 09/20/22 11:21 Ur Amphetamines Sc reen Negative ng/mL (N egative) 09/20/22 11:21 U Benzodiazepines Scrn Negative ng/mL (N egative) 09/20/22 11:21 [place] 0.9 mmol/L (0.6-1 .2) 09/21/22 12:27 Urine Cocaine Scre en Negative ng/mL (N egative) 09/20/22 11:21 U Marijuana (THC) Screen Negative ng/mL (N egative) 09/20/22 11:21 Ethyl Alcohol < 10 mg/dL (0-10) 09/20/22 10:26 Lyme IgG Bands Pre sent Not Reportable 09/24/22 12:26 Lyme IgM Bands Pre sent Not Reportable 09/24/22 12:26 West Nile Virus Ig G Ab <1.30 index 09/24/22 12:26 West Nile Virus Ig M Ab <0.90 index 09/24/22 12:26 Hep Bs Antigen Non-reactive (No nreactive) 09/20/22 13:17 Hep Bs Antibody 7.8 (11.5-1000) L 09/20/22 13:17 Hepatitis C Antibo dy Non-reactive (No nreactive) 09/20/22 13:17 Influenza Type A A g Negative (Negati ve) 09/20/22 11:20 Influenza Type B A g Negative (Negati ve) 09/20/22 11:20 Vitals: Last Vital Signs Temp 98.3 F 09/30/22 20:37 Pulse 67 10/01/22 08:00 Resp 16 10/01/22 08:00 BP 90/60 09/30/22 20:37 Pulse Ox 97 10/01/22 08:00 O2 Del Method 10/01/22 08:00 O2 Flow Rate 0 10/01/22 08:00 Discharge Plan Discharge Patient Disposition: Home Condition: Stable Prescriptions: New olanzapine 5 mg Tablet 5 mg PO BEDTIME 30 Days Qty: 30 1RF divalproex 500 mg Tablet Extended Release 24 Hr 1,000 mg PO .AM 30 Days Qty: 60 1RF aripiprazole 15 mg tablet 15 mg PO DAILY 30 Days Qty: 30 1RF Continued gabapentin 300 mg capsule 300 mg PO BEDTIME 30 Days Qty: 30 2RF hydroxyzine HCl 50 mg tablet 50 mg PO QID PRN (Reason: anxiety/insomnia) Qty: 120 2RF atorvastatin 40 mg tablet 40 mg PO DAILY 30 Days Qty: 30 5RF naproxen [Naprosyn] 500 mg tablet 500 mg PO BID PRN (Reason: Pain) Qty: 60 2RF Rx Instructions: Take with food Discontinued olanzapine [Zyprexa] 2.5 mg tablet 2.5 mg PO BID Qty: 60 2RF lithium carbonate 300 mg capsule 600 mg PO BID 30 Days Qty: 120 2RF divalproex 500 mg tablet extended release 24 hr 1,000 mg PO BID Qty: 120 2RF quetiapine 25 mg tablet 25 mg PO QPM Discharge Orders: Discharge Order (Routine); Ordered 10/01/22 Ordered By: Rodger Alexis Referrals: Angelina Rebolledo DO [Primary Care Provider] - Richard Valenzuela MD [Physician] - 10/06/22 11:45 am (11:45 is show time and 12pm is appointment) Discharge Diet: Advance as tolerated Discharge Activity: Resume usual activity Patient Instructions: Olanzapine (By mouth) (Zyprexa, Zyprexa Zydis), Aripiprazole (By mouth) (Abilify, Abilify Discmelt), Divalproex (By mouth) (Depakote, Depakote ER, Depakote Sprinkles), Conduct Disorder in Children (ED), Opioid Safety Discharge Attestations NPU Time Spent in Discharge Care*: less than 30 min Specific Discharge Activities: Specific discharge activities: educating patient, discussing with rehabilitation caseworker/social workers/dc planners, documenting/other paperwork and evaluating patient/reviewing data Coding Level of Care Code Established Pt Acute Chg FW DC note Patient Type Established History Problem Focused Exam Problem Focused Medical Decision Making Straight Forward Diagnoses Bipolar disorder, curr episode mixed, severe, w/o psychotic features F31.63 Suicidal ideation R45.854
[2022-10-01 11:11] VITALS: BP 90/60; PULSE 67; RESP 16; TEMP 36.8; O2SAT 97
[2022-10-01 17:15] LABS: St. Louis Enceph.Virus IGG CSF <1:1; St. Louis Enceph.Virus IGM CSF <1:1
== END 2022-10-01 11:23 | disposition home or self-care (01) | DRG 917 ==
LOC: ER 16:03 → ICU 17:30 → NP 09-27 18:06
PROVIDERS: Family Medicine; Internal Medicine; Internal Medicine Nephrology; Admitting Provider Internal Medicine; Emergency Provider Family Medicine; PCP Family Medicine; Visit Provider Psychiatry & Neurology Psychiatry
DX: T56.891A Toxic effect of other metals, accidental (unintentional), initial encounter (principal); G92.8 Other toxic encephalopathy; J69.0 Pneumonitis due to inhalation of food and vomit; I50.31 Acute diastolic (congestive) heart failure; F31.63 Bipolar disorder, current episode mixed, severe, without psychotic features; E87.1 Hypo-osmolality and hyponatremia; N17.9 Acute kidney failure, unspecified; E87.0 Hyperosmolality and hypernatremia; G25.3 Myoclonus; I11.0 Hypertensive heart disease with heart failure; R56.9 Unspecified convulsions; F51.04 Psychophysiologic insomnia; E87.6 Hypokalemia; R89.2 Abnormal level of other drugs, medicaments and biological substances in specimens from other organs, systems and tissues; E03.9 Hypothyroidism, unspecified; E78.5 Hyperlipidemia, unspecified; F60.3 Borderline personality disorder; F41.1 Generalized anxiety disorder; E66.9 Obesity, unspecified; R51.9 Headache, unspecified; Z68.31 Body mass index [BMI] 31.0-31.9, adult; Z91.51 Personal history of suicidal behavior; Z87.891 Personal history of nicotine dependence
CPT/HCPCS: 12345; 36415; 36416; 36569; 36592; 36600; 51702; 62328; 70450; 71045; 80048; 80051; 80053; 80164; 80178; 80306; 80307; 80503; 81001; 82330; 82550; 82607; 82803; 82805; 82945; 82962; 83735; 83916; 84146; 84157; 84443; 84703; 85025; 85610; 85730; 86140; 86592; 86617; 86653; 86706; 86788; 86789; 86803; 87070; 87075; 87086; 87205; 87327; 87340; 87804; 89050; 90471; 90686; 90732; 90935; 92523; 92610; 93005; 93306; 94640; 96372; 97110; 97116; 97150; 97161; 97165; 97530; 99285; C1751; C9113; J0696; J1630; J1644; J1720; J1940; J1953; J2060; J2250; J2405; J2543; J3411; J3480; J3486; J3490; J7030; J7042; J7060; J7799; Q3014

== ENCOUNTER 2023-02-23 11:41 | Outpatient (CLI) | payer MEDICARE, MEDICAID, SELFPAY ==
[2023-02-23 13:22] LABS: Lithium 0.5 mmol/L (0.6-1.2)
== END 2023-02-23 11:42 | disposition home or self-care (01) ==
LOC: LAB 11:51
PROVIDERS: PCP Family Medicine; Visit Provider Psychiatry & Neurology Psychiatry
DX: Z79.899 Other long term (current) drug therapy (principal)
CPT/HCPCS: 36415; 80164; 80178

== ENCOUNTER → 2023-03-26 13:54 | Outpatient (BNVA) | payer MEDICARE, SELFPAY | PROVIDERS: PCP Family Medicine; Visit Provider Psychiatry & Neurology Psychiatry | DX: Z79.899 Other long term (current) drug therapy (principal) | CPT/HCPCS: 80061; 83036 ==

== ENCOUNTER → 2023-07-08 11:07 | Outpatient (BNVA) | payer MEDICARE, SELFPAY | PROVIDERS: PCP Family Medicine; Visit Provider Psychiatry & Neurology Psychiatry | DX: F31.9 Bipolar disorder, unspecified (principal); Z79.899 Other long term (current) drug therapy; F60.3 Borderline personality disorder; F17.219 Nicotine dependence, cigarettes, with unspecified nicotine-induced disorders; F41.1 Generalized anxiety disorder | CPT/HCPCS: 80178; 84443 ==

== ENCOUNTER 2023-08-20 10:03 | Inpatient (IN) | payer MEDICARE, MEDICAID, SELFPAY ==
[2023-08-20 10:10] VITALS: BP 158/81; PULSE 84; RESP 18; TEMP 36.6; O2SAT 99; BMI 32.3
--- NOTE | 2023-08-20 10:19 | W.ED.GENADLT ---
HPI - General Adult General: Chief complaint: General Medical Stated complaint: MHE Time Seen by Provider: 08[facility]20[facility]23 10[facility]: Medical History (Updated 07/08/23 @ 10:19 by Richard Valenzuela MD) Hypoxia Aspiration pneumonia Metabolic encephalopathy History of suicide attempt [place] toxicity Abnormal thyroid function test Borderline personality disorder Auditory hallucination History of breast cancer Dyslipidemia Depression HTN (hypertension) Psychiatric care Surgical History History of lumpectomy of right breast Social History Smoking and tobacco/nicotine status: former use of tobacco/nicotine Quit status (tobacco/nicotine): has quit using Year quit tobacco: 2021 Second hand smoke exposure: No Alcohol intake: former Substance/Drug Use: former Date of last use: When in school. Course Vital Signs: Vital signs: Vital Signs Temperature 97.9 F 08/20/23 10:10 Pulse Rate 84 08/20/23 10:10 Respiratory Rate 18 08/20/23 10:10 Blood Pressure 158/81 08/20/23 10:10 Pulse Oximetry 99 08/20/23 10:10 Oxygen Delivery Me thod Room Air 08/20/23 10:10 Discharge Plan Discharge Condition: Stable Prescriptions: No Action trazodone 100 mg tablet 200 mg PO .HS PRN (Reason: insomnia) Qty: 60 2RF quetiapine [Seroquel] 100 mg tablet 100 mg PO .HS Qty: 30 2RF divalproex 500 mg tablet extended release 24 hr 500 mg PO BID 30 Days Qty: 60 2RF gabapentin 100 mg capsule 100 mg PO BID Qty: 60 2RF gabapentin 300 mg capsule 300 mg PO BEDTIME 30 Days Qty: 30 2RF hydroxyzine HCl 50 mg tablet 50 mg PO QID PRN (Reason: anxiety/insomnia) Qty: 120 2RF lithium carbonate 300 mg capsule 300 mg PO BID Qty: 60 2RF atorvastatin 40 mg tablet See Rx Instructions .ROUTE .COMPLEX Qty: 30 0RF Dose Instruction: Take 1 tablet by mouth once daily Rx Instructions: Take 1 tablet by mouth once daily Referrals: Angelina Rebolledo DO [Primary Care Provider] - Coding Level of Care Code ED [employer] for Chg Corinne
--- NOTE | 2023-08-20 10:28 | W.ED.PSYCHS ---
HPI - Psych General: Chief Complaint: Psychiatric Symptoms Stated Complaint: MHE Time Seen by Provider: 08/20/23 10:07 Source: patient Mode of arrival: ambulatory Limitations: no limitations History of Present Illness: Patient is a 57-year-old female presents to ED today stating she is depressed and suicidal. She initially checked in with a complaint of chronic neck and back pain and had requested medication adjustment for her chronic pain. She later told nursing staff she was suicidal with a plan to slit her wrist. During my initial assessment she tells me that she needs to be admitted to the hospital as she does not feel safe going home. She states I do not think I would harm anybody else but I think I would harm myself . Patient has an extensive psychiatric history. Her last NPU hospitalization was approximately a year ago. She states she follows up with Dr. Valenzuela as an outpatient. complaint: suicidal ideation and feels depressed Onset (ago): day(s) Duration: constant History of same: Yes Relieving factors: none Exacerbating factors: none Associated psychiatric symptoms: depression Associated symptoms: Reports depression and suicidal ideation; Deny auditory hallucinations, visual hallucinations or homicidal ideation Treatments prior to arrival: none If self harm: admits thoughts of self harm and has plan Details of plan: states she will slit her wrists with a knife Review of Systems Const: Denies: fever(s) or chills Card: Denies: chest pain, palpitations, lightheadedness or syncope Resp: Denies: dyspnea GI: Denies: abdominal pain, nausea, vomiting or diarrhea Musc: Reports: neck pain (chronic) and back pain (chronic) Skin/Breast: Denies: rash Neuro: Denies: headache(s) Psych: Reports: anxiety, depression, hopelessness and suicidal ideation; Denies: visual hallucinations, auditory hallucinations or homicidal ideation [facility] ED PFSH: Medical History Hypoxia Aspiration pneumonia Metabolic encephalopathy History of suicide attempt [place] toxicity Abnormal thyroid function test Borderline personality disorder Auditory hallucination History of breast cancer Dyslipidemia Depression HTN (hypertension) Psychiatric care Surgical History History of lumpectomy of right breast Social History Smoking and tobacco/nicotine status: former use of tobacco/nicotine Quit status (tobacco/nicotine): has quit using Year quit tobacco: 2021 Second hand smoke exposure: No Alcohol intake: former Substance/Drug Use: former Date of last use: When in school. Physical Exam Const: COMMON NORMALS: no acute distress, patient oriented x3, alert and well nourished GENERAL APPEARANCE: cooperative and well kempt Resp: COMMON NORMALS: normal respiratory effort and clear to auscultation bilaterally AUSCULTATION: clear to auscultation bilaterally Cardio: COMMON NORMALS: regular rate and regular rhythm RATE: regular rate RHYTHM: regular rhythm Neuro: COMMON NORMALS: patient oriented x3 SENSORIUM/ORIENTATION: Yes alert Psych: COMMON NORMALS: mental status grossly normal, cooperative, normal affect, speech normal, activity/motor behavior normal, denies hallucinations and denies homicidal ideation APPEARANCE: Yes grossly normal and Yes well kempt ATTITUDE: Yes calm ACTIVITY/MOTOR BEHAVIOR: Yes appropriate eye contact and No psychomotor agitation SPEECH: Yes normal speech MOOD & AFFECT: Yes euthymic mood THOUGHT PROCESS: disorganized THOUGHT CONTENT: Yes Suicidality present ATTENTION/CONCENTRATION: Yes attention grossly intact and Yes concentration grossly intact MEMORY/COGNITION: Yes memory grossly intact and Yes cognition grossly intact INSIGHT: Good insight present (Psych) JUDGEMENT: Good judgement present (Psych) Course Consultations: Consultation #1: Dr. Interiano-accepts to NPU Vital Signs: Vital signs: Vital Signs Temperature 97.9 F 08/20/23 10:10 Pulse Rate 84 08/20/23 10:10 Respiratory Rate 18 08/20/23 10:10 Blood Pressure 158/81 08/20/23 10:10 Pulse Oximetry 99 08/20/23 10:10 Oxygen Delivery Me thod Room Air 08/20/23 10:10 [facility] - Psych Medical Decision Making Patient will be an admit to NPU to Dr. Interiano for treatment/evaluation of her suicidal ideations and depression. She is voluntary at this time. Lab Data 08/20/23 10:29 08/20/23 10:29 Laboratory Results WBC 5.65 10^3/uL (3.29-11.43) 08/20/23 10:29 RBC 4.09 10^6/uL (3.85-5.65) 08/20/23 10:29 Hgb 12.50 g/dL (11.27-16.99) 08/20/23 10:29 Hct 38.4 % (36-47) 08/20/23 10:29 MCV 93.9 fl (85-98) 08/20/23 10:29 MCH 30.6 pg (27-33) 08/20/23 10:29 MCHC 32.6 g/dL (30-55) 08/20/23 10: RDW 12.2 % (12.1-15.1) 08/20/23 10:29 Plt Count 302 10^3/cmm (157-399) 08/20/23 10:29 MPV 10.3 fL (7.4-10.4) 08/20/23 10:29 Neut % (Auto) 41.2 % 08/20/23 10:29 Lymph % (Auto) 47.8 % 08/20/23 10:29 [place] % (Auto) 7.4 % 08/20/23 10:29 Eos % (Auto) 1.8 % 08/20/23 10:29 Baso % (Auto) 1.4 % 08/20/23 10:29 Neut # (Auto) 2.33 10^3/uL (1.8-7.7) 08/20/23 10:29 Lymph # (Auto) 2.7 10^3/uL (0.8-4.8) 08/20/23 10:29 [place] # (Auto) 0.4 10^3/uL (0.2-0.9) 08/20/23 10:29 Eos # (Auto) 0.1 10^3/uL (0.0-0.8) 08/20/23 10:29 Baso # (Auto) 0.1 10^3/uL (0.0-0.1) 08/20/23 10:29 Nucleated RBC % (auto) 0 % 08/20/23 10:29 Nucleated RBCs # 0.0 /100WBC 08/20/23 10:29 Sodium 136 mmol/L (136-145) 08/20/23 10:29 Potassium 4.2 mmol/L (3.5-5.1) 08/20/23 10:29 Chloride 102 mmol/L (98-107) 08/20/23 10:29 Carbon Dioxide 22 mmol/L (22-29) 08/20/23 10:29 Anion Gap 16.2 (5-19) 08/20/23 10:29 BUN 11 mg/dL (6-20) 08/20/23 10:29 Creatinine 0.8 mg/dL (0.5-0.9) 08/20/23 10:29 GFR Calculation 74.5 mL/min (90-130) L 08/20/23 10:29 Glucose 105 mg/dL (65-115) 08/20/23 10:29 Calculated Osmolality 282 mOsm/kg (285-295) L 08/20/23 10:29 Calcium 9.4 mg/dL (8.5-10.5) 08/20/23 10:29 Total Bilirubin 0.3 mg/dL (0.15-1.2) 08/20/23 10:29 AST 23 U/L (0-32) 08/20/23 10:29 ALT 29 U/L (0-33) 08/20/23 10:29 Alkaline Phosphatase 102 U/L (35-105) 08/20/23 10:29 Total Protein 7.3 g/dL (6.6-8.7) 08/20/23 10:29 Albumin 4.3 g/dL (3.5-5.2) 08/20/23 10:29 Globulin 3.0 g/dL (1.3-4.6) 08/20/23 10:29 Salicylates < 0.3 mg/dL (3-10) L 08/20/23 10:29 Acetaminophen < 5.0 ug/mL (10-30) L 08/20/23 10:29 Valproic Acid 56.5 ug/mL (50-100) 08/20/23 10:29 [place] 0.5 mmol/L (0.6-1.2) L 08/20/23 10:29 Ethyl Alcohol < 10 mg/dL (0-10) 08/20/23 10:29 No radiology studies performed this visit Discharge Plan Discharge Patient Disposition: Admitted As Inpatient Clinical Impression: Suicidal ideation Condition: Stable Prescriptions: No Action quetiapine [Seroquel] 100 mg tablet 100 mg PO .HS Qty: 30 2RF divalproex 500 mg tablet extended release 24 hr 500 mg PO BID 30 Days Qty: 60 2RF gabapentin 100 mg capsule 100 mg PO BID Qty: 60 2RF gabapentin 300 mg capsule 300 mg PO BEDTIME 30 Days Qty: 30 2RF hydroxyzine HCl 50 mg tablet 50 mg PO QID PRN (Reason: anxiety/insomnia) Qty: 120 2RF lithium carbonate 300 mg capsule 300 mg PO BID Qty: 60 2RF atorvastatin 40 mg tablet 40 mg PO DAILY trazodone 100 mg tablet 200 mg PO BEDTIME PRN (Reason: insomnia) Referrals: Angelina Rebolledo DO [Primary Care Provider] - Coding Level of Care Code 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
[2023-08-20 10:54] LABS: Basophils # 0.1 10^3/uL (0.0-0.1); Basophils % 1.4 %; Eosinophils # 0.1 10^3/uL (0.0-0.8); Eosinophils % 1.8 %; Hematocrit 38.4 % (36-47); Lymphocytes # 2.7 10^3/uL (0.8-4.8); Lymphocytes % 47.8 %; Mean Corpuscular HGB Conc 32.6 g/dL (30-55); Mean Corpuscular Hemoglobin 30.6 pg (27-33); Mean Corpuscular Volume 93.9 fl (85-98); Mean Platelet Volume 10.3 fL (7.4-10.4); Monocytes # 0.4 10^3/uL (0.2-0.9); Monocytes % 7.4 %; Neutrophils # 2.33 10^3/uL (1.8-7.7); Neutrophils % 41.2 %; Nucleated Red Blood Cells % 0 %; Platelet Count 302 10^3/cmm (157-399); Red Blood Count 4.09 10^6/uL (3.85-5.65); Red Cell Distribution Width 12.2 % (12.1-15.1); White Blood Count 5.65 10^3/uL (3.29-11.43)
[2023-08-20 11:14] LABS: Alanine Aminotransferase 29 U/L (0-33); Albumin Level 4.3 g/dL (3.5-5.2); Alkaline Phosphatase 102 U/L (35-105); Anion Gap 16.2 (5-19); Aspartate Amino Transferase 23 U/L (0-32); Blood Urea Nitrogen 11 mg/dL (6-20); Calcium 9.4 mg/dL (8.5-10.5); Carbon Dioxide 22 mmol/L (22-29); Chloride 102 mmol/L (98-107); Glomerular Filtration Rate 74.5 mL/min (90-130); Glucose 105 mg/dL (65-115); Osmolality Calculated 282 mOsm/kg (285-295); Potassium 4.2 mmol/L (3.5-5.1); Sodium 136 mmol/L (136-145); Total Bilirubin 0.3 mg/dL (0.15-1.2); Total Protein 7.3 g/dL (6.6-8.7)
[2023-08-20 11:27] LABS: Acetaminophen < 5.0 ug/mL (10-30); Alcohol Level < 10 mg/dL (0-10); Salicylate < 0.3 mg/dL (3-10)
[2023-08-20 11:28] LABS: Lithium 0.5 mmol/L (0.6-1.2)
[2023-08-20 11:32] LABS: Valproic Acid Level 56.5 ug/mL (50-100)
[2023-08-20 11:43] LABS: Amphetamines Screen Urine Negative (Negative); Barbiturates Screen Urine Negative (Negative); Benzodiazepines Screen Urine Negative (Negative); Cocaine Screen Urine Negative (Negative); Opiate Screen Urine Negative (Negative); PCP Screen Urine Negative (Negative); THC Screen Urine Positive (Negative)
[2023-08-20] MEDS: LORazepam 0.5 mg Tablet PO (12:42)
[2023-08-20 14:04] VITALS: BP 135/74; PULSE 76; RESP 16; TEMP 37; O2SAT 98
[2023-08-20] MEDS: nicotine 2 mg Gum BUCCAL ×2 (14:52→18:15)
[2023-08-20] MEDS: gabapentin 100 mg Capsule PO (18:12)
[2023-08-20] MEDS: lithium carbonate 300 mg Capsule PO (18:12)
[2023-08-20] MEDS: quetiapine 100 mg Tablet PO (20:43)
[2023-08-20] MEDS: gabapentin 300 mg Capsule PO (20:43)
[2023-08-20 20:56] VITALS: BP 142/76; PULSE 101; RESP 16; O2SAT 94
[2023-08-21 06:00] VITALS: BP 124/73; PULSE 105; RESP 16; TEMP 36.9; O2SAT 94
--- NOTE | 2023-08-21 07:40 | W.PM.NPUH&PS ---
Providers/Chief Complaint Admitting Physician: Scout Interiano MD Primary Care Provider: Angelina Rebolledo DO Chief Complaint: MHE HPI NPU History of Present Illness Alisa Kohli is a 57 year old female who presented to the emergency department with the following report: Chief Complaint: Psychiatric Symptoms Stated Complaint: MHE Time Seen by Provider: 08/20/23 10:07 Source: patient Mode of arrival: ambulatory Limitations: no limitations History of Present Illness: Patient is a 57-year-old female presents to ED today stating she is depressed and suicidal. She initially checked in with a complaint of chronic neck and back pain and had requested medication adjustment for her chronic pain. She later told nursing staff she was suicidal with a plan to slit her wrist. During my initial assessment she tells me that she needs to be admitted to the hospital as she does not feel safe going home. She states I do not think I would harm anybody else but I think I would harm myself . Patient has an extensive psychiatric history. Her last NPU hospitalization was approximately a year ago. She states she follows up with Dr. Valenzuela as an outpatient. complaint: suicidal ideation and feels depressed Onset (ago): day(s) Duration: constant History of same: Yes Relieving factors: none Exacerbating factors: none Associated psychiatric symptoms: depression Associated symptoms: Reports depression and suicidal ideation; Deny auditory hallucinations, visual hallucinations or homicidal ideation Treatments prior to arrival: none If self harm: admits thoughts of self harm and has plan Details of plan: states she will slit her wrists with a knife She was admitted to the neuropsychiatric unit for definitive treatment of those issues. She presents today known to this machine sign writer through 2 past hospitalizations. Last hospitalization was September of this year where she came in simplified and noncoherent with elevated lithium levels which left her in the ICU for several days. During that stay she did not give a lot of information and was mostly out of it and stuporous. Her previous hospitalization in April 2022 we reviewed and she reports there are no substantive changes since then. She has been seen at [facility] since January 2022 which was after an inpatient hospitalization with this machine sign writer and she has been consistent with her appointments with him since then. She reports that she thinks her depression is secondary to not really having an antidepressants on board. She reports that she has had success with Wellbutrin in the past. We discussed the risks, benefits and alternatives of a trial of Wellbutrin XL and she understood and agreed to proceed as is documented in this note. She reports that otherwise things have been fairly normal and she feels that some financial stressors might have played a role in how things have been. Per her 04/22/2022 [facility] inpatient psychiatric discharge summary: Discharge Diagnosis (1) Bipolar disorder, curr episode mixed, severe, w/o psychotic features: Status: Acute (2) Suicidal ideation: Status: Acute Reason for Visit Reason for Visit: manic symptoms Brief History: Alisa presents today reporting her Seroquel has been making her shaky and she is currently taking Seroquel 100 mg, Ambien 5 mg, Abilify, [place], Depakote, Gabapentin and Cymbalta. She reports she had taken her night time medication of Seroquel and Ambien at 3pm but her feet had been hurting so she reported not feeling right. She endorses she has been having auditory hallucinations of people who have passed in her family throughout her life and has been having it more recently but could not recall how long it has been occurring. She was diagnosed at 24 years old with bipolar disorder. She has been psychiatrically hospitalized around 20 times, the first time of which was around 24 years old in [place] and the most recent of which was at [facility]. She reports she had worked until she was put on disability for the past 30 years. She reports her sleep has not been doing well even being on Seroquel and Ambien as she also gets restless leg syndrome. She endorses a recent manic state with racing thoughts, more recently irritable but has times where she is increasing happy. She denies current depression symptoms and reports she has had mixed episodes of travis and depression before as noted by her provider. She has felt something is not right which is why she brought herself into the emergency department. She has a bilingual case manager through [facility] and was supposed to see her tomorrow. She reports up to a pack of cigarettes a day, denies alcohol, marijuana or any other illicit drug use. She reports in the past she has only been restarted on her medications and had minor changes made but has not had major changes to her medications. She endorses cycling through periods of travis and depression which can change within the span of a month. She reports periods of decrease need for sleep, increased grandiosity, racing thoughts lasting greater than a week with high energy and increased risk taking behaviors lasting for several days. She reports having restless legs on her current medication. Psychiatric History: Inpatient treatment over 20x for bipolar disorder, most recently at [place] in [place], Outpatient treatment: Dr. Valenzuela recently 3 months ago at [facility]. Medications on admission: Cymbalta 30mg in am Abilify 10mg daily Depakote 500mg ER tid Wellbutrin xl 150mg in am [place] 300mg po tid Gabapentin 300mg daily Atorvastatin 40mg daily ambien 5mg at night naproxen prn Substance Abuse History: As above. Medical History: neuropathy, hypercholesterolemia, Allergies: sulfa drugs Surgeries: unknown Family History: She did not report a family history of mental health or addiction issues during the interview. Developmental History: She did not report any developmental delays or needing to receive speech therapy, learning support, emotional support or special education classes during the interview. Psychosocial History: She was born in [facility] [place] and raised by her grandparents on her mother?s side as her parents split. She has been twice, once and once. She is currently living in an apartment by herself. She is disabled and is on survivor?s benefits from her grandmother and mother. She denies any traumatic events. 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 She lives in [address], lives alone, on disability, raised as a [employer]. Family Psychiatric History: dementia Legal History: She did not report any legal issues during the interview. Hospital Course During the hospitalization, patient had routine laboratory studies which were within normal limits except for few outliers. Additionally there was a general medical evaluation which was also within normal limits and revealed no new acute processes. Discharge Summary: At the time of discharge, lethality was denied and psychosis was resolving. Mood and anxiety were well managed. Patient endorsed a plan to avoid all drugs of abuse and follow-up with the aftercare recommendations of the treatment team. Patient was evaluated and deemed to be absent credible lethality, and had achieved the maximum benefit from an inpatient hospitalization, so was discharged. During her hospital course, Abilify was increased up to a dose of 15mg daily and seroquel was tapered and discontinued with reports of improved energy by the patient. Furthermore, cymbalta was discontinued due to increase risk of mixed travis episodes. Meds NPU Home Medications Medication Instructions Recorded Confirmed Last Taken Type hydroxyzine HCl 50 mg tablet 50 mg PO QID PRN anxiety/insomnia 05/05/23 08/20/23 08/19/23 Rx #120 tabs lithium carbonate 300 mg capsule 300 mg PO BID #60 caps 06/14/23 08/20/23 08/19/23 Rx divalproex 500 mg tablet,extended 500 mg PO BID 30 days #60 tabs 07/08/23 08/20/23 08/19/23 Rx release 24 hr gabapentin 100 mg capsule 100 mg PO BID #60 caps 07/08/23 08/20/23 08/19/23 Rx gabapentin 300 mg capsule 300 mg PO BEDTIME 30 days #30 caps 07/08/23 08/20/23 08/19/23 Rx quetiapine 100 mg tablet (Seroquel) 100 mg PO .HS #30 tabs 07/08/23 08/20/23 08/19/23 Rx atorvastatin 40 mg tablet 40 mg PO DAILY 08/20/23 08/20/23 Unknown History trazodone 100 mg tablet 200 mg PO BEDTIME PRN insomnia 08/20/23 08/20/23 08/19/23 History Allergies Allergy/AdvReac Type Severity Reaction Status Date / Time Sulfa (Sulfonamide Allergy Unknown Unknown Verified 07/08/23 09:37 Antibiotics) PFSH NPU PFSH: Medical History Hypoxia Aspiration pneumonia Metabolic encephalopathy History of suicide attempt [place] toxicity Abnormal thyroid function test Borderline personality disorder Auditory hallucination History of breast cancer Dyslipidemia Depression HTN (hypertension) Psychiatric care Surgical History History of lumpectomy of right breast Social History Smoking and tobacco/nicotine status: former use of tobacco/nicotine Quit status (tobacco/nicotine): has quit using Year quit tobacco: 2021 Second hand smoke exposure: No Alcohol intake: former Substance/Drug Use: former Date of last use: When in school. Mental Status Exam MSE Comments: This is an overweight versus obese white female with reddish-pink hair hair in hospital scrubs with limited grooming and eye contact. No abnormal movements except for mild psychomotor retardation. Cooperative with exam in mild to moderate distress. Speech was normal rate and volume. Mood described as depressed, affect is congruent. Thought process, organized. Thought content: patient denies suicidal or homicidal ideation, no delusions reported or noted and denies any auditory or visual hallucinations. Attention and concentration are intact and memory appeared mostly reliable but none were formally tested. She is alert and oriented times three. Insight and judgment are limited. Impulse control is limited versus impaired. Vitals/I&O/Wt Last Vital Signs Temp 98.4 F 08/21/23 06:00 Pulse 105 H 08/21/23 06:00 Resp 16 08/21/23 06:00 BP 124/73 08/21/23 06:00 Pulse Ox 94 08/21/23 06:00 O2 Del Method Room Air 08/21/23 06:00 Weight last 48 hrs Weight 90.718 kg Data NPU 08/20/23 10:29 08/20/23 10:29 A&P Assessment and plan (1) Bipolar disorder, curr episode mixed, severe, w/o psychotic features: (2) Suicidal ideation: Plan Alisa is a 56-year-old white female with a history of bipolar 1 disorder with mixed mood symptoms and with a recent hospitalization who presented somewhat confused and depressed and open to medication adjustments. ? 1. Continue current medications. Will consider starting Wellbutrin XL 150 mg every morning. 2. Encourage individual, group and milieu therapy 3. Continue q-15 minute check for safety Involuntary Hold Information 96 Hour Hold: 96 Hour Involuntary Admission: No Attestations NPU Medical Necessity Statement*: Inpatient hospitalization is medically necessary and the clinically appropriate intervention at this time. We will initiate medications and make changes as indicated. She will be in the hospital for over 2 midnights. Likely length of stay 4-6 days Coding Level of Care Code Acute Code for [facility] Fwd Diagnoses Bipolar disorder, curr episode mixed, severe, w/o psychotic features F31.63 Suicidal ideation R45.851
[2023-08-21] MEDS: acetaminophen 325 mg Tablet 650 MG PO ×2 (08:30→17:52)
[2023-08-21] MEDS: divalproex ER 500 mg Tablet (24H) 1000 MG PO (08:30)
[2023-08-21] MEDS: lithium carbonate 300 mg Capsule PO ×2 (08:30→17:51)
[2023-08-21] MEDS: gabapentin 100 mg Capsule PO ×2 (08:30→17:51)
--- NOTE | 2023-08-21 09:03 | PC.NURSE ---
Patient denies hi. She does endorse si with no plan and says this is due to her feeling she's not getting anywhere in life. Patient denies vh, but endorses ah. She states, you couldn't have heard what I heard. They're just antagonizing me.
[2023-08-21] MEDS: nicotine 21 mg Patch 1 PATCH TRANSDERMA (10:24)
[2023-08-21] MEDS: ibuprofen 600 mg Tablet PO (12:37)
[2023-08-21 14:00] VITALS: BP 120/54; PULSE 86; RESP 20; TEMP 36.8; O2SAT 95
[2023-08-21] MEDS: quetiapine 100 mg Tablet PO (20:54)
[2023-08-21] MEDS: gabapentin 300 mg Capsule PO (20:54)
[2023-08-21 22:00] VITALS: BP 124/69; PULSE 71; RESP 18; TEMP 37.1; O2SAT 97
[2023-08-22 06:00] VITALS: BP 134/65; PULSE 86; RESP 18; O2SAT 98
[2023-08-22] MEDS: divalproex ER 500 mg Tablet (24H) 1000 MG PO (08:18)
[2023-08-22] MEDS: lithium carbonate 300 mg Capsule PO ×2 (08:18→20:43)
[2023-08-22] MEDS: gabapentin 100 mg Capsule PO ×2 (08:18→20:43)
[2023-08-22] MEDS: nicotine 21 mg Patch 1 PATCH TRANSDERMA (08:48)
--- NOTE | 2023-08-22 09:03 | PC.NURSE ---
Patient states she is still hearing voices and says they are talking to her constantly, but denies any specifics. She states, sometimes they just get in my mouth. Denies vh and si/hi.
[2023-08-22] MEDS: ibuprofen 600 mg Tablet PO ×2 (10:21→23:16)
[2023-08-22 14:00] VITALS: BP 114/68; PULSE 76; RESP 18; TEMP 36.6; O2SAT 95
[2023-08-22] MEDS: buPROPion SR (12 HR) 150 mg Tablet PO (15:39)
--- NOTE | 2023-08-22 18:09 | P.NPUPN_ITS ---
Subjective NPU 2 Subjective: Patient presented today reporting that she is feeling a little better. She reports that she would be open to a trial of Wellbutrin to see if that can help with her depression and also assist her and staying away from cigarettes. Otherwise she was already asking about how long she might be in the hospital. We discussed working with the social work team tomorrow to look at aftercare options and make sure she has appropriate support. Additionally we discussed reaching out to Dr. Valenzuela to get an understanding of where he thinks things are. Mental Status Exam 2 MSE Comments: This is an overweight versus obese white female with reddish-pink hair hair in hospital scrubs with limited grooming and eye contact. No abnormal movements except for mild psychomotor retardation. Cooperative with exam in mild to moderate distress. Speech was normal rate and volume. Mood described as depressed, affect is congruent. Thought process, organized. Thought content: patient denies suicidal or homicidal ideation, no delusions reported or noted and denies any auditory or visual hallucinations. Attention and concentration are intact and memory appeared mostly reliable but none were formally tested. She is alert and oriented times three. Insight and judgment are limited. Impulse control is limited versus impaired. Vitals/I&O/Wt Last Vital Signs Temp 98 F 08/22/23 14:00 Pulse 96 08/22/23 19:44 Resp 16 08/22/23 19:44 BP 115/72 08/22/23 19:44 Pulse Ox 99 08/22/23 19:44 O2 Del Method Room Air 08/22/23 19:44 Weight last 48 hrs Weight 95.765 kg Data NPU 08/20/23 10:29 08/20/23 10:29 A&P Assessment and plan (1) Bipolar disorder, curr episode mixed, severe, w/o psychotic features: (2) Suicidal ideation: Plan Alisa is a 56-year-old white female with a history of bipolar 1 disorder with mixed mood symptoms and with a recent hospitalization who presented somewhat confused and depressed and open to medication adjustments. ? 1. Continue current medications. Start Wellbutrin XL 150 mg every morning. 2. Encourage individual, group and milieu therapy 3. Continue q-15 minute check for safety Involuntary Hold Information 2 96 Hour Hold: 96 Hour Involuntary Admission: No Attestations NPU 2 Medical Necessity Statement*: Inpatient hospitalization is medically necessary and the clinically appropriate intervention at this time. We will initiate medications and make changes as indicated. Likely length of stay 2-5 days Coding Level of Care Code Acute Code for [facility] Fwd Diagnoses Bipolar disorder, curr episode mixed, severe, w/o psychotic features F31.63 Suicidal ideation R45.851
[2023-08-22] MEDS: acetaminophen 325 mg Tablet 650 MG PO (19:28)
[2023-08-22 19:44] VITALS: BP 115/72; PULSE 96; RESP 16; O2SAT 99
[2023-08-22] MEDS: gabapentin 300 mg Capsule PO (20:43)
[2023-08-22] MEDS: quetiapine 100 mg Tablet PO (20:43)
[2023-08-23 06:00] VITALS: RESP 16
--- NOTE | 2023-08-23 07:38 | P.NPUPN_ITS ---
Subjective NPU 2 Subjective: Patient presented today reporting that she is feeling better and feeling that the Wellbutrin has been helpful. She reports that her depression seems to have lifted. She denied any side effects of the medication and was once again asking about discharge planning. We discussed discharge in the next 48 hours and likely in the morning. Mental Status Exam 2 MSE Comments: This is an overweight versus obese white female with reddish-pink hair hair in hospital scrubs with limited grooming and eye contact. No abnormal movements except for mild psychomotor retardation. Cooperative with exam in mild to moderate distress. Speech was normal rate and volume. Mood described as better, affect is congruent. Thought process, organized. Thought content: patient denies suicidal or homicidal ideation, no delusions reported or noted and denies any auditory or visual hallucinations. Attention and concentration are intact and memory appeared mostly reliable but none were formally tested. She is alert and oriented times three. Insight and judgment are limited. Impulse control is limited. Vitals/I&O/Wt Last Vital Signs Temp 98 F 08/22/23 14:00 Pulse 96 08/22/23 19:44 Resp 16 08/23/23 06:00 BP 115/72 08/22/23 19:44 Pulse Ox 99 08/22/23 19:44 O2 Del Method Room Air 08/22/23 19:44 Weight last 48 hrs Weight 95.765 kg Data NPU 08/20/23 10:29 08/20/23 10:29 A&P Assessment and plan (1) Bipolar disorder, curr episode mixed, severe, w/o psychotic features: (2) Suicidal ideation: Plan Alisa is a 56-year-old white female with a history of bipolar 1 disorder with mixed mood symptoms and with a recent hospitalization who presented somewhat confused and depressed and open to medication adjustments. ? 1. Continue current medications. Start Wellbutrin XL 150 mg every morning. 2. Encourage individual, group and milieu therapy 3. Continue q-15 minute check for safety 4. Tentative plan for discharge in the morning. Involuntary Hold Information 2 96 Hour Hold: 96 Hour Involuntary Admission: No Attestations NPU 2 Medical Necessity Statement*: Inpatient hospitalization is medically necessary and the clinically appropriate intervention at this time. We will initiate medications and make changes as indicated. Likely length of stay 1-3 days Coding Level of Care Code Acute Code for [facility] Fwd Diagnoses Bipolar disorder, curr episode mixed, severe, w/o psychotic features F31.63 Suicidal ideation R45.852
[2023-08-23] MEDS: lithium carbonate 300 mg Capsule PO ×2 (07:49→20:41)
[2023-08-23] MEDS: gabapentin 100 mg Capsule PO ×2 (07:50→20:41)
[2023-08-23] MEDS: buPROPion XL (24 HR) 150 mg Tablet PO (07:50)
[2023-08-23] MEDS: divalproex ER 500 mg Tablet (24H) 1000 MG PO (07:50)
[2023-08-23] MEDS: nicotine 2 mg Gum BUCCAL ×4 (07:52→20:43)
[2023-08-23 14:00] VITALS: BP 131/74; PULSE 78; RESP 16; TEMP 36.7; O2SAT 95
[2023-08-23] MEDS: acetaminophen 325 mg Tablet 650 MG PO (14:27)
[2023-08-23 20:27] VITALS: BP 137/76; PULSE 85; RESP 16; TEMP 37; O2SAT 96
[2023-08-23] MEDS: gabapentin 300 mg Capsule PO (20:41)
[2023-08-23] MEDS: quetiapine 100 mg Tablet PO (20:41)
[2023-08-24 06:00] VITALS: BP 146/85; PULSE 85; RESP 16; O2SAT 94
[2023-08-24] MEDS: nicotine 2 mg Gum BUCCAL (06:12)
[2023-08-24] MEDS: gabapentin 100 mg Capsule PO (08:46)
[2023-08-24] MEDS: divalproex ER 500 mg Tablet (24H) 1000 MG PO (08:46)
[2023-08-24] MEDS: lithium carbonate 300 mg Capsule PO (08:46)
[2023-08-24] MEDS: buPROPion XL (24 HR) 150 mg Tablet PO (08:46)
[2023-08-24] MEDS: nicotine 21 mg Patch 1 PATCH TRANSDERMA (08:47)
--- NOTE | 2023-08-24 10:44 | W.PM.NPUDCS ---
Diagnoses at Discharge Discharge Diagnosis (1) Bipolar disorder, curr episode mixed, severe, w/o psychotic features: Status: Resolved (2) Suicidal ideation: Status: Resolved Reason for Visit Reason for Visit: MHE Brief History: History of Present Illness Alisa Kohli is a 57 year old female who presented to the emergency department with the following report: Chief Complaint: Psychiatric Symptoms Stated Complaint: MHE Time Seen by Provider: 08/20/23 10:07 Source: patient Mode of arrival: ambulatory Limitations: no limitations History of Present Illness: Patient is a 57-year-old female presents to ED today stating she is depressed and suicidal. She initially checked in with a complaint of chronic neck and back pain and had requested medication adjustment for her chronic pain. She later told nursing staff she was suicidal with a plan to slit her wrist. During my initial assessment she tells me that she needs to be admitted to the hospital as she does not feel safe going home. She states I do not think I would harm anybody else but I think I would harm myself . Patient has an extensive psychiatric history. Her last NPU hospitalization was approximately a year ago. She states she follows up with Dr. Valenzuela as an outpatient. MD complaint: suicidal ideation and feels depressed Onset (ago): day(s) Duration: constant History of same: Yes Relieving factors: none Exacerbating factors: none Associated psychiatric symptoms: depression Associated symptoms: Reports depression and suicidal ideation; Deny auditory hallucinations, visual hallucinations or homicidal ideation Treatments prior to arrival: none If self harm: admits thoughts of self harm and has plan Details of plan: states she will slit her wrists with a knife She was admitted to the neuropsychiatric unit for definitive treatment of those issues. She presents today known to this credit underwriter through 2 past hospitalizations. Last hospitalization was September of this year where she came in simplified and noncoherent with elevated lithium levels which left her in the ICU for several days. During that stay she did not give a lot of information and was mostly out of it and stuporous. Her previous hospitalization in April 2022 we reviewed and she reports there are no substantive changes since then. She has been seen at [facility] [place] since January 2022 which was after an inpatient hospitalization with this credit underwriter and she has been consistent with her appointments with him since then. She reports that she thinks her depression is secondary to not really having an antidepressants on board. She reports that she has had success with Wellbutrin in the past. We discussed the risks, benefits and alternatives of a trial of Wellbutrin XL and she understood and agreed to proceed as is documented in this note. She reports that otherwise things have been fairly normal and she feels that some financial stressors might have played a role in how things have been. Per her 04/22/2022 [facility] inpatient psychiatric discharge summary: Discharge Diagnosis (1) Bipolar disorder, curr episode mixed, severe, w/o psychotic features: Status: Acute (2) Suicidal ideation: Status: Acute Reason for Visit Reason for Visit: manic symptoms Brief History: Alisa presents today reporting her Seroquel has been making her shaky and she is currently taking Seroquel 100 mg, Ambien 5 mg, Abilify, Loiza, Depakote, Gabapentin and Cymbalta. She reports she had taken her night time medication of Seroquel and Ambien at 3pm but her feet had been hurting so she reported not feeling right. She endorses she has been having auditory hallucinations of people who have passed in her family throughout her life and has been having it more recently but could not recall how long it has been occurring. She was diagnosed at 24 years old with bipolar disorder. She has been psychiatrically hospitalized around 20 times, the first time of which was around 24 years old in [place] and the most recent of which was at [facility]. She reports she had worked until she was put on disability for the past 30 years. She reports her sleep has not been doing well even being on Seroquel and Ambien as she also gets restless leg syndrome. She endorses a recent manic state with racing thoughts, more recently irritable but has times where she is increasing happy. She denies current depression symptoms and reports she has had mixed episodes of travis and depression before as noted by her provider. She has felt something is not right which is why she brought herself into the emergency department. 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 She reports up to a pack of cigarettes a day, denies alcohol, marijuana or any other illicit drug use. She reports in the past she has only been restarted on her medications and had minor changes made but has not had major changes to her medications. She endorses cycling through periods of travis and depression which can change within the span of a month. She reports periods of decrease need for sleep, increased grandiosity, racing thoughts lasting greater than a week with high energy and increased risk taking behaviors lasting for several days. She reports having restless legs on her current medication. Psychiatric History: Inpatient treatment over 20x for bipolar disorder, most recently at [facility], Outpatient treatment: Dr. Valenzuela recently 3 months ago at [facility] [place]. Medications on admission: Cymbalta 30mg in am Abilify 10mg daily Depakote 500mg ER tid Wellbutrin xl 150mg in am Loiza 300mg po tid Gabapentin 300mg daily Atorvastatin 40mg daily ambien 5mg at night naproxen prn Substance Abuse History: As above. Medical History: neuropathy, hypercholesterolemia, Allergies: sulfa drugs Surgeries: unknown Family History: She did not report a family history of mental health or addiction issues during the interview. Developmental History: She did not report any developmental delays or needing to receive speech therapy, learning support, emotional support or special education classes during the interview. Psychosocial History: She was born in [facility] and raised by her grandparents on her mother?s side as her parents split. She has been twice, once and once. She is currently living in an apartment by herself. She is disabled and is on survivor?s benefits from her grandmother and mother. She denies any traumatic events. 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 She lives in [address], lives alone, on disability, raised as a Catholic. Family Psychiatric History: dementia Legal History: She did not report any legal issues during the interview. Hospital Course During the hospitalization, patient had routine laboratory studies which were within normal limits except for few outliers. Additionally there was a general medical evaluation which was also within normal limits and revealed no new acute processes. Discharge Summary: At the time of discharge, lethality was denied and psychosis was resolving. Mood and anxiety were well managed. Patient endorsed a plan to avoid all drugs of abuse and follow-up with the aftercare recommendations of the treatment team. Patient was evaluated and deemed to be absent credible lethality, and had achieved the maximum benefit from an inpatient hospitalization, so was discharged. During her hospital course, Abilify was increased up to a dose of 15mg daily and seroquel was tapered and discontinued with reports of improved energy by the patient. Furthermore, cymbalta was discontinued due to increase risk of mixed travis episodes. Hospital Course Hospital Course She slowly acclimated to the individual, group and milieu therapies provided. She presented reporting depression and not on any antidepressants with significant mood stabilizers on board. She has been consistent with outpatient treatment but reports she was feeling much worse. We continued her home medication. We started Wellbutrin XL 150 mg which she reports she had success with in the past. She did well with that regimen. She was able to work with the social work team to get appropriate follow-up and aftercare. She had significant improvement and was able to contract for safety outside of the hospital prior to discharge. During the hospitalization, the patient had routine laboratory studies which were within normal limits except for a few outliers.? Additionally, there was a general medical evaluation which was also within normal limits and revealed no new acute processes.? At the time of discharge, she denied psychosis or lethality.? Mood and anxiety were well managed.? The patient endorsed a plan to avoid all drugs of abuse and follow up with the aftercare recommendations of the treatment team.? The patient was evaluated and deemed to be absent credible lethality and had achieved the maximum benefit from an inpatient hospitalization, and so was discharged. Involuntary Hold Information 96 Hour Hold: 96 Hour Involuntary Admission: No Mental Status Exam MSE Comments: This is an overweight versus obese white female with reddish-pink hair hair in hospital scrubs with improving grooming and eye contact. No abnormal movements except for mild psychomotor retardation. Cooperative with exam in no acute distress. Speech was normal rate and volume. Mood described as better, affect is congruent. Thought process, organized. Thought content: patient denies suicidal or homicidal ideation, no delusions reported or noted and denies any auditory or visual hallucinations. Attention and concentration are intact and memory appeared mostly reliable but none were formally tested. She is alert and oriented times three. Insight and judgment are limited. Impulse control is limited. Discharge Data Studies Completed and Pending: Laboratory Results WBC 5.65 10^3/uL (3.2 9-11.43) 08/20/23 10:29 RBC 4.09 10^6/uL (3.8 5-5.65) 08/20/23 10:29 Hgb 12.50 g/dL (11.27 -16.99) 08/20/23 10:29 Hct 38.4 % (36-47) 08/20/23 10:29 MCV 93.9 fl (85-98) 08/20/23 10:29 MCH 30.6 pg (27-33) 08/20/23 10:29 MCHC 32.6 g/dL (30-55) 08/20/23 10:29 RDW 12.2 % (12.1-15.1 ) 08/20/23 10:29 Plt Count 302 10^3/cmm (157 -399) 08/20/23 10:29 MPV 10.3 fL (7.4-10.4 ) 08/20/23 10:29 Neut % (Auto) 41.2 % 08/20/23 10:29 Lymph % (Auto) 47.8 % 08/20/23 10:29 [place] % (Auto) 7.4 % 08/20/23 10:29 Eos % (Auto) 1.8 % 08/20/23 10:29 Baso % (Auto) 1.4 % 08/20/23 10:29 Neut # (Auto) 2.33 10^3/uL (1.8 -7.7) 08/20/23 10:29 Lymph # (Auto) 2.7 10^3/uL (0.8- 4.8) 08/20/23 10:29 [place] # (Auto) 0.4 10^3/uL (0.2- 0.9) 08/20/23 10:29 Eos # (Auto) 0.1 10^3/uL (0.0- 0.8) 08/20/23 10:29 Baso # (Auto) 0.1 10^3/uL (0.0- 0.1) 08/20/23 10:29 Nucleated RBC % (a uto) 0 % 08/20/23 10:29 Nucleated RBCs # 0.0 /100WBC 08/20/23 10:29 Sodium 136 mmol/L (136-1 45) 08/20/23 10:29 Potassium 4.2 mmol/L (3.5-5 .1) 08/20/23 10:29 Chloride 102 mmol/L (98-10 7) 08/20/23 10:29 Carbon Dioxide 22 mmol/L (22-29) 08/20/23 10:29 Anion Gap 16.2 (5-19) 08/20/23 10:29 BUN 11 mg/dL (6-20) 08/20/23 10:29 Creatinine 0.8 mg/dL (0.5-0. 9) 08/20/23 10:29 GFR Calculation 74.5 mL/min (90-1 30) L 08/20/23 10:29 Glucose 105 mg/dL (65-115 ) 08/20/23 10:29 Calculated Osmolal ity 282 mOsm/kg (285- 295) L 08/20/23 10:29 Calcium 9.4 mg/dL (8.5-10 .5) 08/20/23 10:29 Total Bilirubin 0.3 mg/dL (0.15-1 .2) 08/20/23 10:29 AST 23 U/L (0-32) 08/20/23 10:29 ALT 29 U/L (0-33) 08/20/23 10:29 Alkaline Phosphata se 102 U/L (35-105) 08/20/23 10:29 Total Protein 7.3 g/dL (6.6-8.7 ) 08/20/23 10:29 Albumin 4.3 g/dL (3.5-5.2 ) 08/20/23 10:29 Globulin 3.0 g/dL (1.3-4.6 ) 08/20/23 10:29 Salicylates < 0.3 mg/dL (3-10 ) L 08/20/23 10:29 Urine Opiates Scre en Negative ng/mL (N egative) 08/20/23 10:41 Acetaminophen < 5.0 ug/mL (10-3 0) L 08/20/23 10:29 Ur Barbiturates Sc reen Negative ng/mL (N egative) 08/20/23 10:41 Valproic Acid 56.5 ug/mL (50-10 0) 08/20/23 10:29 Ur Phencyclidine S crn Negative ng/mL (N egative) 08/20/23 10:41 Ur Amphetamines Sc reen Negative ng/mL (N egative) 08/20/23 10:41 U Benzodiazepines Scrn Negative ng/mL (N egative) 08/20/23 10:41 Loiza 0.5 mmol/L (0.6-1 .2) L 08/20/23 10:29 Urine Cocaine Scre en Negative ng/mL (N egative) 08/20/23 10:41 U Marijuana (THC) Screen Positive ng/mL (N egative) H 08/20/23 10:41 Ethyl Alcohol < 10 mg/dL (0-10) 08/20/23 10:29 Vitals: Last Vital Signs Temp 98.6 F 08/23/23 20:27 Pulse 85 08/24/23 06:00 Resp 16 08/24/23 06:00 BP 146/85 08/24/23 06:00 Pulse Ox 94 08/24/23 06:00 O2 Del Method Room Air 08/24/23 06:00 Discharge Plan Discharge Patient Disposition: Home Condition: Stable Prescriptions: New bupropion HCl 150 mg Tablet Extended Release 24 Hr 150 mg PO DAILY 30 Days Qty: 30 1RF Continued quetiapine [Seroquel] 100 mg tablet 100 mg PO .HS Qty: 30 2RF divalproex 500 mg tablet extended release 24 hr 500 mg PO BID 30 Days Qty: 60 2RF gabapentin 100 mg capsule 100 mg PO BID Qty: 60 2RF gabapentin 300 mg capsule 300 mg PO BEDTIME 30 Days Qty: 30 2RF hydroxyzine HCl 50 mg tablet 50 mg PO QID PRN (Reason: anxiety/insomnia) Qty: 120 2RF lithium carbonate 300 mg capsule 300 mg PO BID Qty: 60 2RF atorvastatin 40 mg tablet 40 mg PO DAILY trazodone 100 mg tablet 200 mg PO BEDTIME PRN (Reason: insomnia) Discharge Orders: Discharge Order (Routine); Ordered 08/24/23 Ordered By: Scout Interiano Referrals: Angelina Rebolledo DO [Primary Care Provider] - Richard Valenzuela MD [Physician] - 08/25/23 10:00 am (Hospital follow up) Discharge Diet: Regular Discharge Activity: Resume usual activity Patient Instructions: Generalized Anxiety Disorder, Bupropion (By mouth) (Zyban, Wellbutrin XL, Wellbutrin SR, Wellbutrin), Bipolar Disorder (DC), Help Prevent Suicide (DC), Borderline Personality Disorder (GEN), Suicide Prevention (DC), Opioid Safety Discharge Attestations NPU Time Spent in Discharge Care*: less than 30 min Specific Discharge Activities: Specific discharge activities: educating patient, discussing with sample case porter/social workers/dc planners, documenting/other paperwork and evaluating patient/reviewing data Coding Level of Care Code Acute Code for [facility] Fwd Diagnoses Bipolar disorder, curr episode mixed, severe, w/o psychotic features F31.63 Suicidal ideation R45.851
[2023-08-24 10:56] VITALS: BP 146/85; PULSE 85; RESP 16; O2SAT 94
--- NOTE | 2023-08-24 11:27 | DCPLANNER ---
PERICO completed on 08/24/23 @ 1129. Pt was given a copy of her Medicare rights.
== END 2023-08-24 12:18 | disposition home or self-care (01) | DRG 885 ==
LOC: ER 12:01 → NP 12:08
PROVIDERS: Family Medicine; Admitting Provider Psychiatry & Neurology Psychiatry; Emergency Provider Physician Assistant; PCP Family Medicine; Visit Provider Psychiatry & Neurology Psychiatry
DX: F31.63 Bipolar disorder, current episode mixed, severe, without psychotic features (principal); R45.851 Suicidal ideations; G62.9 Polyneuropathy, unspecified; G25.81 Restless legs syndrome; Z87.891 Personal history of nicotine dependence; I10 Essential (primary) hypertension; E78.00 Pure hypercholesterolemia, unspecified; F60.3 Borderline personality disorder; G89.29 Other chronic pain; M54.2 Cervicalgia; M54.9 Dorsalgia, unspecified; Z91.51 Personal history of suicidal behavior
CPT/HCPCS: 36415; 80053; 80164; 80178; 80306; 80307; 85025; 97150; 97165; 99285

== ENCOUNTER 2024-03-19 13:36 | Inpatient (IN) | payer MEDICARE, MEDICAID, SELFPAY ==
[2024-03-19 13:40] VITALS: BP 116/78; PULSE 83; RESP 16; TEMP 36.6; O2SAT 98
[2024-03-19 14:14] VITALS: BP 116/78; PULSE 83; RESP 16; TEMP 36.6; O2SAT 98
--- NOTE | 2024-03-19 14:20 | ECG_ITS ---
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 Measurements Intervals Sherman Rate: 84 P: 30 MD: 155 QRS: -13 QRSD: 92 T: -12 QT: 388 QTc: 459 Interpretive Statements SINUS RHYTHM LOW QRS VOLTAGE IN PRECORDIAL LEADS [QRS DEFLECTION < 1.0 mV IN CHEST LEADS] POSSIBLE ANTERIOR MYOCARDIAL INFARCTION , PROBABLY OLD [30 ms Q WAVE IN V3/V4, OR R < 0.2 mV IN V4] Compared to ECG 09/23/2022 04:19:29 Myocardial infarct finding now present Sinus bradycardia no longer present T-wave abnormality no longer present Electronically Signed On 03-19-2024 19:18:55 CDT by Eugene Blackwell M.D. [id number]
--- NOTE | 2024-03-19 14:48 | ED.C_ITS ---
HPI - Psych 2 General: Chief Complaint: Psychiatric Symptoms Stated Complaint: SOB, chest pain Time Seen by Provider: 03/19/24 14:35 History of Present Illness: 58-year-old female comes in today for co mplaints of shortness of breath. Patient reports that she has been more short of breath and had used her boyfriend's oxygen and had noted that she had improvement of her symptoms. Patient also believes that her medications need to be changed so that she can get on Haldol and Cogentin for improvement of symptoms. Patient reports her medications now cause her to have more anxiety and nightmares. Patient sees a Dr. Torrez for her psychiatry. Patient denies homicidal suicide. Patient denies any hallucinations. Patient is cooperative. Review of Systems 2 General: Reports: 10 or more systems reviewed and unremarkable except in HPI and below Psych: Reports: anxiety and other (Nightmares) [facility] ED 2 PFSH: Medical History Hypoxia Aspiration pneumonia Metabolic encephalopathy History of suicide attempt [place] toxicity Abnormal thyroid function test Borderline personality disorder Auditory hallucination History of breast cancer Dyslipidemia Depression HTN (hypertension) Psychiatric care Surgical History History of lumpectomy of right breast Social History Smoking and tobacco/nicotine status: former use of tobacco/nicotine Quit status (tobacco/nicotine): has quit using Year quit tobacco: 2021 Second hand smoke exposure: No Alcohol intake: former Substance/Drug Use: former Date of last use: When in school. Physical Exam 2 Const: COMMON NORMALS: alert HENMT: COMMON NORMALS: normocephalic HEAD & SCALP: normocephalic Neck/C-Spine: COMMON NORMALS: full ROM Resp: COMMON NORMALS: normal respiratory effort and clear to auscultation bilaterally AUSCULTATION: clear to auscultation bilaterally Cardio: COMMON NORMALS: regular rate and regular rhythm RATE: regular rate RHYTHM: regular rhythm GI: COMMON NORMALS: Soft to palpation and non-tender PALPATION: Yes Soft to palpation Back/Pelvis: COMMON NORMALS: thoracic and lumbar spine normal to inspection Neuro: SENSORIUM/ORIENTATION: Yes alert Skin: COMMON NORMALS: turgor normal GENERAL SKIN EXAM: turgor normal Course 2 Vital Signs: Vital signs: Vital Signs Temperature 97.9 F 03/19/24 14:14 Pulse Rate 83 03/19/24 14:14 Respiratory Rate 16 03/19/24 14:14 Blood Pressure 116/78 03/19/24 14:14 Pulse Oximetry 98 03/19/24 15:02 Oxygen Delivery Me thod Room Air 03/19/24 14:14 MDM - Psych Medical Decision Making 58-year-old female comes in today for concerns of difficulty breathing and abnormal drug reactions. Patient reports increased anxiety and nightmares with the medication she is on at this time. Patient feels that she needs to have her medication switched back to Haldol and Cogentin due to nightmares and increased anxiety. Patient's oxygen saturation is 95% on room air. Home oxygen eval 6- minute walk test was negative ranging between 90 and 100% on the walk. Patient is cooperative and denies homicidal or suicidal thoughts. Differential diagnosis includes but not limited to exacerbation of bipolar disorder, major depressive disorder, anxiety, adverse medication reaction. Reviewed patient with Dr. England who accepted patient graciously to the neuropsychiatric unit for further evaluation and treatment. Lab Data 03/19/24 15:01 03/19/24 15:01 Laboratory Results WBC 8.53 10^3/uL (3.29-11.43) 03/19/24 15:01 RBC 4.65 10^6/uL (3.85-5.65) 03/19/24 15:01 Hgb 13.50 g/dL (11.27-16.99) 03/19/24 15:01 Hct 40.8 % (36-47) 03/19/24 15:01 MCV 87.7 fl (85-98) 03/19/24 15:01 MCH 29.0 pg (27-33) 03/19/24 15:01 MCHC 33.1 g/dL (30-55) 03/19/24 15:01 RDW 12.2 % (12.1-15.1) 03/19/24 15:01 Plt Count 356 10^3/cmm (157-399) 03/19/24 15:01 MPV 9.6 fL (7.4-10.4) 03/19/24 15:01 Neut % (Auto) 33.8 % 03/19/24 15:01 Lymph % (Auto) 50.1 % 03/19/24 15:01 [place] % (Auto) 7.2 % 03/19/24 15:01 Eos % (Auto) 7.2 % 03/19/24 15:01 Baso % (Auto) 1.3 % 03/19/24 15:01 Neut # (Auto) 2.90 10^3/uL (1.8-7.7) 03/19/24 15:01 Lymph # (Auto) 4.3 10^3/uL (0.8-4.8) 03/19/24 15:01 [place] # (Auto) 0.6 10^3/uL (0.2-0.9) 03/19/24 15:01 Eos # (Auto) 0.6 10^3/uL (0.0-0.8) 03/19/24 15:01 Baso # (Auto) 0.1 10^3/uL (0.0-0.1) 03/19/24 15:01 Nucleated RBC % (auto) 0 % 03/19/24 15:01 Nucleated RBCs # 0.0 /100WBC 03/19/24 15:01 Sodium 134 mmol/L (136-145) L 03/19/24 15:01 Potassium 3.9 mmol/L (3.5-5.1) 03/19/24 15:01 Chloride 100 mmol/L (98-107) 03/19/24 15:01 Carbon Dioxide 20 mmol/L (22-29) L 03/19/24 15:01 Anion Gap 17.9 (5-19) 03/19/24 15:01 BUN 9 mg/dL (6-20) 03/19/24 15:01 Creatinine 0.8 mg/dL (0.5-0.9) 03/19/24 15:01 GFR Calculation 74.2 mL/min (90-130) L 03/19/24 15:01 Glucose 106 mg/dL (65-115) 03/19/24 15:01 Calculated Osmolality 277 mOsm/kg (285-295) L 03/19/24 15:01 Calcium 9.7 mg/dL (8.5-10.5) 03/19/24 15:01 Total Bilirubin 0.2 mg/dL (0.15-1.2) 03/19/24 15:01 AST 26 U/L (0-32) 03/19/24 15:01 ALT 37 U/L (0-33) H 03/19/24 15:01 Alkaline Phosphatase 92 U/L (35-105) 03/19/24 15:01 Total Protein 7.4 g/dL (6.6-8.7) 03/19/24 15:01 Albumin 4.3 g/dL (3.5-5.2) 03/19/24 15:01 Globulin 3.1 g/dL (1.3-4.6) 03/19/24 15:01 Salicylates < 0.3 mg/dL (3-10) L 03/19/24 15:01 Acetaminophen < 5.0 ug/mL (10-30) L 03/19/24 15:01 [place] 0.4 mmol/L (0.6-1.2) L 03/19/24 15:01 Ethyl Alcohol < 10 mg/dL (0-10) 03/19/24 15:01 No radiology studies performed this visit Discharge Plan Discharge Patient Disposition: Admitted As Inpatient Clinical Impression: Bipolar 1 disorder, depressed, Generalized anxiety disorder, Borderline personality disorder Condition: Stable Coding Level of Care Code 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
[2024-03-19 15:02] VITALS: O2SAT 95; O2SAT 98
[2024-03-19 15:08] LABS: Basophils # 0.1 10^3/uL (0.0-0.1); Basophils % 1.3 %; Eosinophils # 0.6 10^3/uL (0.0-0.8); Eosinophils % 7.2 %; Hematocrit 40.8 % (36-47); Lymphocytes # 4.3 10^3/uL (0.8-4.8); Lymphocytes % 50.1 %; Mean Corpuscular HGB Conc 33.1 g/dL (30-55); Mean Corpuscular Volume 87.7 fl (85-98); Mean Platelet Volume 9.6 fL (7.4-10.4); Monocytes # 0.6 10^3/uL (0.2-0.9); Monocytes % 7.2 %; Neutrophils % 33.8 %; Nucleated Red Blood Cells % 0 %; Platelet Count 356 10^3/cmm (157-399); Red Blood Count 4.65 10^6/uL (3.85-5.65); Red Cell Distribution Width 12.2 % (12.1-15.1); White Blood Count 8.53 10^3/uL (3.29-11.43)
[2024-03-19 15:27] LABS: Alanine Aminotransferase 37 U/L (0-33); Albumin Level 4.3 g/dL (3.5-5.2); Alkaline Phosphatase 92 U/L (35-105); Anion Gap 17.9 (5-19); Aspartate Amino Transferase 26 U/L (0-32); Blood Urea Nitrogen 9 mg/dL (6-20); Calcium 9.7 mg/dL (8.5-10.5); Carbon Dioxide 20 mmol/L (22-29); Chloride 100 mmol/L (98-107); Creatinine Clr Calc Pharmacy 81.1664; Globulin 3.1 g/dL (1.3-4.6); Glomerular Filtration Rate 74.2 mL/min (90-130); Glucose 106 mg/dL (65-115); Osmolality Calculated 277 mOsm/kg (285-295); Potassium 3.9 mmol/L (3.5-5.1); Sodium 134 mmol/L (136-145); Total Bilirubin 0.2 mg/dL (0.15-1.2); Total Protein 7.4 g/dL (6.6-8.7)
[2024-03-19 15:44] LABS: Lithium 0.4 mmol/L (0.6-1.2)
[2024-03-19 15:48] LABS: Acetaminophen < 5.0 ug/mL (10-30); Alcohol Level < 10 mg/dL (0-10); Salicylate < 0.3 mg/dL (3-10)
[2024-03-19 16:19] VITALS: BP 114/74; PULSE 66; RESP 17; TEMP 36.6; O2SAT 95
--- NOTE | 2024-03-19 17:35 | PC.NURSE ---
Patient alert and oriented to name, birthday, day of the week, and year. She was unsure of the month or day. Patient says she has been planning on coming to the psych unit to get her medications straightened out since the beginning of the month, but that she couldn't financially because she had to pay all of the bills at the beginning of the month. She does appear to be a bit confused at times, giving answers to questions that do not coincide with what the questions were about. For example, when asked if she has or has had any legal problems she replied, no, but I've got insurance and it goes a long way. When being asked about suicide attempts she also began talking about being rushed by several people she never saw 1-2 years ago that landed her in the ICU. She then followed this with, I wish I could live clean. I've always lived clean. Patient expresses she would like to start taking haldol and cogentin. Denies current si/hi or avh.
[2024-03-19] MEDS: nicotine 4 mg lozenge MUCOUS MEM ×2 (18:22→21:26)
[2024-03-19 18:25] LABS: Add Urine Microscopic? NO; Charge for UA Resulting for Rev
[2024-03-19 18:28] LABS: Bilirubin Urine Neg (Negative); Blood Urine Neg (Negative); Glucose Urine UA Norm (Normal); Ketones Urine Negative (Negative); Leukocyte Esterase Urine Negative (Negative); Nitrate Urine Negative (Negative); Protein Urine Neg (Negative); Specific Gravity, Urine 1.005 (1.005-1.030); Urine Appearance Clear (CLEAR); Urine Color Yellow (Yellow); Urobilinogen Urine Neg (Negative); pH Urine 6.5 (5-7)
[2024-03-19 18:55] LABS: Amphetamines Screen Urine Negative (Negative); Barbiturates Screen Urine Negative (Negative); Benzodiazepines Screen Urine Negative (Negative); Cocaine Screen Urine Negative (Negative); Opiate Screen Urine Negative (Negative); PCP Screen Urine Negative (Negative); THC Screen Urine Negative (Negative)
[2024-03-19] MEDS: gabapentin 300 mg Capsule PO (21:22)
[2024-03-19] MEDS: lithium carbonate 300 mg Capsule PO (21:22)
[2024-03-19] MEDS: quetiapine 100 mg Tablet PO (21:22)
[2024-03-19] MEDS: divalproex ER 500 mg Tablet (24H) PO (21:22)
[2024-03-19 22:00] VITALS: BP 139/78; PULSE 65; RESP 18; O2SAT 95
[2024-03-20] MEDS: blistex lip oint 7 gm Tube 1 APPLIC TOPICAL (00:09)
[2024-03-20 06:00] VITALS: BP 104/55; PULSE 56; RESP 16; TEMP 36.7; O2SAT 95
[2024-03-20] MEDS: divalproex ER 500 mg Tablet (24H) PO ×2 (08:13→20:29)
[2024-03-20] MEDS: nicotine 4 mg lozenge MUCOUS MEM ×2 (08:13→17:54)
[2024-03-20] MEDS: buPROPion XL (24 HR) 300 mg Tablet PO (08:13)
[2024-03-20] MEDS: lithium carbonate 300 mg Capsule PO (08:13)
[2024-03-20] MEDS: gabapentin 100 mg Capsule PO ×2 (08:24→17:54)
[2024-03-20 14:00] VITALS: BP 112/72; PULSE 98; RESP 16; TEMP 36.6; O2SAT 95
--- NOTE | 2024-03-20 14:50 | W.PM.NPUH&PS ---
Providers/Chief Complaint Admitting Physician: Rodger Alexis MD Primary Care Provider: Angelina Rebolledo DO Chief Complaint: SOB, chest pain HPI NPU History of Present Illness Alisa Kohli is a 58 year old female with a history of bipolar disorder type I, ALISON, and Borderline Personality disorder who presented to the emergency department with complaints of having increased problems with shortness of breath. She had also endorsed having worsening mood and suicidal ideation more frequently over the past month. She had requested a change in medications as she had reported continued depression and frequent cycling into travis. She had reported that she had been hearing a voice in her head and states that she often feels overly tired. Patient had been admitted to the neuropsychiatric unit for further evaluation and treatment. She had requested a change in medications as she had stated that she had wished to be placed on haldol with reports of previous benefits with managing her racing thoughts as well. She reported no substantial changes since her last hospitalization in August 2023. She had reported no recent inpatient hospitalizations. She had reported no recent changes in medical history as well. She had complained of having increased nightmares and anxiety with her current medications. She had reported having more problems with feeling short of breath with her medications. She denies any drug or alcohol abuse. She reports that she is living in [place] by herself. Current medications: Wellbutrin XL 300 mg daily Seroquel 100 mg at night [place] 300 mg twice daily hydroxyzine 50 mg QID PRN trazodone 100-200 mg at night as needed gabapentin 300 mg at night, 100mg bid Depakote ER 1000 mg daily Medical Hx: Metabolic Encephalopathy, lithium toxicity, history of breast cancer, hypertension, dyslipidemia, aspiration pneumonia, hypoxia, unspecified thyroid issues. Surgical Hx: none reported. Allergies: SULFA NPU Discharge Summary from 08/24/23 Diagnoses at Discharge Discharge Diagnosis (1) Bipolar disorder, curr episode mixed, severe, w/o psychotic features: Status: Resolved (2) Suicidal ideation: Status: Resolved Reason for Visit MHE Brief History: History of Present Illness Alisa Kohli is a 57 year old female who presented to the emergency department with the following report: Chief Complaint: Psychiatric Symptoms Stated Complaint: MHE Time Seen by Provider: 08/20/23 10:07 Source: patient Mode of arrival: ambulatory Limitations: no limitations History of Present Illness: Patient is a 57-year-old female presents to ED today stating she is depressed and suicidal. She initially checked in with a complaint of chronic neck and back pain and had requested medication adjustment for her chronic pain. She later told nursing staff she was suicidal with a plan to slit her wrist. During my initial assessment she tells me that she needs to be admitted to the hospital as she does not feel safe going home. She states I do not think I would harm anybody else but I think I would harm myself . Patient has an extensive psychiatric history. Her last NPU hospitalization was approximately a year ago. She states she follows up with Dr. Valenzuela as an outpatient. MD complaint: suicidal ideation and feels depressed Onset (ago): day(s) Duration: constant History of same: Yes Relieving factors: none Exacerbating factors: none Associated psychiatric symptoms: depression Associated symptoms: Reports depression and suicidal ideation; Deny auditory hallucinations, visual hallucinations or homicidal ideation Treatments prior to arrival: none If self harm: admits thoughts of self harm and has plan Details of plan: states she will slit her wrists with a knife She was admitted to the neuropsychiatric unit for definitive treatment of those issues. She presents today known to this food writer through 2 past hospitalizations. Last hospitalization was September of this year where she came in simplified and noncoherent with elevated lithium levels which left her in the ICU for several days. During that stay she did not give a lot of information and was mostly out of it and stuporous. Her previous hospitalization in April 2022 we reviewed and she reports there are no substantive changes since then. She has been seen at [facility] since January 2022 which was after an inpatient hospitalization with this food writer and she has been consistent with her appointments with him since then. She reports that she thinks her depression is secondary to not really having an antidepressants on board. She reports that she has had success with Wellbutrin in the past. We discussed the risks, benefits and alternatives of a trial of Wellbutrin XL and she understood and agreed to proceed as is documented in this note. She reports that otherwise things have been fairly normal and she feels that some financial stressors might have played a role in how things have been. Per her 04/22/2022 [facility] inpatient psychiatric discharge summary: Discharge Diagnosis (1) Bipolar disorder, curr episode mixed, severe, w/o psychotic features: Status: Acute (2) Suicidal ideation: Status: Acute Reason for Visit Reason for Visit: manic symptoms Brief History: Alisa presents today reporting her Seroquel has been making her shaky and she is currently taking Seroquel 100 mg, Ambien 5 mg, Abilify, [place], Depakote, Gabapentin and Cymbalta. She reports she had taken her night time medication of Seroquel and Ambien at 3pm but her feet had been hurting so she reported not feeling right. She endorses she has been having auditory hallucinations of people who have passed in her family throughout her life and has been having it more recently but could not recall how long it has been occurring. She was diagnosed at 24 years old with bipolar disorder. She has been psychiatrically hospitalized around 20 times, the first time of which was around 24 years old in [place] and the most recent of which was at [facility]. She reports she had worked until she was put on disability for the past 30 years. She reports her sleep has not been doing well even being on Seroquel and Ambien as she also gets restless leg syndrome. She endorses a recent manic state with racing thoughts, more recently irritable but has times where she is increasing happy. She denies current depression symptoms and reports she has had mixed episodes of travis and depression before as noted by her provider. She has felt something is not right which is why she brought herself into the emergency department. She has a case management rn through [facility] and was supposed to see her tomorrow. She reports up to a pack of cigarettes a day, denies alcohol, marijuana or any other illicit drug use. She reports in the past she has only been restarted on her medications and had minor changes made but has not had major changes to her medications. She endorses cycling through periods of travis and depression which can change within the span of a month. She reports periods of decrease need for sleep, increased grandiosity, racing thoughts lasting greater than a week with high energy and increased risk taking behaviors lasting for several days. She reports having restless legs on her current medication. Psychiatric History: Inpatient treatment over 20x for bipolar disorder, most recently at [facility] in [place], Outpatient treatment: Dr. Valenzuela recently 3 months ago at [facility]. Medications on admission: Cymbalta 30mg in am Abilify 10mg daily Depakote 500mg ER tid Wellbutrin xl 150mg in am [place] 300mg po tid Gabapentin 300mg daily Atorvastatin 40mg daily ambien 5mg at night naproxen prn Substance Abuse History: As above. Medical History: neuropathy, hypercholesterolemia, Allergies: sulfa drugs Surgeries: unknown Family History: She did not report a family history of mental health or addiction issues during the interview. Developmental History: She did not report any developmental delays or needing to receive speech therapy, learning support, emotional support or special education classes during the interview. Psychosocial History: She was born in [place] [facility] [place] and raised by her grandparents on her mother?s side as her parents split. She has been twice, once and once. She is currently living in an apartment by herself. She is disabled and is on survivor?s benefits from her grandmother and mother. She denies any traumatic events. 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 She lives in [address], lives alone, on disability, raised as a [employer]. Family Psychiatric History: dementia Legal History: She did not report any legal issues during the interview. Hospital Course During the hospitalization, patient had routine laboratory studies which were within normal limits except for few outliers. Additionally there was a general medical evaluation which was also within normal limits and revealed no new acute processes. Discharge Summary: At the time of discharge, lethality was denied and psychosis was resolving. Mood and anxiety were well managed. Patient endorsed a plan to avoid all drugs of abuse and follow-up with the aftercare recommendations of the treatment team. Patient was evaluated and deemed to be absent credible lethality, and had achieved the maximum benefit from an inpatient hospitalization, so was discharged. During her hospital course, Abilify was increased up to a dose of 15mg daily and seroquel was tapered and discontinued with reports of improved energy by the patient. Furthermore, cymbalta was discontinued due to increase risk of mixed travis episodes. Hospital Course Hospital Course She slowly acclimated to the individual, group and milieu therapies provided. She presented reporting depression and not on any antidepressants with significant mood stabilizers on board. She has been consistent with outpatient treatment but reports she was feeling much worse. We continued her home medication. We started Wellbutrin XL 150 mg which she reports she had success with in the past. She did well with that regimen. She was able to work with the social work team to get appropriate follow-up and aftercare. She had significant improvement and was able to contract for safety outside of the hospital prior to discharge. During the hospitalization, the patient had routine laboratory studies which were within normal limits except for a few outliers.? Additionally, there was a general medical evaluation which was also within normal limits and revealed no new acute processes.? At the time of discharge, she denied psychosis or lethality.? Mood and anxiety were well managed.? The patient endorsed a plan to avoid all drugs of abuse and follow up with the aftercare recommendations of the treatment team.? The patient was evaluated and deemed to be absent credible lethality and had achieved the maximum benefit from an inpatient hospitalization, and so was discharged. Meds NPU Home Medications Medication Instructions Recorded Confirmed Last Taken Type gabapentin 100 mg capsule 100 mg PO BID #60 caps 01/17/24 03/20/24 Unknown Rx gabapentin 300 mg capsule 300 mg PO BEDTIME 30 days #30 caps 01/17/24 03/20/24 Unknown Rx lithium carbonate 300 mg capsule 300 mg PO BID #60 caps 01/17/24 03/20/24 Unknown Rx trazodone 100 mg tablet 200 mg (2 x 100 mg) PO BEDTIME PRN 01/17/24 03/20/24 Unknown Rx insomnia #60 tabs bupropion HCl 300 mg 24 hr tablet, 300 mg PO DAILY 03/19/24 03/20/24 Unknown History extended release divalproex 500 mg tablet,extended 500 mg PO 0900,2100 03/19/24 03/19/24 Unknown History release 24 hr quetiapine 100 mg tablet 100 mg PO BEDTIME 03/19/24 03/19/24 Unknown History Allergies Allergy/AdvReac Type Severity Reaction Status Date / Time Sulfa (Sulfonamide Allergy Unknown Unknown Verified 03/19/24 13:51 Antibiotics) PFSH NPU PFSH: Medical History Hypoxia Aspiration pneumonia Metabolic encephalopathy History of suicide attempt [place] toxicity Abnormal thyroid function test Borderline personality disorder Auditory hallucination History of breast cancer Dyslipidemia Depression HTN (hypertension) Psychiatric care Surgical History History of lumpectomy of right breast Social History Smoking and tobacco/nicotine status: former use of tobacco/nicotine Quit status (tobacco/nicotine): has quit using Year quit tobacco: 2021 Second hand smoke exposure: No Alcohol intake: former Substance/Drug Use: former Date of last use: When in school. Mental Status Exam MSE Comments: This is an overweight versus obese white female with bridges hair in hospital scrubs with limited grooming and fair eye contact who appeared older than her stated age. No abnormal movements except for moderate psychomotor slowing. She was cooperative with exam in mild to moderate distress. Speech was normal in rate and volume. Mood described as depressed. Affect is mood congruent and restricted. Thought process: linear, logical and goal directed. Thought content: patient denies suicidal or homicidal ideation actively. No delusions reported or noted and denies any auditory or visual hallucinations. Attention and concentration are intact and memory appeared mostly reliable but none were formally tested. She is alert and oriented times three. Insight and judgment are limited. Impulse control is limited versus impaired. Recent and remote memory were grossly intact. Vitals/I&O/Wt Last Vital Signs Temp 98.0 F 03/20/24 06:00 Pulse 56 L 03/20/24 06:00 Resp 16 03/20/24 06:00 BP 104/55 03/20/24 06:00 Pulse Ox 95 03/20/24 06:00 O2 Del Method Room Air 03/19/24 16:21 Weight last 48 hrs Weight 81.647 kg Data NPU 03/19/24 15:01 03/19/24 15:01 A&P Assessment and plan (1) Bipolar disorder, curr episode mixed, severe, w/o psychotic features: (2) Suicidal ideation: Plan Alisa is a 58-year-old white female with a history of bipolar 1 disorder with mixed mood symptoms and presenting with suicidal ideation, depressed mood and a desire to adjust medications due to concerns of excess sedation and concerns of side effects from polypharmacy. ? 1. Restart Depakote, hold lithium and wellbutrin for now and restart Seroquel as prescribed. Will add low dose of haldol as patient reported improved ability to manage psychosis including auditory hallucinations. 2. Encourage individual, group and milieu therapy 3. Continue q-15 minute checks for safety Involuntary Hold Information 96 Hour Hold: 96 Hour Involuntary Admission: No Attestations NPU Medical Necessity Statement*: Inpatient hospitalization is medically necessary and the clinically appropriate intervention at this time. We will initiate medications and make changes as indicated. She will be in the hospital for over 2 midnights. Likely length of stay 4-6 days Coding Level of Care Code Acute Code for [facility] Fwd Diagnoses Bipolar disorder, curr episode mixed, severe, w/o psychotic features F31.63 Suicidal ideation R45.851
[2024-03-20] MEDS: hyDROXYzine 25 mg Capsule 50 MG PO (15:27)
[2024-03-20] MEDS: gabapentin 100 mg Capsule 200 MG PO (20:29)
[2024-03-20] MEDS: quetiapine 100 mg Tablet PO (20:29)
[2024-03-20 22:00] VITALS: BP 131/82; PULSE 80; RESP 17; TEMP 37; O2SAT 97
[2024-03-21 06:00] VITALS: BP 109/71; PULSE 84; RESP 16; O2SAT 95
[2024-03-21] MEDS: nicotine 4 mg lozenge MUCOUS MEM ×3 (08:55→18:50)
[2024-03-21] MEDS: divalproex ER 250 mg Tablet (24H) 750 MG PO (08:55)
[2024-03-21] MEDS: haloperidol 1 mg Tablet PO (08:55)
[2024-03-21] MEDS: gabapentin 100 mg Capsule PO ×3 (08:55→20:02)
[2024-03-21] MEDS: benztropine 1 mg Tablet PO (10:30)
[2024-03-21 14:00] VITALS: BP 114/85; PULSE 79; RESP 16; TEMP 36.6; O2SAT 96
--- NOTE | 2024-03-21 14:30 | P.NPUPN_ITS ---
Subjective NPU 2 Subjective: The patient is a 58-year-old female admitted with complaints of auditory hallucinations, increased sedation and suicidal thoughts requesting medication adjustment. Patient had described having problems with the presence of psychosis including hallucinations even in the absence of a manic or depressed episode. Patient had reported that she continued to feel excessively sedated. She had reported some improvement with Haldol and stated that that had been helpful for her in the past for her voices . She reported no command auditory hallucinations today. She reported that she had felt that her thoughts had been disorganized before she came into the hospital. She had reported having odd thoughts she had reported a history of multiple medication trials including multiple antipsychotics such as Abilify, Latuda, Geodon. Mental Status Exam 2 MSE Comments: This is an overweight versus obese white female with bridges hair in hospital scrubs with limited grooming and fair eye contact who appeared older than her stated age. No abnormal movements except for moderate psychomotor slowing. She was cooperative with exam in mild to moderate distress. Speech was normal in rate and volume with increased productivity. Mood described as a little better. Affect is mood congruent and subdued. Thought process: linear, logical and goal directed. Thought content: patient denied suicidal or homicidal ideation. No delusions reported or noted and denies any auditory or visual hallucinations. Attention and concentration are intact and memory appeared mostly reliable but none were formally tested. She is alert and oriented times three. Insight and judgment are limited. Impulse control is limited versus impaired. Recent and remote memory were grossly intact. Vitals/I&O/Wt Last Vital Signs Temp 98.6 F 03/20/24 22:00 Pulse 84 03/21/24 06:00 Resp 16 03/21/24 06:00 BP 109/71 03/21/24 06:00 Pulse Ox 95 03/21/24 06:00 O2 Del Method Room Air 03/21/24 06:00 Data NPU 03/19/24 15:01 03/19/24 15:01 A&P Assessment and plan (1) Bipolar disorder, curr episode mixed, severe, w/o psychotic features: (2) Suicidal ideation: Plan Alisa is a 58-year-old white female with a history of bipolar 1 disorder with mixed mood symptoms and presenting with suicidal ideation, depressed mood and a desire to adjust medications due to concerns of excess sedation and concerns of side effects from polypharmacy. ? 1. Haldol 1mg at night, Increased Depakote 750mg in am, 500mg at night. Stopped [place] and Wellbutrin per patient request. Continue Seroquel 100mg at night, 2. Encourage individual, group and milieu therapy 3. Continue q-15 minute checks for safety 4. Monitor for mood changes with reductions and discontinuation of multiple medications including lithium and wellbutrin. Involuntary Hold Information 2 96 Hour Hold: 96 Hour Involuntary Admission: No Attestations NPU 2 Medical Necessity Statement*: Inpatient hospitalization is medically necessary and the clinically appropriate intervention at this time. We will initiate medications and make changes as indicated. Likely length of stay 4-6 days Coding Level of Care Code Acute Code for [facility] Fwd Diagnoses Bipolar disorder, curr episode mixed, severe, w/o psychotic features F31.63 Suicidal ideation R45.85
[2024-03-21] MEDS: hyDROXYzine 25 mg Capsule 50 MG PO (18:57)
[2024-03-21] MEDS: divalproex ER 500 mg Tablet (24H) PO (20:02)
[2024-03-21] MEDS: quetiapine 100 mg Tablet PO (20:02)
[2024-03-21 21:22] VITALS: BP 132/85; PULSE 86; RESP 14; TEMP 36.6; O2SAT 96
[2024-03-22] MEDS: trazodone 100 mg Tablet 200 MG PO (00:50)
[2024-03-22] MEDS: nicotine 4 mg lozenge MUCOUS MEM ×4 (00:50→21:41)
[2024-03-22 06:00] VITALS: BP 106/67; PULSE 65; RESP 13; TEMP 36.6; O2SAT 96
[2024-03-22] MEDS: haloperidol 1 mg Tablet PO (08:20)
[2024-03-22] MEDS: divalproex ER 250 mg Tablet (24H) 750 MG PO (08:20)
[2024-03-22] MEDS: gabapentin 100 mg Capsule PO ×3 (08:20→20:23)
--- NOTE | 2024-03-22 12:35 | P.NPUPN_ITS ---
Subjective NPU 2 Subjective: The patient is a 58-year-old female admitted with complaints of auditory hallucinations, increased sedation and suicidal thoughts requesting medication adjustment. The patient reported no suicidal thoughts. She reported that her voices were less prominent. She had reported that she continues to struggle with odd thoughts and believes that existed even in the absence of active travis or depression. She had reported that the Seroquel had not been helpful for this problem and remained agreeable to simplification of her medications. She had been somewhat isolative on the milieu. She reported no side effects from her current medications. She had appeared quite engaged and asked questions regarding her medication regimen that revealed concerns about being excessively sedated. She had expressed fear regarding being excessively medicated and stated that in the past she had been on Haldol for many years successfully managing her moods. Mental Status Exam 2 MSE Comments: This is an overweight versus obese white female with bridges hair in hospital scrubs with poor grooming and fair eye contact who appeared older than her stated age. She had mild psychomotor slowing. She was cooperative with exam in mild to moderate distress. Speech was normal in rate and volume, and productivity Mood described as okay. Affect is mood incongruent and blunted. Thought process: linear, logical and goal directed. Thought content: patient denied suicidal or homicidal ideation. No delusions reported or noted but reported having unusual thoughts. She did not appear to be responding to internal stimuli. Attention and concentration are intact and memory appeared mostly reliable but none were formally tested. She is alert and oriented times three. Insight and judgment are limited. Impulse control is limited versus impaired. Recent and remote memory were grossly intact. Vitals/I&O/Wt Last Vital Signs Temp 98 F 03/22/24 06:00 Pulse 65 03/22/24 06:00 Resp 13 03/22/24 06:00 BP 106/67 03/22/24 06:00 Pulse Ox 96 03/22/24 06:00 O2 Del Method Room Air 03/22/24 06:00 Data NPU 03/19/24 15:01 03/19/24 15:01 A&P Assessment and plan (1) Bipolar disorder, curr episode mixed, severe, w/o psychotic features: (2) Suicidal ideation: Plan Alisa is a 58-year-old white female with a history of bipolar 1 disorder with mixed mood symptoms and presenting with suicidal ideation, depressed mood and a desire to adjust medications due to concerns of excess sedation and concerns of side effects from polypharmacy. ? 1. Increase Haldol 1.5mg at night, Continue Depakote 750mg in am, 500mg at night. Will need depakote level on 03/25/24 (subtherapeutic on outpatient basis) Stopped [place] and Wellbutrin per patient request-no worsening symptoms appreciated. Discontinue Seroquel and add cogentin 1mg bid routinely as requested. 2. Encourage individual, group and milieu therapy 3. Continue q-15 minute checks for safety 4. Monitor for mood changes with reductions and discontinuation of multiple medications including lithium and wellbutrin. Involuntary Hold Information 2 96 Hour Hold: 96 Hour Involuntary Admission: No Attestations NPU 2 Medical Necessity Statement*: Inpatient hospitalization is medically necessary and the clinically appropriate intervention at this time. We will initiate medications and make changes as indicated. Likely length of stay 4-6 days Coding Level of Care Code Acute Code for [facility] Fwd Diagnoses Bipolar disorder, curr episode mixed, severe, w/o psychotic features F31.63 Suicidal ideation R45.853
[2024-03-22 14:00] VITALS: BP 116/65; PULSE 102; RESP 16; TEMP 36.8; O2SAT 95
[2024-03-22] MEDS: hyDROXYzine 25 mg Capsule 50 MG PO (14:09)
[2024-03-22] MEDS: fixodent 39 gm Tube 1 APPLIC DENTAL (15:23)
[2024-03-22] MEDS: benztropine 1 mg Tablet PO (17:01)
[2024-03-22] MEDS: divalproex ER 500 mg Tablet (24H) PO (20:23)
[2024-03-22 21:27] VITALS: BP 115/80; PULSE 97; RESP 14; TEMP 36.6; O2SAT 94
[2024-03-23] MEDS: nicotine 4 mg lozenge MUCOUS MEM ×6 (00:38→20:27)
[2024-03-23] MEDS: trazodone 100 mg Tablet 200 MG PO (00:38)
[2024-03-23 06:00] VITALS: BP 112/67; PULSE 67; RESP 14; TEMP 36.6; O2SAT 97
[2024-03-23] MEDS: benztropine 1 mg Tablet PO ×2 (08:26→18:23)
[2024-03-23] MEDS: gabapentin 100 mg Capsule PO ×3 (08:26→20:27)
[2024-03-23] MEDS: divalproex ER 250 mg Tablet (24H) 750 MG PO (08:26)
[2024-03-23] MEDS: haloperidol 1 mg Tablet 1.5 MG PO (08:26)
[2024-03-23 14:00] VITALS: BP 94/57; PULSE 85; RESP 16; O2SAT 96
--- NOTE | 2024-03-23 19:38 | W.PM.NPUPNS ---
Subjective NPU Subjective: Patient presented today reporting that she is doing okay. She reported that she knows she needed the medication support and adjustments but is starting to think about whether discharge can happen in a reasonable timeframe. She denied any side effects to the medication and we discussed working with her outpatient supports to identify. Mental Status Exam MSE Comments: This is an overweight versus obese white female with bridges hair in hospital scrubs with poor grooming and fair eye contact who appeared older than her stated age. There were no abnormal movements except for mild psychomotor slowing/retardation. She was cooperative with exam in mild to moderate distress. Speech was normal in rate and volume, and productivity Mood described as fine, I think I should be ready to go home soon affect is mood incongruent and blunted. Thought process: linear, logical and goal directed. Thought content: patient denied suicidal or homicidal ideation. No delusions reported or noted but reported having unusual thoughts. She did not appear to be responding to internal stimuli. Attention and concentration are intact and memory appeared mostly reliable but none were formally tested. She is alert and oriented times three. Insight and judgment are limited. Impulse control is limited versus impaired. Recent and remote memory were grossly intact. Vitals/I&O/Wt Last Vital Signs Temp 98 F 03/23/24 06:00 Pulse 85 03/23/24 14:00 Resp 16 03/23/24 14:00 BP 94/57 03/23/24 14:00 Pulse Ox 96 03/23/24 14:00 O2 Del Method Room Air 03/23/24 06:00 Data NPU 03/19/24 15:01 03/19/24 15:01 A&P Assessment and plan (1) Bipolar disorder, curr episode mixed, severe, w/o psychotic features: (2) Suicidal ideation: Plan Alisa is a 58-year-old white female with a history of bipolar 1 disorder with mixed mood symptoms and presenting with suicidal ideation, depressed mood and a desire to adjust medications due to concerns of excess sedation and concerns of side effects from polypharmacy. ? 1. Increased Haldol 1.5mg at night, Continue Depakote 750mg in am, 500mg at night. Will need depakote level on 03/25/24 (subtherapeutic on outpatient basis) Stopped [place] and Wellbutrin per patient request-no worsening symptoms appreciated. Discontinue Seroquel and add cogentin 1mg bid routinely as requested. 2. Encourage individual, group and milieu therapy 3. Continue q-15 minute checks for safety 4. Monitor for mood changes with reductions and discontinuation of multiple medications including lithium and wellbutrin. Involuntary Hold Information 96 Hour Hold: 96 Hour Involuntary Admission: No Attestations NPU Medical Necessity Statement*: Inpatient hospitalization is medically necessary and the clinically appropriate intervention at this time. We will initiate medications and make changes as indicated. Likely length of stay 4-6 days Coding Level of Care Code Acute Code for [facility] Fwd Diagnoses Bipolar disorder, curr episode mixed, severe, w/o psychotic features F31.63 Suicidal ideation R45.856
[2024-03-23] MEDS: divalproex ER 500 mg Tablet (24H) PO (20:27)
[2024-03-23 21:57] VITALS: BP 96/59; PULSE 67; RESP 14; TEMP 36.4; O2SAT 95
[2024-03-24] MEDS: ibuprofen 600 mg Tablet PO (01:20)
[2024-03-24] MEDS: trazodone 100 mg Tablet 200 MG PO ×2 (01:21→20:52)
[2024-03-24 06:00] VITALS: BP 109/73; PULSE 78; RESP 17; TEMP 36.6; O2SAT 97
[2024-03-24] MEDS: divalproex ER 250 mg Tablet (24H) 750 MG PO (08:12)
[2024-03-24] MEDS: nicotine 4 mg lozenge MUCOUS MEM ×3 (08:13→20:51)
[2024-03-24] MEDS: gabapentin 100 mg Capsule PO ×3 (08:13→20:52)
[2024-03-24] MEDS: benztropine 1 mg Tablet PO ×2 (08:13→18:02)
[2024-03-24] MEDS: haloperidol 1 mg Tablet 1.5 MG PO (08:13)
--- NOTE | 2024-03-24 13:49 | DCPLANNER ---
IMM completed 03/24/24 @ 3443. Pt was given a copy of her rights and she stated she understood her rights.
[2024-03-24 14:00] VITALS: BP 103/61; PULSE 84; RESP 17; TEMP 36.9; O2SAT 95
--- NOTE | 2024-03-24 18:28 | W.PM.NPUPNS ---
Subjective NPU Subjective: Patient presented today reporting that she is doing okay. She endorsed a desire to discharge. We discussed the plan over the place for a Depakote level in the morning and that we would likely honor her desire to leave after we get that level which she was fine with. She denied any issues with any of the changes and denied any side effects to the medications. Mental Status Exam MSE Comments: This is an overweight versus obese white female with bridges hair in hospital scrubs with poor grooming and fair eye contact who appeared older than her stated age. There were no abnormal movements except for mild psychomotor slowing/retardation. She was cooperative with exam in mild to moderate distress. Speech was normal in rate and volume, and productivity Mood described as fine, I think I should be ready to go home soon affect is mood incongruent and blunted. Thought process: linear, logical and goal directed. Thought content: patient denied suicidal or homicidal ideation. No delusions reported or noted but reported having unusual thoughts. She did not appear to be responding to internal stimuli. Attention and concentration are intact and memory appeared mostly reliable but none were formally tested. She is alert and oriented times three. Insight and judgment are limited. Impulse control is limited versus impaired. Recent and remote memory were grossly intact. Vitals/I&O/Wt Last Vital Signs Temp 98.0 F 03/24/24 19:59 Pulse 72 03/24/24 19:59 Resp 17 03/24/24 19:59 BP 109/66 03/24/24 19:59 Pulse Ox 98 03/24/24 19:59 O2 Del Method Room Air 03/24/24 06:00 Data NPU 03/19/24 15:01 03/19/24 15:01 A&P Assessment and plan (1) Bipolar disorder, curr episode mixed, severe, w/o psychotic features: (2) Suicidal ideation: Plan Alisa is a 58-year-old white female with a history of bipolar 1 disorder with mixed mood symptoms and presenting with suicidal ideation, depressed mood and a desire to adjust medications due to concerns of excess sedation and concerns of side effects from polypharmacy. ? 1. Increased Haldol 1.5mg at night, Continue Depakote 750mg in am, 500mg at night. Will need depakote level on 03/25/24 (subtherapeutic on outpatient basis) Stopped [place] and Wellbutrin per patient request-no worsening symptoms appreciated. Discontinue Seroquel and add cogentin 1mg bid routinely as requested. 2. Encourage individual, group and milieu therapy 3. Continue q-15 minute checks for safety 4. Monitor for mood changes with reductions and discontinuation of multiple medications including lithium and wellbutrin. 5. Patient desiring to discharge and we will consider discharge tomorrow after her Depakote level is drawn with this trough reading with the medication held we could discharge her with a plan going forward. Involuntary Hold Information 96 Hour Hold: 96 Hour Involuntary Admission: No Attestations NPU Medical Necessity Statement*: Inpatient hospitalization is medically necessary and the clinically appropriate intervention at this time. We will initiate medications and make changes as indicated. Likely length of stay 1-3 days Coding Level of Care Code Acute Code for [facility] Fwd Diagnoses Bipolar disorder, curr episode mixed, severe, w/o psychotic features F31.63 Suicidal ideation R45.85
[2024-03-24 19:59] VITALS: BP 109/66; PULSE 72; RESP 17; TEMP 36.7; O2SAT 98
[2024-03-24] MEDS: divalproex ER 500 mg Tablet (24H) PO (20:52)
[2024-03-25] MEDS: nicotine 4 mg lozenge MUCOUS MEM (05:11)
[2024-03-25 06:00] VITALS: BP 108/54; PULSE 63; RESP 16; O2SAT 97
[2024-03-25] MEDS: divalproex ER 250 mg Tablet (24H) 750 MG PO (08:29)
[2024-03-25] MEDS: benztropine 1 mg Tablet PO (08:29)
[2024-03-25] MEDS: haloperidol 1 mg Tablet 1.5 MG PO (08:29)
[2024-03-25] MEDS: gabapentin 100 mg Capsule PO (08:29)
[2024-03-25 08:33] LABS: Valproic Acid Level 76.9 ug/mL (50-100)
--- NOTE | 2024-03-25 09:54 | W.PM.NPUDCS ---
Diagnoses at Discharge Discharge Diagnosis (1) Bipolar disorder, curr episode mixed, severe, w/o psychotic features: Status: Resolved (2) Suicidal ideation: Status: Resolved Reason for Visit Reason for Visit: SOB, chest pain Involuntary Hold Information 96 Hour Hold: 96 Hour Involuntary Admission: No Mental Status Exam MSE Comments: This is an overweight versus obese white female with bridges hair in hospital scrubs with poor grooming and fair eye contact who appeared older than her stated age. There were no abnormal movements except for mild psychomotor slowing/retardation. She was cooperative with exam in mild to moderate distress. Speech was normal in rate and volume, and productivity Mood described as fine, I think I should be ready to go home soon affect is mood incongruent and blunted. Thought process: linear, logical and goal directed. Thought content: patient denied suicidal or homicidal ideation. No delusions reported or noted but reported having unusual thoughts. She did not appear to be responding to internal stimuli. Attention and concentration are intact and memory appeared mostly reliable but none were formally tested. She is alert and oriented times three. Insight and judgment are limited. Impulse control is limited versus impaired. Recent and remote memory were grossly intact. Discharge Data Studies Completed and Pending: Laboratory Results WBC 8.53 10^3/uL (3.2 9-11.43) 03/19/24 15:01 RBC 4.65 10^6/uL (3.8 5-5.65) 03/19/24 15:01 Hgb 13.50 g/dL (11.27 -16.99) 03/19/24 15:01 Hct 40.8 % (36-47) 03/19/24 15:01 MCV 87.7 fl (85-98) 03/19/24 15:01 MCH 29.0 pg (27-33) 03/19/24 15:01 MCHC 33.1 g/dL (30-55) 03/19/24 15:01 RDW 12.2 % (12.1-15.1 ) 03/19/24 15:01 Plt Count 356 10^3/cmm (157 -399) 03/19/24 15:01 MPV 9.6 fL (7.4-10.4) 03/19/24 15:01 Neut % (Auto) 33.8 % 03/19/24 15:01 Lymph % (Auto) 50.1 % 03/19/24 15:01 [place] % (Auto) 7.2 % 03/19/24 15:01 Eos % (Auto) 7.2 % 03/19/24 15:01 Baso % (Auto) 1.3 % 03/19/24 15:01 Neut # (Auto) 2.90 10^3/uL (1.8 -7.7) 03/19/24 15:01 Lymph # (Auto) 4.3 10^3/uL (0.8- 4.8) 03/19/24 15:01 [place] # (Auto) 0.6 10^3/uL (0.2- 0.9) 03/19/24 15:01 Eos # (Auto) 0.6 10^3/uL (0.0- 0.8) 03/19/24 15:01 Baso # (Auto) 0.1 10^3/uL (0.0- 0.1) 03/19/24 15:01 Nucleated RBC % (a uto) 0 % 03/19/24 15:01 Nucleated RBCs # 0.0 /100WBC 03/19/24 15:01 Sodium 134 mmol/L (136-1 45) L 03/19/24 15:01 Potassium 3.9 mmol/L (3.5-5 .1) 03/19/24 15:01 Chloride 100 mmol/L (98-10 7) 03/19/24 15:01 Carbon Dioxide 20 mmol/L (22-29) L 03/19/24 15:01 Anion Gap 17.9 (5-19) 03/19/24 15:01 BUN 9 mg/dL (6-20) 03/19/24 15:01 Creatinine 0.8 mg/dL (0.5-0. 9) 03/19/24 15:01 GFR Calculation 74.2 mL/min (90-1 30) L 03/19/24 15:01 Glucose 106 mg/dL (65-115 ) 03/19/24 15:01 Calculated Osmolal ity 277 mOsm/kg (285- 295) L 03/19/24 15:01 Calcium 9.7 mg/dL (8.5-10 .5) 03/19/24 15:01 Total Bilirubin 0.2 mg/dL (0.15-1 .2) 03/19/24 15:01 AST 26 U/L (0-32) 03/19/24 15:01 ALT 37 U/L (0-33) H 03/19/24 15:01 Alkaline Phosphata se 92 U/L (35-105) 03/19/24 15:01 Total Protein 7.4 g/dL (6.6-8.7 ) 03/19/24 15:01 Albumin 4.3 g/dL (3.5-5.2 ) 03/19/24 15:01 Globulin 3.1 g/dL (1.3-4.6 ) 03/19/24 15:01 Urine Color Yellow (Yellow) 03/19/24 18:16 Urine Appearance Clear (CLEAR) 03/19/24 18:16 Urine pH 6.5 (5-7) 03/19/24 18:16 Ur Specific Gravit y 1.005 (1.005-1.0 30) 03/19/24 18:16 Urine Protein Neg (Negative) 03/19/24 18:16 Urine Glucose (UA) Norm (Normal) 03/19/24 18:16 Urine Ketones Negative (Negati ve) 03/19/24 18:16 Urine Blood Neg (Negative) 03/19/24 18:16 Urine Nitrate Negative (Negati ve) 03/19/24 18:16 Urine Bilirubin Neg (Negative) 03/19/24 18:16 Urine Urobilinogen Neg mg/dL (Negati ve) 03/19/24 18:16 Ur Leukocyte Norma ase Negative (Negati ve) 03/19/24 18:16 Salicylates < 0.3 mg/dL (3-10 ) L 03/19/24 15:01 Urine Opiates Scre en Negative ng/mL (N egative) 03/19/24 18:16 Acetaminophen < 5.0 ug/mL (10-3 0) L 03/19/24 15:01 Ur Barbiturates Sc reen Negative ng/mL (N egative) 03/19/24 18:16 Valproic Acid 76.9 ug/mL (50-10 0) 03/25/24 08:06 Ur Phencyclidine S crn Negative ng/mL (N egative) 03/19/24 18:16 Ur Amphetamines Sc reen Negative ng/mL (N egative) 03/19/24 18:16 U Benzodiazepines Scrn Negative ng/mL (N egative) 03/19/24 18:16 [place] 0.4 mmol/L (0.6-1 .2) L 03/19/24 15:01 Urine Cocaine Scre en Negative ng/mL (N egative) 03/19/24 18:16 U Marijuana (THC) Screen Negative ng/mL (N egative) 03/19/24 18:16 Ethyl Alcohol < 10 mg/dL (0-10) 03/19/24 15:01 Vitals: Last Vital Signs Temp 98.0 F 03/24/24 19:59 Pulse 63 03/25/24 06:00 Resp 16 03/25/24 06:00 BP 108/54 03/25/24 06:00 Pulse Ox 97 03/25/24 06:00 O2 Del Method Room Air 03/24/24 06:00 Discharge Plan Discharge Patient Disposition: Home Condition: Stable Prescriptions: New haloperidol 1 mg Tablet 1.5 mg PO DAILY 30 Days Qty: 45 1RF divalproex 500 mg Tablet Extended Release 24 Hr 500 mg PO 2100 30 Days Qty: 30 1RF gabapentin 100 mg Capsule 100 mg PO TID 30 Days Qty: 90 1RF divalproex 250 mg Tablet Extended Release 24 Hr 750 mg PO 0900 30 Days Qty: 90 1RF Continued trazodone 100 mg tablet 200 mg PO BEDTIME PRN (Reason: insomnia) 30 Days Qty: 60 1RF Discontinued gabapentin 100 mg capsule 100 mg PO BID Qty: 60 2RF gabapentin 300 mg capsule 300 mg PO BEDTIME 30 Days Qty: 30 2RF lithium carbonate 300 mg capsule 300 mg PO BID Qty: 60 2RF bupropion HCl 300 mg tablet extended release 24 hr 300 mg PO DAILY divalproex 500 mg tablet extended release 24 hr 500 mg PO 0900,2100 quetiapine 100 mg tablet 100 mg PO BEDTIME Discharge Orders: Discharge Order (Routine); Ordered 03/25/24 Ordered By: Scout Interiano Referrals: [facility] [Outside] - 03/28/24 1:45 pm (Appointment is for a hospital follow up only with Kait ) Angelina Rebolledo DO [Primary Care Provider] - Discharge Diet: Regular Discharge Activity: Resume usual activity Patient Instructions: Opioid Safety Discharge Attestations NPU Time Spent in Discharge Care*: less than 30 min Specific Discharge Activities: Specific discharge activities: educating patient, discussing with employment evaluator/case manager/social workers/dc planners, documenting/other paperwork and evaluating patient/reviewing data Coding Level of Care Code Acute Code for [facility] Fwd Diagnoses Bipolar disorder, curr episode mixed, severe, w/o psychotic features F31.63 Suicidal ideation R45.851
[2024-03-25 10:02] VITALS: BP 108/54; PULSE 63; RESP 16; O2SAT 97
== END 2024-03-25 12:36 | disposition home or self-care (01) | DRG 885 ==
LOC: ER 15:49 → NP 16:08
PROVIDERS: Emergency Medicine; Psychiatry & Neurology Psychiatry; Admitting Provider Psychiatry & Neurology Psychiatry; Emergency Provider Nurse Practitioner Family; PCP Family Medicine; Visit Provider Psychiatry & Neurology Psychiatry
DX: F31.63 Bipolar disorder, current episode mixed, severe, without psychotic features (principal); R45.851 Suicidal ideations; F41.1 Generalized anxiety disorder; Z91.51 Personal history of suicidal behavior; Z87.891 Personal history of nicotine dependence; I10 Essential (primary) hypertension; E78.5 Hyperlipidemia, unspecified; F60.3 Borderline personality disorder
CPT/HCPCS: 36415; 80053; 80164; 80178; 80306; 80307; 81003; 85025; 93005; 97150; 97165; 99285

== ENCOUNTER 2024-06-28 16:03 | Inpatient (IN) | payer MEDICARE, MEDICAID, SELFPAY ==
[2024-06-28 16:05] VITALS: BP 140/64; PULSE 91; RESP 18; TEMP 36.8; O2SAT 95; BMI 29.9
--- NOTE | 2024-06-28 16:12 | ECG_ITS ---
[facility] Test Date: 2024-06-28 Pat Name: Alisa Kohli Department: Room: Gender: Female Quick Technician: : 1965 Requested By: Hi Perez Order Number: [id number] Rajendra MD: Desean Howard M.D. Measurements Intervals [place] Rate: 67 P: 51 AL: 159 QRS: 14 QRSD: 105 T: 20 QT: 412 QTc: 435 Interpretive Statements SINUS RHYTHM LOW QRS VOLTAGE IN PRECORDIAL LEADS [QRS DEFLECTION < 1.0 mV IN CHEST LEADS] Compared to ECG 03/19/2024 13:37:31 Myocardial infarct finding no longer present Electronically Signed On 06-29-2024 00:57:56 CDT by Desean Howard M.D. [email or web address]
--- NOTE | 2024-06-28 16:12 | CTR_ITS ---
PROCEDURE INFORMATION: Exam: CT Head Without Contrast Exam date and time: 06/28/2024 4:22 PM Age: 58 years old Clinical indication: Pain; Headache; Additional info: BANUELOS TECHNIQUE: Imaging protocol: Computed tomography of the head without contrast. Radiation optimization: All CT scans at this facility use at least one of these dose optimization techniques: automated exposure control; mA and/or kV adjustment per patient size (includes targeted exams where dose is matched to clinical indication); or iterative reconstruction. COMPARISON: CT head wo con* [id number] 09/21/2022 11:36 AM RADIATION DOSE METRICS: Total DLP (mGy-cm): 1156 FINDINGS: Brain: No acute intracranial hemorrhage, cerebral edema, or midline shift. Cerebral ventricles: No hydrocephalus. Paranasal sinuses: There is no acute sinusitis. Mastoid air cells: Visualized mastoid air cells are well aerated. Orbital cavities: The visualized orbits appear unremarkable. Bones: Unremarkable. No acute fracture. Soft tissues: Unremarkable. CT/CT head wo con* [id number] IMPRESSION: No acute intracranial abnormality.
--- NOTE | 2024-06-28 16:19 | ED.C_ITS ---
HPI - Psych 2 General: Chief Complaint: Psychiatric Symptoms Stated Complaint: SI Time Seen by Provider: 06/28/24 16:04 Source: patient and EMS Mode of arrival: EMS Limitations: no limitations History of Present Illness: 58-year-old female who is here with dayanna lincoln complaints patient has anxiety and bipolar history states she has chronic pain states that over the last week she has been having chest pain she states she is also been having ear pain states she has been having seizures she states multiple seizures states that today she had 1 while she is talking her friend but never lost any consciousness. Patient also states that she just does not want to live life anymore and is suicidal and has plans to kill herself. She is awake alert answering all my questions appropriately currently. Related Data Previous Rx's Medication Instructions Recorded divalproex 500 mg tablet,extended 1,000 mg (2 x 500 mg) PO .AM 30 04/26/24 release 24 hr days #60 tabs gabapentin 100 mg capsule 100 mg PO TID 30 days #90 caps 04/26/24 haloperidol 1 mg tablet 1.5 mg (1.5 x 1 mg) PO DAILY 30 04/26/24 days #45 tabs trazodone 100 mg tablet 200 mg (2 x 100 mg) PO BEDTIME PRN 04/26/24 insomnia 30 days #60 tabs Allergies Allergy/AdvReac Type Severity Reaction Status Date / Time Sulfa (Sulfonamide Allergy Unknown Unknown Verified 03/19/24 13:51 Antibiotics) Review of Systems 2 Const: Denies: fever(s), chills, body aches or change in appetite ENMT: Denies: throat pain or dental pain Card: Reports: chest pain Resp: Denies: dyspnea GI: Denies: abdominal pain, nausea, vomiting or diarrhea Musc: Reports: neck pain; Denies: back pain Skin/Breast: Denies: rash Neuro: Reports: seizure-like activity; Denies: headache(s) PFSH ED 2 PFSH: Medical History Hypoxia Aspiration pneumonia Metabolic encephalopathy History of suicide attempt [place] toxicity Abnormal thyroid function test Borderline personality disorder Auditory hallucination History of breast cancer Dyslipidemia Depression HTN (hypertension) Psychiatric care Surgical History History of lumpectomy of right breast Social History Smoking and tobacco/nicotine status: former use of tobacco/nicotine Quit status (tobacco/nicotine): has quit using Year quit tobacco: 2021 Second hand smoke exposure: No Alcohol intake: former Substance/Drug Use: former Date of last use: When in school. Physical Exam 2 Const: COMMON NORMALS: no acute distress, patient oriented x3 and healthy appearing HENMT: COMMON NORMALS: normocephalic and atraumatic HEAD & SCALP: n ormocephalic and atraumatic Eye: COMMON NORMALS: Equal, round and reactive pupils present and EOMs intact bilaterally PUPIL: Yes Equal, round and reactive pupils present Neck/C-Spine: COMMON NORMALS: full ROM and supple Chest: COMMONS NORMALS: normal inspection of the chest Resp: COMMON NORMALS: normal respiratory effort, No retractions, No use of accessory muscles and clear to auscultation bilaterally AUSCULTATION: clear to auscultation bilaterally Cardio: COMMON NORMALS: regular rate, regular rhythm and No murmurs present (Cardio) RATE: regular rate RHYTHM: regular rhythm GI: COMMON NORMALS: Normal to inspection, nondistended, normoactive bowel sounds present, Soft to palpation, non-tender and no masses PALPATION: Yes Soft to palpation Extremity: COMMON NORMALS: normal to inspection and full ROM Neuro: COMMON NORMALS: patient oriented x3, moves all extremities and no focal motor deficits Psych: COMMON NORMALS: mental status grossly normal and cooperative THOUGHT CONTENT: Yes Suicidality present Skin: COMMON NORMALS: no rashes or lesions noted and no wounds GENERAL SKIN EXAM: no rashes or lesions noted Course 2 Vital Signs: Vital signs: Vital Signs Temperature 98.2 F 06/28/24 16:05 Pulse Rate 91 06/28/24 16:05 Respiratory Rate 18 06/28/24 16:05 Blood Pressure 140/64 06/28/24 16:05 Pulse Oximetry 95 06/28/24 16:05 Oxygen Delivery Me thod Room Air 06/28/24 16:05 MDM - Psych Medical Decision Making Patient presents for suicidal ideation she is medically cleared was placed on a 96-hour hold she has been complaining of possible seizure and chest pain for days she has had no signs of seizure activity here head CT blood work troponins normal no signs of ACS I did speak to the psychiatrist patient's medically cleared will admit to the psych [place]. Medical Records I reviewed the patient's medical records. Lab Data I reviewed the patient's lab results. 06/28/24 18:30 06/28/24 17:[address] 06/28/24 16:12 IMPRESSION: No acute intracranial abnormality. Laboratory Results WBC 9.18 10^3/uL (3.29-11.43) 06/28/24 18:30 Corrected WBC Cancelled 06/28/24 17:10 RBC 4.92 10^6/uL (3.85-5.65) 06/28/24 18:30 Hgb 14.90 g/dL (11.27-16.99) 06/28/24 18:30 Hct 46.5 % (36-47) 06/28/24 18:30 MCV 94.5 fl (85-98) 06/28/24 18:30 MCH 30.3 pg (27-33) 06/28/24 18: MCHC 32.0 g/dL (30-55) 06/28/24 18:30 RDW 12.9 % (12.1-15.1) 06/28/24 18:30 Plt Count 162 10^3/cmm (157-399) 06/28/24 18:30 MPV 11.1 fL (7.4-10.4) H 06/28/24 18:30 Gran % Cancelled 06/28/24 17:10 Neut % (Auto) 38.9 % 06/28/24 18:30 Lymph % (Auto) 52.3 % 06/28/24 18:30 [place] % (Auto) 7.1 % 06/28/24 18:30 Eos % (Auto) 1.0 % 06/28/24 18:30 Baso % (Auto) 0.5 % 06/28/24 18:30 Neut # (Auto) 3.57 10^3/uL (1.8-7.7) 06/28/24 18:30 Lymph # (Auto) 4.8 10^3/uL (0.8-4.8) 06/28/24 18:30 [place] # (Auto) 0.7 10^3/uL (0.2-0.9) 06/28/24 18:30 Eos # (Auto) 0.1 10^3/uL (0.0-0.8) 06/28/24 18:30 Baso # (Auto) 0.1 10^3/uL (0.0-0.1) 06/28/24 18:30 Absolute Gran (auto) Cancelled 06/28/24 17:10 Nucleated RBC % (auto) 0 % 06/28/24 18:30 Nucleated RBCs # 0.0 /100WBC 06/28/24 18:30 Sodium 140 mmol/L (136-145) 06/28/24 17:12 Potassium 4.0 mmol/L (3.5-5.1) 06/28/24 17:12 Chloride 105 mmol/L (98-107) 06/28/24 17:12 Carbon Dioxide 24 mmol/L (22-29) 06/28/24 17:12 Anion Gap 15.0 (5-19) 06/28/24 17:12 BUN 15 mg/dL (6-20) 06/28/24 17:12 Creatinine 0.9 mg/dL (0.5-0.9) 06/28/24 17:12 GFR Calculation 64.8 mL/min (90-130) L 06/28/24 17:12 Glucose 102 mg/dL (65-115) 06/28/24 17:12 Calculated Osmolality 291 mOsm/kg (285-295) 06/28/24 17:12 Calcium 8.8 mg/dL (8.5-10.5) 06/28/24 17:12 Total Bilirubin 0.2 mg/dL (0.15-1.2) 06/28/24 17:12 AST 18 U/L (0-32) 06/28/24 17:12 ALT 24 U/L (0-33) 06/28/24 17:12 Alkaline Phosphatase 91 U/L (35-105) 06/28/24 17:12 Troponin T Baseline < 6 ng/L (0-10) 06/28/24 17:10 Total Protein 7.2 g/dL (6.6-8.7) 06/28/24 17:12 Albumin 4.4 g/dL (3.5-5.2) 06/28/24 17:12 Globulin 2.8 g/dL (1.3-4.6) 06/28/24 17:12 Salicylates < 0.3 mg/dL (3-10) L 06/28/24 17:12 Urine Opiates Screen Negative ng/mL (Negative) 06/28/24 16:23 Acetaminophen < 5.0 ug/mL (10-30) L 06/28/24 17:12 Ur Barbiturates Screen Negative ng/mL (Negative) 06/28/24 16:23 Valproic Acid 53.0 ug/mL (50-100) 06/28/24 17:12 Ur Phencyclidine Scrn Negative ng/mL (Negative) 06/28/24 16:23 Ur Amphetamines Screen Negative ng/mL (Negative) 06/28/24 16:23 U Benzodiazepines Scrn Negative ng/mL (Negative) 06/28/24 16:23 Urine Cocaine Screen Negative ng/mL (Negative) 06/28/24 16:23 U Marijuana (THC) Screen Positive ng/mL (Negative) H 06/28/24 16:23 Ethyl Alcohol < 10 mg/dL (0-10) 06/28/24 17:12 All radiology interpretation(s) finalized by discharge EKG Data EKG 1: I personally reviewed and interpreted this EKG as follows: EKG interpretation date: 06/28/24 EKG interpretation time: 16:47 Interpretation: nsr hr [address] or t wave abnormalities qrs 105 qtc 427 Discharge Plan Discharge Patient Disposition: Admitted As Inpatient Clinical Impression: Suicidal ideation Condition: Stable Prescriptions: No Action divalproex 500 mg tablet extended release 24 hr 1,000 mg PO .AM 30 Days Qty: 60 2RF gabapentin 100 mg capsule 100 mg PO TID 30 Days Qty: 90 2RF haloperidol 1 mg tablet 1.5 mg PO DAILY 30 Days Qty: 45 2RF trazodone 100 mg tablet 200 mg PO BEDTIME PRN (Reason: insomnia) 30 Days Qty: 60 2RF Referrals: Angelina Rebolledo DO [Primary Care Provider] - Coding Level of Care Code ED Mgmt Analyst for Ch[facility] Corinne
[2024-06-28 16:49] LABS: Amphetamines Screen Urine Negative (Negative); Barbiturates Screen Urine Negative (Negative); Benzodiazepines Screen Urine Negative (Negative); Cocaine Screen Urine Negative (Negative); Opiate Screen Urine Negative (Negative); PCP Screen Urine Negative (Negative); THC Screen Urine Positive (Negative)
--- NOTE | 2024-06-28 17:10 | PC.NURSE ---
96hold paperwork given to patient at 1630. Rights were read to patient and a paper copy was given to patient by house carpenter helper, Corinna Mcallister RN
[2024-06-28 17:41] LABS: Alanine Aminotransferase 24 U/L (0-33); Albumin Level 4.4 g/dL (3.5-5.2); Alkaline Phosphatase 91 U/L (35-105); Blood Urea Nitrogen 15 mg/dL (6-20); Calcium 8.8 mg/dL (8.5-10.5); Carbon Dioxide 24 mmol/L (22-29); Chloride 105 mmol/L (98-107); Creatinine Clr Calc Pharmacy 73.6685; Globulin 2.8 g/dL (1.3-4.6); Glomerular Filtration Rate 64.8 mL/min (90-130); Glucose 102 mg/dL (65-115); Osmolality Calculated 291 mOsm/kg (285-295); Sodium 140 mmol/L (136-145); Total Bilirubin 0.2 mg/dL (0.15-1.2); Total Protein 7.2 g/dL (6.6-8.7)
[2024-06-28 17:43] LABS: Acetaminophen < 5.0 ug/mL (10-30); Alcohol Level < 10 mg/dL (0-10); Salicylate < 0.3 mg/dL (3-10)
[2024-06-28 17:47] LABS: Aspartate Amino Transferase 18 U/L (0-32)
[2024-06-28 18:06] LABS: Troponin(5th) Baseline < 6 ng/L (0-10)
[2024-06-28 18:33] LABS: Basophils # 0.1 10^3/uL (0.0-0.1); Basophils % 0.5 %; Eosinophils # 0.1 10^3/uL (0.0-0.8); Hematocrit 46.5 % (36-47); Lymphocytes # 4.8 10^3/uL (0.8-4.8); Lymphocytes % 52.3 %; Mean Corpuscular Hemoglobin 30.3 pg (27-33); Mean Corpuscular Volume 94.5 fl (85-98); Mean Platelet Volume 11.1 fL (7.4-10.4); Monocytes # 0.7 10^3/uL (0.2-0.9); Monocytes % 7.1 %; Neutrophils # 3.57 10^3/uL (1.8-7.7); Neutrophils % 38.9 %; Nucleated Red Blood Cells % 0 %; Platelet Count 162 10^3/cmm (157-399); Red Blood Count 4.92 10^6/uL (3.85-5.65); Red Cell Distribution Width 12.9 % (12.1-15.1); White Blood Count 9.18 10^3/uL (3.29-11.43)
[2024-06-28] MEDS: LORazepam 2 mg/mL INJ 1 mL 1 MG IM (18:38)
[2024-06-28 18:51] LABS: Slide Review Slide Review Perform
[2024-06-28 20:00] VITALS: BP 90/48; PULSE 67; O2SAT 97
[2024-06-28 21:10] VITALS: BP 106/73; PULSE 75; RESP 16; TEMP 36.6; O2SAT 96
[2024-06-28 21:18] VITALS: BP 106/73; PULSE 75; RESP 16; TEMP 36.6; O2SAT 96
[2024-06-28 21:29] VITALS: BP 90/48; PULSE 67; O2SAT 97
[2024-06-29 06:00] VITALS: BP 135/75; PULSE 54; RESP 16; TEMP 37.1; O2SAT 98
[2024-06-29 06:09] VITALS: BP 135/75; PULSE 54; RESP 16; TEMP 37.1; O2SAT 98
[2024-06-29] MEDS: nicotine 2 mg Gum BUCCAL (08:22)
[2024-06-29] MEDS: flu vacc pf 24-25 (6 mos+) SYRINGE 45 MCG IM (08:46)
--- NOTE | 2024-06-29 08:54 | P.NPUHP_ITS ---
Providers/Chief Complaint 2 Admitting Physician: Scout Interiano MD Primary Care Provider: Angelina Rebolledo DO Chief Complaint: SI HPI NPU History of Present Illness Alisa Kohli is a 58 year old female who presented to the emergency department with the following report: Chief Complaint: Psychiatric Symptoms Stated Complaint: SI Time Seen by Provider: 06/28/24 16:04 Source: patient and EMS Mode of arrival: EMS Limitations: no limitations History of Present Illness: 58-year-old female who is here with multiple complaints patient has anxiety and bipolar history states she has chronic pain states that over the last week she has been having chest pain she states she is also been having ear pain states she has been having seizures she states multiple seizures states that today she had 1 while she is talking her friend but never lost any consciousness. Patient also states that she just does not want to live life anymore and is suicidal and has plans to kill herself. She is awake alert answering all my questions appropriately currently. She was admitted to the neuropsychiatric unit for definitive treatment of those issues. She presented today as a limited historian with significant inpatient and outpatient services at [facility] psychiatry. She presented with a UDS positive for cannabis and significant somatic complaints. She denied any significant changes or substantive changes since she was here in March and an excerpt of that discharge summary is included below for context and history given her denying any real changes. He reported that she was really tired and just needed things to get better with her medication. We discussed the risk benefits and alternatives to discontinuing her cannabis use which she would not really describe in any detail. We discussed the fact that the concentration of cannabis has increased to a level where it alone could be the explanation for why she is having difficulties right now. We discussed the plan to talk to her outpatient team and consider changes after that. Per her 03/25/2024 [facility] inpatient psychiatric discharge summary: Discharge Diagnosis (1) Bipolar disorder, curr episode mixed, severe, w/o psychotic features: Status: Resolved (2) Suicidal ideation: Status: Resolved Reason for Visit Reason for Visit: SOB, chest pain Brief History: History of Present Illness Alisa Kohli is a 58 year old female with a history of bipolar disorder type I, ALISON, and Borderline Personality disorder who presented to the emergency department with complaints of having increased problems with shortness of breath. She had also endorsed having worsening mood and suicidal ideation more frequently over the past month. She had requested a change in medications as she had reported continued depression and frequent cycling into travis. She had reported that she had been hearing a voice in her head and states that she often feels overly tired. Patient had been admitted to the neuropsychiatric unit for further evaluation and treatment. She had requested a change in medications as she had stated that she had wished to be placed on haldol with reports of previous benefits with managing her racing thoughts as well. She reported no substantial changes since her last hospitalization in August 2023. She had reported no recent inpatient hospitalizations. She had reported no recent changes in medical history as well. She had complained of having increased nightmares and anxiety with her current medications. She had reported having more problems with feeling short of breath with her medications. She denies any drug or alcohol abuse. She reports that she is living in [place] by herself. Current medications: Wellbutrin XL 300 mg daily Seroquel 100 mg at night [place] 300 mg twice daily hydroxyzine 50 mg QID PRN trazodone 100-200 mg at night as needed gabapentin 300 mg at night, 100mg bid Depakote ER 1000 mg daily Medical Hx: Metabolic Encephalopathy, lithium toxicity, history of breast cancer, hypertension, dyslipidemia, aspiration pneumonia, hypoxia, unspecified thyroid issues. Surgical Hx: none reported. Allergies: SULFA NPU Discharge Summary from 08/24/23 Diagnoses at Discharge Discharge Diagnosis (1) Bipolar disorder, curr episode mixed, severe, w/o psychotic features: Status: Resolved (2) Suicidal ideation: Status: Resolved Reason for Visit MHE Brief History: History of Present Illness Alisa Kohli is a 57 year old female who presented to the emergency department with the following report: Chief Complaint: Psychiatric Symptoms Stated Complaint: MHE Time Seen by Provider: 08/20/23 10:07 Source: patient Mode of arrival: ambulatory Limitations: no limitations History of Present Illness: Patient is a 57-year-old female presents to ED today stating she is depressed and suicidal. She initially checked in with a complaint of chronic neck and back pain and had requested medication adjustment for her chronic pain. She later told nursing staff she was suicidal with a plan to slit her wrist. During my initial assessment she tells me that she needs to be admitted to the hospital as she does not feel safe going home. She states I do not think I would harm anybody else but I think I would harm myself . Patient has an extensive psychiatric history. Her last NPU hospitalization was approximately a year ago. She states she follows up with Dr. Valenzuela as an outpatient. complaint: suicidal ideation and feels depressed Onset (ago): day(s) Duration: constant History of same: Yes Relieving factors: none Exacerbating factors: none Associated psychiatric symptoms: depression Associated symptoms: Reports depression and suicidal ideation; Deny auditory hallucinations, visual hallucinations or homicidal ideation Treatments prior to arrival: none If self harm: admits thoughts of self harm and has plan Details of plan: states she will slit her wrists with a knife She was admitted to the neuropsychiatric unit for definitive treatment of those issues. She presents today known to this senior copywriter through 2 past hospitalizations. Last hospitalization was September of this year where she came in simplified and noncoherent with elevated lithium levels which left her in the ICU for several days. During that stay she did not give a lot of information and was mostly out of it and stuporous. Her previous hospitalization in April 2022 we reviewed and she reports there are no substantive changes since then. She has been seen at [facility] since January 2022 which was after an inpatient hospitalization with this senior copywriter and she has been consistent with her appointments with him since then. She reports that she thinks her depression is secondary to not really having an antidepressants on board. She reports that she has had success with Wellbutrin in the past. We discussed the risks, benefits and alternatives of a trial of Wellbutrin XL and she understood and agreed to proceed as is documented in this note. She reports that otherwise things have been fairly normal and she feels that some financial stressors might have played a role in how things have been. Per her 04/22/2022 [facility] inpatient psychiatric discharge summary: Discharge Diagnosis (1) Bipolar disorder, curr episode mixed, severe, w/o psychotic features: Status: Acute (2) Suicidal ideation: Status: Acute Reason for Visit Reason for Visit: manic symptoms Brief History: Alisa presents today reporting her Seroquel has been making her shaky and she is currently taking Seroquel 100 mg, Ambien 5 mg, Abilify, [place], Depakote, Gabapentin and Cymbalta. She reports she had taken her night time medication of Seroquel and Ambien at 3pm but her feet had been hurting so she reported not feeling right. She endorses she has been having auditory hallucinations of people who have passed in her family throughout her life and has been having it more recently but could not recall how long it has been occurring. She was diagnosed at 24 years old with bipolar disorder. She has been psychiatrically hospitalized around 20 times, the first time of which was around 24 years old in [place] and the most recent of which was at [facility]. She reports she had worked until she was put on disability for the past 30 years. She reports her sleep has not been doing well even being on Seroquel and Ambien as she also gets restless leg syndrome. She endorses a recent manic state with racing thoughts, more recently irritable but has times where she is increasing happy. She denies current depression symptoms and reports she has had mixed episodes of travis and depression before as noted by her provider. She has felt something is not right which is why she brought herself into the emergency department. She has a pillowcase turner through [facility] and was supposed to see her tomorrow. She reports up to a pack of cigarettes a day, denies alcohol, marijuana or any other illicit drug use. She reports in the past she has only been restarted on her medications and had minor changes made but has not had major changes to her medications. She endorses cycling through periods of travis and depression which can change within the span of a month. She reports periods of decrease need for sleep, increased grandiosity, racing thoughts lasting greater than a week with high energy and increased risk taking behaviors lasting for several days. She reports having restless legs on her current medication. Psychiatric History: Inpatient treatment over 20x for bipolar disorder, most recently at [facility] in [place], Outpatient treatment: Dr. Valenzuela recently 3 months ago at [facility]. Medications on admission: Cymbalta 30mg in am Abilify 10mg daily Depakote 500mg ER tid Wellbutrin xl 150mg in am [place] 300mg po tid Gabapentin 300mg daily Atorvastatin 40mg daily ambien 5mg at night naproxen prn Substance Abuse History: As above. Medical History: neuropathy, hypercholesterolemia, Allergies: sulfa drugs Surgeries: unknown Family History: She did not report a family history of mental health or addiction issues during the interview. Developmental History: She did not report any developmental delays or needing to receive speech therapy, learning support, emotional support or special education classes during the interview. Psychosocial History: She was born in [facility] and raised by her grandparents on her mother?s side as her parents split. She has been twice, once and once. She is currently living in an apartment by herself. She is disabled and is on survivor?s benefits from her grandmother and mother. She denies any traumatic events. 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 She lives in [address], lives alone, on disability, raised as a [employer]ec[employer]al. Family Psychiatric History: dementia Legal History: She did not report any legal issues during the interview. Hospital Course She slowly acclimated to the individual, group therapies provided.? She presented to the hospital with significant concern for psychosis, suicidal ideation and mood dysregulation reporting frequent cycling with travis. Wellbutrin and lithium were discontinued as well as Seroquel. Depakote was increased to 750 in the morning and 500 at night. Haldol was initiated and increased to 1.5 mg p.o. nightly. She had a positive response to these changes during the hospitalization. She was able to work with the social work team for safe discharge planning. They work towards appropriate outpatient appointments and follow-up. She had significant improvement and she was able to contract for safety outside of the hospital, prior to discharge.? During the hospitalization, patient had routine laboratory studies which were within normal limits except for few outliers.? Additionally there was a general medical evaluation which was also within normal limits and revealed no new acute processes. Discharge Summary: At the time of discharge, psychosis and lethality were denied.? Mood and anxiety were well managed.? Patient endorsed a plan to avoid all drugs of abuse and follow-up with the aftercare recommendations of the treatment team.? Patient was evaluated and deemed to be absent credible lethality, and had achieved the maximum benefit from an inpatient hospitalization, so was discharged. Meds NPU Home Medications Medication Instructions Recorded Confirmed Last Taken Type gabapentin 100 mg capsule 100 mg PO TID 30 days #90 caps 04/26/24 06/29/24 Unknown Rx haloperidol 1 mg tablet 1.5 mg (1.5 x 1 mg) PO DAILY 30 08/14/24 10/17/24 Unknown Rx days #45 tabs trazodone 100 mg tablet 200 mg (2 x 100 mg) PO BEDTIME PRN 04/26/24 06/29/24 Unknown Rx insomnia 30 days #60 tabs divalproex 500 mg tablet,extended 1,000 mg PO DAILY 06/29/24 06/29/24 Unknown History release 24 hr Allergies Allergy/AdvReac Type Severity Reaction Status Date / Time Sulfa (Sulfonamide Allergy Unknown Unknown Verified 03/19/24 13:51 Antibiotics) PFSH NPU 2 PFSH: Medical History Hypoxia Aspiration pneumonia Metabolic encephalopathy History of suicide attempt [place] toxicity Abnormal thyroid function test Borderline personality disorder Auditory hallucination History of breast cancer Dyslipidemia Depression HTN (hypertension) Psychiatric care Surgical History History of lumpectomy of right breast Social History Smoking and tobacco/nicotine status: former use of tobacco/nicotine Quit status (tobacco/nicotine): has quit using Year quit tobacco: 2021 Second hand smoke exposure: No Alcohol intake: former Substance/Drug Use: former Date of last use: When in school. Vitals/I&O/Wt Last Vital Signs Temp 98.7 F 06/29/24 06:09 Pulse 54 L 06/29/24 06:09 Resp 16 06/29/24 06:09 BP 135/75 06/29/24 06:09 Pulse Ox 98 06/29/24 06:09 O2 Del Method Room Air 06/29/24 06:09 Weight last 48 hrs Weight 81.647 kg Data NPU 06/28/24 18:30 06/28/24 17:12 A&P Assessment and plan (1) Bipolar disorder, curr episode mixed, severe, w/o psychotic features: (2) Suicidal ideation: (3) Bipolar 1 disorder, depressed: (4) Generalized anxiety disorder: (5) Borderline personality disorder: (6) Suicidal ideation: (7) Cannabis use disorder: Plan Alisa is a 58-year-old white female with a history of bipolar 1 disorder with mixed mood symptoms with significant history of inpatient hospitalizations as well as outpatient treatment who presents with active addiction as well as suicidal ideation, depressed mood and somatic complaints. ? 1. Continue current medication 2. Encourage individual, group and milieu therapy 3. Continue q-15 minute checks for safety 4. Obtain collateral information 5. Encourage sober living treatment after discharge at the highest level care to which she is willing to commit. Involuntary Hold Information 2 96 Hour Hold: 96 Hour Involuntary Admission: No Attestations NPU 2 Medical Necessity Statement*: Inpatient hospitalization is medically necessary and the clinically appropriate intervention at this time. We will initiate medications and make changes as indicated. She will be in the hospital for over 2 midnights. Likely length of stay 4-6 days Coding Level of Care Code Acute Code for [facility] Fwd Diagnoses Bipolar disorder, curr episode mixed, severe, w/o psychotic features F31.63 Suicidal ideation R45.851 Bipolar 1 disorder, depressed F31.9 Generalized anxiety disorder F41.1 Borderline personality disorder F60.3 Cannabis use disorder F12.90
[2024-06-29] MEDS: divalproex ER 500 mg Tablet (24H) PO ×2 (09:22→17:48)
[2024-06-29] MEDS: gabapentin 100 mg Capsule PO ×3 (09:22→20:19)
[2024-06-29] MEDS: haloperidol 1 mg Tablet 1.5 MG PO (09:23)
[2024-06-29] MEDS: acetaminophen 325 mg Tablet 650 MG PO (09:23)
[2024-06-29] MEDS: hyDROXYzine 25 mg Capsule 50 MG PO ×2 (09:31→21:26)
[2024-06-29] MEDS: benztropine 1 mg Tablet PO (09:32)
[2024-06-29 10:01] VITALS: BP 96/58; PULSE 67; RESP 16; TEMP 36.3; O2SAT 96
[2024-06-29] MEDS: nicotine 4 mg lozenge MUCOUS MEM ×5 (10:21→21:27)
[2024-06-29 14:00] VITALS: BP 93/58; PULSE 64; RESP 16; TEMP 36.6; O2SAT 98
[2024-06-29 18:00] VITALS: BP 97/63; PULSE 62; RESP 15; O2SAT 95
[2024-06-29 20:48] VITALS: BP 105/54; PULSE 66; RESP 15; TEMP 37.2; O2SAT 96
[2024-06-29] MEDS: trazodone 100 mg Tablet 200 MG PO (21:26)
[2024-06-30 06:00] VITALS: BP 101/68; PULSE 77; RESP 16; TEMP 36.9; O2SAT 96
[2024-06-30] MEDS: nicotine 4 mg lozenge MUCOUS MEM ×4 (06:47→20:26)
--- NOTE | 2024-06-30 08:55 | P.NPUPN_ITS ---
Subjective NPU 2 Subjective: Patient presented today reporting that she is doing okay. She is very focused on somatic complaints about pain and other things. We continue to talk about her use of marijuana. She reports that she uses Gummies and we discussed that marijuana is fat-soluble and depending on how much she uses it can possibly catch up with her and may be because some of the derailment that she is experiencing. She reports she is doing fine with her medications being reinitiated. She denied any side effects to the medication. Mental Status Exam 2 MSE Comments: This is an overweight versus obese white female with bridges hair in hospital scrubs with improving grooming and fair eye contact who appeared older than her stated age. There were no abnormal movements except for mild psychomotor slowing/retardation. She was cooperative with exam in no acute distress. Speech was normal in rate and volume, and productivity Mood described as fine, I think I should be ready to go home soon affect is mood incongruent and blunted. Thought process: linear, logical and goal directed. Thought content: patient denied suicidal or homicidal ideation. No delusions reported or noted but reported having unusual thoughts. She did not appear to be responding to internal stimuli. Attention and concentration are intact and memory appeared mostly reliable but none were formally tested. She is alert and oriented times three. Insight and judgment are limited. Impulse control is limited and improving. Recent and remote memory were grossly intact. Vitals/I&O/Wt Last Vital Signs Temp 98.5 F 06/30/24 06:00 Pulse 77 06/30/24 06:00 Resp 16 06/30/24 06:00 BP 101/68 06/30/24 06:00 Pulse Ox 96 06/30/24 06:00 O2 Del Method Room Air 06/30/24 06:00 Data NPU 06/28/24 18:30 06/28/24 17:12 A&P Assessment and plan (1) Bipolar disorder, curr episode mixed, severe, w/o psychotic features: (2) Suicidal ideation: (3) Bipolar 1 disorder, depressed: (4) Generalized anxiety disorder: (5) Borderline personality disorder: (6) Suicidal ideation: (7) Cannabis use disorder: Plan Alisa is a 58-year-old white female with a history of bipolar 1 disorder with mixed mood symptoms with significant history of inpatient hospitalizations as well as outpatient treatment who presents with active addiction as well as suicidal ideation, depressed mood and somatic complaints. ? 1. Continue current medication 2. Encourage individual, group and milieu therapy 3. Continue q-15 minute checks for safety 4. Obtain collateral information 5. Encourage sober living treatment after discharge at the highest level care to which she is willing to commit. 6. Patient very somatically preoccupied and wanting Flexeril. Involuntary Hold Information 2 96 Hour Hold: 96 Hour Involuntary Admission: No Attestations NPU 2 Medical Necessity Statement*: Inpatient hospitalization is medically necessary and the clinically appropriate intervention at this time. We will initiate medications and make changes as indicated. Likely length of stay 3-5 days Coding Level of Care Code Acute Code for [facility] Fwd Diagnoses Bipolar disorder, curr episode mixed, severe, w/o psychotic features F31.63 Suicidal ideation R45.851 Bipolar 1 disorder, depressed F31.9 Generalized anxiety disorder F41.1 Borderline personality disorder F60.3 Cannabis use disorder F12.90
[2024-06-30] MEDS: divalproex ER 500 mg Tablet (24H) PO ×2 (09:00→18:21)
[2024-06-30] MEDS: haloperidol 1 mg Tablet 1.5 MG PO (09:00)
[2024-06-30] MEDS: gabapentin 100 mg Capsule PO ×3 (09:00→20:25)
--- NOTE | 2024-06-30 09:00 | PC.NURSE ---
PT CURRENTLY DENIES SI/HI/AH/VH AT THIS TIME. PT CURRENTLY DENIES DEPRESSION. PT STATES THAT SHE FEELS A LITTLE ANXIOUS BECAUSE OF THE SEIZURE PT DID NOT RATE HER ANXIETY HOWEVER PT IS RAMBLING AND SPEAKING ABOUT BEING ALLERGIC TO CATS AND THAT BEING THE REASON SHE IS HERE AT THIS HOSPITAL. PT WAS COOPERATIVE WITH ASSESSMENT AND MEDICATIONS. PT CURRENT NEEDS ARE MET AT THIS TIME.
[2024-06-30] MEDS: benztropine 1 mg Tablet PO (09:02)
[2024-06-30] MEDS: acetaminophen 325 mg Tablet 650 MG PO (18:24)
[2024-06-30 19:29] VITALS: RESP 18
[2024-06-30] MEDS: trazodone 100 mg Tablet 200 MG PO (20:25)
[2024-06-30] MEDS: hyDROXYzine 25 mg Capsule 50 MG PO (20:25)
[2024-06-30] MEDS: docusate sodium 100 mg Capsule PO (21:43)
[2024-06-30] MEDS: nicotine 2 mg Gum BUCCAL (22:31)
[2024-07-01 06:00] VITALS: BP 124/79; PULSE 68; RESP 18; TEMP 36.6; O2SAT 95
[2024-07-01] MEDS: haloperidol 1 mg Tablet 1.5 MG PO (08:03)
[2024-07-01] MEDS: gabapentin 100 mg Capsule PO ×3 (08:04→21:34)
[2024-07-01] MEDS: divalproex ER 500 mg Tablet (24H) PO ×2 (08:04→18:15)
[2024-07-01] MEDS: nicotine 4 mg lozenge MUCOUS MEM ×4 (08:08→19:23)
[2024-07-01] MEDS: acetaminophen 325 mg Tablet 650 MG PO ×2 (11:02→19:22)
[2024-07-01 13:51] VITALS: BP 103/70; PULSE 85; RESP 16; TEMP 36.6; O2SAT 98
[2024-07-01] MEDS: magnesium hydroxide 30 mL UDC PO (15:05)
--- NOTE | 2024-07-01 18:26 | P.NPUPN_ITS ---
Subjective NPU 2 Subjective: Patient presented today reporting that she is feeling she is ready to go home. We discussed the fact that she is on a 96-hour hold and that we really have concerns about her mental health. We discussed the plan was to monitor her through the weekend and that Dr. Alexis make a decision on Wednesday. She denied any side effects of the medication but was very ambivalent about treatment overall. Mental Status Exam 2 MSE Comments: This is an overweight versus obese white female with bridges hair in hospital scrubs with improving grooming and fair eye contact who appeared older than her stated age. There were no abnormal movements except for mild psychomotor slowing/retardation. She was cooperative with exam in no acute distress. Speech was normal in rate and volume, and productivity Mood described as fine, I think I should be ready to go home soon affect is mood incongruent and blunted. Thought process: linear, logical and goal directed. Thought content: patient denied suicidal or homicidal ideation. No delusions reported or noted but reported having unusual thoughts. She did not appear to be responding to internal stimuli. Attention and concentration are intact and memory appeared mostly reliable but none were formally tested. She is alert and oriented times three. Insight and judgment are limited. Impulse control is limited and improving. Recent and remote memory were grossly intact. Vitals/I&O/Wt Last Vital Signs Temp 98.5 F 07/01/24 20:02 Pulse 82 07/01/24 20:02 Resp 11 L 07/01/24 20:02 BP 118/77 07/01/24 20:02 Pulse Ox 95 07/01/24 20:02 O2 Del Method Room Air 07/01/24 20:02 Weight last 48 hrs Weight 86.183 kg Data NPU 06/28/24 18:30 06/28/24 17:12 A&P Assessment and plan (1) Bipolar disorder, curr episode mixed, severe, w/o psychotic features: (2) Suicidal ideation: (3) Bipolar 1 disorder, depressed: (4) Generalized anxiety disorder: (5) Borderline personality disorder: (6) Suicidal ideation: (7) Cannabis use disorder: Plan Alisa is a 58-year-old white female with a history of bipolar 1 disorder with mixed mood symptoms with significant history of inpatient hospitalizations as well as outpatient treatment who presents with active addiction as well as suicidal ideation, depressed mood and somatic complaints. ? 1. Continue current medication 2. Encourage individual, group and milieu therapy 3. Continue q-15 minute checks for safety 4. Obtain collateral information 5. Encourage sober living treatment after discharge at the highest level care to which she is willing to commit. 6. Patient very somatically preoccupied and wanting Flexeril. Involuntary Hold Information 2 96 Hour Hold: 96 Hour Involuntary Admission: No Attestations NPU 2 Medical Necessity Statement*: Inpatient hospitalization is medically necessary and the clinically appropriate intervention at this time. We will initiate medications and make changes as indicated. Likely length of stay 3-5 days Coding Level of Care Code Acute Code for g Fwd Diagnoses Bipolar disorder, curr episode mixed, severe, w/o psychotic features F31.63 Suicidal ideation R45.851 Bipolar 1 disorder, depressed F31.9 Generalized anxiety disorder F41.1 Borderline personality disorder F60.3 Cannabis use disorder F12.90
[2024-07-01 20:02] VITALS: BP 118/77; PULSE 82; RESP 11; TEMP 36.9; O2SAT 95
[2024-07-01] MEDS: trazodone 100 mg Tablet 200 MG PO (21:34)
[2024-07-01] MEDS: hyDROXYzine 25 mg Capsule 50 MG PO (21:34)
[2024-07-02] MEDS: nicotine 4 mg lozenge MUCOUS MEM ×5 (01:33→17:54)
[2024-07-02 06:00] VITALS: BP 108/52; PULSE 61; RESP 17; TEMP 36.3; O2SAT 96
[2024-07-02] MEDS: nicotine 2 mg Gum BUCCAL (06:41)
--- NOTE | 2024-07-02 07:57 | P.NPUPN_ITS ---
Subjective NPU 2 Subjective: Patient presented today reporting that she is doing okay. She was very focused on the possibility of discharge but continued to be fairly somatically preoccupied. She really had no clear plan for how she was going to ensure sobriety or hopefully get things to a better place. We discussed Dr. Alexis returning tomorrow and him being the decision maker moving forward. He denied any side effects to her medications. Mental Status Exam 2 MSE Comments: This is an overweight versus obese white female with bridges hair in hospital scrubs with improving grooming and fair eye contact who appeared older than her stated age. There were no abnormal movements except for mild psychomotor slowing/retardation. She was cooperative with exam in no acute distress. Speech was normal in rate and volume, and productivity Mood described as fine, I think I should be ready to go home soon affect is mood incongruent and blunted. Thought process: linear, logical and goal directed. Thought content: patient denied suicidal or homicidal ideation. No delusions reported or noted but reported having unusual thoughts. She did not appear to be responding to internal stimuli. Attention and concentration are intact and memory appeared mostly reliable but none were formally tested. She is alert and oriented times three. Insight and judgment are limited. Impulse control is limited and improving. Recent and remote memory were grossly intact. Vitals/I&O/Wt Last Vital Signs Temp 97.4 F L 07/02/24 06:00 Pulse 61 07/02/24 06:00 Resp 17 07/02/24 06:00 BP 108/52 07/02/24 06:00 Pulse Ox 96 07/02/24 06:00 O2 Del Method Room Air 07/01/24 20:02 Weight last 48 hrs Weight 86.183 kg Data NPU 06/28/24 18:30 06/28/24 17:12 A&P Assessment and plan (1) Bipolar disorder, curr episode mixed, severe, w/o psychotic features: (2) Suicidal ideation: (3) Bipolar 1 disorder, depressed: (4) Generalized anxiety disorder: (5) Borderline personality disorder: (6) Suicidal ideation: (7) Cannabis use disorder: Plan Alisa is a 58-year-old white female with a history of bipolar 1 disorder with mixed mood symptoms with significant history of inpatient hospitalizations as well as outpatient treatment who presents with active addiction as well as suicidal ideation, depressed mood and somatic complaints. ? 1. Continue current medication 2. Encourage individual, group and milieu therapy 3. Continue q-15 minute checks for safety 4. Obtain collateral information 5. Encourage sober living treatment after discharge at the highest level care to which she is willing to commit. 6. Patient very somatically preoccupied and wanting different medications. Involuntary Hold Information 2 96 Hour Hold: 96 Hour Involuntary Admission: No Attestations NPU 2 Medical Necessity Statement*: Inpatient hospitalization is medically necessary and the clinically appropriate intervention at this time. We will initiate medications and make changes as indicated. Likely length of stay 2-4 days Coding Level of Care Code Acute Code for g Fwd Diagnoses Bipolar disorder, curr episode mixed, severe, w/o psychotic features F31.63 Suicidal ideation R45.851 Bipolar 1 disorder, depressed F31.9 Generalized anxiety disorder F41.1 Borderline personality disorder F60.3 Cannabis use disorder F12.90
--- NOTE | 2024-07-02 08:09 | PC.NURSE ---
Patient sitting in the dayroom, drinking coffee. Patient denies si/hi and avh. She does say occasionally that she feels something spiritual telling her that someone is thinking about her, but that it is not voices or images, just a feeling. Patient calm, cooperative, and pleasant this morning. A&O X 4.
[2024-07-02] MEDS: haloperidol 1 mg Tablet 1.5 MG PO (08:31)
[2024-07-02] MEDS: gabapentin 100 mg Capsule PO ×3 (08:32→20:10)
[2024-07-02] MEDS: divalproex ER 500 mg Tablet (24H) PO ×2 (08:32→17:46)
[2024-07-02 14:00] VITALS: BP 113/74; PULSE 77; RESP 18; TEMP 36.6; O2SAT 96
[2024-07-02 19:51] VITALS: BP 97/64; PULSE 67; RESP 16; TEMP 36.7; O2SAT 97
[2024-07-02] MEDS: hyDROXYzine 25 mg Capsule 50 MG PO (20:10)
[2024-07-02] MEDS: trazodone 100 mg Tablet 200 MG PO (20:10)
[2024-07-03 06:12] VITALS: BP 94/57; PULSE 66; RESP 16; TEMP 36.6; O2SAT 92
[2024-07-03] MEDS: haloperidol 1 mg Tablet 1.5 MG PO (08:00)
[2024-07-03] MEDS: divalproex ER 500 mg Tablet (24H) PO ×2 (08:00→21:30)
[2024-07-03] MEDS: gabapentin 100 mg Capsule PO ×2 (08:00→13:43)
[2024-07-03] MEDS: nicotine 4 mg lozenge MUCOUS MEM ×6 (08:14→21:00)
[2024-07-03] MEDS: acetaminophen 325 mg Tablet 650 MG PO ×2 (09:01→16:13)
[2024-07-03 14:00] VITALS: BP 100/66; PULSE 84; RESP 18; TEMP 36.3; O2SAT 96
--- NOTE | 2024-07-03 17:58 | P.NPUPN_ITS ---
Subjective NPU 2 Subjective: 58-year-old female with bipolar disorder along with borderline personality disorder admitted with mood instability. The patient had reported that she had been feeling somewhat better. She had denied suicidal ideation. She had continued to report a myriad of physical problems. She had stated that she had been using marijuana to help her better manage anxiety. She had continued to report having chronic mood fluctuations. Mental Status Exam 2 MSE Comments: This is an overweight versus obese white female with bridges hair in hospital scrubs with improving grooming and fair eye contact who appeared older than her stated age. There were no abnormal movements except for mild psychomotor slowing/retardation. She was cooperative with exam in no acute distress. Speech was normal in rate and volume, and productivity Mood described as okay. Her affect is mood incongruent and flat. Thought process: linear, logical and goal directed. Thought content: patient denied suicidal or homicidal ideation. No delusions reported or noted but reported having strange thoughts. She did not appear to be responding to internal stimuli. Attention and concentration are intact and memory appeared mostly reliable but none were formally tested. She is alert and oriented times three. Insight and judgment are limited. Impulse control is limited and improving. Recent and remote memory were grossly intact. Vitals/I&O/Wt Last Vital Signs Temp 97.3 F L 07/03/24 14:00 Pulse 84 07/03/24 14:00 Resp 18 07/03/24 14:00 BP 100/66 07/03/24 14:00 Pulse Ox 96 07/03/24 14:00 O2 Del Method Room Air 07/03/24 14:00 Weight last 48 hrs Weight 86.183 kg Data NPU 06/28/24 18:30 06/28/24 17:12 A&P Assessment and plan (1) Bipolar disorder, curr episode mixed, severe, w/o psychotic features: (2) Suicidal ideation: (3) Bipolar 1 disorder, depressed: (4) Generalized anxiety disorder: (5) Borderline personality disorder: (6) Suicidal ideation: (7) Cannabis use disorder: Plan Alisa is a 58-year-old white female with a history of bipolar 1 disorder with mixed mood symptoms with significant history of inpatient hospitalizations as well as outpatient treatment who presents with active addiction as well as suicidal ideation, depressed mood and somatic complaints. ? 1. Continue current medication 2. Encourage individual, group and milieu therapy 3. Continue q-15 minute checks for safety 4. Obtain collateral information 5. Encourage sober living treatment after discharge at the highest level care to which she is willing to commit. 6. Recommend continuing depakote 1000mg/daily and increase in neurontin to 200mg tid. Involuntary Hold Information 2 96 Hour Hold: 96 Hour Involuntary Admission: No Other Hold: Hold End Date: 07/04/24 Attestations NPU 2 Medical Necessity Statement*: Inpatient hospitalization is medically necessary and the clinically appropriate intervention at this time. We will initiate medications and make changes as indicated. Likely length of stay 2-4 days Coding Level of Care Code Acute Code for g Fwd Diagnoses Bipolar disorder, curr episode mixed, severe, w/o psychotic features F31.63 Suicidal ideation R45.851 Bipolar 1 disorder, depressed F31.9 Generalized anxiety disorder F41.1 Borderline personality disorder F60.3 Cannabis use disorder F12.90
[2024-07-03 19:35] VITALS: BP 90/58; PULSE 68; RESP 16; TEMP 36.7; O2SAT 95
[2024-07-03] MEDS: gabapentin 100 mg Capsule 200 MG PO (20:59)
[2024-07-03] MEDS: trazodone 100 mg Tablet 200 MG PO (21:00)
[2024-07-03] MEDS: hyDROXYzine 25 mg Capsule 50 MG PO (21:00)
[2024-07-04] MEDS: nicotine 4 mg lozenge MUCOUS MEM ×2 (03:44→12:31)
[2024-07-04 04:57] VITALS: BP 122/85; PULSE 82; RESP 18; TEMP 36.4; O2SAT 95
[2024-07-04] MEDS: acetaminophen 325 mg Tablet 650 MG PO (05:48)
[2024-07-04] MEDS: haloperidol 1 mg Tablet 1.5 MG PO (09:15)
[2024-07-04] MEDS: divalproex ER 500 mg Tablet (24H) PO (09:16)
[2024-07-04] MEDS: gabapentin 100 mg Capsule 200 MG PO (09:16)
--- NOTE | 2024-07-04 10:21 | DCPLANNER ---
IMM was printed and rights explained and given to pt and copy placed in pts file.
--- NOTE | 2024-07-04 12:44 | W.PM.NPUDCS ---
Diagnoses at Discharge Discharge Diagnosis (1) Bipolar disorder, curr episode mixed, severe, w/o psychotic features: Status: Resolved (2) Suicidal ideation: Status: Resolved (3) Bipolar 1 disorder, depressed: Status: Chronic (4) Generalized anxiety disorder: Status: Acute (5) Borderline personality disorder: Status: Acute (6) Cannabis use disorder: Status: Acute Reason for Visit Reason for Visit: SI Brief History: History of Present Illness Alisa Kohli is a 58 year old female who presented to the emergency department with the following report: Chief Complaint: Psychiatric Symptoms Stated Complaint: SI Time Seen by Provider: 06/28/24 16:04 Source: patient and EMS Mode of arrival: EMS Limitations: no limitations History of Present Illness: 58-year-old female who is here with multiple complaints patient has anxiety and bipolar history states she has chronic pain states that over the last week she has been having chest pain she states she is also been having ear pain states she has been having seizures she states multiple seizures states that today she had 1 while she is talking her friend but never lost any consciousness. Patient also states that she just does not want to live life anymore and is suicidal and has plans to kill herself. She is awake alert answering all my questions appropriately currently. She was admitted to the neuropsychiatric unit for definitive treatment of those issues. She presented today as a limited historian with significant inpatient and outpatient services at [facility] psychiatry. She presented with a UDS positive for cannabis and significant somatic complaints. She denied any significant changes or substantive changes since she was here in March and an excerpt of that discharge summary is included below for context and history given her denying any real changes. He reported that she was really tired and just needed things to get better with her medication. We discussed the risk benefits and alternatives to discontinuing her cannabis use which she would not really describe in any detail. We discussed the fact that the concentration of cannabis has increased to a level where it alone could be the explanation for why she is having difficulties right now. We discussed the plan to talk to her outpatient team and consider changes after that. Per her 03/25/2024 [facility] inpatient psychiatric discharge summary: Discharge Diagnosis (1) Bipolar disorder, curr episode mixed, severe, w/o psychotic features: Status: Resolved (2) Suicidal ideation: Status: Resolved Reason for Visit Reason for Visit: SOB, chest pain Brief History: History of Present Illness Alisa Kohli is a 58 year old female with a history of bipolar disorder type I, ALISON, and Borderline Personality disorder who presented to the emergency department with complaints of having increased problems with shortness of breath. She had also endorsed having worsening mood and suicidal ideation more frequently over the past month. She had requested a change in medications as she had reported continued depression and frequent cycling into travis. She had reported that she had been hearing a voice in her head and states that she often feels overly tired. Patient had been admitted to the neuropsychiatric unit for further evaluation and treatment. She had requested a change in medications as she had stated that she had wished to be placed on haldol with reports of previous benefits with managing her racing thoughts as well. She reported no substantial changes since her last hospitalization in August 2023. She had reported no recent inpatient hospitalizations. She had reported no recent changes in medical history as well. She had complained of having increased nightmares and anxiety with her current medications. She had reported having more problems with feeling short of breath with her medications. She denies any drug or alcohol abuse. She reports that she is living in [place] by herself. Current medications: Wellbutrin XL 300 mg daily Seroquel 100 mg at night [place] 300 mg twice daily hydroxyzine 50 mg QID PRN trazodone 100-200 mg at night as needed gabapentin 300 mg at night, 100mg bid Depakote ER 1000 mg daily Medical Hx: Metabolic Encephalopathy, lithium toxicity, history of breast cancer, hypertension, dyslipidemia, aspiration pneumonia, hypoxia, unspecified thyroid issues. Surgical Hx: none reported. Allergies: SULFA NPU Discharge Summary from 08/24/23 Diagnoses at Discharge Discharge Diagnosis (1) Bipolar disorder, curr episode mixed, severe, w/o psychotic features: Status: Resolved (2) Suicidal ideation: Status: Resolved Reason for Visit MHE Brief History: History of Present Illness Alisa Kohli is a 57 year old female who presented to the emergency department with the following report: Chief Complaint: Psychiatric Symptoms Stated Complaint: MHE Time Seen by Provider: 08/20/23 10:07 Source: patient Mode of arrival: ambulatory Limitations: no limitations History of Present Illness: Patient is a 57-year-old female presents to ED today stating she is depressed and suicidal. She initially checked in with a complaint of chronic neck and back pain and had requested medication adjustment for her chronic pain. She later told nursing staff she was suicidal with a plan to slit her wrist. During my initial assessment she tells me that she needs to be admitted to the hospital as she does not feel safe going home. She states I do not think I would harm anybody else but I think I would harm myself . Patient has an extensive psychiatric history. Her last NPU hospitalization was approximately a year ago. She states she follows up with Dr. Valenzuela as an outpatient. MD complaint: suicidal ideation and feels depressed Onset (ago): day(s) Duration: constant History of same: Yes Relieving factors: none Exacerbating factors: none Associated psychiatric symptoms: depression Associated symptoms: Reports depression and suicidal ideation; Deny auditory hallucinations, visual hallucinations or homicidal ideation Treatments prior to arrival: none If self harm: admits thoughts of self harm and has plan Details of plan: states she will slit her wrists with a knife She was admitted to the neuropsychiatric unit for definitive treatment of those issues. She presents today known to this program writer through 2 past hospitalizations. Last hospitalization was September of this year where she came in simplified and noncoherent with elevated lithium levels which left her in the ICU for several days. During that stay she did not give a lot of information and was mostly out of it and stuporous. Her previous hospitalization in April 2022 we reviewed and she reports there are no substantive changes since then. She has been seen at [facility] since January 2022 which was after an inpatient hospitalization with this program writer and she has been consistent with her appointments with him since then. She reports that she thinks her depression is secondary to not really having an antidepressants on board. She reports that she has had success with Wellbutrin in the past. We discussed the risks, benefits and alternatives of a trial of Wellbutrin XL and she understood and agreed to proceed as is documented in this note. She reports that otherwise things have been fairly normal and she feels that some financial stressors might have played a role in how things have been. Per her 04/22/2022 [facility] inpatient psychiatric discharge summary: Discharge Diagnosis (1) Bipolar disorder, curr episode mixed, severe, w/o psychotic features: Status: Acute (2) Suicidal ideation: Status: Acute Reason for Visit Reason for Visit: manic symptoms Brief History: Alisa presents today reporting her Seroquel has been making her shaky and she is currently taking Seroquel 100 mg, Ambien 5 mg, Abilify, [place], Depakote, Gabapentin and Cymbalta. She reports she had taken her night time medication of Seroquel and Ambien at 3pm but her feet had been hurting so she reported not feeling right. She endorses she has been having auditory hallucinations of people who have passed in her family throughout her life and has been having it more recently but could not recall how long it has been occurring. She was diagnosed at 24 years old with bipolar disorder. She has been psychiatrically hospitalized around 20 times, the first time of which was around 24 years old in [place] and the most recent of which was at [facility]. She reports she had worked until she was put on disability for the past 30 years. She reports her sleep has not been doing well even being on Seroquel and Ambien as she also gets restless leg syndrome. She endorses a recent manic state with racing thoughts, more recently irritable but has times where she is increasing happy. She denies current depression symptoms and reports she has had mixed episodes of travis and depression before as noted by her provider. She has felt something is not right which is why she brought herself into the emergency department. She has a porter sample case through [facility] and was supposed to see her tomorrow. She reports up to a pack of cigarettes a day, denies alcohol, marijuana or any other illicit drug use. She reports in the past she has only been restarted on her medications and had minor changes made but has not had major changes to her medications. She endorses cycling through periods of travis and depression which can change within the span of a month. She reports periods of decrease need for sleep, increased grandiosity, racing thoughts lasting greater than a week with high energy and increased risk taking behaviors lasting for several days. She reports having restless legs on her current medication. Psychiatric History: Inpatient treatment over 20x for bipolar disorder, most recently at [place] in [place], Outpatient treatment: Dr. Valenzuela recently 3 months ago at [facility]. Medications on admission: Cymbalta 30mg in am Abilify 10mg daily Depakote 500mg ER tid Wellbutrin xl 150mg in am [place] 300mg po tid Gabapentin 300mg daily Atorvastatin 40mg daily ambien 5mg at night naproxen prn Substance Abuse History: As above. Medical History: neuropathy, hypercholesterolemia, Allergies: sulfa drugs Surgeries: unknown Family History: She did not report a family history of mental health or addiction issues during the interview. Developmental History: She did not report any developmental delays or needing to receive speech therapy, learning support, emotional support or special education classes during the interview. Psychosocial History: She was born in [facility] and raised by her grandparents on her mother?s side as her parents split. She has been twice, once and once. She is currently living in an apartment by herself. She is disabled and is on survivor?s benefits from her grandmother and mother. She denies any traumatic events. 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 She lives in [address], lives alone, on disability, raised as a Spiritism. Family Psychiatric History: dementia Legal History: She did not report any legal issues during the interview. Hospital Course She slowly acclimated to the individual, group therapies provided.? She presented to the hospital with significant concern for psychosis, suicidal ideation and mood dysregulation reporting frequent cycling with travis. Wellbutrin and lithium were discontinued as well as Seroquel. Depakote was increased to 750 in the morning and 500 at night. Haldol was initiated and increased to 1.5 mg p.o. nightly. She had a positive response to these changes during the hospitalization. She was able to work with the social work team for safe discharge planning. They work towards appropriate outpatient appointments and follow-up. She had significant improvement and she was able to contract for safety outside of the hospital, prior to discharge.? During the hospitalization, patient had routine laboratory studies which were within normal limits except for few outliers.? Additionally there was a general medical evaluation which was also within normal limits and revealed no new acute processes. Discharge Summary: At the time of discharge, psychosis and lethality were denied.? Mood and anxiety were well managed.? Patient endorsed a plan to avoid all drugs of abuse and follow-up with the aftercare recommendations of the treatment team.? Patient was evaluated and deemed to be absent credible lethality, and had achieved the maximum benefit from an inpatient hospitalization, so was discharged. Hospital Course Hospital Course During the hospitalization, the patient had routine laboratory studies which were within normal limits except for a few outliers.? Additionally, there was a general medical evaluation which was also within normal limits and revealed no new acute processes.? At the time of discharge, lethality was denied and psychosis was resolving.? Mood and anxiety were well managed.? The patient endorsed a plan to avoid all drugs of abuse and follow up with the aftercare recommendations of the treatment team.? The patient was evaluated and deemed to be absent credible lethality and had achieved the maximum benefit from an inpatient hospitalization, and so was discharged. ?No changes were made in medication other than an increase in Gabapentin to 200mg three times a day. Involuntary Hold Information 96 Hour Hold: 96 Hour Involuntary Admission: No Other Hold: Hold End Date: 07/04/24 Mental Status Exam MSE Comments: This is an overweight versus obese white female with bridges hair in hospital scrubs with improving grooming and fair eye contact who appeared older than her stated age. There were no abnormal movements except for mild psychomotor slowing/retardation. She was cooperative with exam in no acute distress. Speech was normal in rate and volume, and productivity Mood described as better. Her affect is brighter on discharge. Thought process: linear, logical and goal directed. Thought content: patient denied suicidal or homicidal ideation. No delusions reported or noted but reported having strange thoughts. She did not appear to be responding to internal stimuli. Attention and concentration are intact and memory appeared mostly reliable but none were formally tested. She is alert and oriented times three. Insight and judgment are limited. Impulse control is improving. Recent and remote memory were grossly intact. Discharge Data Studies Completed and Pending: Completed Studies During Hospitalization Category Date Time Status CT head wo con* 7 0450 Stat Cat Scan 06/28/24 16:12 Completed Radiology Impressions Head CT 06/28/24 16:12 IMPRESSION: No acute intracranial abnormality. Laboratory Results WBC 9.18 10^3/uL (3.2 9-11.43) 06/28/24 18:30 Corrected WBC Cancelled 06/28/24 17:10 RBC 4.92 10^6/uL (3.8 5-5.65) 06/28/24 18:30 Hgb 14.90 g/dL (11.27 -16.99) 06/28/24 18:30 Hct 46.5 % (36-47) 06/28/24 18:30 MCV 94.5 fl (85-98) 06/28/24 18:30 MCH 30.3 pg (27-33) 06/28/24 18:30 MCHC 32.0 g/dL (30-55) 06/28/24 18:30 RDW 12.9 % (12.1-15.1 ) 06/28/24 18:30 Plt Count 162 10^3/cmm (157 -399) 06/28/24 18:30 MPV 11.1 fL (7.4-10.4 ) H 06/28/24 18:30 Gran % Cancelled 06/28/24 17:10 Neut % (Auto) 38.9 % 06/28/24 18:30 Lymph % (Auto) 52.3 % 06/28/24 18:30 Ashe % (Auto) 7.1 % 06/28/24 18:30 Eos % (Auto) 1.0 % 06/28/24 18:30 Baso % (Auto) 0.5 % 06/28/24 18:30 Neut # (Auto) 3.57 10^3/uL (1.8 -7.7) 06/28/24 18:30 Lymph # (Auto) 4.8 10^3/uL (0.8- 4.8) 06/28/24 18:30 Ashe # (Auto) 0.7 10^3/uL (0.2- 0.9) 06/28/24 18:30 Eos # (Auto) 0.1 10^3/uL (0.0- 0.8) 06/28/24 18:30 Baso # (Auto) 0.1 10^3/uL (0.0- 0.1) 06/28/24 18:30 Absolute Gran (aut o) Cancelled 06/28/24 17:10 Nucleated RBC % (a uto) 0 % 06/28/24 18:30 Nucleated RBCs # 0.0 /100WBC 06/28/24 18:30 Sodium 140 mmol/L (136-1 45) 06/28/24 17:12 Potassium 4.0 mmol/L (3.5-5 .1) 06/28/24 17:12 Chloride 105 mmol/L (98-10 7) 06/28/24 17:12 Carbon Dioxide 24 mmol/L (22-29) 06/28/24 17:12 Anion Gap 15.0 (5-19) 06/28/24 17:12 BUN 15 mg/dL (6-20) 06/28/24 17:12 Creatinine 0.9 mg/dL (0.5-0. 9) 06/28/24 17:12 GFR Calculation 64.8 mL/min (90-1 30) L 06/28/24 17:12 Glucose 102 mg/dL (65-115 ) 06/28/24 17:12 Calculated Osmolal ity 291 mOsm/kg (285- 295) 06/28/24 17:12 Calcium 8.8 mg/dL (8.5-10 .5) 06/28/24 17:12 Total Bilirubin 0.2 mg/dL (0.15-1 .2) 06/28/24 17:12 AST 18 U/L (0-32) 06/28/24 17:12 ALT 24 U/L (0-33) 06/28/24 17:12 Alkaline Phosphata se 91 U/L (35-105) 06/28/24 17:12 Troponin T Baselin e < 6 ng/L (0-10) 06/28/24 17:10 Total Protein 7.2 g/dL (6.6-8.7 ) 06/28/24 17:12 Albumin 4.4 g/dL (3.5-5.2 ) 06/28/24 17:12 Globulin 2.8 g/dL (1.3-4.6 ) 06/28/24 17:12 Salicylates < 0.3 mg/dL (3-10 ) L 06/28/24 17:12 Urine Opiates Scre en Negative ng/mL (N egative) 06/28/24 16:23 Acetaminophen < 5.0 ug/mL (10-3 0) L 06/28/24 17:12 Ur Barbiturates Sc reen Negative ng/mL (N egative) 06/28/24 16:23 Valproic Acid 53.0 ug/mL (50-10 0) 06/28/24 17:12 Ur Phencyclidine S crn Negative ng/mL (N egative) 06/28/24 16:23 Ur Amphetamines Sc reen Negative ng/mL (N egative) 06/28/24 16:23 U Benzodiazepines Scrn Negative ng/mL (N egative) 06/28/24 16:23 Urine Cocaine Scre en Negative ng/mL (N egative) 06/28/24 16:23 U Marijuana (THC) Screen Positive ng/mL (N egative) H 06/28/24 16:23 Ethyl Alcohol < 10 mg/dL (0-10) 06/28/24 17:12 Vitals: Last Vital Signs Temp 97.6 F 07/04/24 04:57 Pulse 82 07/04/24 04:57 Resp 18 07/04/24 04:57 BP 122/85 07/04/24 04:57 Pulse Ox 95 07/04/24 04:57 O2 Del Method Room Air 07/04/24 04:57 Discharge Plan Discharge Patient Disposition: Home Condition: Stable Prescriptions: New gabapentin 100 mg Capsule 200 mg PO TID 30 Days Qty: 180 1RF Continued haloperidol 1 mg tablet 1.5 mg PO DAILY 30 Days Qty: 45 2RF trazodone 100 mg tablet 200 mg PO BEDTIME PRN (Reason: insomnia) 30 Days Qty: 60 2RF divalproex 500 mg tablet extended release 24 hr 1,000 mg PO DAILY Discontinued gabapentin 100 mg capsule 100 mg PO TID 30 Days Qty: 90 2RF Discharge Orders: Discharge Order (Routine); Ordered 07/04/24 Ordered By: Rodger Alexis Referrals: Alem Interiano NP [Nurse Practitioner] - 07/17/24 10:30 am (Follow up) Richard Valenzuela MD [Physician] - 07/07/24 3:15 pm (Follow up) Discharge Diet: Usual diet Discharge Activity: Resume usual activity Patient Instructions: Trazodone (By mouth), Haloperidol (By injection) (Haldol, Haldol Decanoate, Novaplus..., Depression (DC), Help Prevent Suicide (DC), Suicide Prevention (DC), Opioid Safety Discharge Attestations NPU Time Spent in Discharge Care*: less than 30 min Coding Level of Care Code Acute Code for g Fwd Diagnoses Bipolar disorder, curr episode mixed, severe, w/o psychotic features F31.63 Suicidal ideation R45.851 Bipolar 1 disorder, depressed F31.9 Generalized anxiety disorder F41.1 Borderline personality disorder F60.3 Cannabis use disorder F12.90
[2024-07-04 13:12] VITALS: BP 122/85; PULSE 82; RESP 18; TEMP 36.4; O2SAT 95
== END 2024-07-04 14:21 | disposition home or self-care (01) | DRG 885 ==
LOC: ER 19:55 → NP 20:12
PROVIDERS: Admitting Provider Psychiatry & Neurology Psychiatry; Emergency Provider Emergency Medicine; PCP Family Medicine; Visit Provider Psychiatry & Neurology Psychiatry
DX: F31.63 Bipolar disorder, current episode mixed, severe, without psychotic features (principal); R45.851 Suicidal ideations; F60.3 Borderline personality disorder; F41.1 Generalized anxiety disorder; F12.129 Cannabis abuse with intoxication, unspecified; E66.9 Obesity, unspecified; G89.29 Other chronic pain; I10 Essential (primary) hypertension; Z85.3 Personal history of malignant neoplasm of breast; E78.5 Hyperlipidemia, unspecified; Z87.891 Personal history of nicotine dependence; R56.9 Unspecified convulsions; Z68.31 Body mass index [BMI] 31.0-31.9, adult
CPT/HCPCS: 36415; 70450; 80053; 80164; 80306; 80307; 84484; 85025; 90471; 90686; 93005; 96372; 97150; 97165; 99285; J2060

== ENCOUNTER → 2025-02-13 15:37 | Outpatient (BNVA) | payer MEDICARE, MEDICAID, OTHER, SELFPAY | PROVIDERS: PCP Family Medicine; Visit Provider Nurse Practitioner Psychiatric/Mental Health | DX: Z79.899 Other long term (current) drug therapy (principal); Z51.81 Encounter for therapeutic drug level monitoring | CPT/HCPCS: 80053; 80061; 80164 ==

== ENCOUNTER 2025-06-01 15:38 | Emergency (ER) | payer OTHER, SELFPAY ==
[2025-06-01 15:38] VITALS: BP 121/69; PULSE 88; RESP 17; TEMP 36.8; O2SAT 96; BMI 29.0
--- NOTE | 2025-06-01 15:42 | XR_ITS ---
WS: [id number] XR chest 1V portable [id number] REASON FOR EXAM: weakness FINDINGS: The chest is unchanged compared to 09/20/2022. The heart and the mediastinum are within normal limits. Calcified granulomatous disease bilaterally. No acute pulmonary parenchymal or pleural abnormality is identified. XR/XR chest 1V portable [id number] IMPRESSION: Stable chest without acute abnormality.
--- OUTSIDE RECORDS SUMMARY | 2025-06-01 15:57 | XMS_ITS | Encounter Summary ---
Author Organization [facility] Address [address] [place] [address] Care Team Providers Care Aircraft Load Controller Name Role Phone Unavailable Primary Care Provider Unavailabl e Encounter Details Date Type Department Care Team (Late st Contact Info) Description 05/29/2025 External Device Data [facility] Provider, Abstract NO ADDRESS ON FILE Social History Tobacco Use Types Packs/Day Years Used Date Smoking Tobacco: Former Cigarettes Smokeless Tobacco: Never Alcohol Use Standard Drinks/Week Comments Never 0 (1 standard drink = 0.6 oz pur e alcohol) Comments Unknown Sex and Gender Information Value Date Recorded Sex Assigned at Not on file Legal Sex Female 11:12 AM CDT Gender Identity Not on file Sexual Orientation Not on file documented as of this encounter Plan of Treatment Not on file documented as of this encounter Visit Diagnoses Not on filedocumented in this encounter Additional Health Concerns Assessment Noted Time PHQ-9 Depression Total Score: 6 11/21/19 25 1:17 PM CDT documented as of this encounter
--- OUTSIDE RECORDS SUMMARY | 2025-06-01 15:57 | XMS_ITS | Clinical Summary ---
Author Organization [facility] Address [address] [place] [address] Care Team Providers Care Television Cabinet Finisher Name Role Phone Unavailable Primary Care Provider Unavailabl e Allergies Active Allergy Reactions Criticality Noted Date Comments Sulfa (Sulfonamide Antibiotics) Nausea and Vomiting Medium 11/20/2024 Medications divalproex (DEPAKOTE ER) 500 mg Extended Release 24 hour tablet Take 2 Tablets by mouth daily. 11/06/2024 Active gabapentin (NEURONTIN) 100 mg capsule Take 200 mg by mouth 3 times daily. 09/29/2024 Active haloperidoL (HALDOL) 1 mg tablet Take 1.5 Tablets by mouth daily. 09/29/2024 Active hydrOXYzine HCL (ATARAX) 50 mg tablet Take 50 mg by mouth 2 times daily as needed for Anxiety. 11/06/2024 Active lurasidone (LATUDA) 40 mg Tablet tablet Take 40 mg by mouth daily with supper. 11/06/2024 Active traZODone (DESYREL) 100 mg tablet Take 200 mg by mouth daily at bedtime. 11/06/2024 Active Active Problems Problem Noted Date Diagnosed Date Bipolar 1 disorder 11/20/2024 Encounters Date Type Department Care Team Description 05/29/2025 External Device Data [facility] ABSTRACTION Provider, Abstract 04/17/2025 External Device Data [facility]STRACTION Provider, Abstract 03/28/2025 External Device Data [facility]CTION Provider, Abstract 03/27/2025 External Device Data [facility]STRACTION Provider, Abstract from Last 3 Months Social History Tobacco Use Types Packs/Day Years Used Date Smoking Tobacco: Former Cigarettes Smokeless Tobacco: Never Tobacco Cessation:Counseling Given: Not Answered Alcohol Use Standard Drinks/Week Comments Never 0 (1 standard drink = 0.6 oz pur e alcohol) Comments Unknown Sex and Gender Information Value Date Recorded Sex Assigned at Not on file Legal Sex Female 11:12 AM CDT Gender Identity Not on file Sexual Orientation Not on file Last Filed Vital Signs Vital Sign Reading Time Taken Comments Blood Pressure 120/60 11/20/2024 1:21 PM CDT Pulse 78 11/20/2024 1:21 PM CDT Temperature 37.3 C (99.2 F) 11/20/2024 1:21 PM CDT Respiratory Rate - - Oxygen Saturation 96% 11/20/2024 1:21 PM CDT Inhaled Oxygen Concentration - - Weight 83.1 kg (183 lb 2 oz) 11/20/2024 1:21 PM CDT Height 167.6 cm (5' 6 ) 11/20/2024 1:21 PM CDT s tated Body Mass Index 29.56 11/20/2024 1:21 PM CDT Plan of Treatment Health Maintenance Due Date Last Done Comments Pre-Diabetes and Diabetes Screening 1965 DTAP/TDAP/TD VACCINES (1 - Tdap) 11/22/1986 HEPATITIS B VACCINES (1 of 3 - 19+ 3-dose series) 11/22/1986 HPV/Cotest (21-29) 11/22/1988 CERVICAL CANCER SCREENING 11/22/1997 HPV/Cotest (30-65) 11/22/1997 PAP SMEAR 11/22/1997 BREAST CANCER SCREENING 2007 COLORECTAL SCREENING 11/22/2012 Colorectal Cancer Screening 11/22/2012 FIT-DNA Q 3 years 11/22/2012 FIT/FOBT Q 1 year 11/22/2012 Flex Sig/CT Colonography Q 5 years 11/22/2012 ZOSTER VACCINE (1 of 2) 11/22/2017 INFLUENZA VACCINE (#1) 2025 COVID-19 Vaccine (2024-2 6 season) 2025 09/03/2023, 10/22/2021, 01/20/2021, Additional history exists [place] [place] [address] DUAL COMPLETE HMO DSNP [facility] [id number]
--- NOTE | 2025-06-01 16:00 | ED_ITS ---
HPI - Weakness 2 General: Chief complaint: Headache Stated complaint: weakness - all over pain Time Seen by Provider: 06/01/25 15:40 History of Present Illness: Patient is a 59-year-old female with history of bipolar disorder, presents to ED with 4 days of weakness. Patient notes pain in her urinary area, back, shoulders, hips. Subjective fevers noted. Has not seen primary care physician. Mild shortness of breath as per patient. No nausea, vomiting, however malaise is present. No sick contact. States vaccinated from COVID. Associated symptoms: Reports chest pain and chills; Denies fever(s), headache(s), nausea or vomiting Related Data Previous Rx's ?Medication ?Instructions ?Recorded divalproex 500 mg tablet,extended 1,000 mg (2 x 500 mg ) PO DAILY #60 04/23/25 release 24 hr tabs hydroxyzine HCl 50 mg tablet 50 mg PO BID PRN anxiety #60 tabs 04/23/25 lurasidone 40 mg tablet 40 mg PO DAILY #30 tabs 04/13 10/07 trazodone 100 mg tablet See Rx Instructions PO .q hs PRN 04/23/25 sleep 30 days #60 tabs ketorolac 10 mg tablet 10 mg PO Q8H PRN pain 5 days #14 06/01/25 tabs methocarbamol 750 mg tablet 750 mg PO Q8H PRN muscle s pasm #30 06/01/25 tabs Allergies Allergy/AdvReac Type Severity Reaction Status Date / Time Sulfa (Sulfonamide Allergy Unknown Unknown Verified 04/23/25 14:01 Antibiotics) Review of Systems 2 Const: Reports: chills, body aches, change in appetite, fatigue and malaise; Denies: fever(s) ENMT: Denies: throat pain or dental pain Card: Reports: chest pain Resp: Denies: dyspnea GI: Denies: abdominal pain, nausea, vomiting or diarrhea Musc: Reports: neck pain; Denies: back pain Skin/Breast: Denies: rash Neuro: Reports: seizure-like activity; Denies: headache(s) PFSH ED 2 PFSH: Medical History (Updated 06/01/25 @ 17:20 by MOSES Ram) Hypoxia Aspiration pneumonia Metabolic encephalopathy History of suicide attempt [place] toxicity Abnormal thyroid function test Borderline personality disorder Auditory hallucination History of breast cancer Dyslipidemia Depression HTN (hypertension) Psychiatric care Surgical History History of lumpectomy of right breast Social History Smoking and tobacco/nicotine status: former use of tobacco/nicotine Quit status (tobacco/nicotine): has quit using Year quit tobacco: 2021 Second hand smoke exposure: No Alcohol intake: former Substance/Drug Use: former Date of last use: When in school. Physical Exam 2 Const: COMMON NORMALS: no acute distress, patient oriented x3 and healthy appearing HENMT: COMMON NORMALS: normocephalic and atraumatic HEAD & SCALP: n ormocephalic and atraumatic Eye: COMMON NORMALS: Equal, round and reactive pupils present and EOMs intact bilaterally PUPIL: Yes Equal, round and reactive pupils present Neck/C-Spine: COMMON NORMALS: full ROM and supple Chest: COMMONS NORMALS: normal inspection of the chest Resp: COMMON NORMALS: normal respiratory effort, No retractions, No use of accessory muscles and clear to auscultation bilaterally AUSCULTATION: clear to auscultation bilaterally Cardio: COMMON NORMALS: regular rate, regular rhythm and No murmurs present (Cardio) RATE: regular rate RHYTHM: regular rhythm GI: COMMON NORMALS: Normal to inspection, nondistended, normoactive bowel sounds present, Soft to palpation, non-tender and no masses PALPATION: Yes Soft to palpation : COMMON NORMALS: Yes no CVA tenderness BLADDER/KIDNEY EXAM: Yes no CVA tenderness Back/Pelvis: COMMON NORMALS: no CVA tenderness Extremity: COMMON NORMALS: normal to inspection and full ROM Neuro: COMMON NORMALS: patient oriented x3, moves all extremities and no focal motor deficits Psych: COMMON NORMALS: mental status grossly normal and cooperative THOUGHT CONTENT: Yes Suicidality present Skin: COMMON NORMALS: no rashes or lesions noted and no wounds GENERAL SKIN EXAM: no rashes or lesions noted Course 2 Vital Signs: Vital signs: Vital Signs Temperature 98.2 F 06/01/25 15:38 Pulse Rate 88 06/01/25 15:38 Respiratory Rate 17 06/01/25 15:38 Blood Pressure 121/69 06/01/25 15:38 Pulse Oximetry 96 06/01/25 15:38 Oxygen Delivery Me thod Room Air 06/01/25 15:38 MDM - Weakness Medical Decision Making Patient is 59-year-old female that complains of diffuse weakness symptoms. COVID is negative. Lab work is benign. She is improved after treatment with Toradol, Norflex, and Ativan. Suspect association of anxiety as well As viral illness.CPKs negative for acute muscular apathy. Valproic acid is 12 which does not show toxic level. Will discharge home on Robaxin. Medical Records I reviewed the patient's medical records. Lab Data I reviewed the patient's lab results. 06/01/25 16:07 06/01/25 16:07 Radiology Impressions Chest X-Ray 06/01/25 15:42 IMPRESSION: Stable chest without acute abnormality. Laboratory Results WBC 9.09 10^3/uL (3.29-11.43) 06/01/25 16:07 RBC 4.06 10^6/uL (3.85-5.65) 06/01/25 16:07 Hgb 12.60 g/dL (11.27-16.99) 06/01/25 16:07 Hct 36.9 % (36-47) 06/01/25 16:07 MCV 90.9 fl (85-98) 06/01/25 16:07 MCH 31.0 pg (27-33) 06/01/25 16:07 MCHC 34.1 g/dL (30-55) 06/01/25 16:07 RDW 11.8 % (12.1-15.1) L 06/01/25 16:07 Plt Count 390 10^3/cmm (157-399) 06/01/25 16:07 MPV 10.0 fL (7.4-10.4) 06/01/25 16:07 Neut % (Auto) 57.1 % 06/01/25 16:07 Lymph % (Auto) 31.4 % 06/01/25 16:07 [place] % (Auto) 10.0 % 06/01/25 16:07 Eos % (Auto) 0.4 % 06/01/25 16:07 Baso % (Auto) 0.8 % 06/01/25 16:07 Neut # (Auto) 5.19 10^3/uL (1.8-7.7) 06/01/25 16:07 Lymph # (Auto) 2.9 10^3/uL (0.8-4.8) 06/01/25 16:07 [place] # (Auto) 0.9 10^3/uL (0.2-0.9) 06/01/25 16:07 Eos # (Auto) 0.0 10^3/uL (0.0-0.8) 06/01/25 16:07 Baso # (Auto) 0.1 10^3/uL (0.0-0.1) 06/01/25 16:07 Nucleated RBC % (auto) 0 % 06/01/25 16:07 Nucleated RBCs # 0.0 /100WBC 06/01/25 16:07 Sodium 138 mmol/L (136-145) 06/01/25 16:07 Potassium 4.1 mmol/L (3.5-5.1) 06/01/25 16:07 Chloride 101 mmol/L (98-107) 06/01/25 16:07 Carbon Dioxide 22 mmol/L (22-29) 06/01/25 16:07 Anion Gap 19.1 (5-19) H 06/01/25 16:07 BUN 9 mg/dL (6-20) 06/01/25 16:07 Creatinine 0.9 mg/dL (0.5-0.9) 06/01/25 16:07 GFR Calculation 64.5 mL/min (90-130) L 06/01/25 16:07 Glucose 132 mg/dL (65-115) H 06/01/25 16:07 Calculated Osmolality 287 mOsm/kg (285-295) 06/01/25 16:07 Lactic Acid 1.3 mmol/L (0.5-2.2) 06/01/25 16:07 Calcium 9.6 mg/dL (8.5-10.5) 06/01/25 16:07 Total Bilirubin 0.3 mg/dL (0.15-1.2) 06/01/25 16:07 AST 18 U/L (0-32) 06/01/25 16:07 ALT 16 U/L (0-33) 06/01/25 16:07 Alkaline Phosphatase 64 U/L (35-105) 06/01/25 16:07 Creatine Kinase 136 U/L (26-192) 06/01/25 16:07 Total Protein 6.8 g/dL (6.6-8.7) 06/01/25 16:07 Albumin 4.3 g/dL (3.5-5.2) 06/01/25 16:07 Globulin 2.5 g/dL (1.3-4.6) 06/01/25 16:07 Procalcitonin 0.02 ng/mL (0-0.5) 06/01/25 16:07 TSH 1.33 uIU/mL (0.27-4.20) 06/01/25 16:07 Urine Color Yellow (Yellow) 06/01/25 16:57 Urine Appearance Clear (CLEAR) 06/01/25 16:57 Urine pH 7.0 (5-7) 06/01/25 16:57 Ur Specific [place] 1.013 (1.005-1.030) 06/01/25 16:57 Urine Protein Negative (Negative) 06/01/25 16:57 Urine Glucose (UA) Negative (Normal) 06/01/25 16:57 Urine Ketones Negative (Negative) 06/01/25 16:57 Urine Blood Negative (Negative) 06/01/25 16:57 Urine Nitrate Negative (Negative) 06/01/25 16:57 Urine Bilirubin Negative (Negative) 06/01/25 16:57 Urine Urobilinogen 1.0 mg/dL (Negative) 06/01/25 16:57 Ur Leukocyte Esterase Negative (Negative) 06/01/25 16:57 Urine RBC 6-10 /hpf (0-2) 06/01/25 16:57 Urine WBC 0-5 /hpf (0-5) 06/01/25 16:57 Ur Squamous Epith Cells 0-5 /hpf (0-5) 06/01/25 16:57 Amorphous Sediment Not Reportable 06/01/25 16:57 Urine Bacteria None seen /hpf (NONE) 06/01/25 16:57 Hyaline Casts 0-4 /lpf H 06/01/25 16:57 Valproic Acid 12.4 ug/mL (50-100) L 06/01/25 16:07 Influenza A (PCR) Negative (Negative) 06/01/25 15:56 Influenza Type B (PCR) Negative (Negative) 06/01/25 15:56 RSV (PCR) Negative (Negative) 06/01/25 15:56 SARS-CoV-2 (PCR) Negative (Negative) 06/01/25 15:56 All radiology interpretation(s) finalized by discharge Discharge Plan Discharge Patient Disposition: Home Clinical Impression: Viral illness Condition: Stable Prescriptions: New ketorolac 10 mg tablet 10 mg PO Q8H PRN (Reason: pain) 5 Days Qty: 14 0RF methocarbamol 750 mg tablet 750 mg PO Q8H PRN (Reason: muscle spasm) Qty: 30 0RF No Action divalproex 500 mg tablet extended release 24 hr 1,000 mg PO DAILY Qty: 60 1RF Rx Instructions: Take two tablets once daily hydroxyzine HCl 50 mg tablet 50 mg PO BID PRN (Reason: anxiety) Qty: 60 1RF Rx Instructions: Take one tablet morning and evening, if needed for anxiety lurasidone 40 mg tablet 40 mg PO DAILY Qty: 30 1RF Rx Instructions: Take one tablet by mouth daily with food (at least 350 calories) trazodone 100 mg tablet See Rx Instructions PO .q hs PRN (Reason: sleep) 30 Days Qty: 60 1RF Rx Instructions: Take one to two tablets daily at bedtime, if needed for sleep Discharge Orders: Discharge ED (Routine); Ordered 06/01/25 Ordered By: Beth Feliz Referrals: Angelina Rebolledo DO [Primary Care Provider, [facility]] Discharge Diet: As Directed Discharge Activity: Resume usual activity Patient Instructions: Viral Syndrome (ED), Patient Portal & Deepthi Instructions Activity Restrictions/Additional Instructions: -You have a virus of unknown etiology -You can utilize Tylenol for pain. Ketorolac which is similar to ibuprofen has been sent to the pharmacy. Refrain for additional ibuprofen while taking ketorolac. ? Follow-up with your primary care physician. Is important to evaluate your visit with your primary care. 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
[2025-06-01 16:13] LABS: Hematocrit 36.9 % (36-47); Hemoglobin 12.60 g/dL (11.27-16.99); Mean Corpuscular HGB Conc 34.1 g/dL (30-55); Mean Corpuscular Hemoglobin 31.0 pg (27-33); Mean Corpuscular Volume 90.9 fl (85-98); Nucleated Red Blood Cells % 0 %; Platelet Count 390 10^3/cmm (157-399); Red Blood Count 4.06 10^6/uL (3.85-5.65); White Blood Count 9.09 10^3/uL (3.29-11.43)
[2025-06-01] MEDS: orphenadrine 30 mg/mL Inj 2 mL 60 MG IV (16:35)
[2025-06-01] MEDS: LORazepam 1 MG/0.5 ML injection IM (16:35)
[2025-06-01 16:36] LABS: Lactic Sepsis W/Reflex 1.3 mmol/L (0.5-2.2)
[2025-06-01 16:41] LABS: Procalcitonin 0.02 ng/mL (0-0.5); Thyroid Stimulating Hormone 1.33 uIU/mL (0.27-4.20)
[2025-06-01 16:52] LABS: Alanine Aminotransferase 16 U/L (0-33); Albumin Level 4.3 g/dL (3.5-5.2); Alkaline Phosphatase 64 U/L (35-105); Anion Gap 19.1 (5-19); Aspartate Amino Transferase 18 U/L (0-32); Blood Urea Nitrogen 9 mg/dL (6-20); Calcium 9.6 mg/dL (8.5-10.5); Carbon Dioxide 22 mmol/L (22-29); Chloride 101 mmol/L (98-107); Creatinine Clr Calc Pharmacy 74.2939; Globulin 2.5 g/dL (1.3-4.6); Glucose 132 mg/dL (65-115); Osmolality Calculated 287 mOsm/kg (285-295); Potassium 4.1 mmol/L (3.5-5.1); Sodium 138 mmol/L (136-145); Total Protein 6.8 g/dL (6.6-8.7)
[2025-06-01 17:01] LABS: Respiratory Syncytial Virus Ce NEGATIVE (Negative); SARS-CoV-2 PCR NEGATIVE (Negative)
[2025-06-01 17:02] LABS: Glucose Urine UA Negative (Normal); Nitrate Urine Negative (Negative); Specific Gravity, Urine 1.013 (1.005-1.030)
[2025-06-01 17:07] LABS: Add Urine Microscopic? YES
== END 2025-06-01 17:28 | disposition home or self-care (01) ==
PROVIDERS: Emergency Provider Physician Assistant; PCP Family Medicine
DX: B34.9 Viral infection, unspecified (principal); Z11.52 Encounter for screening for COVID-19; Z87.891 Personal history of nicotine dependence; E78.5 Hyperlipidemia, unspecified; I10 Essential (primary) hypertension; Z85.3 Personal history of malignant neoplasm of breast
CPT/HCPCS: 36415; 71045; 80053; 80164; 81001; 82550; 83605; 84145; 84443; 85025; 87637; 96372; 96374; 96375; 99284; J1885; J2060; J2360